=== PATIENT | female | born 1970 | race Caucasian/White ===

== ENCOUNTER 2020-02-09 14:03 | Inpatient (IN) | payer OTHER, SELFPAY ==
[2020-02-09 14:59] VITALS: BP 159/89; PULSE 106; RESP 18; TEMP 36.7; O2SAT 98; BMI 32.8
--- NOTE | 2020-02-09 16:07 | ED_ITS ---
HPI - Abdominal Pain General Chief Complaint: Abdominal Pain Stated Complaint: back pain Time Seen by Provider: 02/09/20 16:07 Source: patient Mode of arrival: ambulatory Limitations: no limitations History of Present Illness HPI narrative: this is a 41-year-old female with history of [id number] diabetes, fibromyalgia, depression, anxiety, polyarthralgia and migraine headache and surgical history of hysterectomy presenting ambulatory via triage with complaint of left-sided abdominal pain that has been going on for past 1-2 months. States now pain radiating to left side of the flank. States she recently was evaluated by her primary care doctor for this had an ultrasound with no specific findings and has not heard anything was told possibly for further investigation and GI follow-up which she has her from. States the discomfort and symptoms have increased thus leading to her having the emergency room visit here. States occasional indigestion and nausea but no vomiting or diarrhea. No fever. MD elicited complaint: abdominal pain and flank pain Onset (ago): month(s) Pain Consistency: intermittent Location: L flank Quality: aching Migration to: LLQ Exacerbating factors: nothing Relieving factors: nothing Related Data Allergies Allergy/AdvReac Type Severity Reaction Status Date / Time doxycycline [DOXYCYCLINE] Allergy Unknown RASH Verified 02/09/20 14:58 metformin Allergy Unknown diarrhea Unverified 11/24/19 00:00 Review of Systems Review of Systems Constitutional: No Weight loss, No Fever, No Chills, No Night Sweats, No Fatigue, No Malaise ENT/Mouth: No Hearing loss, No Ear Pain, No Nasal Congestion, No Sinus Pain, No Hoarseness, No sore throat, No Rhinorrhea, No Swallowing Difficulty Eyes: No Eye Pain, No Swelling, No Redness, No Foreign Body, No Discharge, No Vision Changes Cardiovascular: No Chest Pain, No SOB, No Dyspnea on Exertion, No Orthopnea, No Edema, No Palpitations Respiratory: No Cough, No Sputum, No Wheezing, No Smoke Exposure, No Dyspnea Gastrointestinal: + Nausea, No Vomiting, No Diarrhea, No Constipation, + abdominal Pain, No Hematochezia, No Melena Genitourinary: no irregular bleeding, No Dysuria, No Urinary Frequency, No Hematuria, No Urinary Incontinence, No Urgency, No Flank Pain, No Urinary Flow Changes, No Hesitancy Musculoskeletal: No joint pain, No Myalgias, No Joint Swelling Skin: No Skin Lesions, No rash Neuro: No Weakness, No Numbness, No Paresthesias, No Loss of Consciousness, No Dizziness, No Headache Psych: No Anxiety/Panic, No Depression, No SI/HI/AH/VH, No Social Issues, Heme/Lymph: No Bruising, No Bleeding,No Lymphadenopathy Endocrine: No Polyuria, No Polydipsia, No Temperature Intolerance Yes all other systems are reviewed and are negative Physical Exam Vital Signs: Vital Signs: Vital Signs Temp Pulse Resp BP Pulse Ox 02/09/20 19:32 98.2 F 96 18 116/69 100 02/09/20 14:59 98.1 F 106 H 18 159/89 H 98 Body Mass Index 32.8 Const: General: cooperative and healthy appearing; No acute distress or intoxicated appearing Nutritional Appearance: average body habitus Orientation/consciousness: patient oriented x3 HENMT: Head: Yes normal to inspection Ears: hearing grossly normal bilaterally Eyes: General: appearance normal, both eyes and all related structures Visu al George: normal visual george by confrontation Neck: Neck: Yes normal visual inspection and No tender Thyroid: Thyroid normal Chest: Chest palpation & inspection: normal inspection of the chest Resp: Effort & Inspection: normal respiratory effort Cardio: Jugular venous distension: no JVD GI: Inspection: Yes normal to inspection Percussion: Yes normal to percussion Auscultation: normal bowel sounds : General: Yes no CVA tenderness Back/Spine/Pelvis: Back: no CVA tenderness Skin: General skin exam: no rashes or lesions noted Neuro: General: patient oriented x3 Extrem: General: Yes normal to inspection Course Course Course Narrative: In review 41-year-old female with above history presenting with acute left-sided abdominal pain that is waxing waning type going on for the past month and a half for so seen outpatient by primary care doctor per patient unknown of what the results of her ultrasound were today having continued pain causing her to come into the emergency room. Workup as noted CT with significant abnormality of large mass in the left side involving multiple organs. Case discussed with oncologist Dr. Way recommendation for admission and further investigation of this. Patient has required couple rounds of pain medications case discussed with hospitalist for further management. Consultations Consultation #1: case discussed with oncologist Dr. Way regarding the concerning findings of the CT scan of the abdomen recommendations/agreement with admission. MDM - Abdominal Pain MDM Narrative Medical decision making narrative: Will treat with IV fluids, antiemetic and analgesia p.r.n.. Differential Diagnosis Differential diagnosis: Likely abdominal pain, calculus of kidney, constipation and diverticulitis; Unlikely aortic dissection, acute appendicitis, bowel perforation, endometriosis, gastroenteritis, gastritis, mesenteric ischemia, ovarian cyst, pancreatitis, peptic ulcer disease, renal colic and small bowel obstruction Lab Data Result diagrams: 02/09/20 16:15 02/09/20 16:15 Labs: Lab Results 02/09/20 02/09/20 02/09/20 Range/Units 16:15 16:15 16:15 WBC 9.7 (4.8-10.8) X10*3/uL RBC 5.08 (4.20-5.50) X10*6/uL Hgb 12.9 (12.0-16.0) g/dl Hct 40.4 (37-47) % MCV 79.5 L (80-98) fL MCH 25.4 L (27.0-33.0) pg MCHC 31.9 (31.0-35.0) g/dl RDW 14.6 (11.0-16.0) % Plt Count 482 H (160-400) X10*3/uL MPV 9.4 (9.4-12.3) fL Immature Gran % (Auto) 0.3 (0.0-0.4) % Neut % (Auto) 51.8 (45-73) % Lymph % (Auto) 30.9 (20-40) % Treasure % (Auto) 6.0 (2-11) % Eos % (Auto) 10.2 H (0-4) % Baso % (Auto) 0.8 (0-2) % Lymph # (Auto) 3.0 (1.2-4.9) X10*3/uL Treasure # (Auto) 0.6 (0.1-1.2) X10*3/uL Eos # (Auto) 1.0 H (0.0-0.4) X10*3/uL Baso # (Auto) 0.1 (0.0-0.2) X10*3/uL Abs Immat Gran (auto) 0.03 (0.00-0.03) X10*3/uL Absolute Neuts (auto) 5.0 (2.0-8.3) X10*3/uL Absolute Nucleated RBC 0.000 (0.0-0.012) X10*3/uL Nucleated RBC % (auto) 0.0 (0.0-0.2) /100WBC Hold Blue Top SEE NOTE Sodium (135-145) mmol/L Potassium (3.3-5.1) mmol/l Chloride (96-108) mmol/L Carbon Dioxide (22-29) mmol/L Anion Gap (12-20) BUN (9-16) mg/dL Creatinine (0.5-1.4) mg/dL Estim Creat Clear Calc Estimated GFR Random Glucose (60-115) mg/dL Calcium (8.4-10.2) mg/dL Total Bilirubin (0.0-1.0) mg/dL AST (5-31) U/L ALT (0-31) U/L Alkaline Phosphatase (39-117) U/L Total Protein (6.5-8.0) g/dL Albumin (3.5-5.0) g/dL Lipase (8-78) U/L Urine Color YELLOW Urine Appearance CLEAR Urine pH 6.0 (5.0-8.0) Ur Specific [place] 1.010 (1.005-1.025) Urine Protein NEG (NEG-TRACE) MG/DL Urine Glucose (UA) >=1000 H (NEG) MG/DL Urine Ketones NEG (NEG) MG/DL Urine Blood NEG (NEG) Urine Nitrite NEG (NEG) Ur Leukocyte Esterase NEG (NEG) Urine RBC 0 (0) /HPF Urine WBC 0 (0-4) /HPF Ur Squamous Epith Cells 1+ /LPF Urine Bacteria NONE /LPF Urine Test NEGATIVE (NEGATIVE) 02/09/20 Range/Units 16:15 WBC (4.8-10.8) X10*3/uL RBC (4.20-5.50) X10*6/uL Hgb (12.0-16.0) g/dl Hct (37-47) % MCV (80-98) fL MCH (27.0-33.0) pg MCHC (31.0-35.0) g/dl RDW (11.0-16.0) % Plt Count (160-400) X10*3/uL MPV (9.4-12.3) fL Immature Gran % (Auto) (0.0-0.4) % Neut % (Auto) (45-73) % Lymph % (Auto) (20-40) % Treasure % (Auto) (2-11) % Eos % (Auto) (0-4) % Baso % (Auto) (0-2) % Lymph # (Auto) (1.2-4.9) X10*3/uL Treasure # (Auto) (0.1-1.2) X10*3/uL Eos # (Auto) (0.0-0.4) X10*3/uL Baso # (Auto) (0.0-0.2) X10*3/uL Abs Immat Gran (auto) (0.00-0.03) X10*3/uL Absolute Neuts (auto) (2.0-8.3) X10*3/uL Absolute Nucleated RBC (0.0-0.012) X10*3/uL Nucleated RBC % (auto) (0.0-0.2) /100WBC Hold Blue Top Sodium 141 (135-145) mmol/L Potassium 4.2 (3.3-5.1) mmol/l Chloride 103 (96-108) mmol/L Carbon Dioxide 26 (22-29) mmol/L Anion Gap 16 (12-20) BUN 12 (9-16) mg/dL Creatinine 0.73 (0.5-1.4) mg/dL Estim Creat Clear Calc 96.6 Estimated GFR > 60 Random Glucose 159 H (60-115) mg/dL Calcium 10.2 (8.4-10.2) mg/dL Total Bilirubin 0.6 (0.0-1.0) mg/dL AST 14 (5-31) U/L ALT 11 (0-31) U/L Alkaline Phosphatase 153 H (39-117) U/L Total Protein 7.9 (6.5-8.0) g/dL Albumin 4.5 (3.5-5.0) g/dL Lipase 22 (8-78) U/L Urine Color Urine Appearance Urine pH (5.0-8.0) Ur Specific [place] (1.005-1.025) Urine Protein (NEG-TRACE) MG/DL Urine Glucose (UA) (NEG) MG/DL Urine Ketones (NEG) MG/DL Urine Blood (NEG) Urine Nitrite (NEG) Ur Leukocyte Esterase (NEG) Urine RBC (0) /HPF Urine WBC (0-4) /HPF Ur Squamous Epith Cells /LPF Urine Bacteria /LPF Urine Test (NEGATIVE) Imaging Data CT scan - abdomen: Radiologist's impression: Tabitha rush 49 F 1970 [place] [id number] [address] Scan Report Signed Patient: Tabitha rushMR#: [id number] : 1970Acct:[id number] Age/Sex: 49 / FADM Date: 02/09/20 Loc: HO.ED Attending Dr: Ordering Physician: Albert Kevin NP Date of Service: 02/09/20 Procedure(s): CT abdomen pelvis w con Accession Number(s): [id number] cc: Albert Kevin NP~ EXAMINATION: CT ABDOMEN AND PELVIS WITH CONTRAST CLINICAL INFORMATION: left side abd / flank COMPARISON: 01/26/2020 ultrasound and the 01/11/2015 CT scan TECHNIQUE: Multidetector volumetric imaging was performed from the superior aspect of the liver through the pubic symphysis following administration of 85 cc of Omnipaque intravenous contrast Sagittal and coronal reformatted images were obtained on the technologist workstation.. This CT examination was performed using dose optimization techniques as appropriate, variously including the following: *Automated exposure control *Adjustment of mA and/or kV according to patient size (this includes techniques or standardized protocols for targeted exams where dose is matched to indication/reason for exam; i.e. extremities or head) *Use of iterative reconstruction technique DLP: 644 mGy-cm FINDINGS: LUNG BASES: The visualized lung bases are unremarkable. LIVER, GALLBLADDER, AND BILIARY TREE: The liver is normal in size, shape, and attenuation. No focal hepatic lesion or biliary ductal dilatation is present. The gallbladder is unremarkable with no evidence of radiopaque gallstones, gallbladder wall thickening, or obvious pericholecystic inflammatory changes. PANCREAS: Unfortunately there is a large mass lesion there is involving the pancreatic tail and directly contiguous with the spleen, left adrenal gland, and posterior wall of the stomach. This large confluent mass is approximately 12.1 cm in maximal diameter. There is a more normal appearance to the pancreatic head, neck, and body. SPLEEN: Enlarged confluent mass involving the majority of the pancreas but extending into the adjacent structures as described above. ADRENAL GLANDS: The left adrenal gland is encased by the left upper quadrant ill-defined mass. Normal appearance to the contralateral right adrenal gland KIDNEYS AND URETERS: The kidneys are normal in size, shape, and attenuation. No hydronephrosis, hydroureter, or calculi seen. No perinephric stranding. BLADDER: Unremarkable. GASTROINTESTINAL TRACT: There are a few scattered colonic diverticula but no evidence for diverticulitis. Normal-appearing appendix in the right lower quadrant. Visualized small bowel is unremarkable. The left upper quadrant mass lesion unfortunately involves the posterior wall of the stomach. ABDOMINAL WALL: No significant hernia is appreciated. LYMPHOVASCULAR STRUCTURES: No lymphadenopathy. The aorta is unremarkable. PELVIC VISCERA: Unremarkable. OSSEOUS STRUCTURES: Unremarkable. IMPRESSION: Unfortunately there is a very large mass lesion left upper quadrant involving several directly adjacent organs. The majority of the spleen is involved by this lesion over the lesion extends to the splenic hilum and into the adjacent pancreatic tail, right adrenal gland, and posterior wall of the stomach. Etiology of this infiltrative mass is uncertain. With this lesion involving multiple structures the etiology is uncertain. The epicenter of the lesion likely is within the spleen extending into the adjacent structures. Tissue diagnosis will be needed. Lymphoma would be suspected based on the appearance and configuration however this is slightly more heterogeneous in attenuation than I would expect for lymphoma. With this heterogeneity and extension into adjacent structures, splenic sarcoma would need to be excluded. CT-guided biopsy will likely be needed to assess further. Dictated By:ROSSANA BAL MD Signed By:<Electronically signed by ROSSANA BAL MD in OV>02/09/201921 DD/ 1614 TD/TT: Roll Builder: [place] Discharge Plan Discharge Clinical Impression: Splenic mass, Abnormal CT of the abdomen Abdominal pain Qualifiers: Abdominal location: left upper quadrant Qualified Code(s): R10.12 - Left upper quadrant pain PMFSH Past Medical History Attestation statement: The following information was validated with the patient. Medical History (Updated 02/09/20 @ 21:03 by Albert Kevin NP) Anxiety Depression Diabetes Fibromyalgia Migraines Surgical History (Updated 02/09/20 @ 15:02 by Fouzia Ding) H/O: hysterectomy Social History Social History Alcohol intake: never Smoking Status: Never smoker Use of substances other than those prescribed or required for medical reasons: No Advance Directives: No Advance Directives Information Provided: Yes
--- NOTE | 2020-02-09 16:14 | CT_ITS ---
EXAMINATION: CT ABDOMEN AND PELVIS WITH CONTRAST CLINICAL INFORMATION: left side abd / flank COMPARISON: 01/26/2020 ultrasound and the 01/11/2015 CT scan TECHNIQUE: Multidetector volumetric imaging was performed from the superior aspect of the liver through the pubic symphysis following administration of 85 cc of Omnipaque intravenous contrast Sagittal and coronal reformatted images were obtained on the technologist workstation.. This CT examination was performed using dose optimization techniques as appropriate, variously including the following: *Automated exposure control *Adjustment of mA and/or kV according to patient size (this includes techniques or standardized protocols for targeted exams where dose is matched to indication/reason for exam; i.e. extremities or head) *Use of iterative reconstruction technique DLP: 644 mGy-cm FINDINGS: LUNG BASES: The visualized lung bases are unremarkable. LIVER, GALLBLADDER, AND BILIARY TREE: The liver is normal in size, shape, and attenuation. No focal hepatic lesion or biliary ductal dilatation is present. The gallbladder is unremarkable with no evidence of radiopaque gallstones, gallbladder wall thickening, or obvious pericholecystic inflammatory changes. PANCREAS: Unfortunately there is a large mass lesion there is involving the pancreatic tail and directly contiguous with the spleen, left adrenal gland, and posterior wall of the stomach. This large confluent mass is approximately 12.1 cm in maximal diameter. There is a more normal appearance to the pancreatic head, neck, and body. SPLEEN: Enlarged confluent mass involving the majority of the pancreas but extending into the adjacent structures as described above. ADRENAL GLANDS: The left adrenal gland is encased by the left upper quadrant ill-defined mass. Normal appearance to the contralateral right adrenal gland KIDNEYS AND URETERS: The kidneys are normal in size, shape, and attenuation. No hydronephrosis, hydroureter, or calculi seen. No perinephric stranding. BLADDER: Unremarkable. GASTROINTESTINAL TRACT: There are a few scattered colonic diverticula but no evidence for diverticulitis. Normal-appearing appendix in the right lower quadrant. Visualized small bowel is unremarkable. The left upper quadrant mass lesion unfortunately involves the posterior wall of the stomach. ABDOMINAL WALL: No significant hernia is appreciated. LYMPHOVASCULAR STRUCTURES: No lymphadenopathy. The aorta is unremarkable. PELVIC VISCERA: Unremarkable. OSSEOUS STRUCTURES: Unremarkable. IMPRESSION: Unfortunately there is a very large mass lesion left upper quadrant involving several directly adjacent organs. The majority of the spleen is involved by this lesion over the lesion extends to the splenic hilum and into the adjacent pancreatic tail, right adrenal gland, and posterior wall of the stomach. Etiology of this infiltrative mass is uncertain. With this lesion involving multiple structures the etiology is uncertain. The epicenter of the lesion likely is within the spleen extending into the adjacent structures. Tissue diagnosis will be needed. Lymphoma would be suspected based on the appearance and configuration however this is slightly more heterogeneous in attenuation than I would expect for lymphoma. With this heterogeneity and extension into adjacent structures, splenic sarcoma would need to be excluded. CT-guided biopsy will likely be needed to assess further.
[2020-02-09] MEDS: ondansetron HCL 4 MG/2 ML VIAL IVPUSH (16:28)
[2020-02-09] MEDS: 0.9 % Sodium Chloride 1,000 ML 999 ML IVCONT (16:28)
[2020-02-09 16:30] LABS: MANUAL DIFF FLAG NO
[2020-02-09 16:31] LABS: Basophils Absolute Auto 0.1 X10*3/uL (0.0-0.2); Basophils Percent Auto 0.8 % (0-2); Eosinophils Percent Auto 10.2 % (0-4); Hematocrit 40.4 % (37-47); Hemoglobin 12.9 g/dl (12.0-16.0); Imm Gran Abs Auto 0.03 X10*3/uL (0.00-0.03); Imm Gran Pct Auto 0.3 % (0.0-0.4); Lymphocytes Percent Auto 30.9 % (20-40); Mean Corpuscular HGB Conc 31.9 g/dl (31.0-35.0); Mean Corpuscular Hemoglobin 25.4 pg (27.0-33.0); Mean Corpuscular Volume 79.5 fL (80-98); Mean Platelet Volume 9.4 fL (9.4-12.3); Monocytes Absolute Auto 0.6 X10*3/uL (0.1-1.2); Neutrophils Percent Auto 51.8 % (45-73); Platelet Count 482 X10*3/uL (160-400); Red Blood Count 5.08 X10*6/uL (4.20-5.50); Red Cell Distribution Width 14.6 % (11.0-16.0); White Blood Count 9.7 X10*3/uL (4.8-10.8)
[2020-02-09 16:56] LABS: Glucose Urine UA >=1000 MG/DL (NEG); Leukocyte Esterase Urine NEG (NEG); Nitrite Urine NEG (NEG); Urine Blood NEG (NEG); Urine Ketones NEG (NEG); Urine Protein NEG (NEG-TRACE)
[2020-02-09 16:57] LABS: Appearance Urine CLEAR; Color Urine YELLOW
[2020-02-09 17:01] LABS: UPreg QC Valid YES; Urine Pregnancy NEGATIVE (NEGATIVE)
[2020-02-09 17:06] LABS: RBC Urine 0 /HPF (0); Squamous Epithelial Cell Urine 1+ /LPF; WBC Urine 0 /HPF (0-4)
[2020-02-09 17:09] LABS: Alanine Aminotransferase 11 U/L (0-31); Albumin Level 4.5 g/dL (3.5-5.0); Alkaline Phosphatase 153 U/L (39-117); Anion Gap 16 (12-20); Aspartate Amino Transferase 14 U/L (5-31); Bilirubin Total 0.6 mg/dL (0.0-1.0); Blood Urea Nitrogen 12 mg/dL (9-16); Calcium 10.2 mg/dL (8.4-10.2); Carbon Dioxide 26 mmol/L (22-29); Chloride 103 mmol/L (96-108); Creatinine Clr Calc Pharmacy 96.6; Estimated Glomerular Filt Rate > 60; Glucose Random 159 mg/dL (60-115); Lipase 22 U/L (8-78); Potassium 4.2 mmol/l (3.3-5.1); Sodium 141 mmol/L (135-145); Total Protein 7.9 g/dL (6.5-8.0)
[2020-02-09] MEDS: iohexoL 350 MG/ML 100 ML INFUS..BTL IV (19:02)
[2020-02-09 19:32] VITALS: BP 116/69; PULSE 96; RESP 18; TEMP 36.8; O2SAT 100
[2020-02-09] MEDS: Ketorolac Tromethamine 30 MG/ML VIAL IVPUSH (19:32)
[2020-02-09] MEDS: Morphine Sulfate 4 MG/ML CARTRIDGE IVPUSH (20:00)
--- NOTE | 2020-02-09 23:54 | PM.IMHP ---
History of Present Illness Date of Service: 02/09/20 Chief Complaint: abdominal pain this is a 49-year-old female with past medical history of diabetes, hypertension, fibromyalgia, migraine headaches, depression anxiety who presents to the hospital with complaints of abdominal pain. Patient reports that she has been having left upper quadrant abdominal pain for the past 2 months, radiating to the flank on the left side, she went to her GP which ordered an ultrasound last month which was on equivocal therefore patient was referred to GI but has not seen 1 and therefore decided to come to the hospital as pain worsened in the last 3 days to 10/10. Patient reports that prior to the 3 days pain was 5/10 constant, associated with nausea and vomiting, she has also had loss of appetite and weight loss but cannot tell me how many lb. She has been having constipation. The pain is significantly worse when she takes a deep breath or sleeps on her left side. She also feels fullness and distention of her abdomen. Review of system otherwise negative On arrival to the ED hemodynamically stable. Labs unremarkable CT abdomen showed a large mass lesion in the left upper quadrant involving several directly adjacent organs. The majority of the spleen, pancreatic tail, right adrenal gland, and posterior wall of the stomach etiology is uncertain Per read. Patient will be admitted for further evaluation past medical history: Diabetes, fibromyalgia, hypertension, migraine headaches, anxiety and depression past surgical history: Partial hysterectomy family history: No history of cancer social history: Smokes about half a pack a day but has cut down to about 1 cigarettes daily, denies alcohol and illicit drugs Review of Systems Review of Systems: Yes all other systems are reviewed and are negative [facility] Medical History Anxiety Depression Diabetes Fibromyalgia Migraines Surgical History H/O: hysterectomy Social History Household Members: Family Housing: House Do you presently have visiting nurse or other home services: No Alcohol intake: never Smoking Status: Light tobacco smoker Tobacco Type: Cigarette Patient Interested in Nicotine Replacement: No Use of substances other than those prescribed or required for medical reasons: No Currently Displaying Signs/Symptoms of Drug Intoxication Withdrawal: No Have you been hit, kicked, punched, or otherwise hurt by someone within the past year? If so, by whom?: No Do you feel safe in your current relationship?: Yes Is there a partner from a previous relationship who is making you feel unsafe now?: No Are you made to feel afraid or neglected: No Advance Directives: No Advance Directives Information Provided: Yes Do you have thoughts of harming others: None Do you have a plan to hurt others: No Plan Recently lost weight without trying: No Meds Allergies Allergy/AdvReac Type Severity Reaction Status Date / Time doxycycline [DOXYCYCLINE] Allergy Unknown RASH Verified 02/09/20 14:58 metformin Allergy Unknown diarrhea Unverified 11/24/19 00:00 Home Medications Medication Instructions Recorded Confirmed Type Vitamin D (with calcium) 2,000 units 02/09/20 History dulaglutide [Trulicity] mg SUBCUT DIRECTED 02/09/20 History empagliflozin [Jardiance] mg 02/09/20 History lisinopril 02/09/20 History Physical Exam Vital Signs and Narrative: Vital Signs: Last Vital Signs Temp 98.2 F 02/09/20 19:32 Pulse 96 02/09/20 19:32 Resp 18 02/09/20 19:32 BP 116/69 02/09/20 19:32 Pulse Ox 100 02/09/20 19:32 Body Mass Index 32.8 Const: General: cooperative and no acute distress Orientation/consciousness: patient oriented x3 Eyes: General: appearance normal, both eyes and all related structures Pupils: Equal, round and reactive pupils present Resp: Effort & Inspection: normal respiratory effort and able to speak in complete sentences Auscultation: clear to auscultation bilaterally Cardio: Rate: regular rate Rhythm: regular rhythm GI: Other: slightly tender in the left upper quadrant Palpation (GI): Soft to palpation Auscultation: normal bowel sounds Skin: General skin exam: no rashes or lesions noted Neuro: General: patient oriented x3 Cranial nerves: Yes Equal, round and reactive pupils present Cognition (Neuro): normal cognition Extrem: General: Yes normal to inspection and Yes no pedal edema Results Labs Labs: Laboratory Tests 02/09/20 02/09/20 02/09/20 16:15 16:15 16:15 WBC 9.7 RBC 5.08 Hgb 12.9 Hct 40.4 MCV 79.5 L MCH 25.4 L MCHC 31.9 RDW 14.6 Plt Count 482 H MPV 9.4 Immature Gran % (Auto) 0.3 Neut % (Auto) 51.8 Lymph % (Auto) 30.9 [place] % (Auto) 6.0 Eos % (Auto) 10.2 H Baso % (Auto) 0.8 Lymph # (Auto) 3.0 [place] # (Auto) 0.6 Eos # (Auto) 1.0 H Baso # (Auto) 0.1 Abs Immat Gran (auto) 0.03 Absolute Neuts (auto) 5.0 Absolute Nucleated RBC 0.000 Nucleated RBC % (auto) 0.0 Hold Blue Top SEE NOTE Sodium Potassium Chloride Carbon Dioxide Anion Gap BUN Creatinine Estim Creat Clear Calc Estimated GFR Random Glucose Calcium Total Bilirubin AST ALT Alkaline Phosphatase Total Protein Albumin Lipase Urine Color YELLOW Urine Appearance CLEAR Urine pH 6.0 Ur Specific [place] 1.010 Urine Protein NEG Urine Glucose (UA) >=1000 H Urine Ketones NEG Urine Blood NEG Urine Nitrite NEG Ur Leukocyte Esterase NEG Urine RBC 0 Urine WBC 0 Ur Squamous Epith Cells 1+ Urine Bacteria NONE Urine Test NEGATIVE 02/09/20 16:15 WBC RBC Hgb Hct MCV MCH MCHC RDW Plt Count MPV Immature Gran % (Auto) Neut % (Auto) Lymph % (Auto) [place] % (Auto) Eos % (Auto) Baso % (Auto) Lymph # (Auto) [place] # (Auto) Eos # (Auto) Baso # (Auto) Abs Immat Gran (auto) Absolute Neuts (auto) Absolute Nucleated RBC Nucleated RBC % (auto) Hold Blue Top Sodium 141 Potassium 4.2 Chloride 103 Carbon Dioxide 26 Anion Gap 16 BUN 12 Creatinine 0.73 Estim Creat Clear Calc 96.6 Estimated GFR > 60 Random Glucose 159 H Calcium 10.2 Total Bilirubin 0.6 AST 14 ALT 11 Alkaline Phosphatase 153 H Total Protein 7.9 Albumin 4.5 Lipase 22 Urine Color Urine Appearance Urine pH Ur Specific [place] Urine Protein Urine Glucose (UA) Urine Ketones Urine Blood Urine Nitrite Ur Leukocyte Esterase Urine RBC Urine WBC Ur Squamous Epith Cells Urine Bacteria Urine Test Imaging CT scan - abdomen: Radiologist's impression: IMPRESSION: Unfortunately there is a very large mass lesion left upper quadrant involving several directly adjacent organs. The majority of the spleen is involved by this lesion over the lesion extends to the splenic hilum and into the adjacent pancreatic tail, right adrenal gland, and posterior wall of the stomach. Etiology of this infiltrative mass is uncertain. With this lesion involving multiple structures the etiology is uncertain. The epicenter of the lesion likely is within the spleen extending into the adjacent structures. Tissue diagnosis will be needed. Lymphoma would be suspected based on the appearance and configuration however this is slightly more heterogeneous in attenuation than I would expect for lymphoma. With this heterogeneity and extension into adjacent structures, splenic sarcoma would need to be excluded. CT-guided biopsy will likely be needed to assess further. Assessment and Plan (1) Splenic mass: Status: Acute (2) Abdominal pain: Qualifiers: Abdominal location: left upper quadrant Qualified Code(s): R10.12 - Left upper quadrant pain Status: Acute (3) Abnormal CT of the abdomen: Status: Acute (4) Fibromyalgia: Status: Acute (5) Diabetes: Status: Acute (6) Depression: Status: Acute (7) Anxiety: Status: Acute this is a 49-year-old female with past medical history as above who presents to the hospital abdominal pain found to have an abdominal mass. # Abdominal pain - secondary to a large abdominal mass - also associated with nausea vomiting plan: - pain management , antiemetics - supportive measures # splenic mass - lymphoma versus splenic sarcoma - CT findings as above Plan: - Hematology-Oncology consult - biopsy of the mass in a.m. - general surgery consult # fibromyalgia - does not appear to be on any meds - monitor #DM - Hold home meds - LDSSI - Diabetic diet # Anciety and depression - monitor DVT prophylaxis: Heparin subcu date of service 02/10/2020
[2020-02-09] MEDS: Heparin Sodium,Porcine 5,000 UNIT/ML VIAL 5000 UNIT SUBCUT (23:55)
[2020-02-09] MEDS: 0.9 % Sodium Chloride Flush 3 ML SYRINGE IVFLUSH (23:56)
[2020-02-10] VITALS (12 sets, daily range): BP systolic 90–140; BP diastolic 55–84; PULSE 93–115; RESP 18–20; TEMP 36.1–37.2; O2SAT 97–99; BMI 32.2
--- NOTE | 2020-02-10 | CT_ITS ---
PROCEDURE: CT GUIDED BIOPSY, ABDOMINAL MASS CLINICAL INFORMATION: Left upper quadrant mass COMPARISON: Previous CT of the abdomen and pelvis from yesterday and abdominal ultrasound 01/26/2020 TECHNIQUE: Procedure risks and benefits including bleeding, infection and injury to the adjacent organs was discussed with the patient and informed consent was obtained. The patient was positioned in the supine position. Limited axial images through the upper quadrant was performed. The left upper quadrant was prepped and draped in the usual sterile fashion. The skin and soft tissues were anesthetized with 1% lidocaine plain. Using CT guidance and a coaxial system, access to the left upper quadrant mass adjacent to the greater curvature of the stomach, tail the pancreas and spleen was obtained. 2 22-gauge FNA specimens were obtained. This was followed by 4 20-gauge core biopsies. The patient received Versed 2 mg and fentanyl 100 mcg intravenously during the procedure. Total sedation time was 33 minutes. There is no complication. This CT examination was performed using dose optimization techniques as appropriate, variously including the following: *Automated exposure control *Adjustment of mA and/or kV according to patient size (this includes techniques or standardized protocols for targeted exams where dose is matched to indication/reason for exam; i.e. extremities or head) *Use of iterative reconstruction technique DLP: 174 mGy-cm FINDINGS: There is a soft tissue mass in the left upper quadrant adjacent to the greater curvature of the stomach tail of the pancreas but hilum that was targeted for CT-guided FNA and biopsy. IMPRESSION: CT-guided left upper quadrant mass fna and biopsy.
[2020-02-10] MEDS: Morphine Sulfate 4 MG/ML CARTRIDGE IVPUSH ×2 (00:38→08:33)
[2020-02-10 06:25] LABS: MANUAL DIFF FLAG NO
[2020-02-10 06:46] LABS: Basophils Absolute Auto 0.1 X10*3/uL (0.0-0.2); Basophils Percent Auto 1.2 % (0-2); Eosinophils Absolute Auto 1.1 X10*3/uL (0.0-0.4); Eosinophils Percent Auto 11.7 % (0-4); Hematocrit 35.2 % (37-47); Hemoglobin 11.5 g/dl (12.0-16.0); Imm Gran Abs Auto 0.05 X10*3/uL (0.00-0.03); Imm Gran Pct Auto 0.5 % (0.0-0.4); Lymphocytes Absolute Auto 3.6 X10*3/uL (1.2-4.9); Lymphocytes Percent Auto 37.8 % (20-40); Mean Corpuscular HGB Conc 32.7 g/dl (31.0-35.0); Mean Corpuscular Hemoglobin 26.3 pg (27.0-33.0); Mean Corpuscular Volume 80.5 fL (80-98); Mean Platelet Volume 10.2 fL (9.4-12.3); Monocytes Absolute Auto 0.7 X10*3/uL (0.1-1.2); Monocytes Percent Auto 6.8 % (2-11); Platelet Count 449 X10*3/uL (160-400); Red Blood Count 4.37 X10*6/uL (4.20-5.50); Red Cell Distribution Width 14.7 % (11.0-16.0); White Blood Count 9.5 X10*3/uL (4.8-10.8)
[2020-02-10 07:07] LABS: Anion Gap 14 (12-20); Blood Urea Nitrogen 18 mg/dL (9-16); Calcium 9.3 mg/dL (8.4-10.2); Carbon Dioxide 22 mmol/L (22-29); Chloride 104 mmol/L (96-108); Creatinine Clr Calc Pharmacy 88.6; Estimated Glomerular Filt Rate > 60; Glucose Random 189 mg/dL (60-115); Sodium 136 mmol/L (135-145)
[2020-02-10 07:30] LABS: Glucose, Whole Blood 156 mg/dL (60-115)
[2020-02-10] MEDS: lisinopriL 10 MG TABLET PO (08:29)
[2020-02-10] MEDS: 0.9 % Sodium Chloride Flush 3 ML SYRINGE IVFLUSH ×2 (09:06→20:53)
--- NOTE | 2020-02-10 10:15 | MHC.CM.PN ---
Patient lives in an apartment with her Boyfriend and she is functionally independent. Patient's goal is to return home and CM has initiated and will follow for dc planning.
[2020-02-10 10:36] LABS: Lactate Dehydrogenase 725 U/L (122-220)
--- NOTE | 2020-02-10 10:54 | P.CNHO_ITS ---
Subjective - Subjective Chief complaint: CONSULT FOR: INTRA-ABDOMINAL MASS. COMPLAINTS: ABDOMINAL PAIN. Patient: new to practice Requesting Physician: Sury. Primary Care Provider: Doretha Devine MD Medical Summary: DIAGNOSIS: INTRA-ABDOMINAL MALIGNANCY. HPI - Consult Narrative Reason for consult: Metastatic malignancy. Narrative: Tabitha Bill is a pleasant, 49 year old lady, who complains of abdominal p ain. She tells me the whole thing started around November. Initially she had trouble eating. She had a decreased appetite. She would feel nauseous. Later on she would vomit. She felt colicky abdominal pain intermittently. She later noted pelvic pain. Initially the pain would come and go. Later she noted that if she would take a deep breath in it would come the pain down. The pain has gradually been increasing in intensity. Over the past 5 days it went up to a level of 8. Even Deep breathing hurts. She has lost weight. Her bowels are irregular. Though lately she has been rather constipated. Denies any gross blood in the stools. She feels rather fatigued. Has felt rather feverish. She has noted headaches. She had a CT scan of the abdomen yesterday in the emergency room which revealed: Very large mass lesion left upper quadrant involving several adjacent organs. Majority of the spleen is involved by this lesion. It extends to the splenic hilum and into the adgacent pancreatic tail, right adrenal gland and posterior wall of the stomach. The epicenter of the lesion likely is within this spleen extending into the adjacent structures. lymphoma would be suspected however this is likely more heterogenous in attenuation. differential also includes splenic sarcoma. An Oncology consultation has been called for further evaluation. Review of Systems - Constitutional Reports chills, Reports weakness, Reports weight loss - Eyes Denies change in vision - ENT Reports system reviewed and no additional complaints, except as documented - Cardiovascular Denies chest pain, Denies generalized swelling - Respiratory Reports cough Comments: in the morning - Gastrointestinal Reports abdominal pain, Reports bloating, Reports change in bowel habits, Rep orts constipation, Reports cramping, Reports nausea, Reports vomiting, Denies vomiting blood - Musculoskeletal Denies joint swelling - Integumentary/Breasts Skin/Breast: Denies skin ulcer - Neurologic Reports system reviewed and no additional complaints, except as documented, Reports hearing normal - Psychiatric Reports change in appetite, Reports depression - Hematologic/Lymphatic Denies easy bleeding - Allergic/Immunologic Reports GI upset with certain foods PMFSH Medical History: Medical History (Last Updated 02/10/20 @ 04:59 by Elaine Ga MD) Anxiety Depression Diabetes Fibromyalgia Migraines Surgical History: Surgical History (Last Reviewed 02/10/20 @ 04:54 by Elaine Ga MD) H/O: hysterectomy Smoking status: Light tobacco smoker Home Medications and Allergies Current Medications: Current Medications Generic Name Dose Route Start Last Admin Trade Name Freq PRN Reason Stop Dose Admin Acetaminophen 650 mg 02/09/20 23:38 Acetaminophen 325 Mg Tablet PO Q6H PRN Pain, Mild (Pain Scale 1-3) Docusate Sodium 100 mg 02/09/20 23:38 Docusate Sodium 100 Mg Capsule PO DAILY PRN Constipation Heparin Sodium (Porcine) 5,000 unit 02/09/20 23:38 02/09/20 23:55 Heparin Sodium,Porcine 5,000 Unit/Ml Vial SUBCUT 5,000 unit Q12H MICHEL Administration Insulin Human Lispro 0 unit 02/10/20 07:30 02/10/20 08:29 Insulin Lispro 100 Unit/Ml 3 Ml Vial SUBCUT Not Given QIDACHS [facility] Protocol Lisinopril 10 mg 02/10/20 09:00 02/10/20 08:29 Lisinopril 10 Mg Tablet PO 10 mg DAILY MICHEL Administration Protocol Morphine Sulfate 4 mg 02/09/20 23:38 02/10/20 08:33 Morphine Sulfate 4 Mg/Ml Cartridge IVPUSH 4 mg Q4H PRN Administration Pain, Severe (Pain Scale 7-10) Ondansetron HCl 4 mg 02/09/20 23:38 Ondansetron Hcl 4 Mg/2 Ml Vial IVPUSH Q8H PRN Nausea and Vomiting Oxycodone HCl 5 mg 02/09/20 23:38 Oxycodone Hcl Immed Release 5 Mg Tablet PO Q6H PRN Pain, Severe (Pain Scale 7-10) Sodium Chloride 3 ml 02/10/20 00:00 02/10/20 09:06 0.9 % Sodium Chloride Flush 3 Ml Syringe IVFLUSH 3 ml QSHIFT MICHEL Administration Home Medications Medication Instructions Recorded Confirmed Type Vitamin D (with calcium) 2,000 units 02/09/20 History dulaglutide [Trulicity] mg SUBCUT DIRECTED 02/09/20 History empagliflozin [Jardiance] mg 02/09/20 History lisinopril 02/09/20 History Allergies Allergy/AdvReac Type Severity Reaction Status Date / Time doxycycline [DOXYCYCLINE] Allergy Unknown RASH Verified 02/09/20 14:58 metformin Allergy Unknown diarrhea Unverified 11/24/19 00:00 Physical Exam Vital signs: Vital Signs Temp 98.2 F 02/10/20 08:00 Pulse 93 02/10/20 08:29 Resp 18 02/10/20 08:00 BP 117/78 02/10/20 08:29 Pulse Ox 99 02/10/20 08:00 Intake & Output 02/09/20 02/10/20 02/10/20 18:59 06:59 18:59 Intake Total 1000 / 1000 240 / 240 Output Total 200 / 200 Balance 1000 / 800 -200 / 800 240 / 240 Urine Output (Average ml/kg/hr) 0.20 0.20 Intake: Intake, Oral Amount 240 / 240 Intake, IV Amount 1000 / 1000 0.9 % Sodium Chloride 1,000 ml 1000 / 1000 @ 999 mls/hr IVCONT .Q1H1M [facility] Rx#:[id number] Output: Output, Urine Amount 200 / 200 Other: Breakfast % Eaten 100% Last Bowel Movement 02/07/20 Weight 83.915 kg 82.554 kg Weight 82.554 kg - Constitutional Present: mild distress - Routine HEENT Exam Head: Present: normal inspection, normocephalic ENT: Present: mucous membranes moist - Routine Neck Exam Present: supple - Routine Respiratory Exam Present: CTAB - Routine Cardiovascular Exam Cardiovascular: Present: RRR, S1, S2 - Routine Abdominal Exam Present: distended, firm, hyperactive bowel sounds, tenderness - Routine Rectal Exam Patient deferred: digital exam - Routine Extremities Exam Present: nontender - Routine Back/Spine/Pelvis Exam Back/Spine: Present: full ROM - Detailed Neurological Exam: Coma Scale Eye Opening: Spontaneous (4) Verbal Response: Oriented (5) Motor Response: Obeys commands (6) [place] Coma Scale Total: 15 - Routine Psychiatric Exam Present: anxious, depressed Hem/Onc Consult Result - Labs CBC & Chem 7: 02/10/20 05:55 02/10/20 05:55 Labs: Short CBC 10/12/20 10/13/20 Range/Units 16:15 05:55 WBC 9.7 9.5 (4.8-10.8) X10*3/uL Hgb 12.9 11.5 L (12.0-16.0) g/dl Hct 40.4 35.2 L (37-47) % Plt Count 482 H 449 H (160-400) X10*3/uL BMP 02/09/20 02/10/20 16:15 05:55 Sodium 141 136 Potassium 4.2 4.0 Chloride 103 104 Carbon Dioxide 26 22 BUN 12 18 H Creatinine 0.73 0.79 Calcium 10.2 9.3 Liver Function 02/09/20 Range/Units 16:15 Total Bilirubin 0.6 (0.0-1.0) mg/dL AST 14 (5-31) U/L ALT 11 (0-31) U/L Alkaline Phosphatase 153 H (39-117) U/L Albumin 4.5 (3.5-5.0) g/dL Urine 02/09/20 Range/Units 16:15 Urine Color YELLOW Urine Appearance CLEAR Urine pH 6.0 (5.0-8.0) Ur Specific [place] 1.010 (1.005-1.025) Urine Protein NEG (NEG-TRACE) MG/DL Urine Glucose (UA) >=1000 H (NEG) MG/DL Assessment and Plan (1) Abnormal CT of the abdomen Status: Acute (2) Intra-abdominal malignant neoplasm Status: Acute This is a pleasant 49-year-old lady who presented with a couple of months history of GI complaints. She had colicky abdominal pain, nausea vomiting and constipation. CT scan is as detailed above. Differential diagnosis includes: 1. Lymphoma. 2. GI stromal tumor. 3. Sarcoma. 4. Another primary intra-abdominal malignancy. I have reviewed the imaging with Dr. Kramer from [facility]. PLAN: The plan is to proceed with a CT scan-guided biopsy of the left upper quadrant mass, which is the most accessible site. Will make further treatment plans based upon the exact histology. In the meantime, will check tumor markers: LDH, CA 19-9, and CA 125. All this has been explained to the patient in detail. All her questions have been answered to her satisfaction. Thank you, cc:
[2020-02-10 11:01] LABS: Partial Thromboplastin Time 34.3 SEC (24.1-38.0)
[2020-02-10 11:09] LABS: INTERNATIONAL NORM RATIO 1.2 (0.9-1.1); Prothrombin Time 13.9 SEC (10.8-13.0)
[2020-02-10 11:51] LABS: Glucose, Whole Blood 186 mg/dL (60-115)
--- NOTE | 2020-02-10 15:50 | HO.RADPN ---
RADIOLOGY Narrative Narrative: CT guided left upper quadrant mass fna and biopsy using coaxial system. No complication.
[2020-02-10] MEDS: Lidocaine HCl 1 % 20 ML VIAL 10 ML SUBCUT (15:57)
[2020-02-10 16:48] LABS: Glucose, Whole Blood 136 mg/dL (60-115)
--- NOTE | 2020-02-10 17:50 | P.PNIM_ITS ---
Subjective Subjective Date of Service: 02/10/20 Interval History: Ongoing LUQ pain No fever/chills/night sweats/weight loss Review of Systems Review of Systems: Yes all other systems are reviewed and are negative Physical Exam Vital Signs: Vital Signs: Vital Signs Temp Pulse Resp BP Pulse Ox 02/10/20 17:30 95 20 138/80 97 02/10/20 17:00 99 20 130/79 99 02/10/20 16:30 97 20 124/84 98 02/10/20 16:06 98.2 F 98 20 138/80 98 02/10/20 11:24 98.3 F 100 18 126/83 98 02/10/20 08:29 93 117/78 02/10/20 08:00 98.2 F 93 18 117/78 99 02/10/20 04:00 98 F 93 19 107/66 98 02/10/20 00:00 97 F 93 20 140/79 H 99 02/09/20 19:32 98.2 F 96 18 116/69 100 Body Mass Index 32.2 Const: General: cooperative and no acute distress Chest: Chest palpation & inspection: normal inspection of the chest Resp: Effort & Inspection: normal respiratory effort Auscultation: clear to auscultation bilaterally Cardio: Rate: regular rate Rhythm: regular rhythm GI: Palpation (GI): Tenderness to palpation present (GI) (LUQ) and Splenomegaly present Extrem: General: Yes no clubbing, cyanosis or edema Objective Data Current Medications Generic Name Dose Route Start Last Admin Trade Name Oneilq PRN Reason Stop Dose Admin Acetaminophen 650 mg 02/09/20 23:38 Acetaminophen 325 Mg Tablet PO Q6H PRN Pain, Mild (Pain Scale 1-3) Docusate Sodium 100 mg 02/09/20 23:38 Docusate Sodium 100 Mg Capsule PO DAILY PRN Constipation Heparin Sodium (Porcine) 5,000 unit 02/09/20 23:38 02/10/20 10:56 Heparin Sodium,Porcine 5,000 Unit/Ml Vial SUBCUT Not Given Q12H [facility] Insulin Human Lispro 0 unit 02/10/20 07:30 02/10/20 17:31 Insulin Lispro 100 Unit/Ml 3 Ml Vial SUBCUT Not Given QIDACHS [facility] Protocol Lisinopril 10 mg 02/10/20 09:00 02/10/20 08:29 Lisinopril 10 Mg Tablet PO 10 mg DAILY [facility] Administration Protocol Morphine Sulfate 4 mg 02/09/20 23:38 02/10/20 08:33 Morphine Sulfate 4 Mg/Ml Cartridge IVPUSH 4 mg Q4H PRN Administration Pain, Severe (Pain Scale 7-10) Ondansetron HCl 4 mg 02/09/20 23:38 Ondansetron Hcl 4 Mg/2 Ml Vial IVPUSH Q8H PRN Nausea and Vomiting Oxycodone HCl 5 mg 02/09/20 23:38 Oxycodone Hcl Immed Release 5 Mg Tablet PO Q6H PRN Pain, Severe (Pain Scale 7-10) Sodium Chloride 3 ml 02/10/20 00:00 02/10/20 17:30 0.9 % Sodium Chloride Flush 3 Ml Syringe IVFLUSH Not Given QSHIFT [facility] Labs CBC & Chem 7: 02/10/20 05:55 02/10/20 05:55 Labs: Laboratory Results - last 24 hr 02/10/20 02/10/20 02/10/20 05:55 05:55 07:24 MCV 80.5 MCH 26.3 L MCHC 32.7 RDW 14.7 Plt Count 449 H MPV 10.2 Immature Gran % (Auto) 0.5 H Neut % (Auto) 42.0 L Lymph % (Auto) 37.8 [place] % (Auto) 6.8 Eos % (Auto) 11.7 H Baso % (Auto) 1.2 Lymph # (Auto) 3.6 [place] # (Auto) 0.7 Eos # (Auto) 1.1 H Baso # (Auto) 0.1 Abs Immat Gran (auto) 0.05 H Absolute Neuts (auto) 4.0 Absolute Nucleated RBC 0.000 Nucleated RBC % (auto) 0.0 PT INR APTT Anion Gap 14 Estim Creat Clear Calc 88.6 Estimated GFR > 60 POC Glucose 156 H Random Glucose 189 H Calcium 9.3 Lactate Dehydrogenase 725 H Carcinoembryonic Ag 0.80 02/10/20 02/10/20 02/10/20 10:23 10:23 11:44 MCV MCH MCHC RDW Plt Count MPV Immature Gran % (Auto) Neut % (Auto) Lymph % (Auto) [place] % (Auto) Eos % (Auto) Baso % (Auto) Lymph # (Auto) [place] # (Auto) Eos # (Auto) Baso # (Auto) Abs Immat Gran (auto) Absolute Neuts (auto) Absolute Nucleated RBC Nucleated RBC % (auto) PT Cancelled 13.9 H INR Cancelled 1.2 H APTT 34.3 Anion Gap Estim Creat Clear Calc Estimated GFR POC Glucose 186 H Random Glucose Calcium Lactate Dehydrogenase Carcinoembryonic Ag 02/10/20 16:44 MCV MCH MCHC RDW Plt Count MPV Immature Gran % (Auto) Neut % (Auto) Lymph % (Auto) [place] % (Auto) Eos % (Auto) Baso % (Auto) Lymph # (Auto) [place] # (Auto) Eos # (Auto) Baso # (Auto) Abs Immat Gran (auto) Absolute Neuts (auto) Absolute Nucleated RBC Nucleated RBC % (auto) PT INR APTT Anion Gap Estim Creat Clear Calc Estimated GFR POC Glucose 136 H Random Glucose Calcium Lactate Dehydrogenase Carcinoembryonic Ag Progress Note: A&P (1) Intra-abdominal malignant neoplasm: Status: Acute Assessment and Plan: hospital d#1 49yo F presenting with LUQ pain and found to have large intra-abdominal mass, likely splenic mass, ddx lymphoma vs sarcoma vs GIST vs other intra-abd malignancy # splenic mass - CT-guided biopsy today - LDH elevated, CEA normal, CA-19.9 and CA-125 pending - Heme/Onc following # N/V - continue antiemetics # fibromyalgia - stable # HTN - continue lisionpril # DM2 - DM diet, correction-dose lispro
[2020-02-10] MEDS: oxyCODONE HCl Immed Release 5 MG TABLET PO (20:53)
[2020-02-10 21:01] LABS: Glucose, Whole Blood 195 mg/dL (60-115)
[2020-02-10] MEDS: Heparin Sodium,Porcine 5,000 UNIT/ML VIAL 5000 UNIT SUBCUT (22:48)
[2020-02-11] MEDS: Morphine Sulfate 4 MG/ML CARTRIDGE IVPUSH ×3 (00:55→14:35)
[2020-02-11 04:00] VITALS: BP 115/80; PULSE 98; RESP 18; TEMP 36.9; O2SAT 98
[2020-02-11 06:00] VITALS: BMI 31.8
[2020-02-11 06:23] LABS: MANUAL DIFF FLAG NO
[2020-02-11 06:48] LABS: Basophils Absolute Auto 0.1 X10*3/uL (0.0-0.2); Basophils Percent Auto 0.8 % (0-2); Eosinophils Absolute Auto 0.9 X10*3/uL (0.0-0.4); Eosinophils Percent Auto 9.9 % (0-4); Hematocrit 35.7 % (37-47); Hemoglobin 11.5 g/dl (12.0-16.0); Imm Gran Abs Auto 0.08 X10*3/uL (0.00-0.03); Imm Gran Pct Auto 0.9 % (0.0-0.4); Lymphocytes Absolute Auto 2.9 X10*3/uL (1.2-4.9); Lymphocytes Percent Auto 32.8 % (20-40); Mean Corpuscular HGB Conc 32.2 g/dl (31.0-35.0); Mean Corpuscular Volume 80.6 fL (80-98); Monocytes Absolute Auto 0.6 X10*3/uL (0.1-1.2); Neutrophils Absolute Auto 4.2 X10*3/uL (2.0-8.3); Neutrophils Percent Auto 48.6 % (45-73); Platelet Count 462 X10*3/uL (160-400); Red Blood Count 4.43 X10*6/uL (4.20-5.50); Red Cell Distribution Width 14.9 % (11.0-16.0); White Blood Count 8.7 X10*3/uL (4.8-10.8)
[2020-02-11 07:00] LABS: Estimated Average Glucose 266 mg/dL; Hemoglobin A1c % 10.9 %
[2020-02-11 07:57] LABS: Glucose, Whole Blood 204 mg/dL (60-115)
[2020-02-11 08:00] VITALS: BP 121/67; PULSE 107; RESP 20; TEMP 36.2; O2SAT 97
[2020-02-11] MEDS: 0.9 % Sodium Chloride Flush 3 ML SYRINGE IVFLUSH (08:17)
[2020-02-11 08:20] VITALS: BP 121/67; PULSE 107
[2020-02-11] MEDS: Insulin Lispro 100 UNIT/ML 3 ML VIAL SUBCUT (08:20)
[2020-02-11] MEDS: lisinopriL 10 MG TABLET PO (08:20)
[2020-02-11 12:00] VITALS: BP 132/62; PULSE 88; RESP 20; TEMP 36.2; O2SAT 99
--- NOTE | 2020-02-11 14:29 | P.DS_ITS ---
DS: Providers Provider Date of admission: 02/09/20 21:33 Primary care physician: Doretha Devine MD Consults: 02/09/20 23:38 Consult to Physician Routine Consulting Provider: Cheng Way Reason for consultation: Abdominal Mass Has provider been notified: Yes DS: Diagnosis Discharge Diagnosis (1) Intra-abdominal malignant neoplasm: Status: Acute DS: Summary Hospital Course Hospital Course: From the admission history and physical by hospitalist Elaine Ga, 02/09/20: this is a 49-year-old female with past medical history of diabetes, hypertension, fibromyalgia, migraine headaches, depression anxiety who presents to the hospital with complaints of abdominal pain. Patient reports that she has been having left upper quadrant abdominal pain for the past 2 months, radiating to the flank on the left side, she went to her GP which ordered an ultrasound last month which was on equivocal therefore patient was referred to GI but has not seen 1 and therefore decided to come to the hospital as pain worsened in the last 3 days to 10/10. Patient reports that prior to the 3 days pain was 5/10 constant, associated with nausea and vomiting, she has also had loss of appetite and weight loss but cannot tell me how many lb. She has been having constipation. The pain is significantly worse when she takes a deep breath or sleeps on her left side. She also feels fullness and distention of her abdomen. Review of system otherwise negative On arrival to the ED hemodynamically stable. Labs unremarkable CT abdomen showed a large mass lesion in the left upper quadrant involving several directly adjacent organs. The majority of the spleen, pancreatic tail, right adrenal gland, and posterior wall of the stomach etiology is uncertain Per read. [place] [facility] [place] was consulted. She underwent a CT guided left upper quadrant mass FNA and biopsy using coaxial system on 02/10/[address] Liudmila Kramer without complication. Preliminary pathology showed malignancy of unknown primary and stains and cytogenetics are pending at the time of discharge. She was sent home with follow-up arranged with the oncologist on 03/02/20 at 8:00am at [facility]. She was also prescribed oxycodone 10 mg q6h prn severe pain and should follow up with her primary care doctor within 1 week. Time Spent with Patient Time attestation: Total time spent providing and/or coordinating discharge services: Physical Exam Vital Signs: Vital Signs: Vital Signs Temp Pulse Resp BP Pulse Ox 02/11/20 12:00 97.2 F 88 20 132/62 99 02/11/20 08:20 107 H 121/67 02/11/20 08:00 97.2 F 107 H 20 121/67 97 02/11/20 04:00 98.5 F 98 18 115/80 98 02/10/20 23:57 98.9 F 115 H 18 121/71 97 02/10/20 20:48 98.6 F 109 H 113/68 02/10/20 20:28 98.0 F 107 H 18 90/55 L 97 02/10/20 17:30 95 20 138/80 97 02/10/20 17:00 99 20 130/79 99 02/10/20 16:30 97 20 124/84 98 02/10/20 16:06 98.2 F 98 20 138/80 98 Body Mass Index 31.8 Const: General: no acute distress Orientation/consciousness: patient oriented x3 Eyes: Sclerae: sclerae normal Resp: Effort & Inspection: normal respiratory effort Auscultation: clear to auscultation bilaterally Cardio: Rate: regular rate Rhythm: regular rhythm GI: Inspection: Yes normal to inspection Palpation (GI): Tenderness to palpation present (GI) in the LUQ and Splenomegaly present Neuro: General: patient oriented x3 DS: Data Data Completed and Pending Pending studies at discharge: Pending at discharge 02/10/20 15:36 Cytology [PTH] Stat Labs on day of discharge: Laboratory Results - last 72 hr 02/09/20 02/09/20 02/09/20 16:15 16:15 16:15 WBC 9.7 RBC 5.08 Hgb 12.9 Hct 40.4 MCV 79.5 L MCH 25.4 L MCHC 31.9 RDW 14.6 Plt Count 482 H MPV 9.4 Immature Gran % (Auto) 0.3 Neut % (Auto) 51.8 Lymph % (Auto) 30.9 [place] % (Auto) 6.0 Eos % (Auto) 10.2 H Baso % (Auto) 0.8 Lymph # (Auto) 3.0 [place] # (Auto) 0.6 Eos # (Auto) 1.0 H Baso # (Auto) 0.1 Abs Immat Gran (auto) 0.03 Absolute Neuts (auto) 5.0 Absolute Nucleated RBC 0.000 Nucleated RBC % (auto) 0.0 PT INR APTT Hold Blue Top SEE NOTE Sodium Potassium Chloride Carbon Dioxide Anion Gap BUN Creatinine Estim Creat Clear Calc Estimated GFR POC Glucose Random Glucose Estimat Average Glucose Hemoglobin A1c % Calcium Total Bilirubin AST ALT Alkaline Phosphatase Lactate Dehydrogenase Total Protein Albumin Lipase Carcinoembryonic Ag Urine Color YELLOW Urine Appearance CLEAR Urine pH 6.0 Ur Specific [place] 1.010 Urine Protein NEG Urine Glucose (UA) >=1000 H Urine Ketones NEG Urine Blood NEG Urine Nitrite NEG Ur Leukocyte Esterase NEG Urine RBC 0 Urine WBC 0 Ur Squamous Epith Cells 1+ Urine Bacteria NONE Urine Test NEGATIVE 02/09/20 02/10/20 02/10/20 16:15 05:55 05:55 WBC 9.5 RBC 4.37 Hgb 11.5 L Hct 35.2 L MCV 80.5 MCH 26.3 L MCHC 32.7 RDW 14.7 Plt Count 449 H MPV 10.2 Immature Gran % (Auto) 0.5 H Neut % (Auto) 42.0 L Lymph % (Auto) 37.8 [place] % (Auto) 6.8 Eos % (Auto) 11.7 H Baso % (Auto) 1.2 Lymph # (Auto) 3.6 [place] # (Auto) 0.7 Eos # (Auto) 1.1 H Baso # (Auto) 0.1 Abs Immat Gran (auto) 0.05 H Absolute Neuts (auto) 4.0 Absolute Nucleated RBC 0.000 Nucleated RBC % (auto) 0.0 PT INR APTT Hold Blue Top Sodium 141 136 Potassium 4.2 4.0 Chloride 103 104 Carbon Dioxide 26 22 Anion Gap 16 14 BUN 12 18 H Creatinine 0.73 0.79 Estim Creat Clear Calc 96.6 88.6 Estimated GFR > 60 > 60 POC Glucose Random Glucose 159 H 189 H Estimat Average Glucose Hemoglobin A1c % Calcium 10.2 9.3 Total Bilirubin 0.6 AST 14 ALT 11 Alkaline Phosphatase 153 H Lactate Dehydrogenase 725 H Total Protein 7.9 Albumin 4.5 Lipase 22 Carcinoembryonic Ag 0.80 Urine Color Urine Appearance Urine pH Ur Specific [place] Urine Protein Urine Glucose (UA) Urine Ketones Urine Blood Urine Nitrite Ur Leukocyte Esterase Urine RBC Urine WBC Ur Squamous Epith Cells Urine Bacteria Urine Test 1002/10/20 02/10/20 07:24 10:23 10:23 WBC RBC Hgb Hct MCV MCH MCHC RDW Plt Count MPV Immature Gran % (Auto) Neut % (Auto) Lymph % (Auto) [place] % (Auto) Eos % (Auto) Baso % (Auto) Lymph # (Auto) [place] # (Auto) Eos # (Auto) Baso # (Auto) Abs Immat Gran (auto) Absolute Neuts (auto) Absolute Nucleated RBC Nucleated RBC % (auto) PT Cancelled 13.9 H INR Cancelled 1.2 H APTT 34.3 Hold Blue Top Sodium Potassium Chloride Carbon Dioxide Anion Gap BUN Creatinine Estim Creat Clear Calc Estimated GFR POC Glucose 156 H Random Glucose Estimat Average Glucose Hemoglobin A1c % Calcium Total Bilirubin AST ALT Alkaline Phosphatase Lactate Dehydrogenase Total Protein Albumin Lipase Carcinoembryonic Ag Urine Color Urine Appearance Urine pH Ur Specific [place] Urine Protein Urine Glucose (UA) Urine Ketones Urine Blood Urine Nitrite Ur Leukocyte Esterase Urine RBC Urine WBC Ur Squamous Epith Cells Urine Bacteria Urine Test 02/10/20 02/10/20 02/10/20 11:44 16:44 20:54 WBC RBC Hgb Hct MCV MCH MCHC RDW Plt Count MPV Immature Gran % (Auto) Neut % (Auto) Lymph % (Auto) [place] % (Auto) Eos % (Auto) Baso % (Auto) Lymph # (Auto) [place] # (Auto) Eos # (Auto) Baso # (Auto) Abs Immat Gran (auto) Absolute Neuts (auto) Absolute Nucleated RBC Nucleated RBC % (auto) PT INR APTT Hold Blue Top Sodium Potassium Chloride Carbon Dioxide Anion Gap BUN Creatinine Estim Creat Clear Calc Estimated GFR POC Glucose 186 H 136 H 195 H Random Glucose Estimat Average Glucose Hemoglobin A1c % Calcium Total Bilirubin AST ALT Alkaline Phosphatase Lactate Dehydrogenase Total Protein Albumin Lipase Carcinoembryonic Ag Urine Color Urine Appearance Urine pH Ur Specific [place] Urine Protein Urine Glucose (UA) Urine Ketones Urine Blood Urine Nitrite Ur Leukocyte Esterase Urine RBC Urine WBC Ur Squamous Epith Cells Urine Bacteria Urine Test 02/11/20 02/11/20 02/11/20 05:36 05:36 07:53 WBC 8.7 RBC 4.43 Hgb 11.5 L Hct 35.7 L MCV 80.6 MCH 26.0 L MCHC 32.2 RDW 14.9 Plt Count 462 H MPV 10.0 Immature Gran % (Auto) 0.9 H Neut % (Auto) 48.6 Lymph % (Auto) 32.8 [place] % (Auto) 7.0 Eos % (Auto) 9.9 H Baso % (Auto) 0.8 Lymph # (Auto) 2.9 [place] # (Auto) 0.6 Eos # (Auto) 0.9 H Baso # (Auto) 0.1 Abs Immat Gran (auto) 0.08 H Absolute Neuts (auto) 4.2 Absolute Nucleated RBC 0.000 Nucleated RBC % (auto) 0.0 PT INR APTT Hold Blue Top Sodium Potassium Chloride Carbon Dioxide Anion Gap BUN Creatinine Estim Creat Clear Calc Estimated GFR POC Glucose 204 H Random Glucose Estimat Average Glucose 266 Hemoglobin A1c % 10.9 Calcium Total Bilirubin AST ALT Alkaline Phosphatase Lactate Dehydrogenase Total Protein Albumin Lipase Carcinoembryonic Ag Urine Color Urine Appearance Urine pH Ur Specific [place] Urine Protein Urine Glucose (UA) Urine Ketones Urine Blood Urine Nitrite Ur Leukocyte Esterase Urine RBC Urine WBC Ur Squamous Epith Cells Urine Bacteria Urine Test CT abdomen/pelvis with contrast, 02/09/20: Unfortunately there is a very large mass lesion left upper quadrant involving several directly adjacent organs. The majority of the spleen is involved by this lesion over the lesion extends to the splenic hilum and into the adjacent pancreatic tail, right adrenal gland, and posterior wall of the stomach. Etiology of this infiltrative mass is uncertain. With this lesion involving multiple structures the etiology is uncertain. The epicenter of the lesion likely is within the spleen extending into the adjacent structures. Tissue diagnosis will be needed. Lymphoma would be suspected based on the appearance and configuration however this is slightly more heterogeneous in attenuation than I would expect for lymphoma. With this heterogeneity and extension into adjacent structures, splenic sarcoma would need to be excluded. CT-guided biopsy will likely be needed to assess further. Discharge Plan Discharge Patient Disposition: Home, Self-Care Referrals: Doretha Spencer MD [Primary Care Provider] - Discharge Medications: New oxycodone 10 mg tablet 10 mg PO Q6H PRN (Reason: pain) Qty: 28 RF: 0 oxycodone 5 mg Tablet 10 mg PO Q6H PRN (Reason: Pain, Severe (Pain Scale 7-10)) Qty: 0 RF: 0 Continued lisinopril 10 mg Tablet RF: 0 Jardiance 10 mg Tablet RF: 0 Trulicity 0.75 mg/0.5 mL Pen Injector SUBCUT DIRECTED RF: 0 Vitamin D (with calcium) 2,000 units RF: 0 Discharge Orders: Discharge Order (Routine); Ordered 02/11/20 Ordered By: Stanislav Quinones Diet: advance to your usual diet Activity on Discharge: As tolerated Visit Report Forms: Patient Portal Discharge page Care Plan Goals: diagnose and treat neoplasm Health Concerns: neoplasm, pending workup Plan of Treatment: Please follow up with Cheng Way at [facility] Hematology-Onco logy Appointment is on Monday, March 02, 2020, at 8:[address] [address] For severe pain, take 1 tab of oxycodone 10 mg every 6 hours as needed.
--- NOTE | 2020-02-11 14:31 | MHC.CM.PN ---
Patient has been medically cleared for dc to home today, no services. F/U appointment with Dr. Way (Oncology) is 03/02/20 at 8 AM; MD is aware.
[2020-02-11 21:22] LABS: CA-125 37 U/mL (<35)
[2020-02-12 12:27] LABS: Carbohydrate Antigen 19-9 17 U/mL (<34)
== END 2020-02-11 16:00 | disposition home or self-care (01) | DRG 694 ==
LOC: HO.ED 21:26 → HO.IMC 22:21
PROVIDERS: Internal Medicine Medical Oncology; Nurse Practitioner Primary Care; Admitting Provider Internal Medicine; Emergency Provider Internal Medicine; PCP Internal Medicine; Visit Provider Family Medicine
DX: C80.1 Malignant (primary) neoplasm, unspecified (principal); F17.210 Nicotine dependence, cigarettes, uncomplicated; F41.9 Anxiety disorder, unspecified; F32.9 Major depressive disorder, single episode, unspecified; M79.7 Fibromyalgia; Z71.6 Tobacco abuse counseling; Z79.899 Other long term (current) drug therapy
CPT/HCPCS: 36415; 49180; 74177; 77012; 80048; 80053; 81001; 81025; 82378; 82947; 83036; 83615; 83690; 85025; 85610; 85730; 86301; 86304; 88172; 88173; 88177; 88305; 88341; 88342; 88360; 96361; 96374; 96375; 99152; 99153; 99285; J1885; J2270; J2405

== ENCOUNTER → 2020-03-04 08:40 | Outpatient (BNV) | payer OTHER, SELFPAY | PROVIDERS: PCP Internal Medicine; Visit Provider Internal Medicine Medical Oncology | DX: C76.2 Malignant neoplasm of abdomen (principal) | CPT/HCPCS: 99212; 99213; 99214 ==

== ENCOUNTER → 2020-03-16 09:21 | Outpatient (REF) | payer OTHER, SELFPAY ==
--- NOTE | 2020-03-16 09:25 | CA_ITS ---
Transthoracic Echocardiogram Patient (Last, First, Middle): Tabitha Bill Luz Gender: Female Date of : 1970 Age: 49 Procedure Date: 03/16/2020 Procedure Type: Transthoracic Echocardiogram Location: OP Height: 160.02 cm Weight: 79.38 kg BSA: 1.83 m2 Heart Rate: bpm BP: 104 / 66 mmHg Critical Care Rn: Referring MD: Cheng Way MD Symptoms: Pre chemotherapy Study Quality: Good ECG Rhythm: Sinus Conclusions: - The left ventricular systolic function is normal. The visually estimated ejection fraction is between 55-60%. - No obvious valvular pathology seen on this study. Findings Left Ventricle Normal left ventricular cavity size. There is normal left ventricular wall thickness. The left ventricular systolic function is normal. The visually estimated ejection fraction is between 55-60%. There is no evidence of regional wall motion abnormalities. Diastolic function is normal for age. Strain imaging with suboptimal endocardial tracking and hence not reported. Right Ventricle Normal right ventricular cavity size and systolic function. Atria Both atria are normal in size. Aortic Valve There is a normal trileaflet aortic valve. There is no aortic valve stenosis. There is no aortic valve regurgitation. Mitral Valve The mitral valve appears normal. There is trace mitral valve regurgitation. There is no mitral valve stenosis. Pulmonic Valve The pulmonic valve was not well visualized. Tricuspid Valve Normal tricuspid valve structure. There is trace tricuspid valve regurgitation. The pulmonary artery systolic pressure is normal. Great Vessels The asc aorta is normal in size. Venous The inferior vena cava is normal in size and collapses greater than 50% with inspiration. Pericardium/Pleural There is no evidence of pericardial effusion. Prior Study Comparison No prior study available for comparison. Recommendations, Care & Conclusions No obvious valvular pathology seen on this study. Measurements 2D Linear Measurements RVIDd: 2.86 RVIDd Index: 1.56 IVSd: 0.82 0.6-0.9/0.6-1.0 cm LVIDd: 4.55 3.9-5.3/4.2-5.9 cm LVIDd Index: 2.49 2.4-3.2/2.2-3.1 cm/m2 LVIDs: 2.91 2.0-3.6 cm LVPWd: 0.93 0.7-1.1 cm Ao Root: 3.00 2.1-3.5 cm LA Diam: 3.00 2.7-3.8/3.0-4.0 cm LAIDs Index: 1.64 1.5-2.3 cm/m2 LV Mass: 161.34 67-162/88-224 g LV Mass Index: 88.17 43-95/49-115 g/m2 LVOT Diam: 2.10 3.0+(-)1.3 cm 2D Systolic Function EF 4C: 48.20 >55% EF 2C: 57.90 >55% Mitral Valve MV Pk E: 0.61 MV PK A: 0.75 MV Decel Time: 98.00 E/A: 0.80 E'Lateral: 8.70 E'Medial: 8.05 E/E' Med: 7.50 E/E' Lat: 7.00 Aortic Valve AoV Pk Peewee: 1.48 AoV Mn [place]: 1.01 AoV VTI: 0.24 AoV Pk Grad: 9.00 Aov Mn Grad: 5.00 BENJIE Cont.VTI: 2.74 LVOT LVOT Pk [place]: 1.17 LVOT Mn [place]wee: 0.73 LVOT VTI: 0.19 LVOT Pk Grad: 5.00 LVOT Mn Grad: 3.00 LVOT Diam: 2.10 LVOT Area: 3.46 Diastolic Function MV Pk E: 0.61 MV Pk A: 0.75 E/A: 0.80 E'Medial: 8.05 E/E' Med: 7.50 E' Laterial: 8.70 E/E' Lat: 7.00 Great Vessels Aorta Ao Root-2D: 3.00 2.0-3.7 cm Ao Asc: 2.70 2.1-3.4 cm Ao Arch: 2.40 Updated in Other Vendor System with Status of Final Raul Will MD electronically signed on 03/17/2020 3:57:48 PM with status of Final
== END ==
LOC: HO.CARD 09:21
PROVIDERS: PCP Internal Medicine; Visit Provider Internal Medicine Medical Oncology
DX: Z01.818 Encounter for other preprocedural examination (principal); C76.2 Malignant neoplasm of abdomen
CPT/HCPCS: 93306; 93356

== ENCOUNTER 2020-03-17 11:45 | Day surgery (SDC) | payer OTHER, SELFPAY ==
--- NOTE | 2020-03-17 | CT_ITS ---
EXAMINATION: CT-GUIDED FINE-NEEDLE ASPIRATION AND BIOPSY CLINICAL INFORMATION: Left upper quadrant mass COMPARISON: Previous CT scans January 2020 TECHNIQUE: Procedure and risks and benefits including bleeding, infection and injury injury to the adjacent organs was discussed with the patient and informed consent was obtained. Patient was positioned in the supine position. Limited axial images through the abdomen following 40L mL Omnipaque 350 IV contrast were performed. The left upper quadrant was prepped and draped in the usual sterile fashion. The skin and soft tissues were anesthetized with 1% lidocaine plain. Using CT guidance and a coaxial system, access to the left upper quadrant mass adjacent to the spleen, tail the pancreas, stomach and left adrenal gland was obtained. 1 22-gauge FNA specimen was obtained. This was bloody and needle was positioned more superiorly in the mass. A second 22-gauge FNA specimen was obtained which was less likely. Subsequently, multiple 20-gauge core biopsies were obtained and placed in formalin and flow cytometry solution. Total sedation time was 45 minutes. Patient received Versed 2 mg and fentanyl 100 mcg intravenously during the procedure. Patient dose 2 oh 6 mg/cm. FINDINGS: There is a large mass in the left upper quadrant involving the spleen, tail the pancreas, stomach and left adrenal gland. Involvement of the left adrenal gland and stomach may be increased compared to January 2020 exam. There are small lymph nodes anterior to the pancreas that may be increased. There are small retroperitoneal lymph nodes that do not appear appreciably changed. There is a new small left pleural effusion and left lower lobe subsegmental atelectasis. CT/CT biopsy abdomen percutaneous IMPRESSION: CT-guided core biopsy and FNA of the left upper quadrant mass.
[2020-03-17 11:42] LABS: MANUAL DIFF FLAG NO
[2020-03-17 11:45] LABS: Basophils Absolute Auto 0.1 X10*3/uL (0.0-0.2); Basophils Percent Auto 1.1 % (0-2); Eosinophils Absolute Auto 1.5 X10*3/uL (0.0-0.4); Eosinophils Percent Auto 12.1 % (0-4); Hematocrit 40.8 % (37-47); Hemoglobin 12.6 g/dl (12.0-16.0); Imm Gran Abs Auto 0.13 X10*3/uL (0.00-0.03); Imm Gran Pct Auto 1.1 % (0.0-0.4); Lymphocytes Absolute Auto 2.1 X10*3/uL (1.2-4.9); Lymphocytes Percent Auto 17.6 % (20-40); Mean Corpuscular HGB Conc 30.9 g/dl (31.0-35.0); Mean Corpuscular Hemoglobin 24.4 pg (27.0-33.0); Mean Corpuscular Volume 79.1 fL (80-98); Monocytes Absolute Auto 0.9 X10*3/uL (0.1-1.2); Monocytes Percent Auto 7.5 % (2-11); Neutrophils Absolute Auto 7.3 X10*3/uL (2.0-8.3); Neutrophils Percent Auto 60.6 % (45-73); Platelet Count 696 X10*3/uL (160-400); Red Blood Count 5.16 X10*6/uL (4.20-5.50); Red Cell Distribution Width 15.4 % (11.0-16.0)
[2020-03-17 11:49] LABS: INTERNATIONAL NORM RATIO 1.2 (0.9-1.1); Prothrombin Time 14.7 SEC (10.8-13.0)
[2020-03-17 11:52] LABS: Partial Thromboplastin Time 36.2 SEC (24.1-38.0)
[2020-03-17 11:56] LABS: Glucose, Whole Blood 176 mg/dL (60-115)
[2020-03-17 12:11] LABS: Anion Gap 13 (12-20); Carbon Dioxide 27 mmol/L (22-29); Chloride 100 mmol/L (96-108); Potassium 4.5 mmol/l (3.3-5.1); Sodium 135 mmol/L (135-145)
--- NOTE | 2020-03-17 12:41 | CT_ITS ---
EXAMINATION: CT-GUIDED FINE-NEEDLE ASPIRATION AND BIOPSY CLINICAL INFORMATION: Left upper quadrant mass COMPARISON: Previous CT scans January 2020 TECHNIQUE: Procedure and risks and benefits including bleeding, infection and injury injury to the adjacent organs was discussed with the patient and informed consent was obtained. Patient was positioned in the supine position. Limited axial images through the abdomen following 40L mL Omnipaque 350 IV contrast were performed. The left upper quadrant was prepped and draped in the usual sterile fashion. The skin and soft tissues were anesthetized with 1% lidocaine plain. Using CT guidance and a coaxial system, access to the left upper quadrant mass adjacent to the spleen, tail the pancreas, stomach and left adrenal gland was obtained. 1 22-gauge FNA specimen was obtained. This was bloody and needle was positioned more superiorly in the mass. A second 22-gauge FNA specimen was obtained which was less likely. Subsequently, multiple 20-gauge core biopsies were obtained and placed in formalin and flow cytometry solution. Total sedation time was 45 minutes. Patient received Versed 2 mg and fentanyl 100 mcg intravenously during the procedure. Patient dose 2 oh 6 mg/cm. FINDINGS: There is a large mass in the left upper quadrant involving the spleen, tail the pancreas, stomach and left adrenal gland. Involvement of the left adrenal gland and stomach may be increased compared to January 2020 exam. There are small lymph nodes anterior to the pancreas that may be increased. There are small retroperitoneal lymph nodes that do not appear appreciably changed. There is a new small left pleural effusion and left lower lobe subsegmental atelectasis. CT/CT guided FNA IMPRESSION: CT-guided core biopsy and FNA of the left upper quadrant mass.
[2020-03-17] MEDS: Lidocaine HCl 1 % MPF 5 ML VIAL 10 ML SUBCUT (13:58)
--- NOTE | 2020-03-17 13:58 | HO.RADPN ---
RADIOLOGY Narrative Narrative: Left upper quadrant core biopsy using coaxial system. Multiple 20g core biopsies from left upper quadrant mass in between stomach, spleen and tail of pancreas and two 22g FNA. No complication.
[2020-03-17 14:00] VITALS: BP 118/71; PULSE 88; RESP 14; TEMP 36.8; O2SAT 97
[2020-03-17] MEDS: iohexoL 350 MG/ML 100 ML INFUS..BTL 40 ML IV (14:00)
[2020-03-17 14:15] VITALS: BP 112/69; PULSE 92; RESP 16; O2SAT 96
[2020-03-17 14:45] VITALS: BP 115/77; PULSE 90; RESP 18; O2SAT 97
[2020-03-17 15:15] VITALS: BP 108/72; PULSE 91; RESP 18; O2SAT 97
[2020-03-17 15:45] VITALS: BP 128/80; PULSE 92; RESP 20; O2SAT 98
[2020-03-17 15:57] VITALS: PULSE 91; RESP 20; O2SAT 98
[2020-03-18 18:42] LABS: LLE Markers 16; LLE Viability 92 %
== END 2020-03-17 16:00 | disposition home or self-care (01) ==
PROVIDERS: Radiology Diagnostic Radiology; PCP Internal Medicine; Visit Provider Internal Medicine Medical Oncology
DX: C85.13 Unspecified B-cell lymphoma, intra-abdominal lymph nodes (principal); F32.9 Major depressive disorder, single episode, unspecified; E11.9 Type 2 diabetes mellitus without complications; G43.909 Migraine, unspecified, not intractable, without status migrainosus; M79.7 Fibromyalgia; Z79.84 Long term (current) use of oral hypoglycemic drugs; Z79.899 Other long term (current) drug therapy; Z88.8 Allergy status to other drugs, medicaments and biological substances; Z87.891 Personal history of nicotine dependence
CPT/HCPCS: 10009; 36415; 49180; 77012; 80051; 82947; 85025; 85610; 85730; 88172; 88173; 88184; 88185; 88189; 88271; 88275; 88300; 88305; 88341; 88342; 99152; 99153; J2250; J3010; Q9967

== ENCOUNTER 2020-03-29 09:09 | Day surgery (SDC) | payer OTHER, SELFPAY ==
--- NOTE | 2020-03-29 | IR_ITS ---
PROCEDURE: IR INSERTION OF TUNNEL CATHETER CLINICAL INFORMATION: Lymphoma. Port for chemotherapy. COMPARISON: None TECHNIQUE: Procedure and risks and benefits including bleeding, infection and pneumothorax were discussed with the patient and informed consent was obtained. All elements of maximal sterile barrier technique followed including use of cap, mask, sterile gown, sterile gloves, a sterile full body drape and hand hygiene. Also followed skin preparation with 2% chlorhexidine for cutaneous antisepsis, and sterile ultrasound preparation with sterile gel and probe cover when applicable. The right lower neck and upper chest were prepped and draped in the usual sterile fashion. The skin and soft tissues of the right lower neck were anesthetized with 1% lidocaine plain. A small incision was made. Using ultrasound guidance and a 5-Macanese micropuncture system, right internal jugular vein access was obtained. Over an 0.018 wire, a 5-Macanese dilator was positioned in the SVC. The skin and soft tissues of the right upper anterior chest were anesthetized with 1% lidocaine plain. A small incision was made. Using blunt dissection, subcutaneous pocket was created. A subcutaneous tunnel from the chest to the neck incision was anesthetized with 1% lidocaine plain. Using a tunneler, a 6.6-Macanese single-lumen catheter was tunneled from the chest to the neck incision. The catheter was attached to the port. The catheter and port were flushed. The port was positioned in the subcutaneous pocket and secured using two 2-0 nonabsorbable sutures. An 0.035 guidewire was advanced through the 5-Macanese dilator into the IVC. Using bent wire technique, catheter length was estimated and the catheter was cut. Catheter length is 20 cm. The catheter was fed through the peel-away sheath. The neck incision was closed using a 4-0 absorbable wall subcuticular suture. Chest incision was closed using three 3-0 absorbable interrupted sutures followed by a running subcuticular absorbable 4-0 suture. The port was accessed. The port had good blood return, flushed easily and was instilled with heparin 5 mL of 100 unit per mL solution. Patient received Versed 1.5 mg and fentanyl 75 mcg intravenously during the procedure. Total sedation time was 45 minutes. Fluoroscopy time 0.3 minutes. 1 saved fluoroscopic image. Real-time ultrasound guidance was used to document vein patency and for needle entry. A formal ultrasound picture was recorded. FINDINGS:. There is a 6.6-Macanese single-lumen dignity Port-A-Cath with tip projecting over the cavoatrial junction. There is a left pleural effusion. IR/IR us guide venous access IMPRESSION: Right internal jugular 6.6-Macanese single-lumen Dignity Port-A-Cath placement. Left pleural effusion.
[2020-03-29 10:07] VITALS: BMI 30.9
[2020-03-29] MEDS: ceFAZolin Sodium 1 GM VIAL 2 GM IV (10:17)
[2020-03-29 10:19] VITALS: BP 124/77; PULSE 113; RESP 16; TEMP 36.6; O2SAT 96
[2020-03-29 10:34] LABS: Glucose, Whole Blood 171 mg/dL (60-115)
--- NOTE | 2020-03-29 12:02 | IR_ITS ---
PROCEDURE: IR INSERTION OF TUNNEL CATHETER CLINICAL INFORMATION: Lymphoma. Port for chemotherapy. COMPARISON: None TECHNIQUE: Procedure and risks and benefits including bleeding, infection and pneumothorax were discussed with the patient and informed consent was obtained. All elements of maximal sterile barrier technique followed including use of cap, mask, sterile gown, sterile gloves, a sterile full body drape and hand hygiene. Also followed skin preparation with 2% chlorhexidine for cutaneous antisepsis, and sterile ultrasound preparation with sterile gel and probe cover when applicable. The right lower neck and upper chest were prepped and draped in the usual sterile fashion. The skin and soft tissues of the right lower neck were anesthetized with 1% lidocaine plain. A small incision was made. Using ultrasound guidance and a 5-Trinidadian micropuncture system, right internal jugular vein access was obtained. Over an 0.018 wire, a 5-Trinidadian dilator was positioned in the SVC. The skin and soft tissues of the right upper anterior chest were anesthetized with 1% lidocaine plain. A small incision was made. Using blunt dissection, subcutaneous pocket was created. A subcutaneous tunnel from the chest to the neck incision was anesthetized with 1% lidocaine plain. Using a tunneler, a 6.6-Trinidadian single-lumen catheter was tunneled from the chest to the neck incision. The catheter was attached to the port. The catheter and port were flushed. The port was positioned in the subcutaneous pocket and secured using two 2-0 nonabsorbable sutures. An 0.035 guidewire was advanced through the 5-Trinidadian dilator into the IVC. Using bent wire technique, catheter length was estimated and the catheter was cut. Catheter length is 20 cm. The catheter was fed through the peel-away sheath. The neck incision was closed using a 4-0 absorbable wall subcuticular suture. Chest incision was closed using three 3-0 absorbable interrupted sutures followed by a running subcuticular absorbable 4-0 suture. The port was accessed. The port had good blood return, flushed easily and was instilled with heparin 5 mL of 100 unit per mL solution. Patient received Versed 1.5 mg and fentanyl 75 mcg intravenously during the procedure. Total sedation time was 45 minutes. Fluoroscopy time 0.3 minutes. 1 saved fluoroscopic image. Real-time ultrasound guidance was used to document vein patency and for needle entry. A formal ultrasound picture was recorded. FINDINGS:. There is a 6.6-Trinidadian single-lumen dignity Port-A-Cath with tip projecting over the cavoatrial junction. There is a left pleural effusion. IR/IR cvc insert tunnel w prt/global marketing coordinator IMPRESSION: Right internal jugular 6.6-Trinidadian single-lumen Dignity Port-A-Cath placement. Left pleural effusion.
--- NOTE | 2020-03-29 13:28 | HO.RADPN ---
RADIOLOGY Narrative Narrative: Right IJ portacath placed. 6.6 Fr Dignity single lumen. Tip at cavoatrial junction.
[2020-03-29 13:35] VITALS: BP 115/70; PULSE 108; RESP 16; TEMP 36.8; O2SAT 94
[2020-03-29] MEDS: Lidocaine HCl 1%/Epi 1:100,000 20 ML VIAL INFILTRATI (13:36)
[2020-03-29] MEDS: Heparin Sodium,Porcine 1,000 UNIT/ML VIAL 1000 UNIT IV (13:41)
[2020-03-29 13:50] VITALS: BP 109/76; PULSE 112; RESP 18; O2SAT 96
[2020-03-29 14:05] VITALS: BP 126/83; PULSE 110; RESP 18; O2SAT 95
[2020-03-29 14:20] VITALS: BP 135/88; PULSE 114; RESP 18; O2SAT 99
[2020-03-29 14:45] VITALS: BP 122/84; PULSE 110; RESP 18; TEMP 536.5; TEMP 997.7; O2SAT 99
== END 2020-03-29 14:57 | disposition home or self-care (01) ==
PROVIDERS: PCP Internal Medicine; Visit Provider Radiology Diagnostic Radiology
DX: C85.90 Non-Hodgkin lymphoma, unspecified, unspecified site (principal)
CPT/HCPCS: 36561; 76937; 82947; 99152; 99153; C1769; C1788; J0690; J1642; J2250; J3010

== ENCOUNTER 2020-04-17 14:33 | Inpatient (IN) | payer OTHER, SELFPAY ==
[2020-04-17] VITALS (8 sets, daily range): BP systolic 111–180; BP diastolic 64–103; PULSE 123–143; RESP 17–26; TEMP 36.8–39.2; O2SAT 94–97; BMI 30.1
[2020-04-17] MEDS: 0.9 % Sodium Chloride 500 ML IV ×2 (14:30→21:02)
--- NOTE | 2020-04-17 14:45 | ED_ITS ---
HPI - Fever General Chief Complaint: Fever Stated Complaint: fever, weakness Time Seen by Provider: 04/17/20 14:45 Source: patient and EMS Mode of arrival: EMS Limitations: no limitations History of Present Illness HPI Narrative: patient had labs on Sunday - asked to have her urine checked due to dysuria and hx of urosepsis - told she did not have UTI at that time WBC 76- 150 with trace bacteria, her cultures has grown out bernard-sensitive E. Coli elicited complaint: fever, malaise and weakness Pertinent past history: immunosuppression (s/p chemo 3 weeks ago for non hogdkin lymphoma) Onset (ago): week(s) (1) Context: on chemotherapy Exacerbating factors: nothing Relieving factors: nothing Associated symptoms: chills, myalgias, nausea and other (dysura) Treatments prior to arrival fever: none Related Data Home Medications Medication Instructions Recorded Confirmed Trulicity 0.75 mg SUBCUT QWEEK 02/09/20 02/24/20 lisinopril 10 mg PO DAILY 02/09/20 02/24/20 Previous Rx's Medication Instructions Recorded docusate sodium 100 mg PO BID #60 cap 02/11/20 morphine [MS Contin] 30 mg PO Q12H #60 tab 02/24/20 cholecalciferol (vitamin D3) 50 50 mcg PO DAILY #30 cap 03/31/20 mcg (2,000 unit) capsule empagliflozin 10 mg tablet 10 mg PO QAM #30 cap 03/31/20 ondansetron HCl [Zofran] 8 mg PO Q8H PRN #60 tab 04/01/20 oxycodone 10 mg PO Q4H PRN #60 tab 04/01/20 prednisone 60 mg PO DAILY #100 tab 04/01/20 ondansetron HCl [Zofran] 8 mg PO Q8H #30 tab 04/12/20 Allergies Allergy/AdvReac Type Severity Reaction Status Date / Time doxycycline [DOXYCYCLINE] Allergy Unknown RASH Verified 02/09/20 14:58 metformin Allergy Unknown diarrhea Verified 02/24/20 08:15 Review of Systems Review of Systems: Constitutional : No Weight loss, pos Fever, pos Chills, pos Fatigue, pos Malaise ENT/Mouth : No sore throat, No Rhinorrhea Eyes: No Eye Pain, No Swelling, No Redness Cardiovascular : No Chest Pain, No SOB, No Dyspnea on Exertion, No Orthopnea, No Edema, No Palpitations Respiratory : No Cough, No Sputum, No Wheezing Gastrointestinal : pos Nausea, No Vomiting, No Diarrhea, No Constipation, No abdominal Pain, No Hematochezia, No Melena Genitourinary : pos Dysuria, pos Urinary Frequency, No Hematuria, Musculoskeletal : No joint pain, No Myalgias, No Joint Swelling Skin : No Skin Lesions, No rash Neuro : No Weakness, No Numbness, No Dizziness, No Headache Psych : No Anxiety/Panic, No Depression Heme/Lymph: No Bruising, No Bleeding,No Lymphadenopathy Endocrine : No Polyuria, No Polydipsia All other systems reviewed and are negative [facility] Past Medical History Attestation statement: The following information was validated with the patient. Medical History Anxiety Depression Diabetes Fibromyalgia Migraines Surgical History (Updated 02/10/20 @ 11:[address] MD) H/O: hysterectomy Social History Social History Household Members: Family Housing: House Alcohol intake: never Smoking Status: Former smoker Tobacco Type: Cigarette Advance Directives: No Advance Directives Information Provided: No service: No Current occupational status: unemployed Physical Exam Vital Signs: Vital Signs: Last Vital Signs Temp 100 F 04/17/20 14:36 Pulse 131 H 04/17/20 15:56 Resp 24 H 04/17/20 15:56 BP 111/71 04/17/20 15:56 Pulse Ox 95 04/17/20 14:36 Body Mass Index 30.1 Appearance: Alert. Oriented X3. No acute distress. Eyes: Pupils equal, round and reactive to light. ENT: Pharynx dry MMM Neck: Normal inspection. Neck supple. CVS: tacycardic heart rate and rhythm. Pulses normal. Respiratory: No respiratory distress. Breath sounds decreased L side, port on R side site is c/d/i Abdomen: Soft and non-tender. Skin: Skin warm and dry. Normal skin color. Normal skin turgor. Extremities: No lower extremity edema. No calf ttp Neuro: Oriented X 3. No motor deficit. No sensory deficit. Course Course Course Narrative: 95% on RA, no resp distress, no c/o dyspnea called IR they can perform procedure tomorrow, clinically I do not this occurred in the past few days as she has no resp symptoms and no hypoxia the effusion has been present since 03/29/20 which is noted on her port procedure note and visible on fluoro imaging at that time. signed out to Dr. Murrieta pending full workup MDM - Fever MDM Narrative Medical decision making narrative: 49 yo female with NHL s/p chemo 3 weeks ago here with dysuria, fevers, malaise and nausea, had UA done on 04/12 which showed bernard S E. Coli at this time will need labs, cultures, start Ceftriaxone, likely admit has a hx of urosepsis in the past Lab Data Result diagrams: 04/17/20 15:36 04/17/20 15:36 Labs: Lab Results 04/17/20 04/17/20 Range/Units 15:36 15:36 WBC 21.0 H (4.8-10.8) X10*3/uL RBC 4.58 (4.20-5.50) X10*6/uL Hgb 10.9 L (12.0-16.0) g/dl Hct 35.0 L (37-47) % MCV 76.4 L (80-98) fL MCH 23.8 L (27.0-33.0) pg MCHC 31.1 (31.0-35.0) g/dl RDW 17.5 H (11.0-16.0) % Plt Count 252 D (160-400) X10*3/uL MPV 9.9 (9.4-12.3) fL Immature Gran % (Auto) Cancelled Neut % (Auto) Cancelled Lymph % (Auto) Cancelled Collier % (Auto) Cancelled Eos % (Auto) Cancelled Baso % (Auto) Cancelled Lymph # (Auto) Cancelled [place] # (Auto) Cancelled Eos # (Auto) Cancelled Baso # (Auto) Cancelled Abs Immat Gran (auto) Cancelled Absolute Neuts (auto) Cancelled Absolute Nucleated RBC 0.040 H (0.0-0.012) X10*3/uL Nucleated RBC % (auto) 0.2 (0.0-0.2) /100WBC PT 20.1 H D (10.8-13.0) SEC INR 1.7 H (0.9-1.1) APTT 32.4 (24.1-38.0) SEC Discharge Plan Discharge Clinical Impression: Pleural effusion UTI (urinary tract infection) Qualifiers: Urinary tract infection type: acute cystitis Hematuria presence: without hematuria Qualified Code(s): N30.00 - Acute cystitis without hematuria Fever Qualifiers: Fever type: unspecified Qualified Code(s): R50.9 - Fever, unspecified Leukocytosis Qualifiers: Leukocytosis type: unspecified Qualified Code(s): D72.829 - Elevated white blood cell count, unspecified Patient Disposition: Admitted As Inpatient
--- NOTE | 2020-04-17 14:56 | ECG_ITS ---
Test Reason : WEAKNESS Blood Pressure : / mmHG Vent. Rate : 130 BPM Atrial Rate : 130 BPM P-R Int : 128 ms QRS Dur : 082 ms QT Int : 318 ms P-R-T Axes : 047 024 046 degrees QTc Int : 467 ms Sinus tachycardia Low voltage QRS Borderline ECG When compared with ECG of 10-JUL-2019 10:17, Vent. rate has increased BY 52 BPM Referred By: Violet Vásquez Electronically Signed By:Tex Briseno
--- NOTE | 2020-04-17 14:57 | XR_ITS ---
EXAMINATION: PORTABLE CHEST 1 VIEW CLINICAL INFORMATION: weakness . COMPARISON: 11/27/2017 chest x-ray and images from the lower base from the 03/17/2020 CT scan of the abdomen. TECHNIQUE: Portable frontal view of the chest was obtained. FINDINGS: Large left-sided lung opacity likely representing a combination of effusion and atelectasis is seen. This effusion has increased from the prior studies. There is no significant shift of mediastinal structures. Contralateral right lung is unremarkable. West silhouette appears be prominent although difficult to assess due to the left-sided opacity. Right sided chest port with the tip near the cavoatrial junction noted. No acute bony abnormality. XR/XR chest 1V IMPRESSION: Worsened left-sided opacity suggesting significantly increased large left pleural effusion with associated atelectasis/collapse.
[2020-04-17 15:48] LABS: Hemoglobin 10.9 g/dl (12.0-16.0); Mean Corpuscular HGB Conc 31.1 g/dl (31.0-35.0); Mean Corpuscular Hemoglobin 23.8 pg (27.0-33.0); Mean Corpuscular Volume 76.4 fL (80-98); Mean Platelet Volume 9.9 fL (9.4-12.3); NRBC Pct Auto 0.2 /100WBC (0.0-0.2); Platelet Count 252 X10*3/uL (160-400); Red Blood Count 4.58 X10*6/uL (4.20-5.50); Red Cell Distribution Width 17.5 % (11.0-16.0)
[2020-04-17] MEDS: 0.9 % Sodium Chloride 1,000 ML 999 ML IVCONT (15:52)
[2020-04-17] MEDS: cefTRIAXone sodium 1 GM in 0.9 % Sodium Chloride 50 ML IV (15:52)
[2020-04-17] MEDS: ondansetron HCL 4 MG/2 ML VIAL IVPUSH ×2 (15:53→17:55)
[2020-04-17] MEDS: Acetaminophen 325 MG TABLET 650 MG PO ×3 (15:53→23:29)
[2020-04-17 15:54] LABS: INTERNATIONAL NORM RATIO 1.7 (0.9-1.1); Prothrombin Time 20.1 SEC (10.8-13.0)
[2020-04-17 15:57] LABS: Partial Thromboplastin Time 32.4 SEC (24.1-38.0)
[2020-04-17 16:17] LABS: Band Neutrophils Percent 4 % (3-5); Basophils Abs Manual 0.2 X10*3/uL (0.0-0.3); Basophils Percent Manual 1 % (0-1); Lymphocytes Absolute Manual 0.2 X10*3/uL (0.6-4.8); Lymphocytes Percent Manual 1 % (20-40); Monocytes Absolute Manual 2.1 X10*3/uL (0.0-1.2); Monocytes Percent Manual 10 % (2-11); Neutrophils Absolute Manual 18.5 X10*3/uL (2.2-7.9); Neutrophils Percent Manual 84 % (45-73)
[2020-04-17 16:18] LABS: Platelet Estimate NORMAL (NORMAL); Platelet Morphology Comment NORMAL; RBC Morphology NORMAL
[2020-04-17 16:19] LABS: PCO2 VBG 38 mmhg; PO2 VBG 58 mmhg
[2020-04-17 16:20] LABS: Base Excess VBG -1.8 mmol/L; Blood Gas Serial # 5396; HCO3 VBG 23 mmol/L
[2020-04-17 16:24] LABS: Alanine Aminotransferase 27 U/L (0-31); Albumin Level 3.4 g/dL (3.5-5.0); Alkaline Phosphatase 214 U/L (39-117); Anion Gap 16 (12-20); Aspartate Amino Transferase 19 U/L (5-31); Bilirubin Direct 0.4 mg/dL (0.0-0.5); Bilirubin Total 0.7 mg/dL (0.0-1.0); Blood Urea Nitrogen 7 mg/dL (9-16); Calcium 8.2 mg/dL (8.4-10.2); Carbon Dioxide 22 mmol/L (22-29); Chloride 102 mmol/L (96-108); Creatinine Clr Calc Pharmacy 96.6; Estimated Glomerular Filt Rate > 60; Glucose Random 339 mg/dL (60-115); Lactate Dehydrogenase 227 U/L (122-220); Lipase < 4 U/L (8-78); Magnesium 1.8 mg/dL (1.6-2.6); Potassium 3.9 mmol/l (3.3-5.1); Sodium 136 mmol/L (135-145)
[2020-04-17 16:26] LABS: Influenza A PCR NEGATIVE (Negative); Influenza B PCR NEGATIVE (Negative); Resp Syncy Virus RNA Qual PCR NEGATIVE (Negative); SARS COV2 PCR INHOUSE NEGATIVE (Negative)
[2020-04-17 16:29] LABS: Lactic Acid 1.5 mmol/L (0.5-2.0)
[2020-04-17 16:40] LABS: Ferritin 869 ng/mL (10-250)
[2020-04-17 17:05] LABS: Glucose Urine UA 500 MG/DL (NEG); Leukocyte Esterase Urine NEG (NEG); Nitrite Urine POS (NEG); Specific Gravity - Urine 1.015 (1.005-1.025); Urine Blood 2+ (NEG); Urine Ketones 40 MG/DL (NEG); Urine Protein 1+ MG/DL (NEG-TRACE)
[2020-04-17 17:08] LABS: Appearance Urine HAZY; Color Urine YELLOW
[2020-04-17 17:14] LABS: Acetone, serum QL Small (Negative)
[2020-04-17] MEDS: oxyCODONE HCl Immed Release 5 MG TABLET 10 MG PO ×2 (17:20→20:52)
[2020-04-17 17:27] LABS: Bacteria Urine 1+ /LPF; RBC Urine 0-2 /HPF (0); Squamous Epithelial Cell Urine TRACE /LPF; WBC Urine TNTC /HPF (0-4)
--- NOTE | 2020-04-17 17:46 | PC.NURSE ---
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
[2020-04-17] MEDS: Morphine Sulfate 4 MG/ML CARTRIDGE IVPUSH (17:55)
--- NOTE | 2020-04-17 17:59 | PC.NURSE ---
patient medicated per order
--- NOTE | 2020-04-17 18:06 | PC.NURSE ---
hospitalist in to see patient
--- NOTE | 2020-04-17 18:42 | PM.EVENT ---
Event Note Date of Service: 04/17/20 Event Note: Addendum to H and P by Mid-level Provider I saw and examined the patient and participated in the montalvo portion of the E/M service. I agree with the history and exam as documented by RECTIFYING ATTENDANT. Patient likely has UTI, Pleural effusion in setting of history of lymphoma and on chemo Will admit for IV Abx and work up. Otherwise, I agree with assessment and plan as outlined in the H and P.
--- NOTE | 2020-04-17 19:03 | PM.IMHP ---
History of Present Illness Date of Service: 04/17/20 <Gayla Persaud NP - Last Filed: 04/17/20 20:53> Chief Complaint: Back pain <Gayla Persaud NP - Last Filed: 04/17/20 20:53> 49 year old women presenting to the ED with fever and fatigue. She was recently diagnosed with Lymphoma in February 06 She had initially presented with abdominal pain and was found to have a large mass in the left upper quadrant area. Biopsy showed likely B-cell lymphoma. She is currently undergoing chemotherapy. She reported that on Sunday she had burning with urination, back pain, fever and nausea. She continued to feel unwell and wasn't getting better and she decided to come in to be evaluated. In the ED she was noted to be mildly febrile, tachycardic and tachypneic. CXR showed large left pleural effusion and urinalysis was positive for UTI. She did report some increase in SOB over the last week. Last imaging did not show this big of an effusion. She was given Rocephin, zofran, and pain medication in the ED. She will be admitted for further management and treatment of sepsis secondary to pyelonephritis. <Gayla Persaud NP - Last Filed: 04/17/20 20:53> Review of Systems Review of Systems: Denies any recent fever chills or decrease in appetite respiratory SEE HPI cardiovascular is adjustment of any PND or edema gastrointestinal SEE HPI genitourinary See HPI musculoskeletal denies any joint pain or swelling neuropsych denies any weakness or seizures all other systems reviewed are negative <Gayla Persaud NP - Last Filed: 04/17/20 20:53> [facility] Medical History: Medical History Anxiety Depression Diabetes Fibromyalgia Lymphoma Migraines <Gayla Persaud NP - Last Filed: 04/17/20 20:53> Surgical History: Surgical History H/O: hysterectomy <Gayla Persaud NP - Last Filed: 04/17/20 20:53> Social History: Social History Household Members: Significant Other Housing: Apartment Alcohol intake: never Smoking Status: Former smoker Tobacco Type: Cigarette Second Hand Smoke Exposure: No service: No Current occupational status: employed <Gayla Persaud NP - Last Filed: 04/17/20 20:53> Meds Allergies/Adverse reactions: Allergies Allergy/AdvReac Type Severity Reaction Status Date / Time doxycycline [DOXYCYCLINE] Allergy Unknown RASH Verified 02/09/20 14:58 metformin Allergy Unknown diarrhea Verified 02/24/20 08:15 <Gayla Persaud NP - Last Filed: 04/17/20 20:53> Home medications: Home Medications Medication Instructions Recorded Confirmed Type Trulicity 0.75 mg SUBCUT QWEEK 02/09/20 04/17/20 History lisinopril 10 mg PO DAILY 04/18/20 04/18/20 History <Gayla Persaud NP - Last Filed: 04/17/20 20:53> Physical Exam Vital Signs and Narrative: Vital Signs: Last Vital Signs Temp 98.2 F 04/17/20 17:43 Pulse 123 H 04/17/20 17:43 Resp 17 04/17/20 17:43 BP 112/73 04/17/20 17:43 Pulse Ox 95 04/17/20 17:43 Body Mass Index 30.1 <Gayla Persaud NP - Last Filed: 04/17/20 20:53> Results Labs CBC and Chem 7: : 04/22/20 05:21 04/22/20 05:21 <Gayla Persaud NP - Last Filed: 04/17/20 20:53> Labs: Laboratory Results - last 24 hr 04/17/20 04/17/20 04/17/20 15:36 15:36 15:36 MCV 76.4 L MCH 23.8 L MCHC 31.1 RDW 17.5 H Plt Count 252 D MPV 9.9 Immature Gran % (Auto) Cancelled Neut % (Auto) Cancelled Lymph % (Auto) Cancelled [place] % (Auto) Cancelled Eos % (Auto) Cancelled Baso % (Auto) Cancelled Lymph # (Auto) Cancelled [place] # (Auto) Cancelled Eos # (Auto) Cancelled Baso # (Auto) Cancelled Abs Immat Gran (auto) Cancelled Absolute Neuts (auto) Cancelled Absolute Nucleated RBC 0.040 H Nucleated RBC % (auto) 0.2 Neutrophils % (Manual) 84 H Band Neutrophils % 4 Lymphocytes % (Manual) 1 L Monocytes % (Manual) 10 Basophils % (Manual) 1 Abs Neuts (Manual) 18.5 H Lymphocytes # (Manual) 0.2 L Monocytes # (Manual) 2.1 H Basophils # (Manual) 0.2 Platelet Estimate NORMAL Plt Morphology Comment NORMAL RBC Morphology NORMAL PT 20.1 H D INR 1.7 H APTT 32.4 VBG pH VBG pCO2 VBG pO2 VBG HCO3 VBG O2 Saturation VBG Base Excess Anion Gap 16 Estim Creat Clear Calc 96.6 Estimated GFR > 60 Random Glucose 339 H Lactic Acid Calcium 8.2 L D Magnesium 1.8 Ferritin 869 H Total Bilirubin 0.7 Direct Bilirubin 0.4 AST 19 D ALT 27 Alkaline Phosphatase 214 H D Lactate Dehydrogenase 227 H Total Protein 6.0 L Albumin 3.4 L Lipase < 4 L Urine Color Urine Appearance Urine pH Ur Specific Badger Urine Protein Urine Glucose (UA) Urine Ketones Urine Blood Urine Nitrite Ur Leukocyte Esterase Urine RBC Urine WBC Ur Squamous Epith Cells Urine Bacteria Acetone, Qual Small H Coronavirus (PCR) Influenza Type A (PCR) Influenza Type B (PCR) RSV RNA Qual (PCR) 04/17/20 04/17/20 04/17/20 15:36 15:36 15:36 MCV MCH MCHC RDW Plt Count MPV Immature Gran % (Auto) Neut % (Auto) Lymph % (Auto) [place] % (Auto) Eos % (Auto) Baso % (Auto) Lymph # (Auto) [place] # (Auto) Eos # (Auto) Baso # (Auto) Abs Immat Gran (auto) Absolute Neuts (auto) Absolute Nucleated RBC Nucleated RBC % (auto) Neutrophils % (Manual) Band Neutrophils % Lymphocytes % (Manual) Monocytes % (Manual) Basophils % (Manual) Abs Neuts (Manual) Lymphocytes # (Manual) Monocytes # (Manual) Basophils # (Manual) Platelet Estimate Plt Morphology Comment RBC Morphology PT INR APTT VBG pH 7.40 VBG pCO2 38 VBG pO2 58 VBG HCO3 23 VBG O2 Saturation 90.0 VBG Base Excess -1.8 Anion Gap Estim Creat Clear Calc Estimated GFR Random Glucose Lactic Acid 1.5 Calcium Magnesium Ferritin Total Bilirubin Direct Bilirubin AST ALT Alkaline Phosphatase Lactate Dehydrogenase Total Protein Albumin Lipase Urine Color Urine Appearance Urine pH Ur Specific Badger Urine Protein Urine Glucose (UA) Urine Ketones Urine Blood Urine Nitrite Ur Leukocyte Esterase Urine RBC Urine WBC Ur Squamous Epith Cells Urine Bacteria Acetone, Qual Coronavirus (PCR) NEGATIVE Influenza Type A (PCR) NEGATIVE Influenza Type B (PCR) NEGATIVE RSV RNA Qual (PCR) NEGATIVE 04/17/20 16:41 MCV MCH MCHC RDW Plt Count MPV Immature Gran % (Auto) Neut % (Auto) Lymph % (Auto) [place] % (Auto) Eos % (Auto) Baso % (Auto) Lymph # (Auto) [place] # (Auto) Eos # (Auto) Baso # (Auto) Abs Immat Gran (auto) Absolute Neuts (auto) Absolute Nucleated RBC Nucleated RBC % (auto) Neutrophils % (Manual) Band Neutrophils % Lymphocytes % (Manual) Monocytes % (Manual) Basophils % (Manual) Abs Neuts (Manual) Lymphocytes # (Manual) Monocytes # (Manual) Basophils # (Manual) Platelet Estimate Plt Morphology Comment RBC Morphology PT INR APTT VBG pH VBG pCO2 VBG pO2 VBG HCO3 VBG O2 Saturation VBG Base Excess Anion Gap Estim Creat Clear Calc Estimated GFR Random Glucose Lactic Acid Calcium Magnesium Ferritin Total Bilirubin Direct Bilirubin AST ALT Alkaline Phosphatase Lactate Dehydrogenase Total Protein Albumin Lipase Urine Color YELLOW Urine Appearance HAZY Urine pH 6.0 Ur Specific Badger 1.015 Urine Protein 1+ H Urine Glucose (UA) 500 H Urine Ketones 40 Urine Blood 2+ H Urine Nitrite POS H Ur Leukocyte Esterase NEG Urine RBC 0-2 Urine WBC TNTC H Ur Squamous Epith Cells TRACE Urine Bacteria 1+ Acetone, Qual Coronavirus (PCR) Influenza Type A (PCR) Influenza Type B (PCR) RSV RNA Qual (PCR) <Gayla Persaud NP - Last Filed: 04/17/20 20:53> Imaging Radiologist's Impressions: Impressions Chest X-Ray 04/17/20 14:57 IMPRESSION: Worsened left-sided opacity suggesting significantly increased large left pleural effusion with associated atelectasis/collapse. <Gayla Persaud NP - Last Filed: 04/17/20 20:53> Assessment and Plan (1) Pleural effusion: Status: Acute <Gayla Persaud NP - Last Filed: 04/17/20 20:53> (2) UTI (urinary tract infection): Qualifiers: Hematuria presence: without hematuria Urinary tract infection type: acute cystitis Qualified Code(s): N30.00 - Acute cystitis without hematuria <Gayla Persaud NP - Last Filed: 12/19/20 20:53> Status: Acute <Gayla Persaud NP - Last Filed: 04/17/20 20:53> 49-year-old woman admitted with sepsis secondary to pyelonephritis and large pleural effusion. she was recently diagnosed with lymphoma recently in is currently undergoing chemotherapy. Sepsis. Leukocytosis, tachycardia, tachypnea, normal lactic acid. Follow blood cultures. Urinary tract infection. Rocephin, follow urine culture. Large left pleural effusion. Possibly malignancy as patient was recently diagnosed with lymphoma. Scheduled for thoracentesis in the morning. Supratherapeutic INR. History of lymphoma. Will give 1 dose of vitamin K tonight prior to thoracentesis for tomorrow. B-cell lymphoma. Continue pain medication as needed. Being followed through Oncology at [facility] [place]. DVT prophylaxis with heparin. Case discussed with Dr. Snyder Full code <Gayla Persaud NP - Last Filed: 04/17/20 20:53>
--- NOTE | 2020-04-17 19:52 | PC.NURSE ---
called floor to give report, rn will call us back
--- NOTE | 2020-04-17 20:07 | PC.NURSE ---
patient o2 sat decreased to 89%, placed on 2L O2 NC, pt vitals obtained, bp elevated as well as temp, ed provider notified as was the hospitalist, will continue to monitor.
--- NOTE | 2020-04-17 21:09 | PC.NURSE ---
called floor to give report, nurse will call the ed back shortly.
[2020-04-17] MEDS: Heparin Sodium,Porcine 5,000 UNIT/ML VIAL 5000 UNIT SUBCUT (22:30)
[2020-04-17] MEDS: Phytonadione (Vit K1) Oral 10 MG/ML AMPUL 5 MG PO (22:31)
[2020-04-17] MEDS: Morphine Sulfate ER 30 MG TABLET.ER PO (22:32)
[2020-04-18] VITALS (11 sets, daily range): BP systolic 98–147; BP diastolic 57–92; PULSE 101–131; RESP 18; TEMP 36.8–38.7; O2SAT 94–98
--- NOTE | 2020-04-18 | XR_ITS ---
EXAMINATION: XR CHEST CLINICAL INFORMATION: Inspiration/expiration COMPARISON: Chest radiograph 04/17/2020 TECHNIQUE: AP upright inspiration and expiration radiographs obtained. FINDINGS: Status post thoracentesis with significant improvement in the left pleural effusion which is now small to moderate in size. Associated atelectasis/opacity in the left lower lobe. No pneumothorax. The right lung is clear. CT compatible port extends to the cavoatrial junction region. The heart is not enlarged. XR/XR chest 2V IMPRESSION: No evidence of pneumothorax post left thoracentesis. Residual small to moderate left pleural effusion and left basal opacity persists.
[2020-04-18 07:05] LABS: INTERNATIONAL NORM RATIO 1.6 (0.9-1.1); Prothrombin Time 19.6 SEC (10.8-13.0)
[2020-04-18 07:05] LABS: Anion Gap 15 (12-20); Blood Urea Nitrogen 9 mg/dL (9-16); Carbon Dioxide 25 mmol/L (22-29); Chloride 104 mmol/L (96-108); Creatinine Clr Calc Pharmacy 91.4; Estimated Glomerular Filt Rate > 60; Glucose Random 304 mg/dL (60-115); Potassium 4.6 mmol/l (3.3-5.1); Sodium 139 mmol/L (135-145)
[2020-04-18 07:12] LABS: Hematocrit 32.3 % (37-47); Hemoglobin 9.7 g/dl (12.0-16.0); Mean Corpuscular Hemoglobin 23.4 pg (27.0-33.0); Mean Corpuscular Volume 77.8 fL (80-98); Mean Platelet Volume 10.5 fL (9.4-12.3); NRBC Pct Auto 0.3 /100WBC (0.0-0.2); Platelet Count 254 X10*3/uL (160-400); Red Blood Count 4.15 X10*6/uL (4.20-5.50); Red Cell Distribution Width 17.2 % (11.0-16.0); White Blood Count 18.6 X10*3/uL (4.8-10.8)
[2020-04-18] MEDS: Morphine Sulfate ER 30 MG TABLET.ER PO ×2 (08:02→21:34)
[2020-04-18] MEDS: ondansetron HCL 4 MG/2 ML VIAL IVPUSH (08:02)
[2020-04-18] MEDS: Acetaminophen 325 MG TABLET 650 MG PO ×2 (08:02→21:43)
[2020-04-18] MEDS: 0.9 % Sodium Chloride Flush 3 ML SYRINGE IVFLUSH ×3 (08:03→21:36)
[2020-04-18 08:12] LABS: Band Neutrophils Percent 17 % (3-5); Lymphocytes Absolute Manual 0.2 X10*3/uL (0.6-4.8); Lymphocytes Percent Manual 1 % (20-40); Metamyelocytes Absolute 0.6 X10*3/uL; Metamyelocytes Percent 3 %; Monocytes Percent Manual 11 % (2-11); Myelocytes Absolute 0.4 X10*/uL; Myelocytes Percent 2 %; Neutrophils Absolute Manual 15.4 X10*3/uL (2.2-7.9); Neutrophils Percent Manual 66 % (45-73)
[2020-04-18 08:13] LABS: Hypochromasia 1+; RBC Morphology NORMAL
[2020-04-18 08:14] LABS: Platelet Estimate NORMAL (NORMAL); Platelet Morphology Comment NORMAL; Polychromasia 1+
[2020-04-18] MEDS: Heparin Sodium,Porcine 5,000 UNIT/ML VIAL 5000 UNIT SUBCUT ×2 (09:06→21:35)
--- NOTE | 2020-04-18 09:33 | P.PNIM_ITS ---
Subjective Subjective Date of Service: 04/27/20 Interval History: Seen in follow up for sepsis UTI and pleural effusion. Doesn't feel good. Persistent fever Review of Systems Gen: + fever Resp: some sob, no cough CV: no chest, no GI: No n/v, no abd pain Neuro: No confusion Physical Exam Vital Signs: Vital Signs: Last Vital Signs Temp 101.6 F H 04/18/20 07:36 Pulse 116 H 04/18/20 07:36 Resp 18 04/18/20 07:36 BP 145/88 H 04/18/20 07:36 Pulse Ox 96 04/18/20 07:36 Body Mass Index 30.1 General: AO X 3, mild distress Resp: dec breath sound on left CVS: S1,S2,RRR GI: +BS, NT, no distention Skin: No rash Neuro: motor grossly intact Psych: appropriate affect Objective Data Current Medications Generic Name Dose Route Start Last Admin Trade Name Freq PRN Reason Stop Dose Admin Acetaminophen 650 mg 04/17/20 20:33 04/18/20 08:02 Acetaminophen 325 Mg Tablet PO 650 mg Q6H PRN Administration Pain, Mild (Pain Scale 1-3) Heparin Sodium (Porcine) 5,000 unit 04/17/20 22:00 04/18/20 09:06 Heparin Sodium,Porcine 5,000 Unit/Ml Vial SUBCUT 5,000 unit Q12H MICHEL Administration Ceftriaxone Sodium 1 gm/ 50 mls @ 100 mls/hr 04/18/20 16:00 Sodium Chloride IV Q24H MICHEL Morphine Sulfate 30 mg 04/17/20 21:00 04/18/20 08:02 Morphine Sulfate Er 30 Mg Tablet.Er PO 30 mg BID MICHEL Administration Non-Formulary Medication 0.75 mg 04/17/20 20:33 Dulaglutide [Trulicity] SUBCUT Q7D MICHEL Non-Formulary Medication 10 mg 04/18/20 09:00 Empagliflozin [Jardiance] PO DAILY MICHEL Ondansetron HCl 4 mg 04/17/20 20:33 04/18/20 08:02 Ondansetron Hcl 4 Mg/2 Ml Vial IVPUSH 4 mg Q8H PRN Administration Nausea and Vomiting Oxycodone HCl 10 mg 04/17/20 20:33 04/17/20 20:52 Oxycodone Hcl Immed Release 5 Mg Tablet PO 10 mg Q4H PRN Administration Breakthrough Pain, Moderate Pharmacy Consult 1 each 04/17/20 14:56 Consult Rx Perform Med Rec MISCELLANE ONCE PRN Consult order Sodium Chloride 3 ml 04/18/20 00:00 04/18/20 08:03 0.9 % Sodium Chloride Flush 3 Ml Syringe IVFLUSH 3 ml QSHIFT MICHEL Administration Labs CBC & Chem 7: 04/22/20 05:21 04/22/20 05:21 Microbiology Microbiology Results: Microbiology 04/17/20 15:35 Blood - Venous Blood Culture - Preliminary Assessment and Plan (1) Pleural effusion: Status: Acute (2) UTI (urinary tract infection): Status: Acute Assessment and Plan: 49/F DM, HTN, Anemia and recent diagnosis of B cell lymphoma and is under chemo by Dr. Way is now here with sepsis, UTI and and large, worsening left sided pleural effusion and fever. . Sepsis source UTI and possible infected effusion--Presently on Ceftriaxone D2, change to Zosyn. -follow blood culture, urine cultures. Urine culture on 04/12 showed sensitive e. coli Pleural effusion on left side--likely related to Lymphoma -Thoracentesis for cell count, culture, and cytology Coagulopathy due to lymphoma INR 1.6 got vit K Non-Hodgkin B-cell lymphoma with features most consistent with Diffuse Large B- cell Lymphoma by Bx in [facility] -Oncology consult Diabetes-- HTN-- HLD- DVT prophylaxis with heparin.
[2020-04-18] MEDS: Piperacillin Sodium/Tazobactam 3.375 GM in 0.9 % Sodium Chloride 50 ML IV ×3 (10:15→22:34)
--- NOTE | 2020-04-18 10:30 | US_ITS ---
EXAMINATION: ULTRASOUND GUIDED LEFT THORACENTESIS. CLINICAL INFORMATION: Large left pleural effusion. History of diffuse B-cell lymphoma COMPARISON: None TECHNIQUE: Following explaining ultrasound-guided thoracentesis procedure, benefits and risk, a written consent was obtained. Patient was placed sitting upright and preliminary CT imaging was obtained through the left and right posterior chest. An optimal site was selected along the left posterior chest infrascapular line approximately 10th interspace and a marker placed on the skin. The marked site was cleaned and draped with 2% chlorhexidine solution. 1% lidocaine was injected puncture site. Through a small skin incision a 4 Cong[place] TimZon catheter was advanced into the pleural space. After observing fluid return, stylet was withdrawn and catheter connected to vacuum bottles via connecting cannula. After obtaining adequate amount of fluid in an patient having some discomfort, catheter was removed making sure no air leaked in by pacing gauze coated with ultrasound gel over the puncture site. Complete hemostasis was obtained achieved at puncture site. Patient tolerated procedure extremely well. Chest x-ray inspiration and expiration was obtained. FINDINGS: On preliminary ultrasound imaging there is a large left pleural effusion. There is no right-sided pleural effusion seen. The proximal 1.7 L of dark brown fluid was drained. This fluid was sent to lab as per referring physician's orders. US/US thoracentesis IMPRESSION: Successful ultrasound-guided left thoracentesis performed with approximately 1.7 L of fluid removed.
[2020-04-18 12:12] LABS: MN% 86.9 %; PMN% 13.1 %; WBC Pleural Fluid 1.802 X10*3/uL
[2020-04-18] MEDS: Lidocaine HCl 1 % 20 ML VIAL 5 ML SUBCUT (12:12)
[2020-04-18 12:23] LABS: Glucose, Whole Blood 285 mg/dL (60-115)
[2020-04-18] MEDS: Insulin Lispro 100 UNIT/ML 3 ML VIAL SUBCUT ×3 (12:25→21:35)
[2020-04-18 12:30] LABS: BF Shift QC OK YES; Lymphocytes Pleural Fluid 69 %; Man Diluent Bkgrd OK YES; Monocytes Pleural Fluid 2 %; Neutrophils Pleural Fluid 13 %; Other Cells Plerual Fl 16 %
[2020-04-18] MEDS: oxyCODONE HCl Immed Release 5 MG TABLET 10 MG PO ×2 (13:03→18:17)
[2020-04-18] MEDS: Ketorolac Tromethamine 15 MG/ML VIAL IVPUSH (15:23)
--- NOTE | 2020-04-18 15:29 | MHC.CM.PN ---
HEAD COACH completed with pt who declined director of hotel services. Pt reports she lives with her S/O and is independent with all care and mobility at baseline. Pt has no in home services and uses no DME. Pt reports he PCP is Doretha Valles. Pt has not completed a HCP and would like to think about it. Current DC plan is home with no services pt will self arrange transport
[2020-04-18 16:21] LABS: Glucose, Whole Blood 217 mg/dL (60-115)
[2020-04-18 21:24] LABS: Glucose, Whole Blood 227 mg/dL (60-115)
[2020-04-19] VITALS (12 sets, daily range): BP systolic 102–139; BP diastolic 59–92; PULSE 18–120; RESP 18–20; TEMP 36.9–39.1; O2SAT 95–98; BMI 30.1
[2020-04-19] MEDS: ondansetron HCL 4 MG/2 ML VIAL IVPUSH ×3 (03:26→19:47)
[2020-04-19] MEDS: oxyCODONE HCl Immed Release 5 MG TABLET 10 MG PO ×3 (03:26→17:22)
[2020-04-19] MEDS: Piperacillin Sodium/Tazobactam 3.375 GM in 0.9 % Sodium Chloride 50 ML IV ×2 (04:55→10:42)
[2020-04-19] MEDS: Acetaminophen 325 MG TABLET 650 MG PO ×2 (05:30→15:21)
[2020-04-19 06:45] LABS: pH Pleural Fluid 7.45
[2020-04-19 06:49] LABS: Albumin Pleural Fluid 2.9
[2020-04-19 06:50] LABS: Total Protein Pleural Fluid 4.3
[2020-04-19 06:51] LABS: Amylase Pleural Fluid 16; Glucose Pleural Fluid 303; LDH Pleural Fluid 340
[2020-04-19 07:40] LABS: Glucose, Whole Blood 178 mg/dL (60-115)
[2020-04-19] MEDS: 0.9 % Sodium Chloride Flush 3 ML SYRINGE IVFLUSH ×3 (07:43→21:13)
[2020-04-19] MEDS: Insulin Lispro 100 UNIT/ML 3 ML VIAL SUBCUT ×4 (07:43→21:13)
[2020-04-19] MEDS: Morphine Sulfate ER 30 MG TABLET.ER PO ×2 (08:36→21:12)
[2020-04-19] MEDS: Heparin Sodium,Porcine 5,000 UNIT/ML VIAL 5000 UNIT SUBCUT ×2 (10:42→21:12)
[2020-04-19 11:11] LABS: Glucose, Whole Blood 174 mg/dL (60-115)
--- NOTE | 2020-04-19 11:59 | P.PNIM_ITS ---
Subjective Subjective Date of Service: 04/19/20 Interval History: abd pain Cardiovascular Cardiovascular: Reports no additional cardiovascular complaints Respiratory Respiratory: Reports no additional respiratory complaints Physical Exam Vital Signs: Vital Signs: Last Vital Signs Temp 98.5 F 04/19/20 11:13 Pulse 101 H 04/19/20 11:13 Resp 18 04/19/20 11:13 BP 103/73 04/19/20 11:13 Pulse Ox 98 04/19/20 11:13 Body Mass Index 30.1 General: AO X 3, no acute distress Resp: CTA bilateral CVS: S1,S2,RRR GI: soft, non tender, non distended Neuro: motor grossly intact Psych: appropriate affect Objective Data Current Medications Generic Name Dose Route Start Last Admin Trade Name Freq PRN Reason Stop Dose Admin Acetaminophen 650 mg 04/17/20 20:33 04/19/20 05:30 Acetaminophen 325 Mg Tablet PO 650 mg Q6H PRN Administration Pain, Mild (Pain Scale 1-3) Heparin Sodium (Porcine) 5,000 unit 04/17/20 22:00 04/19/20 10:42 Heparin Sodium,Porcine 5,000 Unit/Ml Vial SUBCUT 5,000 unit Q12H [facility]HEL Administration Piperacillin Sod/Tazobactam 50 mls @ 100 mls/hr 04/18/20 11:00 04/19/20 11:15 Sod 3.375 gm/ Sodium Chloride IV Infused Q6H [facility] Infusion Insulin Human Lispro 0 unit 04/18/20 11:30 04/19/20 11:16 Insulin Lispro 100 Unit/Ml 3 Ml Vial SUBCUT 2 unit QIDACHS [facility] Administration Protocol Morphine Sulfate 30 mg 04/17/20 21:00 04/19/20 08:36 Morphine Sulfate Er 30 Mg Tablet.Er PO 30 mg BID [facility]HEL Administration Non-Formulary Medication 0.75 mg 04/17/20 20:33 Dulaglutide [Trulicity] SUBCUT Q7D [facility] Non-Formulary Medication 10 mg 04/18/20 09:00 Empagliflozin [Jardiance] PO DAILY [facility] Ondansetron HCl 4 mg 04/17/20 20:33 04/19/20 11:15 Ondansetron Hcl 4 Mg/2 Ml Vial IVPUSH 4 mg Q8H PRN Administration Nausea and Vomiting Oxycodone HCl 10 mg 04/17/20 20:33 04/19/20 10:42 Oxycodone Hcl Immed Release 5 Mg Tablet PO 10 mg Q4H PRN Administration Breakthrough Pain, Moderate Pharmacy Consult 1 each 04/17/20 14:56 Consult Rx Perform Med Rec MISCELLANE ONCE PRN Consult order Sodium Chloride 3 ml 04/18/20 00:00 04/19/20 07:43 0.9 % Sodium Chloride Flush 3 Ml Syringe IVFLUSH 3 ml QSHIFT [facility] Administration Labs CBC & Chem 7: 04/18/20 05:57 04/18/20 05:57 Microbiology Microbiology Results: Microbiology 04/18/20 11:30 Thoracentesis Fluid Gram Stain - Final 04/18/20 11:30 Thoracentesis Fluid Body Fluid Culture - Preliminary No growth after 1 day 04/17/20 15:35 Blood - Venous Blood Culture - Preliminary Gram negative 04/17/20 17:09 Urine clean catch - Clean Catch Midstream Urine Culture - Final Escherichia coli 04/17/20 15:35 Blood - Venous Blood Culture - Preliminary No growth after 24 hours. Assessment and Plan (1) Pleural effusion: Status: Acute (2) UTI (urinary tract infection): Status: Acute Assessment and Plan: 49/F DM, HTN, Anemia and recent diagnosis of B cell lymphoma and is under chemo by Dr. Way is now here with sepsis, UTI and and large, worsening left sided pleural effusion and fever. . Sepsis present on admission due to acute pyelonephritis due to pansensitive E coli complicated by bacteremia Change Zosyn to ceftriaxone Follow-up final cultures Pleural effusion on left side--likely related to non-Hodgkin's B-cell lymphoma Status post thoracentesis Follow-up oncology Diabetes Insulin
--- NOTE | 2020-04-19 12:35 | MHC.CM.PN ---
PER ROUNDS NO DC DATE AT THIS TIME CM WILL FOLLOW
[2020-04-19] MEDS: cefTRIAXone sodium 1 GM in 0.9 % Sodium Chloride 50 ML IV (13:07)
--- NOTE | 2020-04-19 14:22 | P.CNHO_ITS ---
Subjective - Subjective Chief complaint: Dysuria and abdominal pain Patient: known to practice within the last 3 years Consult date: 04/19/20 Requesting Physician: Dr. Brush Primary Care Provider: Unknown Physician HPI - Consult Narrative Reason for consult: Urosepsis in patient receiving chemotherapy Narrative: Tabitha Bill is a 49 year old woman who has been admitted for E coli bacteremia/urosepsis. She has been diagnosed with intra-abdominal lymphoma and received 1st cycle of chemotherapy 2 weeks ago. Last Sunday she had symptoms of dysuria which progressed over a week and she presented to the hospital with fe fahad in worsening fatigue. She had burning urination associated with back pain, fever and nausea. Blood cultures consistent with E coli sepsis/bacteremia. She has been admitted for IV antibiotics and reports feeling better. On admission, chest x-ray revealed worsen left-sided opacity, large left pleural effusion. She underwent ultrasound-guided thoracentesis on 04/18/2020. Review of Systems - Constitutional Reports fatigue, Reports poor appetite, Reports weakness - Respiratory Denies cough, Reports dyspnea on exertion - Gastrointestinal Reports abdominal pain, Reports constipation, Denies loose stools, Reports nausea - Genitourinary Reports as per HPI, Denies blood in urine, Reports difficulty starting urination Oncology Screenings - ECOG Performance Status ECOG Performance Status: 3 [facility] Medical History: Medical History (Last Updated 04/17/20 @ 20:36 by Gayla Persaud NP) Anxiety Depression Diabetes Fibromyalgia Lymphoma Migraines Surgical History: Surgical History (Last Reviewed 02/10/20 @ 04:54 by Elaine Ga MD) H/O: hysterectomy Smoking status: Former smoker Home Medications and Allergies Current Medications: Current Medications Generic Name Dose Route Start Last Admin Trade Name Freq PRN Reason Stop Dose Admin Acetaminophen 650 mg 04/17/20 20:33 04/19/20 05:30 Acetaminophen 325 Mg Tablet PO 650 mg Q6H PRN Administration Pain, Mild (Pain Scale 1-3) Heparin Sodium (Porcine) 5,000 unit 04/17/20 22:00 04/19/20 10:42 Heparin Sodium,Porcine 5,000 Unit/Ml Vial SUBCUT 5,000 unit Q12H MCIHEL Administration Ceftriaxone Sodium 1 gm/ 50 mls @ 100 mls/hr 04/19/20 12:00 04/19/20 13:55 Sodium Chloride IV Infused Q24H [facility]HEL Infusion Insulin Human Lispro 0 unit 04/18/20 11:30 04/19/20 11:16 Insulin Lispro 100 Unit/Ml 3 Ml Vial SUBCUT 2 unit QIDACHS [facility] Administration Protocol Morphine Sulfate 30 mg 04/17/20 21:00 04/19/20 08:36 Morphine Sulfate Er 30 Mg Tablet.Er PO 30 mg BID [facility] Administration Non-Formulary Medication 0.75 mg 04/17/20 20:33 Dulaglutide [Trulicity] SUBCUT Q7D [facility] Non-Formulary Medication 10 mg 04/18/20 09:00 Empagliflozin [Jardiance] PO DAILY [facility] Ondansetron HCl 4 mg 04/17/20 20:33 04/19/20 11:15 Ondansetron Hcl 4 Mg/2 Ml Vial IVPUSH 4 mg Q8H PRN Administration Nausea and Vomiting Oxycodone HCl 10 mg 04/17/20 20:33 04/19/20 10:42 Oxycodone Hcl Immed Release 5 Mg Tablet PO 10 mg Q4H PRN Administration Breakthrough Pain, Moderate Pharmacy Consult 1 each 04/17/20 14:56 Consult Rx Perform Med Rec MISCELLANE ONCE PRN Consult order Sodium Chloride 3 ml 04/18/20 00:00 04/19/20 07:43 0.9 % Sodium Chloride Flush 3 Ml Syringe IVFLUSH 3 ml QSHIFT [facility] Administration Home Medications Medication Instructions Recorded Confirmed Type Trulicity 0.75 mg SUBCUT QWEEK 02/09/20 04/17/20 History lisinopril 10 mg PO DAILY 04/18/20 04/18/20 History Allergies Allergy/AdvReac Type Severity Reaction Status Date / Time doxycycline [DOXYCYCLINE] Allergy Unknown RASH Verified 02/09/20 14:58 metformin Allergy Unknown diarrhea Verified 02/24/20 08:15 Physical Exam Vital signs: Vital Signs Temp 98.5 F 04/19/20 11:13 Pulse 101 H 04/19/20 11:13 Resp 18 04/19/20 11:13 BP 103/73 04/19/20 11:13 Pulse Ox 98 04/19/20 11:13 Intake & Output 04/18/20 04/19/20 04/19/20 18:59 06:59 18:59 Intake Total 480 / 1180 700 / 1180 460 / 460 Balance 480 / 1180 700 / 1180 460 / 460 Intake: Intake, Oral Amount 380 / 980 600 / 980 360 / 360 Intake, IV Amount 100 / 200 100 / 200 100 / 100 Piperacillin Sodium/Tazobactam 100 / 200 100 / 200 50 / 50 3.375 gm In 0.9 % Sodium Chloride 50 ml @ 100 mls/hr IV Q6H [facility] Rx#:[id number] cefTRIAXone sodium 1 gm In 0.9 50 / 50 % Sodium Chloride 50 ml @ 100 mls/hr IV Q24H [facility] Rx#: [id number] Other: Meal Refused No NPO No Breakfast % Eaten 75% Lunch % Eaten 100% Dinner % Eaten 50% Number of Unmeasured Voids 3 1 3 Urine Bathroom Stool Bathroom Weight 77.111 kg Weight 77.111 kg - Constitutional Present: chronically ill appearing - Routine HEENT Exam Head: Present: normal inspection Eye: Present: EOMI - Routine Neck Exam Absent: lymphadenopathy - Routine Respiratory Exam Absent: accessory muscle use, respiratory distress - Routine Cardiovascular Exam Cardiovascular: Present: S1, S2 - Routine Abdominal Exam Present: distended, soft - Routine Extremities Exam Absent: calf tenderness, joint swelling, pedal edema Hem/Onc Consult Result - Labs CBC & Chem 7: 04/18/20 05:57 04/18/20 05:57 Assessment and Plan (1) Intra-abdominal malignant neoplasm Status: Acute 1. This is a 49-year-old woman with intra-abdominal B-cell lymphoma currently receiving chemotherapy admitted with E coli urosepsis. She is on Intravenous cefepime. She has had a large left pleural effusion which has been drained. This is probably a transudate from having extensive splenic involvement from lymphoma, however, malignant effusion needs to be ruled out. I would recommend sending pleural fluid for cytology. Based on recent biopsy she appears to have a high-grade lymphoma. She received 1 cycle chemotherapy with R-CHOP. She received Neulasta on day 2. Some of her leukocytosis could be explained by this but underlying infection is also probable cause. I thank you for this consult.
[2020-04-19 16:06] LABS: Glucose, Whole Blood 183 mg/dL (60-115)
[2020-04-19 20:25] LABS: Glucose, Whole Blood 190 mg/dL (60-115)
[2020-04-20] VITALS (7 sets, daily range): BP systolic 123–153; BP diastolic 71–95; PULSE 97–111; RESP 18–20; TEMP 37.1–38.4; O2SAT 94–97
--- NOTE | 2020-04-20 | CT_ITS ---
EXAMINATION: CT ABDOMEN AND PELVIS WITHOUT CONTRAST CLINICAL INFORMATION: Hilar nephritis. Evaluate for stone. COMPARISON: Previous CT scans of the abdomen and pelvis most recent January [address]-guided biopsy February 2018 TECHNIQUE: Multidetector volumetric imaging was performed from the superior aspect of the liver through the pubic symphysis. Sagittal and coronal reformatted images were obtained on the technologist's workstation. This CT examination was performed using dose optimization techniques as appropriate, variously including the following: *Automated exposure control *Adjustment of mA and/or kV according to patient size (this includes techniques or standardized protocols for targeted exams where dose is matched to indication/reason for exam; i.e. extremities or head) *Use of iterative reconstruction technique DLP: 522 mGy-cm FINDINGS: LUNG BASES: There is a moderate left pleural effusion. There is left lower lobe compressive atelectasis. The right lung base is clear. LIVER, GALLBLADDER, AND BILIARY TREE: The liver is normal in size, shape, and attenuation. No focal hepatic lesion or biliary ductal dilatation is present. The gallbladder is unremarkable with no evidence of radiopaque gallstones, gallbladder wall thickening, or obvious pericholecystic inflammatory changes. There is a soft tissue mass in the left upper quadrant involving these lesion in tail of the pancreas and greater curvature of the stomach. Comparison with previous exams is difficult as no contrast was administered on the current exam however left upper quadrant mass appears decreased in size from previous exams. Involvement of the left adrenal gland is no longer seen. ADRENAL GLANDS: Unremarkable. KIDNEYS AND URETERS: There is a small 1 to 2 mm nonobstructing stone in the lower pole of the right kidney. No left renal stone is seen. No hydronephrosis, ureteral dilatation or ureteral stone is seen. BLADDER: Unremarkable. GASTROINTESTINAL TRACT: There is diverticulosis of the colon. There is stool seen throughout the colon questionable for constipation. No bowel dilatation is seen. The appendix is unremarkable. The small bowel is unremarkable. There is involvement of the greater curvature of the stomach with the left upper quadrant mass. The stomach is otherwise unremarkable. ABDOMINAL WALL: There may be postsurgical changes to the anterior abdominal wall. There is a tiny periumbilical hernia containing fat. LYMPH NODES: There is interval decrease in left upper quadrant lymph nodes. There is no ascites. VASCULAR: Unremarkable. PELVIC VISCERA: The uterus appears to have been removed. No pelvic mass is seen. OSSEOUS STRUCTURES: There are degenerative changes of the spine. CT/CT abdomen pelvis wo con IMPRESSION: Small nonobstructing right lower pole renal stone. No hydronephrosis or ureteral dilatation or ureteral stone seen. Normal left kidney. Interval decrease in size in the left upper quadrant mass involving the spleen, tail the pancreas and greater curvature of the stomach. Interval decrease in adjacent lymphadenopathy. Large left pleural effusion and left lower lobe compressive atelectasis.
[2020-04-20] MEDS: Acetaminophen 325 MG TABLET 650 MG PO (02:31)
[2020-04-20] MEDS: ondansetron HCL 4 MG/2 ML VIAL IVPUSH ×2 (04:12→16:21)
[2020-04-20 06:51] LABS: Hematocrit 31.5 % (37-47); Hemoglobin 9.9 g/dl (12.0-16.0); Mean Corpuscular HGB Conc 31.4 g/dl (31.0-35.0); Mean Corpuscular Hemoglobin 23.8 pg (27.0-33.0); Mean Corpuscular Volume 75.7 fL (80-98); Mean Platelet Volume 10.6 fL (9.4-12.3); Platelet Count 330 X10*3/uL (160-400); Red Blood Count 4.16 X10*6/uL (4.20-5.50); White Blood Count 9.2 X10*3/uL (4.8-10.8)
[2020-04-20 07:01] LABS: Anion Gap 14 (12-20); Blood Urea Nitrogen 5 mg/dL (9-16); Calcium 8.1 mg/dL (8.4-10.2); Carbon Dioxide 25 mmol/L (22-29); Chloride 102 mmol/L (96-108); Creatinine Clr Calc Pharmacy 112.7; Estimated Glomerular Filt Rate > 60; Glucose Fasting 245 mg/dL (60-99); Potassium 3.7 mmol/l (3.3-5.1); Sodium 137 mmol/L (135-145)
[2020-04-20 07:44] LABS: Glucose, Whole Blood 225 mg/dL (60-115)
[2020-04-20] MEDS: Morphine Sulfate ER 30 MG TABLET.ER PO ×2 (08:44→20:59)
[2020-04-20] MEDS: Heparin Sodium,Porcine 5,000 UNIT/ML VIAL 5000 UNIT SUBCUT ×2 (08:44→20:57)
[2020-04-20] MEDS: 0.9 % Sodium Chloride Flush 3 ML SYRINGE IVFLUSH ×2 (08:45→16:13)
[2020-04-20] MEDS: Insulin Lispro 100 UNIT/ML 3 ML VIAL SUBCUT ×4 (08:45→21:56)
[2020-04-20 08:52] LABS: Band Neutrophils Percent 22 % (3-5); Basophils Abs Manual 0.1 X10*3/uL (0.0-0.3); Basophils Percent Manual 1 % (0-1); Lymphocytes Absolute Manual 0.6 X10*3/uL (0.6-4.8); Lymphocytes Percent Manual 6 % (20-40); Metamyelocytes Absolute 0.6 X10*3/uL; Metamyelocytes Percent 6 %; Monocytes Absolute Manual 0.4 X10*3/uL (0.0-1.2); Monocytes Percent Manual 4 % (2-11); Neutrophils Absolute Manual 7.6 X10*3/uL (2.2-7.9); Neutrophils Percent Manual 61 % (45-73)
[2020-04-20 08:53] LABS: Platelet Estimate NORMAL (NORMAL); Platelet Morphology Comment NORMAL
[2020-04-20 08:54] LABS: Hypochromasia 1+; Polychromasia 1+; RBC Morphology NOTED
[2020-04-20 11:38] LABS: Glucose, Whole Blood 216 mg/dL (60-115)
--- NOTE | 2020-04-20 11:52 | P.PNIM_ITS ---
Subjective Subjective Date of Service: 04/20/20 Interval History: fevers Cardiovascular Cardiovascular: Reports no additional cardiovascular complaints Respiratory Respiratory: Reports no additional respiratory complaints Physical Exam Vital Signs: Vital Signs: Last Vital Signs Temp 99.4 F 04/20/20 11:06 Pulse 111 H 04/20/20 11:06 Resp 18 04/20/20 11:06 BP 153/84 H 04/20/20 11:06 Pulse Ox 95 04/20/20 11:06 Body Mass Index 30.1 General: AO X 3, no acute distress Resp: CTA bilateral CVS: S1,S2,RRR GI: soft, non tender, non distended Neuro: motor grossly intact Psych: appropriate affect Objective Data Current Medications Generic Name Dose Route Start Last Admin Trade Name Freq PRN Reason Stop Dose Admin Acetaminophen 650 mg 04/17/20 20:33 04/20/20 02:31 Acetaminophen 325 Mg Tablet PO 650 mg Q6H PRN Administration Pain, Mild (Pain Scale 1-3) Docusate Sodium 100 mg 04/20/20 21:00 Docusate Sodium 100 Mg Capsule PO BID [facility] Heparin Sodium (Porcine) 5,000 unit 04/17/20 22:00 04/20/20 08:44 Heparin Sodium,Porcine 5,000 Unit/Ml Vial SUBCUT 5,000 unit Q12H [facility] Administration Ceftriaxone Sodium 1 gm/ 50 mls @ 100 mls/hr 04/19/20 12:00 04/19/20 13:55 Sodium Chloride IV Infused Q24H [facility] Infusion Insulin Human Lispro 0 unit 04/18/20 11:30 04/20/20 08:45 Insulin Lispro 100 Unit/Ml 3 Ml Vial SUBCUT 4 unit QIDACHS [facility] Administration Protocol Morphine Sulfate 30 mg 04/17/20 21:00 04/20/20 08:44 Morphine Sulfate Er 30 Mg Tablet.Er PO 30 mg BID [facility] Administration Non-Formulary Medication 0.75 mg 04/17/20 20:33 Dulaglutide [Trulicity] SUBCUT Q7D [facility] Non-Formulary Medication 10 mg 04/18/20 09:00 Empagliflozin [Jardiance] PO DAILY [facility] Ondansetron HCl 4 mg 04/17/20 20:33 04/20/20 04:12 Ondansetron Hcl 4 Mg/2 Ml Vial IVPUSH 4 mg Q8H PRN Administration Nausea and Vomiting Oxycodone HCl 10 mg 04/17/20 20:33 04/19/20 17:22 Oxycodone Hcl Immed Release 5 Mg Tablet PO 10 mg Q4H PRN Administration Breakthrough Pain, Moderate Pharmacy Consult 1 each 04/17/20 14:56 Consult Rx Perform Med Rec MISCELLANE ONCE PRN Consult order Sodium Chloride 3 ml 04/18/20 00:00 04/20/20 08:45 0.9 % Sodium Chloride Flush 3 Ml Syringe IVFLUSH 3 ml QSHIFT [facility] Administration Labs CBC & Chem 7: 04/20/20 05:31 04/20/20 05:31 Microbiology Microbiology Results: Microbiology 04/18/20 11:30 Thoracentesis Fluid Gram Stain - Final 04/18/20 11:30 Thoracentesis Fluid Body Fluid Culture - Final No growth after 2 days 04/17/20 15:35 Blood - Venous Blood Culture - Preliminary Escherichia coli 04/17/20 15:35 Blood - Venous Blood Culture - Preliminary No growth after 48 hours. 04/17/20 17:09 Urine clean catch - Clean Catch Midstream Urine Culture - Final Escherichia coli Assessment and Plan (1) Pleural effusion: Status: Acute (2) UTI (urinary tract infection): Status: Acute Assessment and Plan: 49/F DM, HTN, Anemia and recent diagnosis of B cell lymphoma and is under chemo by Dr. Way is now here with sepsis, UTI and and large, worsening left sided pleural effusion and fever. . Sepsis present on admission due to acute pyelonephritis due to pansensitive E coli complicated by bacteremia ceftriaxone Follow-up final cultures CT abd Pleural effusion on left side--likely related to non-Hodgkin's B-cell lymphoma Status post thoracentesis Follow-up oncology, cytology NSVT cardio eval had echo a month ago Diabetes Insulin
[2020-04-20] MEDS: oxyCODONE HCl Immed Release 5 MG TABLET 10 MG PO ×2 (12:14→16:22)
[2020-04-20] MEDS: Docusate Sodium 100 MG CAPSULE PO ×2 (12:14→20:59)
[2020-04-20] MEDS: cefTRIAXone sodium 1 GM in 0.9 % Sodium Chloride 50 ML IV (12:21)
[2020-04-20 16:26] LABS: Glucose, Whole Blood 194 mg/dL (60-115)
[2020-04-20 21:18] LABS: Glucose, Whole Blood 247 mg/dL (60-115)
[2020-04-21] VITALS (8 sets, daily range): BP systolic 129–142; BP diastolic 68–87; PULSE 81–107; RESP 16–18; TEMP 36.5–37.2; O2SAT 92–98
[2020-04-21] MEDS: oxyCODONE HCl Immed Release 5 MG TABLET 10 MG PO ×2 (00:23→17:11)
[2020-04-21] MEDS: ondansetron HCL 4 MG/2 ML VIAL IVPUSH ×3 (00:24→17:11)
[2020-04-21 06:50] LABS: Hematocrit 29.9 % (37-47); Hemoglobin 9.3 g/dl (12.0-16.0); Mean Corpuscular HGB Conc 31.1 g/dl (31.0-35.0); Mean Corpuscular Hemoglobin 23.5 pg (27.0-33.0); Mean Corpuscular Volume 75.7 fL (80-98); Mean Platelet Volume 9.9 fL (9.4-12.3); Platelet Count 367 X10*3/uL (160-400); Red Blood Count 3.95 X10*6/uL (4.20-5.50); Red Cell Distribution Width 16.9 % (11.0-16.0); White Blood Count 9.8 X10*3/uL (4.8-10.8)
[2020-04-21 07:11] LABS: Anion Gap 12 (12-20); Blood Urea Nitrogen 5 mg/dL (9-16); Carbon Dioxide 26 mmol/L (22-29); Chloride 104 mmol/L (96-108); Creatinine Clr Calc Pharmacy 120.8; Estimated Glomerular Filt Rate > 60; Glucose Fasting 248 mg/dL (60-99); Magnesium 1.8 mg/dL (1.6-2.6); Potassium 3.4 mmol/l (3.3-5.1); Sodium 139 mmol/L (135-145)
[2020-04-21 07:28] LABS: Glucose, Whole Blood 236 mg/dL (60-115)
[2020-04-21 07:53] LABS: Band Neutrophils Percent 12 % (3-5); Lymphocytes Percent Manual 10 % (20-40); Metamyelocytes Absolute 0.3 X10*3/uL; Metamyelocytes Percent 3 %; Monocytes Absolute Manual 0.6 X10*3/uL (0.0-1.2); Monocytes Percent Manual 6 % (2-11); Neutrophils Absolute Manual 7.9 X10*3/uL (2.2-7.9); Neutrophils Percent Manual 69 % (45-73)
[2020-04-21 07:54] LABS: Acanthocytes 1+; Hypochromasia 1+; Platelet Estimate NORMAL (NORMAL); Platelet Morphology Comment NORMAL; RBC Morphology NORMAL; Schistocytes 1+
[2020-04-21] MEDS: Insulin Lispro 100 UNIT/ML 3 ML VIAL SUBCUT ×4 (08:34→21:17)
[2020-04-21] MEDS: Docusate Sodium 100 MG CAPSULE PO ×2 (08:36→21:16)
[2020-04-21] MEDS: 0.9 % Sodium Chloride Flush 3 ML SYRINGE IVFLUSH ×3 (08:36→15:19)
[2020-04-21] MEDS: Morphine Sulfate ER 30 MG TABLET.ER PO ×2 (08:36→21:16)
--- NOTE | 2020-04-21 09:43 | HO.PM.IMPN ---
Subjective Subjective Date of Service: 04/21/20 Interval History: still with luq pain Cardiovascular Cardiovascular: Reports no additional cardiovascular complaints Respiratory Respiratory: Reports no additional respiratory complaints Physical Exam Vital Signs: Vital Signs: Last Vital Signs Temp 98.7 F 04/21/20 07:19 Pulse 107 H 04/21/20 07:19 Resp 18 04/21/20 07:19 BP 138/87 04/21/20 07:19 Pulse Ox 92 04/21/20 07:19 Body Mass Index 30.1 General: AO X 3, no acute distress Resp: CTA bilateral CVS: S1,S2,RRR GI: soft, LUQ tender, splenomegaly Neuro: motor grossly intact Psych: appropriate affect Objective Data Current Medications Generic Name Dose Route Start Last Admin Trade Name Freq PRN Reason Stop Dose Admin Acetaminophen 650 mg 04/17/20 20:33 04/20/20 02:31 Acetaminophen 325 Mg Tablet PO 650 mg Q6H PRN Administration Pain, Mild (Pain Scale 1-3) Docusate Sodium 100 mg 04/20/20 21:00 04/21/20 08:36 Docusate Sodium 100 Mg Capsule PO 100 mg BID MICHEL Administration Heparin Sodium (Porcine) 5,000 unit 04/17/20 22:00 04/20/20 20:57 Heparin Sodium,Porcine 5,000 Unit/Ml Vial SUBCUT 5,000 unit Q12H [facility] Administration Ceftriaxone Sodium 1 gm/ 50 mls @ 100 mls/hr 04/19/20 12:00 04/20/20 13:04 Sodium Chloride IV Infused Q24H [facility] Infusion Insulin Human Lispro 0 unit 04/18/20 11:30 04/21/20 08:34 Insulin Lispro 100 Unit/Ml 3 Ml Vial SUBCUT 4 unit QIDACHS [facility] Administration Protocol Morphine Sulfate 30 mg 04/17/20 21:00 04/21/20 08:36 Morphine Sulfate Er 30 Mg Tablet.Er PO 30 mg BID MICHEL Administration Non-Formulary Medication 0.75 mg 04/17/20 20:33 Dulaglutide [Trulicity] SUBCUT Q7D [facility] Non-Formulary Medication 10 mg 04/18/20 09:00 Empagliflozin [Jardiance] PO DAILY [facility] Ondansetron HCl 4 mg 04/17/20 20:33 04/21/20 08:43 Ondansetron Hcl 4 Mg/2 Ml Vial IVPUSH 4 mg Q8H PRN Administration Nausea and Vomiting Oxycodone HCl 10 mg 04/17/20 20:33 04/21/20 00:23 Oxycodone Hcl Immed Release 5 Mg Tablet PO 10 mg Q4H PRN Administration Breakthrough Pain, Moderate Pharmacy Consult 1 each 04/17/20 14:56 Consult Rx Perform Med Rec MISCELLANE ONCE PRN Consult order Sodium Chloride 3 ml 04/18/20 00:00 04/21/20 08:36 0.9 % Sodium Chloride Flush 3 Ml Syringe IVFLUSH 3 ml QSHIFT [facility] Administration Labs CBC & Chem 7: 04/21/20 05:33 04/21/20 05:33 Microbiology Microbiology Results: Microbiology 04/18/20 11:30 Thoracentesis Fluid Gram Stain - Final 04/18/20 11:30 Thoracentesis Fluid Body Fluid Culture - Final No growth after 2 days 04/17/20 15:35 Blood - Venous Blood Culture - Preliminary Escherichia coli 04/17/20 15:35 Blood - Venous Blood Culture - Preliminary No growth after 48 hours. 04/17/20 17:09 Urine clean catch - Clean Catch Midstream Urine Culture - Final Escherichia coli Assessment and Plan (1) Pleural effusion: Status: Acute (2) UTI (urinary tract infection): Status: Acute Assessment and Plan: 49/F DM, HTN, Anemia and recent diagnosis of B cell lymphoma and is under chemo by Dr. Way is now here with sepsis, UTI and and large, worsening left sided pleural effusion and fever. . Sepsis present on admission due to acute pyelonephritis due to pansensitive E coli complicated by bacteremia continue ceftriaxone, now afebrile about 36hrs abd pain due to splenic mass from lymphoma ms contin Pleural effusion on left side--likely related to non-Hodgkin's B-cell lymphoma Status post thoracentesis Follow-up oncology, cytology NSVT cardio eval had echo a month ago replete mag and potassium Diabetes Insulin
--- NOTE | 2020-04-21 10:10 | P.CONCA_ITS ---
History of Present Illness History of Present Illness Date of Service: 04/21/20 Chief complaint: Pyelonephritis Narrative: Thank you for inviting us a consult on Tabitha for noted nonsustained ventricular tachycardia yesterday while being monitored. Patient noted to have a 20 beat nonsustained ventricular tachycardia at about 190-200 beats per minute. Patient had no symptoms during that time. This was a totally asymptomatic event. Patient denied any symptoms of chest pain, palpitations, lightheadedness, syncope. Patient has been admitted with pyelonephritis and has a large left-sided pleural effusion underwent thoracocentesis yesterday. Patient also was recently diagnosed with intra-abdominal mass possibly B-cell lymphoma. Has received 1 cycle of chemotherapy with CHOP regimen. Echocardiogram prior to receiving chemotherapy at show normal LV systolic function. She denies any prior history of are coronary artery disease, congestive heart failure, sarcoidosis. She has not had any recent exertional symptoms that would suggest myocardial ischemia. Currently not having any cardiac symptoms. Review of Systems Constitutional: Constitutional: Denies body ache(s), Reports fever(s), Reports malaise and Reports weakness Eyes: Eyes: Reports no additional eye complaints ENT: Reports system reviewed and no additional complaints, except as doc umented Cardiovascular: Cardiovascular: Reports no additional cardiovascular complaints Respiratory: Respiratory: Reports no additional respiratory complaints Gastrointestinal: Gastrointestinal: Reports abdominal pain Neurologic: Reports system reviewed and no additional complaints, except as documented and Reports weakness Endocrine: Endocrine: Reports no additional endocrine complaints Allergic/Immunologic: Allergic/Immunologic: Reports no additional allergic/immunologic complaints PMFSH Past Medical History Medical History Anxiety Depression Diabetes Fibromyalgia Lymphoma Migraines Surgical History Surgical History H/O: hysterectomy Social History Social History Household Members: Significant Other Housing: Apartment Do you presently have visiting nurse or other home services: No Alcohol intake: never Smoking Status: Former smoker Tobacco Type: Cigarette Smoked in Last 30 Days: No Smoking Quit Date: 03/26/20 Patient Interested in Nicotine Replacement: No Second Hand Smoke Exposure: No Use of substances other than those prescribed or required for medical reasons: No Currently Displaying Signs/Symptoms of Drug Intoxication Withdrawal: No Have you been hit, kicked, punched, or otherwise hurt by someone within the past year? If so, by whom?: No Do you feel safe in your current relationship?: Yes Is there a partner from a previous relationship who is making you feel unsafe now?: No Are you made to feel afraid or neglected: No Yazdanism Healthcare Practices: buddhism Advance Directives: No Advance Directives Information Provided: No Do you have thoughts of harming others: None Do you have a plan to hurt others: No Plan Recently lost weight without trying: Yes service: No Current occupational status: employed Meds Allergies Allergy/AdvReac Type Severity Reaction Status Date / Time doxycycline [DOXYCYCLINE] Allergy Unknown RASH Verified 02/09/20 14:58 metformin Allergy Unknown diarrhea Verified 02/24/20 08:15 Home Medications Medication Instructions Recorded Confirmed Type Trulicity 0.75 mg SUBCUT QWEEK 02/09/20 04/17/20 History lisinopril 10 mg PO DAILY 04/18/20 04/18/20 History Physical Exam Vital Signs: Vital Signs: Last Vital Signs Temp 98.7 F 04/21/20 07:19 Pulse 107 H 04/21/20 07:19 Resp 18 04/21/20 07:19 BP 138/87 04/21/20 07:19 Pulse Ox 92 04/21/20 07:19 Body Mass Index 30.1 Const: General: cooperative, comfortable, no acute distress, alert, awake and ill appearing Nutritional Appearance: overweight Orientation/consciousness: patient oriented x3 HENMT: Head: Yes normocephalic and Yes atraumatic Eyes: General: appearance normal, both eyes and all related structures Neck: Neck: Yes trachea midline, Yes supple and Yes no JVD Chest: Chest palpation & inspection: normal inspection of the chest Resp: Effort & Inspection: normal respiratory effort Auscultation: no fine craft artist ckles, no rales and breath sounds absent (Lower 1/3 of the left posterior lung field) Cardio: Jugular venous distension: no JVD Palpation: normal PMI Rate: regular rate Rhythm: regular rhythm Heart sounds: S1 normal heart sound present and S2 normal heart sound present GI: Inspection: Yes distended Auscultation: normal bowel sounds Skin: General skin exam: no rashes or lesions noted Neuro: General: patient oriented x3 Extrem: General: Yes no clubbing, cyanosis or edema Psych: Appearance: grossly normal Results Labs and Meds Result diagrams: 04/21/20 05:33 04/21/20 05:33 Lab results: Laboratory Results - last 24 hr 04/20/20 04/20/20 04/20/20 11:24 16:22 21:14 WBC RBC Hgb Hct MCV MCH MCHC RDW Plt Count MPV Immature Gran % (Auto) Neut % (Auto) Lymph % (Auto) [place] % (Auto) Eos % (Auto) Baso % (Auto) Lymph # (Auto) [place] # (Auto) Eos # (Auto) Baso # (Auto) Abs Immat Gran (auto) Absolute Neuts (auto) Absolute Nucleated RBC Nucleated RBC % (auto) Neutrophils % (Manual) Band Neutrophils % Lymphocytes % (Manual) Monocytes % (Manual) Metamyelocytes % Abs Neuts (Manual) Lymphocytes # (Manual) Monocytes # (Manual) Metamyelocytes # Platelet Estimate Plt Morphology Comment RBC Morphology Hypochromasia Acanthocytes (Spur) Schistocytes Sodium Potassium Chloride Carbon Dioxide Anion Gap BUN Creatinine Estim Creat Clear Calc Estimated GFR POC Glucose 216 H 194 H 247 H Fasting Glucose Calcium Magnesium 04/21/20 04/21/20 04/21/20 05:33 05:33 07:17 WBC 9.8 RBC 3.95 L Hgb 9.3 L Hct 29.9 L MCV 75.7 L MCH 23.5 L MCHC 31.1 RDW 16.9 H Plt Count 367 MPV 9.9 Immature Gran % (Auto) Cancelled Neut % (Auto) Cancelled Lymph % (Auto) Cancelled [place] % (Auto) Cancelled Eos % (Auto) Cancelled Baso % (Auto) Cancelled Lymph # (Auto) Cancelled [place] # (Auto) Cancelled Eos # (Auto) Cancelled Baso # (Auto) Cancelled Abs Immat Gran (auto) Cancelled Absolute Neuts (auto) Cancelled Absolute Nucleated RBC 0.000 Nucleated RBC % (auto) 0.0 Neutrophils % (Manual) 69 Band Neutrophils % 12 H Lymphocytes % (Manual) 10 L Monocytes % (Manual) 6 Metamyelocytes % 3 Abs Neuts (Manual) 7.9 Lymphocytes # (Manual) 1.0 Monocytes # (Manual) 0.6 Metamyelocytes # 0.3 Platelet Estimate NORMAL Plt Morphology Comment NORMAL RBC Morphology NORMAL Hypochromasia 1+ Acanthocytes (Spur) 1+ Schistocytes 1+ Sodium 139 Potassium 3.4 Chloride 104 Carbon Dioxide 26 Anion Gap 12 BUN 5 L Creatinine 0.56 Estim Creat Clear Calc 120.8 Estimated GFR > 60 POC Glucose 236 H Fasting Glucose 248 H Calcium 8.0 L Magnesium 1.8 EKG on admission shows sinus tachycardia with no significant abnormality Assessment and Plan (1) NSVT (nonsustained ventricular tachycardia): Status: Acute Sudden-onset nonsustained ventricular tachycardia, 20 beats at a fast heart rate of 190-200 beats per minute, completely asymptomatic. Patient recently receiving CHOP therapy for intra-abdominal suspected B-cell lymphoma. She had echocardiogram prior to receiving her chemotherapy which was within normal limits. She has mild hypokalemia and hypermagnesemia. No QT prolongation noted on the EKG. Advised replace electrolytes. Repeat limited echocardiogram with small likelihood of sudden onset cardiomyopathy inpatient receiving cardiotoxic agent. If echo LVEF is normal, will pursue treatment with metoprolol. This can be started anyway now. Other possibilities include hyperadrenergic state related to underlying medical illness. Less likely infiltrative disorder such as sarcoidosis needs to be considered. Treatment in setting of normal LV systolic function will be with beta-blockers. If she persists with repeated episodes, may need to use oral antiarrhythmic drug therapy such as amiodarone. Will follow the patient. Thank you for allowing us to partake in her care
[2020-04-21 11:04] LABS: Glucose, Whole Blood 232 mg/dL (60-115)
[2020-04-21] MEDS: Heparin Sodium,Porcine 5,000 UNIT/ML VIAL 5000 UNIT SUBCUT ×2 (11:07→21:17)
[2020-04-21] MEDS: Potassium Chloride ER 20 MEQ TAB.ER.PRT 40 MEQ PO (11:08)
[2020-04-21] MEDS: Metoprolol Tartrate 25 MG TABLET PO ×2 (11:08→21:18)
[2020-04-21] MEDS: Magnesium Oxide 400 MG TABLET 800 MG PO (11:08)
--- NOTE | 2020-04-21 11:30 | CA_ITS ---
Transthoracic Echocardiogram Patient (Last, First, Middle): Tabitha Bill Luz Gender: Female Date of : 1970 Age: 49 Procedure Date: 04/21/2020 Procedure Type: Transthoracic Echocardiogram [place] [facility] [place]: 160.02 cm Weight: 77.11 kg BSA: 1.80 m2 Heart Rate: bpm BP: 138 / 87 mmHg Fermentologist: SARA Referring MD: Tashi Flores MD Rn Documentation Specialist: Tashi Flores MD Symptoms: NSVT Study Quality: Fair ECG Rhythm: Sinus Conclusions: - 1. Normal biventricular function Findings Left Ventricle Normal left ventricular size, thickness, and systolic function. The visually estimated ejection fraction is between 60-65%. Diastolic function is normal for age. Right Ventricle Normal right ventricular cavity size and systolic function. Pericardium/Pleural There is no evidence of pericardial effusion. There is a large left sided pleural effusion. Prior Study Comparison No significant change compared to prior study dated: 03/16/2020. Measurements Tricuspid Valve TR Pk Peewee: 1.81 TR Pk Grad: 13.00 Updated in Other Vendor System with Status of Final Tsahi Flores MD electronically signed on 04/21/2020 2:41:27 PM with status of Final
[2020-04-21] MEDS: cefTRIAXone sodium 1 GM in 0.9 % Sodium Chloride 50 ML IV (12:40)
--- NOTE | 2020-04-21 13:01 | MHC.CM.PN ---
Home is the goal for dc; Patient received IV Zofran today and continues on IV Ceftriaxone for a UTI. CM will continue to follow for dc planning and possible need to adjust the dc plan.
[2020-04-21 16:17] LABS: Glucose, Whole Blood 179 mg/dL (60-115)
[2020-04-21 16:17] LABS: LLE Markers 23
[2020-04-21 21:10] LABS: Glucose, Whole Blood 222 mg/dL (60-115)
[2020-04-22] MEDS: oxyCODONE HCl Immed Release 5 MG TABLET 10 MG PO ×2 (00:08→10:19)
[2020-04-22] MEDS: 0.9 % Sodium Chloride Flush 3 ML SYRINGE IVFLUSH ×2 (00:09→08:54)
[2020-04-22] MEDS: Acetaminophen 325 MG TABLET 650 MG PO (00:09)
[2020-04-22 00:13] VITALS: BP 135/68
[2020-04-22] MEDS: ondansetron HCL 4 MG/2 ML VIAL IVPUSH ×2 (01:18→10:19)
[2020-04-22 03:27] VITALS: BP 128/76; PULSE 88; RESP 18; TEMP 36.1; O2SAT 95
[2020-04-22 06:23] LABS: Hematocrit 28.8 % (37-47); Hemoglobin 8.8 g/dl (12.0-16.0); Mean Corpuscular HGB Conc 30.6 g/dl (31.0-35.0); Mean Corpuscular Hemoglobin 23.7 pg (27.0-33.0); Mean Corpuscular Volume 77.4 fL (80-98); Mean Platelet Volume 9.7 fL (9.4-12.3); Platelet Count 409 X10*3/uL (160-400); Red Blood Count 3.72 X10*6/uL (4.20-5.50); Red Cell Distribution Width 17.2 % (11.0-16.0)
[2020-04-22 06:52] LABS: Anion Gap 12 (12-20); Blood Urea Nitrogen 6 mg/dL (9-16); Calcium 8.1 mg/dL (8.4-10.2); Carbon Dioxide 26 mmol/L (22-29); Chloride 106 mmol/L (96-108); Creatinine Clr Calc Pharmacy 109.1; Estimated Glomerular Filt Rate > 60; Glucose Fasting 276 mg/dL (60-99); Potassium 3.9 mmol/l (3.3-5.1); Sodium 140 mmol/L (135-145)
[2020-04-22 07:20] LABS: Band Neutrophils Percent 9 % (3-5); Lymphocytes Absolute Manual 1.8 X10*3/uL (0.6-4.8); Lymphocytes Percent Manual 20 % (20-40); Metamyelocytes Absolute 0.1 X10*3/uL; Metamyelocytes Percent 1 %; Monocytes Absolute Manual 0.4 X10*3/uL (0.0-1.2); Monocytes Percent Manual 4 % (2-11); Myelocytes Absolute 0.1 X10*/uL; Myelocytes Percent 1 %; Neutrophils Absolute Manual 6.7 X10*3/uL (2.2-7.9); Neutrophils Percent Manual 65 % (45-73)
[2020-04-22 07:21] LABS: Microcytosis 1+; RBC Morphology NOTED
[2020-04-22 07:22] LABS: Platelet Estimate SLIGHTLY INCREASED (NORMAL); Platelet Morphology Comment NORMAL; Tear Drop Cells 1+
[2020-04-22 07:38] VITALS: BP 135/66; PULSE 91; RESP 17; TEMP 36.7; O2SAT 96
[2020-04-22 08:15] LABS: Glucose, Whole Blood 262 mg/dL (60-115)
[2020-04-22] MEDS: Heparin Sodium,Porcine 5,000 UNIT/ML VIAL 5000 UNIT SUBCUT (08:51)
[2020-04-22] MEDS: Morphine Sulfate ER 30 MG TABLET.ER PO (08:52)
[2020-04-22] MEDS: Insulin Lispro 100 UNIT/ML 3 ML VIAL SUBCUT ×2 (08:53→12:51)
[2020-04-22] MEDS: Docusate Sodium 100 MG CAPSULE PO (08:53)
[2020-04-22 08:55] VITALS: BP 135/66; PULSE 91
[2020-04-22] MEDS: Metoprolol Tartrate 25 MG TABLET PO (08:55)
--- NOTE | 2020-04-22 10:27 | PM.DS ---
DS: Providers Provider Date of admission: 04/17/20 18:58 Primary care physician: Unknown Physician Consults: 04/19/20 08:24 Consult to Hematology / Oncology Routine Consulting Provider: Cheng Way Reason for consultation: b cell lymphoma 04/20/20 11:49 Consult to Cardiology Routine Consulting Provider: Tashi Flores Reason for consultation: nsvt DS: Diagnosis Discharge Diagnosis (1) NSVT (nonsustained ventricular tachycardia): Status: Acute (2) UTI (urinary tract infection): Status: Acute (3) Sepsis: Status: Acute (4) Splenic mass: Status: Acute (5) Abdominal pain: Status: Acute DS: Medications Discharge Medications Home Medications: Home Medications Medication Instructions Recorded Confirmed Trulicity 0.75 mg SUBCUT QWEEK 02/09/20 04/17/20 lisinopril 10 mg PO DAILY 04/18/20 04/18/20 Previous Rx's Medication Instructions Recorded morphine [MS Contin] 30 mg PO Q12H #60 tab 02/24/20 empagliflozin 10 mg tablet 10 mg PO QAM #30 cap 03/31/20 oxycodone 10 mg PO Q4H PRN #60 tab 04/01/20 ondansetron HCl [Zofran] 8 mg PO Q8H #30 tab 04/12/20 cefuroxime axetil 500 mg PO BID #14 tab 04/22/20 metoprolol tartrate 25 mg PO BID #60 tab 04/22/20 DS: Summary Hospital Course Hospital Course: Patient was admitted for sepsis secondary to acute pyelonephritis with bacteremia due to E coli. She was given IV ceftriaxone, sepsis resolved, she will continue 7 more days of p.o. Ceftin. Course was complicated by episode of nonsustained ventricular tachycardia. She was seen by Cardiology. Repeat limited echo showed normal ejection fraction. Electrolytes were replaced. Thought likely to be due secondary to stress from sepsis. She was started on metoprolol 50 mg b.i.d.. Time Spent with Patient Time attestation: Total time spent providing and/or coordinating discharge services: Physical Exam Vital Signs: Vital Signs: Last Vital Signs Temp 98.0 F 04/22/20 07:38 Pulse 91 04/22/20 08:55 Resp 17 04/22/20 07:38 BP 135/66 04/22/20 08:55 Pulse Ox 96 04/22/20 07:38 Body Mass Index 30.1 General: AO X 3, no acute distress Resp: CTA bilateral CVS: S1,S2,RRR GI: soft, non tender, non distended Neuro: motor grossly intact Psych: appropriate affect DS: Data Data Completed and Pending Completed studies during hospitalization [Text1]: Pending at discharge 04/19/20 14:47 Cytology [PTH] Routine Procedures Excision of Abdomen Subcutaneous Tissue and Fascia, Percutaneous Approach, Diagnostic (02/09/20) Labs on day of discharge: 04/17/20 14:56 ECG 12 lead EKG Stat EKG Documentation DIRECTED Acetaminophen [Tylenol] 650 mg PO ONCE ONE ondansetron HCL [Zofran] 4 mg IVPUSH ONCE ONE 04/17/20 14:57 XR chest 1V Stat 04/17/20 15:00 0.9 % Sodium Chloride [Ns] 500 ml IV 500 mls/hr 04/17/20 15:06 cefTRIAXone sodium [Rocephin] 1 gm 0.9 % Sodium Chloride [Ns] 50 ml IV ONCE 04/17/20 15:15 0.9 % Sodium Chloride [Ns] 1,000 ml IVCONT 999 mls/hr 04/17/20 15:22 cefTRIAXone sodium [Rocephin] 1 gm .ROUTE .STK-MED ONE 04/17/20 15:36 Acetone, serum QL Stat Basic Metabolic Panel Stat Complete Blood Count Man Dif Stat Ferritin Stat Lactate Dehydrogenase Stat Lactic Acid Stat Lipase Stat Liver Panel Stat Magnesium Stat Partial Thromboplastin Time Stat Prothrombin Time INR Stat SARS-CoV2/FLU/RSV Stat Venous Blood Gas Stat 04/17/20 17:09 Urine Culture Routine 04/17/20 17:16 oxyCODONE HCl Immed Release [Roxicodone] 10 mg PO ONCE ONE 04/17/20 17:49 Morphine Sulfate 4 mg IVPUSH ONCE ONE ondansetron HCL [Zofran] 4 mg IVPUSH ONCE ONE 04/17/20 18:48 Transfer Order Routine 04/17/20 Dinner Low Sodium Diet 04/17/20 20:02 Acetaminophen [Tylenol] 650 mg PO ONCE ONE 04/17/20 20:43 Phytonadione (Vit K1) Oral [Vitamin K Oral] 5 mg PO ONCE ONE 04/17/20 20:45 0.9 % Sodium Chloride [Ns] 500 ml IV 500 mls/hr 04/17/20 23:02 Acetaminophen [Tylenol] 650 mg PO ONCE ONE 04/18/20 XR chest 2V Stat 04/18/20 01:00 Leukemia/Lymphoma Eval. Tissue Routine 04/18/20 05:57 Basic Metabolic Panel DAILY@0600 Complete Blood Count Man Dif Routine 04/18/20 06:12 Prothrombin Time INR DAILY@0600 04/18/20 10:11 Piperacillin Sodium/Tazobactam [Zosyn] 3.375 gm IV .STK-MED ONE 04/18/20 10:30 US thoracentesis Stat 04/18/20 10:42 Lidocaine HCl 1 % MPF [Xylocaine 1 % MPF] 5 ml .ROUTE .STK-MED ONE 04/18/20 11:00 Piperacillin Sodium/Tazobactam [Zosyn] 3.375 gm 0.9 % Sodium Chloride [Ns] 50 ml IV Q6H 04/18/20 11:30 Albumin Pleural Fluid Stat Amylase Pleural Fluid Stat Cell Count w Diff Pleural Fld Stat Glucose Pleural Fluid Stat LDH Pleural Fluid Stat Total Protein Pleural Fluid Stat pH Pleural Fluid Stat Fluid Culture + GS Stat 04/18/20 12:10 Lidocaine HCl 1 % [Xylocaine 1 %] 5 ml SUBCUT ONCE ONE 04/18/20 12:19 Glucose, Whole Blood Routine 04/18/20 15:13 Ketorolac Tromethamine [Toradol] 15 mg IVPUSH ONCE ONE 04/18/20 Lunch Diabetic Diet 04/18/20 16:00 cefTRIAXone sodium [Rocephin] 1 gm 0.9 % Sodium Chloride [Ns] 50 ml IV Q24H 04/18/20 16:17 Glucose, Whole Blood Routine 04/18/20 16:46 Piperacillin Sodium/Tazobactam [Zosyn] 3.375 gm IV .STK-MED ONE 04/18/20 21:20 Glucose, Whole Blood Routine 04/18/20 22:31 Piperacillin Sodium/Tazobactam [Zosyn] 3.375 gm IV .STK-MED ONE 04/19/20 04:51 Piperacillin Sodium/Tazobactam [Zosyn] 3.375 gm IV .STK-MED ONE 04/19/20 07:30 Glucose, Whole Blood Routine 04/19/20 10:30 Piperacillin Sodium/Tazobactam [Zosyn] 3.375 gm IV .K-MED ONE 04/19/20 11:07 Glucose, Whole Blood Routine 04/19/20 12:52 cefTRIAXone sodium [Rocephin] 1 gm .ROUTE .[facility] ONE 04/19/20 14:47 Cytology [PTH] Routine 04/19/20 15:57 Glucose, Whole Blood Routine 04/19/20 16:15 Add Laboratory Test Routine 04/19/20 20:21 Glucose, Whole Blood Routine 04/20/20 CT abdomen pelvis wo con Routine 04/20/20 05:31 BMP [Basic Metabolic Panel Fasting] Routine Complete Blood Count Man Dif Routine 04/20/20 07:28 Glucose, Whole Blood Routine 04/20/20 11:24 Glucose, Whole Blood Routine 04/20/20 12:10 cefTRIAXone sodium [Rocephin] 1 gm .ROUTE .[facility] ONE 04/20/20 16:22 Glucose, Whole Blood Routine 04/20/20 21:14 Glucose, Whole Blood Routine 04/21/20 05:33 BMP [Basic Metabolic Panel Fasting] Routine Complete Blood Count Man Dif Routine Magnesium Routine 04/21/20 07:17 Glucose, Whole Blood Routine 04/21/20 09:43 Magnesium Oxide [Mag-Ox] 800 mg PO ONCE ONE Potassium Chloride ER [Klor-con] 40 meq PO ONCE ONE 04/21/20 10:56 Glucose, Whole Blood Routine 04/21/20 11:30 CA echo limited Urgent 04/21/20 12:34 cefTRIAXone sodium [Rocephin] 1 gm .ROUTE .[facility] ONE 04/21/20 16:14 Glucose, Whole Blood Routine 04/21/20 21:03 Glucose, Whole Blood Routine 04/22/20 05:21 BMP [Basic Metabolic Panel Fasting] Routine Complete Blood Count Man Dif Routine Magnesium Routine 04/22/20 07:41 Glucose, Whole Blood Routine Laboratory Last Values WBC 9.0 X10*3/uL (4.8-10.8) 04/22/20 05:21 RBC 3.72 X10*6/uL (4.20-5.50) L 04/22/20 05:21 Hgb 8.8 g/dl (12.0-16.0) L 04/22/20 05:21 Hct 28.8 % (37-47) L 04/22/20 05:21 MCV 77.4 fL (80-98) L 04/22/20 05:21 MCH 23.7 pg (27.0-33.0) L 04/22/20 05:21 MCHC 30.6 g/dl (31.0-35.0) L 04/22/20 05:21 RDW 17.2 % (11.0-16.0) H 04/22/20 05:21 Plt Count 409 X10*3/uL (160-400) H 04/22/20 05:21 MPV 9.7 fL (9.4-12.3) 04/22/20 05:21 Immature Gran % (Auto) Cancelled 04/22/20 05:21 Neut % (Auto) Cancelled 04/22/20 05:21 Lymph % (Auto) Cancelled 04/22/20 05:21 [place] % (Auto) Cancelled 04/22/20 05:21 Eos % (Auto) Cancelled 04/22/20 05:21 Baso % (Auto) Cancelled 04/22/20 05:21 Lymph # (Auto) Cancelled 04/22/20 05:21 [place] # (Auto) Cancelled 04/22/20 05:21 Eos # (Auto) Cancelled 04/22/20 05:21 Baso # (Auto) Cancelled 04/22/20 05:21 Abs Immat Gran (auto) Cancelled 04/22/20 05:21 Absolute Neuts (auto) Cancelled 04/22/20 05:21 Absolute Nucleated RBC 0.000 X10*3/uL (0.0-0.012) 04/22/20 05:21 Nucleated RBC % (auto) 0.0 /100WBC (0.0-0.2) 04/22/20 05:21 Neutrophils % (Manual) 65 % (45-73) 04/22/20 05:21 Band Neutrophils % 9 % (3-5) H 04/22/20 05:21 Lymphocytes % (Manual) 20 % (20-40) 04/22/20 05:21 Monocytes % (Manual) 4 % (2-11) 04/22/20 05:21 Basophils % (Manual) 1 % (0-1) 04/20/20 05:31 Metamyelocytes % 1 % 04/22/20 05:21 Myelocytes % 1 % 04/22/20 05:21 Abs Neuts (Manual) 6.7 X10*3/uL (2.2-7.9) 04/22/20 05:21 Lymphocytes # (Manual) 1.8 X10*3/uL (0.6-4.8) 04/22/20 05:21 Monocytes # (Manual) 0.4 X10*3/uL (0.0-1.2) 04/22/20 05:21 Basophils # (Manual) 0.1 X10*3/uL (0.0-0.3) 04/20/20 05:31 Metamyelocytes # 0.1 X10*3/uL 04/22/20 05:21 Myelocytes # 0.1 X10*/uL 04/22/20 05:21 Platelet Estimate SLIGHTLY INCREASED (NORMAL) 04/22/20 05:21 Plt Morphology Comment NORMAL 04/22/20 05:21 RBC Morphology NOTED 04/22/20 05:21 Polychromasia 1+ 04/20/20 05:31 Hypochromasia 1+ 04/21/20 05:33 Microcytosis 1+ 04/22/20 05:21 Tear Drop Cells 1+ 04/22/20 05:21 Acanthocytes (Spur) 1+ 04/21/20 05:33 Schistocytes 1+ 04/21/20 05:33 PT 19.6 SEC (10.8-13.0) H 04/18/20 06:12 INR 1.6 (0.9-1.1) H 04/18/20 06:12 APTT 32.4 SEC (24.1-38.0) 04/17/20 15:36 VBG pH 7.40 (7.32-7.43) 04/17/20 15:36 VBG pCO2 38 mmhg 04/17/20 15:36 VBG pO2 58 mmhg 04/17/20 15:36 VBG HCO3 23 mmol/L 04/17/20 15:36 VBG O2 Saturation 90.0 % 04/17/20 15:36 VBG Base Excess -1.8 mmol/L 04/17/20 15:36 Sodium 140 mmol/L (135-145) 04/22/20 05:21 Potassium 3.9 mmol/l (3.3-5.1) 04/22/20 05:21 Chloride 106 mmol/L (96-108) 04/22/20 05:21 Carbon Dioxide 26 mmol/L (22-29) 04/22/20 05:21 Anion Gap 12 (-20) 04/22/20 05:21 BUN 6 mg/dL (9-16) L 04/22/20 05:21 Creatinine 0.62 mg/dL (0.5-1.4) 04/22/20 05:21 Estim Creat Clear Calc 109.1 04/22/20 05:21 Estimated GFR > 60 04/22/20 05:21 POC Glucose 262 mg/dL (60-115) H 04/22/20 07:41 Random Glucose 304 mg/dL (60-115) H 04/18/20 05:57 Fasting Glucose 276 mg/dL (60-99) H 04/22/20 05:21 Lactic Acid 1.5 mmol/L (0.5-2.0) 04/17/20 15:36 Calcium 8.1 mg/dL (8.4-10.2) L 04/22/20 05:21 Magnesium 2.0 mg/dL (1.6-2.6) 04/22/20 05:21 Ferritin 869 ng/mL (10-250) H 04/17/20 15:36 Total Bilirubin 0.7 mg/dL (0.0-1.0) 04/17/20 15:36 Direct Bilirubin 0.4 mg/dL (0.0-0.5) 04/17/20 15:36 AST 19 U/L (5-31) D 04/17/20 15:36 ALT 27 U/L (0-31) 04/17/20 15:36 Alkaline Phosphatase 214 U/L (39-117) H D 04/17/20 15:36 Lactate Dehydrogenase 227 U/L (122-220) H 04/17/20 15:36 Total Protein 6.0 g/dL (6.5-8.0) L 04/17/20 15:36 Albumin 3.4 g/dL (3.5-5.0) L 04/17/20 15:36 Lipase < 4 U/L (8-78) L 04/17/20 15:36 Urine Color YELLOW 04/17/20 16:41 Urine Appearance HAZY 04/17/20 16:41 Urine pH 6.0 (5.0-8.0) 04/17/20 16:41 Ur Specific [place] 1.015 (1.005-1.025) 04/17/20 16:41 Urine Protein 1+ MG/DL (NEG-TRACE) H 04/17/20 16:41 Urine Glucose (UA) 500 MG/DL (NEG) H 04/17/20 16:41 Urine Ketones 40 MG/DL (NEG) 04/17/20 16:41 Urine Blood 2+ (NEG) H 04/17/20 16:41 Urine Nitrite POS (NEG) H 04/17/20 16:41 Ur Leukocyte Esterase NEG (NEG) 04/17/20 16:41 Urine RBC 0-2 /HPF (0) 04/17/20 16:41 Urine WBC TNTC /HPF (0-4) H 04/17/20 16:41 Ur Squamous Epith Cells TRACE /LPF 04/17/20 16:41 Urine Bacteria 1+ /LPF 04/17/20 16:41 Pleural pH 7.45 04/18/20 11:30 Pleural WBC 1.802 X10*3/uL 04/18/20 11:30 Pleural RBC 0.210 X10*3/uL 04/18/20 11:30 Pleural Neutrophils 13 % 04/18/20 11:30 Pleural Lymphocytes 69 % 04/18/20 11:30 Pleural Monocytes 2 % 04/18/20 11:30 Pleural Other Cells 16 % 04/18/20 11:30 Pleural Total Protein 4.3 04/18/20 11:30 Pleural Albumin 2.9 04/18/20 11:30 Pleural LDH 340 04/18/20 11:30 Pleural Glucose 303 04/18/20 11:30 Pleural Amylase 16 04/18/20 11:30 Acetone, Qual Small (Negative) H 04/17/20 15:36 Leuk/Lymph Viability SEE NOTE % 04/18/20 01:00 Leuk/Lym Source Fluid-Pleural 04/18/20 01:00 Leuk/Lym Sample Descrip Not Reportable 04/18/20 01:00 Leuk/Lym # of Markers SEE NOTE 04/18/20 01:00 Leuk/Lym Markers 23 04/18/20 01:00 L/L Additional Markers TNP 04/18/20 01:00 Leuk/Lym Gating Strategy SEE NOTE 04/18/20 01:00 Leuk/Lym Comment SEE NOTE 04/18/20 01:00 Leuk/Lym Interpretation SEE NOTE 04/18/20 01:00 Coronavirus (PCR) NEGATIVE (Negative) 04/17/20 15:36 Influenza Type A (PCR) NEGATIVE (Negative) 04/17/20 15:36 Influenza Type B (PCR) NEGATIVE (Negative) 04/17/20 15:36 RSV RNA Qual (PCR) NEGATIVE (Negative) 04/17/20 15:36 Preliminary micro results at discharge 04/17/20 15:35 Blood Culture - Preliminary Blood - Venous Escherichia coli 04/17/20 15:35 Blood Culture - Preliminary Blood - Venous No growth after 48 hours. Discharge Plan Discharge Patient Disposition: Home, Self-Care Referrals: Physician,Unknown [Primary Care Provider] - Discharge Medications: New cefuroxime axetil 500 mg tablet 500 mg PO BID Qty: 14 RF: 0 metoprolol tartrate 50 mg tablet 50 mg PO BID Qty: 60 RF: 0 Continued empagliflozin [Jardiance] 10 mg tablet 10 mg PO QAM Qty: 30 RF: 3 morphine [MS Contin] 30 mg Tablet Extended Release 30 mg PO Q12H Qty: 60 RF: 0 oxycodone 10 mg Tablet 10 mg PO Q4H PRN (Reason: Breakthrough Pain, Moderate) Qty: 60 RF: 0 ondansetron HCl [Zofran] 4 mg Tablet 8 mg PO Q8H Qty: 30 RF: 0 lisinopril 10 mg Tablet 10 mg PO DAILY RF: 0 Trulicity 0.75 mg/0.5 mL Pen Injector 0.75 mg SUBCUT QWEEK RF: 0 Discharge Orders: Discharge Order (Routine); Ordered 04/22/20 Ordered By: Roque Brush Activity on Discharge: As tolerated Visit Report Forms: Patient Portal Discharge page Care Plan Goals: recovery Health Concerns: uti, NSVT, lymphoma Plan of Treatment: ceftin for one more week, metoprolol, follow up with hemaotlogy and cardiology
--- NOTE | 2020-04-22 10:35 | MHC.CM.PN ---
Patient has been medically cleared for dc to home today, no services.
[2020-04-22 11:32] LABS: Glucose, Whole Blood 259 mg/dL (60-115)
--- NOTE | 2020-04-22 11:40 | P.PNCA_ITS ---
Subjective Subjective Date of Service: 04/22/20 Principal diagnosis: NSVT Interval history: Tabitha has no current cardiac complaints. Overnight no arrhythmias noted. Tolerating metoprolol. Repeat echocardiogram shows normal LV systolic function. Review of Systems Constitutional: Reports fatigue Eyes: Reports no additional eye complaints Cardiovascular: Reports no additional cardiovascular complaints Respiratory: Reports no additional respiratory complaints Reports system reviewed and no additional complaints, except as documented Endocrine: Reports fatigue Allergic/Immunologic: Reports no additional allergic/immunologic complaints Physical Exam Vital Signs: Last Vital Signs Temp 98.0 F 04/22/20 07:38 Pulse 91 04/22/20 08:55 Resp 17 04/22/20 07:38 BP 135/66 04/22/20 08:55 Pulse Ox 96 04/22/20 07:38 Body Mass Index 30.1 Const General: cooperative, comfortable, no acute distress, alert and awake Nutritional Appearance: overweight Orientation/consciousness: patient oriented x3 HENMT Head: Yes normocephalic and Yes atraumatic Eyes General: appearance normal, both eyes and all related structures Neck Neck: Yes trachea midline, Yes supple and Yes no JVD Chest Chest palpation & inspection: normal inspection of the chest Resp Effort & Inspection: normal respiratory effort Auscultation: no crackles, no rales, no rhonchi and diminished lung sounds Cardio Jugular venous distension: no JVD Palpation: normal PMI Rate: regular rate Rhythm: regular rhythm Heart sounds: S1 normal heart sound present and S2 normal heart sound present Neuro General: patient oriented x3 and no focal motor deficits Extrem General: Yes no clubbing, cyanosis or edema Psych Appearance: grossly normal Results Labs and Meds Result diagrams: 04/22/20 05:21 04/22/20 05:21 Lab results: Laboratory Results - last 24 hr 04/18/20 04/21/20 04/21/20 01:00 16:14 21:03 WBC RBC Hgb Hct MCV MCH MCHC RDW Plt Count MPV Immature Gran % (Auto) Neut % (Auto) Lymph % (Auto) [place] % (Auto) Eos % (Auto) Baso % (Auto) Lymph # (Auto) [place] # (Auto) Eos # (Auto) Baso # (Auto) Abs Immat Gran (auto) Absolute Neuts (auto) Absolute Nucleated RBC Nucleated RBC % (auto) Neutrophils % (Manual) Band Neutrophils % Lymphocytes % (Manual) Monocytes % (Manual) Metamyelocytes % Myelocytes % Abs Neuts (Manual) Lymphocytes # (Manual) Monocytes # (Manual) Metamyelocytes # Myelocytes # Platelet Estimate Plt Morphology Comment RBC Morphology Microcytosis Tear Drop Cells Sodium Potassium Chloride Carbon Dioxide Anion Gap BUN Creatinine Estim Creat Clear Calc Estimated GFR POC Glucose 179 H 222 H Fasting Glucose Calcium Magnesium Leuk/Lymph Viability SEE NOTE Leuk/Lym Source Fluid-Pleural Leuk/Lym Sample Descrip Not Reportable Leuk/Lym # of Markers SEE NOTE Leuk/Lym Markers 23 L/L Additional Markers TNP Leuk/Lym Gating Strategy SEE NOTE Leuk/Lym Comment SEE NOTE Leuk/Lym Interpretation SEE NOTE 04/22/20 04/22/20 04/22/20 05:21 05:21 07:41 WBC 9.0 RBC 3.72 L Hgb 8.8 L Hct 28.8 L MCV 77.4 L MCH 23.7 L MCHC 30.6 L RDW 17.2 H Plt Count 409 H MPV 9.7 Immature Gran % (Auto) Cancelled Neut % (Auto) Cancelled Lymph % (Auto) Cancelled [place] % (Auto) Cancelled Eos % (Auto) Cancelled Baso % (Auto) Cancelled Lymph # (Auto) Cancelled [place] # (Auto) Cancelled Eos # (Auto) Cancelled Baso # (Auto) Cancelled Abs Immat Gran (auto) Cancelled Absolute Neuts (auto) Cancelled Absolute Nucleated RBC 0.000 Nucleated RBC % (auto) 0.0 Neutrophils % (Manual) 65 Band Neutrophils % 9 H Lymphocytes % (Manual) 20 Monocytes % (Manual) 4 Metamyelocytes % 1 Myelocytes % 1 Abs Neuts (Manual) 6.7 Lymphocytes # (Manual) 1.8 Monocytes # (Manual) 0.4 Metamyelocytes # 0.1 Myelocytes # 0.1 Platelet Estimate SLIGHTLY INCREASED Plt Morphology Comment NORMAL RBC Morphology NOTED Microcytosis 1+ Tear Drop Cells 1+ Sodium 140 Potassium 3.9 Chloride 106 Carbon Dioxide 26 Anion Gap 12 BUN 6 L Creatinine 0.62 Estim Creat Clear Calc 109.1 Estimated GFR > 60 POC Glucose 262 H Fasting Glucose 276 H Calcium 8.1 L Magnesium 2.0 Leuk/Lymph Viability Leuk/Lym Source Leuk/Lym Sample Descrip Leuk/Lym # of Markers Leuk/Lym Markers L/L Additional Markers Leuk/Lym Gating Strategy Leuk/Lym Comment Leuk/Lym Interpretation 04/22/20 11:19 WBC RBC Hgb Hct MCV MCH MCHC RDW Plt Count MPV Immature Gran % (Auto) Neut % (Auto) Lymph % (Auto) [place] % (Auto) Eos % (Auto) Baso % (Auto) Lymph # (Auto) [place] # (Auto) Eos # (Auto) Baso # (Auto) Abs Immat Gran (auto) Absolute Neuts (auto) Absolute Nucleated RBC Nucleated RBC % (auto) Neutrophils % (Manual) Band Neutrophils % Lymphocytes % (Manual) Monocytes % (Manual) Metamyelocytes % Myelocytes % Abs Neuts (Manual) Lymphocytes # (Manual) Monocytes # (Manual) Metamyelocytes # Myelocytes # Platelet Estimate Plt Morphology Comment RBC Morphology Microcytosis Tear Drop Cells Sodium Potassium Chloride Carbon Dioxide Anion Gap BUN Creatinine Estim Creat Clear Calc Estimated GFR POC Glucose 259 H Fasting Glucose Calcium Magnesium Leuk/Lymph Viability Leuk/Lym Source Leuk/Lym Sample Descrip Leuk/Lym # of Markers Leuk/Lym Markers L/L Additional Markers Leuk/Lym Gating Strategy Leuk/Lym Comment Leuk/Lym Interpretation Progress Note: A&P Assessment and plan (1) NSVT (nonsustained ventricular tachycardia): Status: Acute Assessment and Plan: Nonsustained ventricular tachycardia with no recurrence. LV systolic function is normal which is reassuring. Unclear etiology could be due to hyperadrenergic state. Increase metoprolol to 50 mg b.i.d.. Will follow up with outpatient Holter and a stress test to rule out myocardial ischemia. Continue management of underlying medical condition. Continue to maintain potassium above 4 and magnesium above 2. Will sign of the case and follow up as outpatient. Fall Risk Details Current Medications: Current Medications Generic Name Dose Route Start Last Admin Trade Name Gerardo PRN Reason Stop Dose Admin Acetaminophen 650 mg 04/17/20 20:33 04/22/20 00:09 Acetaminophen 325 Mg Tablet PO 650 mg Q6H PRN Administration Pain, Mild (Pain Scale 1-3) Docusate Sodium 100 mg 04/20/20 21:00 04/22/20 08:53 Docusate Sodium 100 Mg Capsule PO 100 mg BID MICHEL Administration Heparin Sodium (Porcine) 5,000 unit 04/17/20 22:00 04/22/20 08:51 Heparin Sodium,Porcine 5,000 Unit/Ml Vial SUBCUT 5,000 unit Q12H MICHEL Administration Ceftriaxone Sodium 1 gm/ 50 mls @ 100 mls/hr 04/19/20 12:00 04/21/20 13:43 Sodium Chloride IV Infused Q24H [facility] Infusion Insulin Human Lispro 0 unit 04/18/20 11:30 04/22/20 08:53 Insulin Lispro 100 Unit/Ml 3 Ml Vial SUBCUT 6 unit QIDACHS [facility] Administration Protocol Metoprolol Tartrate 25 mg 04/21/20 10:30 04/22/20 08:55 Metoprolol Tartrate 25 Mg Tablet PO 25 mg BID [facility] Administration Protocol Morphine Sulfate 30 mg 04/17/20 21:00 04/22/20 08:52 Morphine Sulfate Er 30 Mg Tablet.Er PO 30 mg BID [facility] Administration Non-Formulary Medication 0.75 mg 04/17/20 20:33 Dulaglutide [Trulicity] SUBCUT Q7D [facility] Non-Formulary Medication 10 mg 04/18/20 09:00 Empagliflozin [Jardiance] PO DAILY [facility] Ondansetron HCl 4 mg 04/17/20 20:33 04/22/20 10:19 Ondansetron Hcl 4 Mg/2 Ml Vial IVPUSH 4 mg Q8H PRN Administration Nausea and Vomiting Oxycodone HCl 10 mg 04/17/20 20:33 04/22/20 10:19 Oxycodone Hcl Immed Release 5 Mg Tablet PO 10 mg Q4H PRN Administration Breakthrough Pain, Moderate Pharmacy Consult 1 each 04/17/20 14:56 Consult Rx Perform Med Rec MISCELLANE ONCE PRN Consult order Sodium Chloride 3 ml 04/18/20 00:00 04/22/20 08:54 0.9 % Sodium Chloride Flush 3 Ml Syringe IVFLUSH 3 ml QSHIFT [facility] Administration Time Spent With Patient Time: Total time spent is greater than 50% in coordination of care (as documente d) at patient's floor/unit and/or counseling patient: Time with patient: 25 - 35 minutes
[2020-04-22 12:00] VITALS: BP 144/91; PULSE 97; RESP 18; TEMP 36.9; O2SAT 95
[2020-04-22] MEDS: cefTRIAXone sodium 1 GM in 0.9 % Sodium Chloride 50 ML IV (12:52)
[2020-04-22 15:38] VITALS: BP 161/68; PULSE 87; RESP 18; TEMP 36; O2SAT 95
== END 2020-04-22 15:45 | disposition home or self-care (01) | DRG 720 ==
LOC: HO.ED 17:03 → HO.IMC 19:28
PROVIDERS: Emergency Medicine; Nurse Practitioner Acute Care; Admitting Provider Internal Medicine; Emergency Provider Emergency Medicine; Visit Provider Internal Medicine
DX: A41.9 Sepsis, unspecified organism (principal); J91.0 Malignant pleural effusion; C85.13 Unspecified B-cell lymphoma, intra-abdominal lymph nodes; N10 Acute pyelonephritis; I47.1 Supraventricular tachycardia; B96.20 Unspecified Escherichia coli [E. coli] as the cause of diseases classified elsewhere; D72.829 Elevated white blood cell count, unspecified; E11.9 Type 2 diabetes mellitus without complications; E78.5 Hyperlipidemia, unspecified; F32.9 Major depressive disorder, single episode, unspecified; F41.9 Anxiety disorder, unspecified; R79.1 Abnormal coagulation profile; Z20.828 Contact with and (suspected) exposure to other viral communicable diseases; Z87.891 Personal history of nicotine dependence; Z79.899 Other long term (current) drug therapy
CPT/HCPCS: 0241U; 32555; 36415; 71045; 71046; 74176; 80048; 80076; 81001; 81003; 82009; 82042; 82150; 82728; 82803; 82945; 82947; 83605; 83615; 83690; 83735; 83986; 84157; 85007; 85025; 85027; 85610; 85730; 87040; 87070; 87077; 87086; 87088; 87186; 87205; 88112; 88184; 88185; 88189; 88300; 88305; 89051; 93005; 93308; 96361; 96374; 96375; 96376; 99285; J0696; J1885; J2270; J2405; J2543; J3430

== ENCOUNTER → 2020-04-22 14:37 | Outpatient (REF) | payer OTHER, SELFPAY | LOC: HO.CARD 14:37 | PROVIDERS: Visit Provider Internal Medicine Cardiovascular Disease | DX: Z13.89 Encounter for screening for other disorder (principal) ==

== ENCOUNTER → 2020-05-17 11:40 | Outpatient (REF) | payer OTHER, SELFPAY ==
--- NOTE | 2020-05-17 11:42 | ECG_ITS ---
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 31 Supraventricular ectopics which represent <1 % of total QRS comp. * Paced QRS complexs which represent % of total QRS comp. VENTRICULAR ECTOPY * Isolated * Bigeminal Cycles * Couplets * Runs * Beats in Runs * Beats LONGEST at * BPM at :: -- * Beats FASTEST at * BPM at :: -- SUPRAVENTRICULAR ECTOPY 17 Isolated 2 Couplets 1 Runs 10 Beats in Runs 10 Beats LONGEST at 115 BPM at 12:18:17 2020-05-18 10 Beats FASTEST at 115 BPM at 12:18:17 2020-05-18 HEART RATES 74 MIN at 14:53:49 2020-05-17 93 AVG 120 MAX at 22:14:53 2020-05-17 LONGEST RR 0.8080 secs at 14:53:53 2020-05-17 S-T LEVELS Channel 1 - 128 mm at 14:30:00 2020-05-17 - 128 mm at 14:30:00 2020-05-17 Channel 2 - 128 mm at 14:30:00 2020-05-17 - 128 mm at 14:30:00 2020-05-17 Channel 3 - 128 mm at 03:34:91 -- - 128 mm at 03:34:91 Basic rhythm Normal sinus rhythm No long pause or profound bradycardia Rare Premature atrial complexes No sustained arrhythmias Patient did not report any symptoms in the diary Referred By: Tashi Flores Overread By: TASHI FLORES MD
== END ==
LOC: HO.CARD 11:40
PROVIDERS: Visit Provider Internal Medicine Cardiovascular Disease
DX: N12 Tubulo-interstitial nephritis, not specified as acute or chronic (principal); C76.2 Malignant neoplasm of abdomen; R16.1 Splenomegaly, not elsewhere classified; Z88.8 Allergy status to other drugs, medicaments and biological substances; Z79.84 Long term (current) use of oral hypoglycemic drugs; Z79.899 Other long term (current) drug therapy
CPT/HCPCS: 93225; 93226

== ENCOUNTER → 2020-05-26 14:00 | Outpatient (BNVA) | payer OTHER, SELFPAY | PROVIDERS: PCP Internal Medicine; Visit Provider Nurse Practitioner Family | DX: Z76.89 Persons encountering health services in other specified circumstances (principal) ==

== ENCOUNTER 2020-06-08 11:59 | Outpatient (REF) | payer OTHER, SELFPAY ==
--- NOTE | ~2020-06-08 | PE_ITS ---
EXAMINATION: Fluorine-18 FDG PET/CT Scan CLINICAL INDICATION: Subsequent treatment management. Diffuse large B-cell lymphoma, restaging. PROCEDURE: 69 minutes following the intravenous administration of 15.4 mCi of fluorine 18 FDG, images from the base of the skull to the mid thighs were obtained using a combined PET/CT scanner with CT scan based attenuation correction. No oral contrast was administered. No intravenous contrast was administered. Transverse, coronal, sagittal, and volume reconstruction projections were obtained. The patient's blood glucose as determined by a finger stick, was 172 mg/dl immediately prior to injection. Total CT exam dose-length product 463.43 mGy-cm * These CT images were obtained using dose optimization techniques as appropriate, variously including the following: Automated exposure control * Adjustment of mA and/or kV according to patient size (this includes techniques or standardized protocols for targeted exams where dose is matched to indication/reason for exam; i.e. extremities or head) * Use of iterative reconstruction technique COMPARISON: No previous PET/CT scan is available for comparison. The diagnostic CT scan of the abdomen and pelvis, dated 04/20/2020, is available for comparison. FINDINGS: (Slice numbers described in this report are numbered superiorly to inferiorly with slice #1 in the head) NECK AND VISUALIZED HEAD: No foci of abnormal FDG activity are noted. The distribution of FDG activity is physiological. There is no cervical lymphadenopathy. THORAX: No foci of abnormal FDG activity are present in the chest. No pulmonary nodules are visualized. A moderately sized left pleural effusion is present with no abnormal FDG activity. There is some compressive atelectasis in the adjacent left lower lobe. No pulmonary nodules are visualized. There is no right-sided pleural fluid, pericardial fluid, or pneumothorax. A right-sided chest port with internal jugular catheter terminating in the cavoatrial junction is noted. There is no mediastinal, supraclavicular, or axillary lymphadenopathy. The mediastinal blood pool shows SUVmax 2.1, slice 80/267. There are no other foci of abnormally increased FDG activity in the abdomen or pelvis. The liver, gallbladder, adrenal glands and pancreas appear unremarkable. ABDOMEN AND PELVIS: There is a central hypodensity present in the spleen which measures approximately 6.9 x 2.9 cm in largest transverse dimensions, and approximately 3.5 cm cephalocaudad is visualized on the sagittal projection. This has a small component which is slightly more FDG avid than the remainder the splenic parenchyma showing SUVmax 3.2, slice 128/267. The spleen is top normal in size measuring 11.7 cm in largest dimension, also measured in the sagittal projection. This hypodensity is contiguous and inseparable from this soft tissue density which extends into the tail the pancreas. The mass appears smaller than on the 04/20/[address] scan. This FDG activity in the spleen is less intense than the liver which shows SUVmax 3.6. The liver, gallbladder, and adrenal glands are unremarkable. Small nonobstructing stone in the lower pole the right kidney visualized on the 04/20/2020 CT scan is not apparent on these CT images. The kidneys appear unremarkable. There is no retroperitoneal, mesenteric, pelvic or inguinal lymphadenopathy. There is diverticulosis without evidence of diverticulitis. The hollow viscera are otherwise unremarkable. The uterus is not visualized. The pelvic organs are otherwise unremarkable MUSCULOSKELETAL: No foci of abnormal FDG activity are present in the osseous structures. There are mild degenerative changes in the spine but no suspicious sclerotic or lytic lesions are visualized. VASCULAR: No significant abnormalities are present. PET/PET CT fusion skull to thigh IMPRESSION: 1. Mild FDG activity in the previously noted mass involving the spleen and adjacent pancreatic tail is noted. The mass appears smaller than on the 04/20/2020 CT scan. Using the 5 point Deauville scale, this patient would be classified as a Deauville score of 3. 2. No other FDG avid foci suspicious for metastatic or other malignant lesions are noted. 3. A moderately sized left pleural effusion is present with no associated abnormal FDG activity.
== END 2020-06-08 12:00 | disposition home or self-care (01) ==
LOC: HO.PET 11:59
PROVIDERS: Visit Provider Internal Medicine Medical Oncology
DX: Z13.89 Encounter for screening for other disorder (principal)

== ENCOUNTER 2020-08-10 09:54 | Outpatient (REF) | payer OTHER, SELFPAY | END 2020-08-10 09:55 | disposition home or self-care (01) | LOC: HO.PET 09:54 | PROVIDERS: PCP Internal Medicine; Visit Provider Internal Medicine Medical Oncology | DX: Z13.89 Encounter for screening for other disorder (principal) ==

== ENCOUNTER → 2020-08-20 13:01 | Outpatient (REF) | payer OTHER, SELFPAY ==
--- NOTE | 2020-08-20 13:05 | CA_ITS ---
Transthoracic Echocardiogram Patient (Last, First, Middle): Tabitha Bill Luz Gender: Female Date of : 1970 Age: 49 Procedure Date: 08/20/2020 Procedure Type: Transthoracic Echocardiogram Location: OP Height: 160.02 cm Weight: 76.2 kg BSA: 1.80 m2 Heart Rate: bpm BP: 100 / 58 mmHg [place] Machine Operator: Gregg MD: Cheng Way MD Terminal Make Up Operator: Tashi Flores MD Symptoms: Diffuse large B-cell lymphoma. On chemotherapy. Conclusions: - 1. Overall normal LV systolic and diastolic function with basal inferior inferoseptal wall motion abnormality Findings Left Ventricle Normal left ventricular size, thickness, and systolic function. The visually estimated ejection fraction is between 60-65%. Diastolic function is normal for age. global longitudinal strain measured at -16.4% which is mildly reduced Wall Motion Rest Echo Findings The basal inferior and basal inferoseptal segments are hypokinetic. All other scored wall segments showed normal motion. Prior Study Comparison Changes noted compared to prior study dated: 04/21/2020. Basal inferior and inferoseptal wall motion noted on this study Measurements 2D Linear Measurements LVIDd: 5.10 3.9-5.3/4.2-5.9 cm LVIDd Index: 2.83 2.4-3.2/2.2-3.1 cm/m2 LVIDs: 3.30 2.0-3.6 cm Mitral Valve MV Pk E: 0.83 MV PK A: 0.62 MV Decel Time: 179.00 E/A: 1.30 E'Lateral: 8.59 E'Medial: 7.51 E/E' Med: 11.00 E/E' Lat: 9.60 Diastolic Function MV Pk E: 0.83 MV Pk A: 0.62 E/A: 1.30 E'Medial: 7.51 E/E' Med: 11.00 E' Laterial: 8.59 E/E' Lat: 9.60 Updated in Other Vendor System with Status of Final Tashi Flores MD electronically signed on 08/23/2020 12:32:25 PM with status of Final
== END ==
LOC: HO.CARD 13:01
PROVIDERS: Visit Provider Internal Medicine Medical Oncology
DX: C85.90 Non-Hodgkin lymphoma, unspecified, unspecified site (principal)
CPT/HCPCS: 93308; 93356

== ENCOUNTER 2020-10-07 10:13 | Outpatient (REF) | payer OTHER, SELFPAY ==
--- NOTE | ~2020-10-07 | CT_ITS ---
EXAMINATION: CT CHEST, ABDOMEN AND PELVIS WITH CONTRAST CLINICAL INFORMATION: B-cell lymphoma. Splenomegaly. COMPARISON: PET/CT of 06/08/[address] abdomen of 04/20/2020. TECHNIQUE: Multidetector volumetric imaging was performed from the thoracic inlet through the pubic symphysis following administration of oral and intravenous contrast of 85 mL of Omnipaque 350 Sagittal and coronal reformatted images were obtained on the technologist workstation. DLP: 559 mGy-cm. FINDINGS: CHEST: Lungs: No significant changes of emphysema identified. There is some left base atelectasis present. There are some sub-4 mm lung nodules seen. There is bronchial wall thickening seen to the left lower lobe without evidence of bronchiectasis. Within the right upper lobe there is a 3 mm nodule present on image 127 of 475 in series #7. No suspicious lung nodules are appreciated. Mediastinum: Thyroid gland appears unremarkable. Heart normal size. No pericardial effusion. No thoracic aortic aneurysm. No mediastinal lymphadenopathy appreciated. There is a 1 cm right hilar lymph node. Pleura: There is again noted to be a moderate-sized left pleural effusion. Chest Wall/Axilla: No axillary lymphadenopathy. A right internal jugular port catheter is seen in place. ABDOMEN/PELVIS: Liver, Gallbladder, Biliary Tree: The liver is enlarged with vertical span of 21 cm. No focal hepatic mass is identified. No intrahepatic bile duct dilatation is seen. The gallbladder is unremarkable with no evidence of radiopaque gallstones, gallbladder wall thickening, or pericholecystic inflammatory changes. Pancreas: The mass which had been seen involving the stomach, pancreatic tail, and spleen is smaller with small region of diminished density seen involving the tail of the pancreas. No pancreatic enlargement is seen. No pancreatic duct dilatation is noted. There remains loss of fat plane from pancreatic tail to the splenic hilum. Spleen: No splenomegaly is identified. There is region of low density within the splenic hilum and upper and lower poles of the spleen with hilar portion measuring approximately 6.0 x 2.5 x 3.7 cm in size. Region of diminished density is seen extending to the left lateral aspect of the spleen to the capsule. No subcapsular fluid collection is identified. Adrenal Glands: Unremarkable. Kidneys and Ureters: There are a few regions of cortical thinning within the right kidney which may be related to previous infarct or infection. No hydronephrosis or hydroureter or calculi seen. No perinephric stranding. Bladder: Unremarkable. Gastrointestinal Tract: No dilated loops of large or small bowel are evident. No pericolonic inflammatory change. No evidence of acute diverticulitis. No evidence of acute appendicitis. No free air is seen. No free fluid is appreciated. Abdominal Wall: No hernia is demonstrated. There is some stable linear density seen just anterior to the rectus musculature which may be postsurgical in nature. Lymph Nodes: No lymphadenopathy is appreciated. Vascular: No significant vascular abnormality appreciated. Pelvic Viscera: No suspicious pelvic mass identified. Osseous Structures: No suspicious destructive bony lesion identified. CT/CT abdomen pelvis w con IMPRESSION: Stable moderate-sized left pleural effusion with left lower lobe atelectasis. Improvement in mass involving the spleen and pancreatic tail as described. Mild hepatomegaly.
[2020-10-07] MEDS: iohexoL 350 MG/ML 100 ML INFUS..BTL IV (14:21)
[2020-10-07] MEDS: Barium Sulfate Oral (Mocha) 450 ML ORAL.SUSP 900 ML PO (14:22)
== END 2020-10-07 10:14 | disposition home or self-care (01) ==
LOC: HO.CT 10:13
PROVIDERS: PCP Internal Medicine; Visit Provider Internal Medicine Medical Oncology
DX: J90 Pleural effusion, not elsewhere classified (principal); R16.1 Splenomegaly, not elsewhere classified
CPT/HCPCS: 71260; 74177; Q9967

== ENCOUNTER 2020-11-02 11:24 | Day surgery (SDC) | payer OTHER, SELFPAY ==
--- NOTE | ~2020-11-02 | US_ITS ---
EXAMINATION: ULTRASOUND-GUIDED THORACENTESIS CLINICAL INFORMATION: Lymphoma. Recurrent left pleural effusion. COMPARISON: Previous CT of the chest 10/07/2020 TECHNIQUE: Procedure and risks and benefits including bleeding, infection and pneumothorax were discussed with the patient and informed consent was obtained. The left posterior chest was prepped and draped in the usual sterile fashion. The skin and soft tissues were anesthetized with 1% lidocaine plain. Using ultrasound guidance and a 4 [place]ese rapid centesis catheter, access to the left pleural effusion was obtained. 350 mL of clear leidy-colored fluid was removed. Diagnostic specimen was sent. FINDINGS: Left pleural effusion. US/US thoracentesis IMPRESSION: Ultrasound-guided left thoracentesis.
--- NOTE | ~2020-11-02 | XR_ITS ---
EXAMINATION: XR CHEST CLINICAL INFORMATION: Post left thoracentesis COMPARISON: Previous chest x-ray most recent March 2020 TECHNIQUE: Frontal view of the chest was obtained. FINDINGS: The cardiac and mediastinal contours are normal. The lungs are clear. There is no pleural effusion or pneumothorax. There is a right jugular port with tip projecting over the SVC. Bony structures are unremarkable. XR/XR chest 1V IMPRESSION: No pneumothorax post left thoracentesis.
[2020-11-02 11:52] VITALS: BMI 29.4
[2020-11-02 12:08] LABS: MANUAL DIFF FLAG NO
[2020-11-02 12:12] LABS: Basophils Percent Auto 0.8 % (0-2); Eosinophils Absolute Auto 0.1 X10*3/uL (0.0-0.4); Eosinophils Percent Auto 3.4 % (0-4); Hemoglobin 12.6 g/dl (12.0-16.0); Imm Gran Abs Auto 0.02 X10*3/uL (0.00-0.03); Imm Gran Pct Auto 0.6 % (0.0-0.4); Lymphocytes Absolute Auto 1.3 X10*3/uL (1.2-4.9); Mean Corpuscular HGB Conc 32.3 g/dl (31.0-35.0); Mean Corpuscular Volume 83.5 fL (80-98); Monocytes Absolute Auto 0.4 X10*3/uL (0.1-1.2); Monocytes Percent Auto 10.8 % (2-11); Neutrophils Absolute Auto 1.6 X10*3/uL (2.0-8.3); Neutrophils Percent Auto 46.4 % (45-73); Platelet Count 216 X10*3/uL (160-400); Red Blood Count 4.67 X10*6/uL (4.20-5.50); Red Cell Distribution Width 14.6 % (11.0-16.0); White Blood Count 3.5 X10*3/uL (4.8-10.8)
[2020-11-02 12:17] LABS: Prothrombin Time 11.6 SEC (9.9-13.0)
[2020-11-02 12:20] LABS: Partial Thromboplastin Time 32.8 SEC (24.1-38.0)
--- NOTE | 2020-11-02 14:43 | HO.RADPN ---
RADIOLOGY Narrative Narrative: Left thoracentesis performed using 4 fr catheter. 300 ml clear yellow fluid removed. specement sent for LDH. cxr pending.
[2020-11-02 15:00] VITALS: BP 126/79; PULSE 85; RESP 17; TEMP 36.3; O2SAT 99
[2020-11-02 15:16] VITALS: BP 136/82; PULSE 83; RESP 16; O2SAT 97
[2020-11-02 15:30] VITALS: BP 131/77; PULSE 86; RESP 16; O2SAT 99
[2020-11-02 15:45] VITALS: BP 132/81; PULSE 84; RESP 16; O2SAT 99
[2020-11-02] MEDS: oxyCODONE HCl Immed Release 5 MG TABLET 10 MG PO (15:51)
[2020-11-02 16:01] VITALS: BP 129/77; PULSE 84; RESP 16; TEMP 36.3; O2SAT 99
[2020-11-02 16:13] LABS: MN% 84.3 %; PMN% 15.7 %; WBC Pleural Fluid 0.419 X10*3/uL
[2020-11-02] MEDS: Lidocaine HCl 1 % MPF 5 ML VIAL SUBCUT (16:16)
[2020-11-02 16:25] LABS: RBC Pleural Fluid < 0.002 X10*3/uL
[2020-11-02 16:58] LABS: BF Shift QC OK YES; Basophils Pleural Fluid 1 %; Eosinophils Pleural Fluid 4 %; Lymphocytes Pleural Fluid 17 %; Monocytes Pleural Fluid 45 %; Neutrophils Pleural Fluid 5 %; Other Cells Plerual Fl 28 %
[2020-11-03 07:34] LABS: LDH Pleural Fluid 122; Total Protein Pleural Fluid 4.5
[2020-11-03 07:36] LABS: Glucose Pleural Fluid 208
== END 2020-11-02 16:07 | disposition home or self-care (01) ==
PROVIDERS: Internal Medicine Medical Oncology; PCP Internal Medicine; Visit Provider Radiology Diagnostic Radiology
DX: J90 Pleural effusion, not elsewhere classified (principal); C85.90 Non-Hodgkin lymphoma, unspecified, unspecified site
CPT/HCPCS: 32555; 36415; 71045; 82945; 83615; 84157; 85025; 85610; 85730; 87071; 87073; 87205; 88112; 88305; 89051

== ENCOUNTER 2020-11-05 15:05 | Outpatient (REF) | payer OTHER, SELFPAY ==
--- NOTE | ~2020-11-05 | US_ITS ---
EXAMINATION: US VENOUS ULTRASOUND WITH DOPPLER LOWER EXTREMITY, LEFT CLINICAL INFORMATION: Left leg pain and swelling. COMPARISON: None TECHNIQUE: Ultrasound of the deep veins is performed from the hip to the calf with compression sonography and color and pulse Doppler assessment. Spectral analysis with color-flow imaging is performed. FINDINGS: There is normal venous compression and respiratory variation and augmented flow. The visualized common femoral vein, superficial femoral vein, profunda femoral vein, popliteal vein, and the trifurcation region shows no evidence of deep venous thrombosis. There is no significant popliteal fossa cyst. If the patient's symptoms persist, followup ultrasound in 5 days 7 days might be of value to exclude proximal propagation from a non-visualized calf vein. US/US venous duplex LE LT IMPRESSION: No DVT demonstrated in the left lower extremity.
== END 2020-11-05 15:06 | disposition home or self-care (01) ==
LOC: HO.US 15:05
PROVIDERS: PCP Internal Medicine; Visit Provider Internal Medicine Medical Oncology
DX: M79.662 Pain in left lower leg (principal); R60.0 Localized edema
CPT/HCPCS: 93971

== ENCOUNTER 2020-11-09 12:37 | Outpatient (REF) | payer OTHER, SELFPAY ==
--- NOTE | ~2020-11-09 | PE_ITS ---
EXAMINATION: Fluorine-18 FDG PET/CT Scan CLINICAL INDICATION: Subsequent treatment management. B-cell lymphoma, restaging. PROCEDURE: 75 minutes following the intravenous administration of 16.3 mCi of fluorine 18 FDG, images from the base of the skull to the mid thighs were obtained using a combined PET/CT scanner with CT scan based attenuation correction. No oral contrast was administered. No intravenous contrast was administered. Transverse, coronal, sagittal, and volume reconstruction projections were obtained. The patient's blood glucose as determined by a finger stick, was 219 mg/dl immediately prior to injection. Total CT exam dose-length product 485.26 mGy-cm * These CT images were obtained using dose optimization techniques as appropriate, variously including the following: Automated exposure control * Adjustment of mA and/or kV according to patient size (this includes techniques or standardized protocols for targeted exams where dose is matched to indication/reason for exam; i.e. extremities or head) * Use of iterative reconstruction technique COMPARISON: The previous PET CT scan dated 06/08/2020 is available for comparison. The diagnostic CT scan of the chest, abdomen, and pelvis, dated 10/07/2020, is available for comparison. FINDINGS: (Slice numbers described in this report are numbered superiorly to inferiorly with slice #1 in the head) NECK AND VISUALIZED HEAD: No foci of abnormal FDG activity are noted. The distribution of FDG activity is physiological. There is no cervical lymphadenopathy. THORAX: No foci of abnormal FDG activity are present in the chest. A moderately sized left pleural effusion is present and is significantly smaller than on the prior 06/08/[address] scan dated 06/08/2020, but is similar to the more recent 10/07/[address] scan. This shows weak FDG activity diffusely without a focal component. There is no right-sided pleural fluid or pericardial fluid or pneumothorax. No pulmonary nodules are visualized. A 0.3 cm right upper lobe nodule visualized on the recent diagnostic CT scan dated 10/07/2020 is not apparent on these nondiagnostic CT images. There is no mediastinal, supraclavicular, or axillary lymphadenopathy. A right-sided chest port with internal jugular catheter terminating in the superior vena cava is noted. This was present on 06/08/2020. ABDOMEN AND PELVIS: There is a focus of increased FDG activity in the hilum of the spleen that shows SUV Max 3.8. This is the same as the SUV max in the liver which is also 3.8, slice 125/267. On the CT images there is a subtle hypodensity that corresponds to this that measures 2.7 x 1.6 cm in largest transverse dimensions. The spleen is not enlarged, measuring 9.8 cm in largest dimension in the coronal plane. The remainder the spleen is less intense than the liver. No additional foci of abnormal FDG activity are present in the abdomen or pelvis. The liver, gallbladder, kidneys, adrenal glands, and pancreas appear unremarkable. The pancreatic tail abuts the splenic hilum, unchanged from prior studies. There is no abnormal FDG activity at any site in the pancreas. There is mild FDG activity throughout the gastrointestinal tract without a suspicious focal component, likely physiological. There is diverticulosis without evidence of diverticulitis. The hollow viscera are otherwise unremarkable. The uterus is not visualized, but the pelvic organs are otherwise unremarkable. There is no retroperitoneal, mesenteric, pelvic or inguinal lymphadenopathy. MUSCULOSKELETAL: There is mild diffuse FDG activity in both shoulders, likely arthritic. No other foci of abnormal FDG activity are present in the osseous structures. There are mild degenerative changes in the spine but no suspicious sclerotic or lytic lesions are visualized. VASCULAR: Scattered vascular calcifications are present. PET/PET CT fusion skull to thigh IMPRESSION: 1. There is a mildly FDG avid hypodensity present in the spine leading hilum, and this is slightly more intense than on the prior FDG PET scan but the slight difference in SUV is probably not clinically significant. The associated hypodensity within the spleen is significantly smaller than the prior 06/08/[address] scan. Using the 5 point Deauville scale, this lesion would be classified as a Deauville score of 3. Because it appears slightly more intense than on the prior PET CT scan, follow-up PET CT scan in approximately 3-6 months is recommended, if clinically indicated. 2. A left pleural effusion remains small to moderate in size, similar to the recent 10/07/[address] scan but significantly smaller than the prior 06/08/2020 PET/CT scan. The weak FDG activity suggests this is inflammatory in etiology. 3. No additional abnormalities suspicious for metastatic or other malignant lesions are noted.
== END 2020-11-09 12:38 | disposition home or self-care (01) ==
LOC: HO.PET 12:37
PROVIDERS: PCP Internal Medicine; Visit Provider Internal Medicine Medical Oncology
DX: Z13.89 Encounter for screening for other disorder (principal)

== ENCOUNTER → 2021-02-10 14:37 | Outpatient (BNVA) | payer OTHER, SELFPAY | PROVIDERS: PCP Internal Medicine; Referring Provider Internal Medicine; Visit Provider Nurse Practitioner Family | DX: I47.2 Ventricular tachycardia (principal) | CPT/HCPCS: 93005; 99212 ==

== ENCOUNTER 2021-03-04 10:28 | Outpatient (REF) | payer OTHER, SELFPAY ==
--- NOTE | ~2021-03-04 | PE_ITS ---
EXAMINATION: Fluorine-18 FDG PET/CT Scan CLINICAL INDICATION: Subsequent treatment management. Non-Hodgkin's B-cell lymphoma. PROCEDURE: 81 minutes following the intravenous administration of 12.5 mCi of fluorine 18 FDG, images from the base of the skull to the mid thighs were obtained using a combined PET/CT scanner with CT scan based attenuation correction. No oral contrast was administered. No intravenous contrast was administered. Transverse, coronal, sagittal, and volume reconstruction projections were obtained. The patient's blood glucose as determined by a finger stick, was 208 mg/dl immediately prior to injection. Total CT exam dose-length product 490.25 mGy-cm * These CT images were obtained using dose optimization techniques as appropriate, variously including the following: Automated exposure control * Adjustment of mA and/or kV according to patient size (this includes techniques or standardized protocols for targeted exams where dose is matched to indication/reason for exam; i.e. extremities or head) * Use of iterative reconstruction technique COMPARISON: Prior PET/CT scans dated 11/09/2020, 08/12/2020 and 06/08/2020 are available for comparison. FINDINGS: (Slice numbers described in this report are numbered superiorly to inferiorly with slice #1 in the head) NECK AND VISUALIZED HEAD: No foci of abnormal FDG activity are noted. The distribution of FDG activity is physiological. There is no cervical lymphadenopathy. THORAX: There are no foci of abnormal FDG activity. No pulmonary nodules are visualized. There is no pleural or pericardial fluid or pneumothorax. There is no mediastinal, supraclavicular, or axillary lymphadenopathy. A moderately sized left pleural effusion present on the prior 11/09/[address] scan is no longer present. A right-sided chest port with internal jugular catheter terminating in the superior vena cava is noted. SUVmax in the mediastinal blood pool is 1.9, slice 85/267. ABDOMEN AND PELVIS: There continues to be some mild heterogeneity of FDG activity in the spleen, with a stable appearing focus of mildly increased FDG activity present in the splenic hilum showing SUVmax 3.8, slice 126/267, the same SUVmax as on the prior 11/09/2020 study at this site. The spleen is normal in size and is slightly smaller than on the previous study, now measuring 8.6 cm in largest dimension in the coronal plane versus 9.8 cm on 11/09/2020. There is mild FDG activity throughout the gastrointestinal tract without a suspicious focal component. There is diverticulosis without evidence of diverticulitis. The hollow viscera are otherwise unremarkable. The liver, gallbladder, kidneys and adrenal glands are unremarkable. There is pancreatic atrophy, but the pancreas is otherwise unremarkable and appears unchanged from prior studies. There is no retroperitoneal, mesenteric, pelvic or inguinal lymphadenopathy. The pelvic organs are unremarkable. SUVmax in the liver is 4.0, slice 117/267. MUSCULOSKELETAL: There are no foci of abnormal FDG activity in the osseous structures. There are degenerative changes in the spine but no suspicious sclerotic or lytic lesions are visualized. VASCULAR: Scattered vascular calcifications are noted. PET/PET CT fusion skull to thigh IMPRESSION: 1. A stable focus of mildly increased FDG activity is present in the spleen. Using the 5 point Deauville scale, this patient would be classified as a Deauville score of 3. 2. No additional abnormalities suspicious for metastatic or other malignant lesions are noted. 3. A moderately sized left pleural effusion present on the prior 11/09/2020 PET/CT scan has resolved.
== END 2021-03-04 10:29 | disposition home or self-care (01) ==
LOC: HO.PET 10:28
PROVIDERS: Visit Provider Internal Medicine Medical Oncology
DX: Z13.89 Encounter for screening for other disorder (principal)

== ENCOUNTER 2021-03-31 18:49 | Emergency (ER) | payer OTHER, SELFPAY ==
--- NOTE | ~2021-03-31 | XR_ITS ---
EXAMINATION: XR CHEST CLINICAL INFORMATION: B-cell lymphoma COMPARISON: Chest x-ray 11/02/2020 TECHNIQUE: 2 views of the chest were obtained. FINDINGS: Central port catheter tip unchanged position in superior vena cava. The cardiac and the mediastinal contours are normal. The heart size is normal. The lungs are normally aerated. There is no pleural effusion or pneumothorax. XR/XR chest 2V IMPRESSION: There is no acute abnormality of the chest.
--- NOTE | ~2021-03-31 | XR_ITS ---
EXAMINATION: XR SHOULDER, RIGHT CLINICAL INFORMATION: Atraumatic shoulder pain COMPARISON: None TECHNIQUE: Three views of the right shoulder. FINDINGS: The bones and soft tissues are normal. No fracture. Glenohumeral and acromioclavicular alignment is anatomic with normal joint space. No abnormal soft tissue calcifications. XR/XR shoulder RT min 2V IMPRESSION: Normal right shoulder.
--- NOTE | ~2021-03-31 | XR_ITS ---
EXAMINATION: XR SHOULDER, LEFT CLINICAL INFORMATION: Atraumatic shoulder pain COMPARISON: None TECHNIQUE: Three views of the left shoulder. FINDINGS: The bones and soft tissues are normal. No fracture. Glenohumeral and acromioclavicular alignment is anatomic with normal joint space. No abnormal soft tissue calcifications. XR/XR shoulder LT min 2V IMPRESSION: Normal left shoulder.
[2021-03-31 18:55] VITALS: BP 132/84; PULSE 89; RESP 18; TEMP 37; O2SAT 98; BMI 30.1
--- NOTE | 2021-03-31 21:14 | ED.NECK ---
HPI - Neck Pain/Injury General Chief Complaint: Neck Pain/Injury Stated Complaint: Left shoulder pain Time Seen by Provider: 03/31/21 20:37 Source: patient Mode of arrival: ambulatory History of Present Illness HPI Narrative: 50-year-old female with a past medical history of anxiety, depression, diabetes, fibromyalgia, B-cell lymphoma, migraines, presenting to the ED complaining of bilateral shoulder/neck pain radiating down arms x weeks. Reports pain worse with movement/palpation. Denies known injury/trauma or fall or heavy lifting. Reports intermittent tingling down arms. Denies chest pain, shortness of breath, nausea, vomiting, LE edema, fever/chills complaint: neck pain Onset (ago): week(s) Exacerbating factors: movement of neck Context: unknown Associated symptoms: tingling Related Data Previous Rx's Medication Instructions Recorded tobramycin 0.3 %-dexamethasone 0.1 1 drp OPHTHALMIC (EYE) BID-TID #5 05/10/20 % eye drops,suspension (TobraDex) ml sennosides 8.6 mg-docusate sodium 2 tab-cap PO BEDTIME #60 tab 05/18/20 50 mg tablet (Senna-S) flash glucose scanning reader #1 ea 06/23/20 (FreeStyle Ricardo 2 [place]) ondansetron HCl 4 mg tablet 8 mg PO Q8H PRN #50 tab 08/19/20 (Zofran) ropinirole 0.25 mg tablet (Requip) 0.25 mg PO BEDTIME #30 tab 09/09/20 flash glucose sensor (FreeStyle #2 ea 09/15/20 Ricardo 14 Day Sensor) cholecalciferol (vitamin D3) 50 50 mcg PO DAILY #30 cap 09/17/20 mcg (2,000 unit) capsule (Vitamin D3) omeprazole 20 mg capsule,delayed 20 mg PO DAILY #90 cap 12/07/20 release dulaglutide 0.75 mg/0.5 mL 0.75 mg (0.5 mL) SUBCUT QWEEK 90 12/20/20 subcutaneous pen injector Days #6.5 ml (Trulicity) empagliflozin 10 mg tablet 10 mg PO QAM 90 Days #90 tab 01/19/21 (Jardiance) nitrofurantoin 100 mg PO Q12H #14 cap 02/11/21 monohydrate/macrocrystals 100 mg capsule (Macrobid) metoprolol tartrate 50 mg tablet 50 mg PO BID 30 Days #60 tab 02/25/21 morphine 30 mg tablet,extended 30 mg PO Q12H #60 tab 03/08/21 release (MS Contin) oxycodone 10 mg tablet 10 mg PO Q6H PRN #50 tab 03/08/21 acetaminophen 500 mg tablet 500 mg PO Q6H PRN #20 tab 03/31/21 (Tylenol Extra Strength) cyclobenzaprine 5 mg tablet 5 mg PO Q8H PRN 5 Days #14 tab 03/31/21 lidocaine 5 % topical patch 1 patch TOPICAL DAILY PRN #30 ea 03/31/21 (Lidoderm) MDD remove after 12 hours naproxen 500 mg tablet 500 mg PO BID PRN 10 Days #20 tab 03/31/21 Allergies Allergy/AdvReac Type Severity Reaction Status Date / Time doxycycline [DOXYCYCLINE] Allergy Unknown RASH Verified 02/10/21 14:44 metformin Allergy Unknown diarrhea Verified 02/10/21 14:44 Review of Systems Review of Systems: Constitutional: No Fever, No Chills, No Fatigue, No Malaise ENT/Mouth: No Ear Pain, No Nasal Congestion, No sore throat, No Rhinorrhea Eyes: No Eye Pain, No Swelling Cardiovascular: No Chest Pain, No SOB, No Dyspnea on Exertion, No Edema Respiratory: No Cough, No Sputum, No Dyspnea Gastrointestinal: No Nausea, No Vomiting, No Diarrhea, No Constipation, No Abdominal pain Genitourinary: No Dysuria, No Hematuria, No Urinary Incontinence/retention Musculoskeletal: + joint pain, + Myalgias, No Joint Swelling Skin: No Skin Lesions, No rash Neuro: No Weakness, + Numbness, + Paresthesias, No Headache Yes all other systems are reviewed and are negative Neurologic: Denies Sensory deficit (Neuro) [facility] Past Medical History Attestation statement: The following information was validated with the patient. Medical History Anxiety Depression Diabetes Fibromyalgia Lymphoma Migraines Surgical History H/O: hysterectomy Family History Family History Father No problems noted. Mother No problems noted. Social History Social History Household Members: Significant Other Housing: Apartment Are you a primary career based intervention coordinator to a significant other at home: No Do you presently have visiting nurse or other home services: No Alcohol intake: never Patient Tobacco Use Status: Former Tobacco user Quit Date: 2019 Second Hand Smoke Exposure: No Use of substances other than those prescribed or required for medical reasons: No Advance Directives: No Advance Directives Information Provided: Yes service: No Current occupational status: employed Physical Exam Vital Signs: Vital Signs: Last Vital Signs Temp 97.0 F 03/31/21 21:22 Pulse 88 03/31/21 21:22 Resp 18 03/31/21 21:22 BP 145/85 H 03/31/21 21: Pulse Ox 100 03/31/21 21:22 BMI result Body Mass Index 30.1 Const: General: cooperative, healthy appearing and no acute distress Orientation/consciousness: patient oriented x3 Limitations: no limitations HENMT: Head: Yes normal to inspection and Yes atraumatic Ears: hearing grossly normal bilaterally General nose exam: Normal external nose present Face and sinus: Yes normal facial exam Eyes: General: appearance normal, both eyes and all related structures EOM: EOMs intact bilaterally Neck: Other: No midline cervical spinous tenderness. Bilateral paraspinal and bilateral trapezius muscle tenderness to palpation. No erythema/ecchymosis Neck: Yes normal visual inspection, Yes no meningeal signs, Yes supple and No anterior neck swelling Resp: Effort & Inspection: normal respiratory effort and no stridor Auscultation: clear to auscultation bilaterally, no rales, no rhonchi and no wheezes Cardio: Rate: regular rate Heart sounds: S1 normal heart sound present and S2 normal heart sound present Peripheral pulses: radial pulses present GI: Inspection: Yes normal to inspection Back/Spine/Pelvis: Other: No midline thoracic/lumbar spinous tenderness/step-off or deformity Skin: Rashes: no rashes Wounds: no wounds Neuro: General: patient oriented x3, tone normal, moves all extremities, no meningeal signs and no focal motor deficits Gait exam (Neuro): Normal gait present Motor exam (neuro): 5/5 motor strength present throughout Sensory Exam: No Sensory deficit (Neuro) Extrem: Other: Bilateral shoulder tenderness to palpation, no appreciable deformity/erythema or swelling. Limited ROM of both shoulders to internal rotation and abduction secondary to pain General: Yes normal to inspection Course Course Course Narrative: XR chest 2V IMPRESSION: There is no acute abnormality of the chest. XR shoulder LT min 2V IMPRESSION: Normal left shoulder. XR shoulder RT min 2V IMPRESSION: Normal right shoulder. >> results discussed with patient including worrisome signs and symptoms and strict return precautions and need to follow-up with PCP MDM - Neck Pain/Injury MDM Narrative Medical decision making narrative: 50-year-old female with a past medical history of anxiety, depression, diabetes, fibromyalgia, B-cell lymphoma, migraines, presenting to the ED complaining of bilateral shoulder/neck pain radiating down arms x weeks. On exam vital signs stable, NAD/nontoxic, physical exam as above. Concern for MSK pain/strain vs tendinitis. Atypical for ACS/PE Due to patient's history of will obtain x-rays to rule out metastatic disease Plan: X-rays Differential Diagnosis Differential diagnosis: Likely cervical radiculopathy, torticollis, cervical spondylosis and strain of neck muscle Medical Records Attestation: I reviewed the patient's medical records. Lab Data Attestation: I reviewed the patient's lab results. Discharge Plan Discharge Clinical Impression: Musculoskeletal pain Patient Disposition: Home, Self-Care Instructions: Musculoskeletal Pain (ED) Additional Instructions: Your x-rays were unremarkable. It is important for you to follow-up with her primary care doctor Follow-up with orthopedics as needed Continue home prescribed pain medication Your pain is likely musculoskeletal Flexeril is a muscle relaxer, take at night as it makes you drowsy, do not drive, drink alcohol, or operate machinery while taking it Naproxen as an anti-inflammatory / pain medication, take with food Lidoderm patches are numbing patches, apply to painful area In addition take Tylenol at home If symptoms persist or worsen, pain becomes unbearable, you developed urinary retention or incontinence, or weakness return to the ED Prescriptions: New acetaminophen [Tylenol Extra Strength] 500 mg tablet 500 mg PO Q6H PRN (Reason: pain or fever) Qty: 20 RF: 0 lidocaine [Lidoderm] 5 % adhesive patch,medicated 1 patch topical DAILY MDD remove after 12 hours PRN (Reason: pain) Qty: 30 RF: 0 naproxen 500 mg tablet 500 mg PO BID PRN (Reason: pain) 10 Days Qty: 20 RF: 0 cyclobenzaprine 5 mg tablet 5 mg PO Q8H PRN (Reason: pain (scale score 7-10)) 5 Days Qty: 14 RF: 0 No Action (DME) FreeStyle Ricardo 2 [place] Misc See Rx Instructions .ROUTE .MEDSUPPLY Qty: 1 RF: 0 (DME) FreeStyle Ricardo 14 Day Sensor Kit See Rx Instructions .ROUTE .MEDSUPPLY Qty: 2 RF: 3 cholecalciferol (vitamin D3) [Vitamin D3] 50 mcg (2,000 unit) capsule 50 mcg PO DAILY Qty: 30 RF: 6 Trulicity 0.75 mg/0.5 mL pen injector 0.75 mg SUBCUT QWEEK 90 Days Qty: 6.5 RF: 3 Jardiance 10 mg tablet 10 mg PO QAM 90 Days Qty: 90 RF: 1 metoprolol tartrate 50 mg tablet 50 mg PO BID 30 Days Qty: 60 RF: 2 tobramycin-dexamethasone [TobraDex] 0.3-0.1 % Drops,Suspension 1 drp OPHTHALMIC (EYE) BID-TID Qty: 5 RF: 2 sennosides-docusate sodium [Senna-S] 8.6-50 mg Tablet 2 tab-cap PO BEDTIME Qty: 60 RF: 4 ondansetron HCl [Zofran] 4 mg Tablet 8 mg PO Q8H PRN (Reason: Nausea And Vomiting) Qty: 50 RF: 3 ropinirole [Requip] 0.25 mg Tablet 0.25 mg PO BEDTIME Qty: 30 RF: 4 omeprazole 20 mg Capsule,Delayed Release(Dr/Ec) 20 mg PO DAILY Qty: 90 RF: 4 nitrofurantoin monohyd/m-cryst [Macrobid] 100 mg Capsule 100 mg PO Q12H Qty: 14 RF: 2 morphine [MS Contin] 30 mg Tablet Extended Release 30 mg PO Q12H Qty: 60 RF: 0 oxycodone 10 mg Tablet 10 mg PO Q6H PRN (Reason: Breakthrough Pain, Severe) Qty: 50 RF: 0 Referrals: Doretha Spencer MD [Primary Care Provider] - 2 days Hubert Whalen MD [Physician] - 1 week (as needed)
[2021-03-31 21:22] VITALS: BP 145/85; PULSE 88; RESP 18; TEMP 36.1; O2SAT 100
== END 2021-03-31 22:04 | disposition home or self-care (01) ==
PROVIDERS: Emergency Provider Emergency Medicine; PCP Internal Medicine
DX: M79.18 Myalgia, other site (principal); M25.512 Pain in left shoulder; E11.9 Type 2 diabetes mellitus without complications; Z79.4 Long term (current) use of insulin
CPT/HCPCS: 71046; 73030; 99283; 99284

== ENCOUNTER → 2021-05-04 14:47 | Outpatient (BNVA) | payer OTHER, SELFPAY | PROVIDERS: PCP Internal Medicine; Visit Provider Physician Assistant | DX: M75.02 Adhesive capsulitis of left shoulder (principal); M25.511 Pain in right shoulder; M25.512 Pain in left shoulder | CPT/HCPCS: 99202 ==

== ENCOUNTER 2021-05-11 15:50 | Outpatient (REF) | payer OTHER, SELFPAY ==
--- NOTE | ~2021-05-11 | US_ITS ---
EXAMINATION: US SOFT TISSUE NECK CLINICAL INFORMATION: Left posterior neck lump. Rule out lymphadenopathy versus lipoma. COMPARISON: None TECHNIQUE: Ultrasound of the neck soft tissues of the left posterior neck is performed with high- frequency flores-scale imaging and color Doppler. FINDINGS: Palpable abnormality corresponds to a small normal-appearing subcutaneous lymph node. This is normal in size and measures 1.3 x 0.4 x 0.4 cm sagittal AP and transverse dimension. This demonstrates normal ultrasound morphology. No flow is seen. US/US soft tiss head and/or neck IMPRESSION: Palpable abnormality in the left posterior neck corresponds to a normal-appearing subcutaneous lymph node.
== END 2021-05-11 15:51 | disposition home or self-care (01) ==
LOC: HO.US 15:50
PROVIDERS: PCP Internal Medicine; Visit Provider Nurse Practitioner Family
DX: R22.1 Localized swelling, mass and lump, neck (principal)
CPT/HCPCS: 76536

== ENCOUNTER 2021-05-13 13:57 | Outpatient (REF) | payer OTHER, SELFPAY ==
--- NOTE | ~2021-05-13 | MM_ITS ---
EXAMINATION: MM SCREENING DIGITAL BREAST TOMOSYNTHESIS, BILATERAL CLINICAL INFORMATION: Screening. Asymptomatic. History non-Hodgkin's B-cell lymphoma. The lifetime risk of breast cancer based on the Tyrer-Cuzick Model is 10%. COMPARISON: Mammography: 02/06/2019, 09/16/2013, 02/11/2013, 02/04/2013; PET/CT 03/04/2021. TECHNIQUE: Digital breast tomosynthesis is performed in both the craniocaudal and mediolateral oblique views along with computer-aided detection (CAD). Synthesized 2D images are generated from the tomosynthesis. FINDINGS: There are scattered areas of fibroglandular density (ACR BI-RADS breast composition Category b). There are no significant masses, abnormal calcifications, or other abnormalities. There is a port overlying the posterior right axilla on the MLO view. MM/MM tomosynthesis screening BI IMPRESSION: No mammographic evidence of malignancy. ASSESSMENT: BI-RADS 2: Benign RECOMMENDATION: Routine annual mammography screening. This patient's information was entered into a reminder system with a target due date for their next mammogram.
== END 2021-05-13 13:58 | disposition home or self-care (01) ==
LOC: HO.MAMMO 13:57
PROVIDERS: Visit Provider Internal Medicine
DX: Z12.31 Encounter for screening mammogram for malignant neoplasm of breast (principal)
CPT/HCPCS: 77063; 77067

== ENCOUNTER 2021-06-22 13:16 | Outpatient (REF) | payer OTHER, SELFPAY ==
--- NOTE | ~2021-06-22 | XR_ITS ---
EXAMINATION: XR CERVICAL SPINE CLINICAL INFORMATION: M54.2 - Cervicalgia. History non-Hodgkin's B-cell lymphoma. COMPARISON: PET/CT 03/04/2021 TECHNIQUE: 3 views of the cervical spine were obtained. FINDINGS: There is straightening cervical lordosis with mild leftward tilt. The vertebral bodies are normal in height. There is no cervical vertebral compression, spondylolisthesis, destructive process, or prevertebral soft tissue swelling. The odontoid appears intact. There are bridging anterior osteophytes and some partial ossification in the anterior annulus or spinal ligament at C3-C7. There are no erosive changes. No focal disc narrowing. XR/XR cervical spine 3V IMPRESSION: 1. Partially bridging anterior osteophytes C3-C7. 2. No cervical vertebral compression, spondylolisthesis, destructive process.
== END 2021-06-22 13:17 | disposition home or self-care (01) ==
LOC: HO.XRAY 13:16
PROVIDERS: PCP Internal Medicine; Visit Provider Nurse Practitioner Family
DX: M54.2 Cervicalgia (principal); M79.7 Fibromyalgia
CPT/HCPCS: 72040; 99202

== ENCOUNTER 2021-07-19 06:22 | Outpatient (REF) | payer OTHER, SELFPAY ==
--- NOTE | ~2021-07-19 | FL_ITS ---
EXAMINATION: XR FLUOROSCOPY WITH IMAGES CLINICAL INFORMATION: Evidence of capsulitis of left shoulder. COMPARISON: None. TECHNIQUE: Fluoroscopy performed by Svitlana Tierney. Fluoroscopy time: 0.1 minutes DAP: 0.6, 0.7 Gycm2 Images: 1 FINDINGS: There is needle positioned along the superior aspect of glenohumeral joint with contrast opacifying the joint space. No bony abnormality seen. FL/FL guidance in treatment room IMPRESSION: Fluoroscopy provided to referrer for pain management
== END 2021-07-19 06:23 | disposition home or self-care (01) ==
LOC: HO.RADIR 06:22
PROVIDERS: Visit Provider Anesthesiology
DX: M75.02 Adhesive capsulitis of left shoulder (principal); M25.512 Pain in left shoulder; C85.10 Unspecified B-cell lymphoma, unspecified site; M54.2 Cervicalgia; Z87.891 Personal history of nicotine dependence
CPT/HCPCS: 20610; J3300; Q9967

== ENCOUNTER → 2021-07-27 16:08 | Outpatient (BNVA) | payer OTHER, SELFPAY | PROVIDERS: PCP Internal Medicine; Visit Provider Anesthesiology | DX: Z13.89 Encounter for screening for other disorder (principal) ==

== ENCOUNTER → 2021-08-23 11:41 | Outpatient (BNVA) | payer OTHER, SELFPAY | PROVIDERS: PCP Internal Medicine; Visit Provider Nurse Practitioner Family | DX: Z13.89 Encounter for screening for other disorder (principal) ==

== ENCOUNTER 2021-11-22 14:58 | Outpatient (REF) | payer OTHER, SELFPAY ==
--- NOTE | ~2021-11-22 | CT_ITS ---
EXAMINATION: CT CHEST WITH CONTRAST CT ABDOMEN AND PELVIS WITH CONTRAST CLINICAL INFORMATION: Follow-up B-cell lymphoma COMPARISON: Multiple priors, most recently PET/CT from 03/04/2021. Diagnostic CT was performed 10/07/2020. TECHNIQUE: Multidetector volumetric imaging was performed through the chest, abdomen and pelvis following the administration of oral and 85 mL of Omnipaque 350 intravenous contrast. Sagittal and coronal reformatted images were obtained on the technologist's workstation. Axial MIP volume rendering provided. This CT examination was performed using dose optimization techniques as appropriate, variously including the following: *Automated exposure control *Adjustment of mA and/or kV according to patient size (this includes techniques or standardized protocols for targeted exams where dose is matched to indication/reason for exam; i.e. extremities or head) *Use of iterative reconstruction technique DLP: 1024 mGy-cm. FINDINGS: CHEST: Lungs: The central airways are patent. No dense consolidation. Minimal groundglass opacity seen at the periphery of the right upper lobe with somewhat nodular appearance. This area measures 0.8 cm on series 7 image 255. This had measured 0.6 cm on the study from 2020. No pleural effusion or pneumothorax. Mediastinum: The heart is of normal size. There is no pericardial effusion. Central vascular structures are unremarkable. No hilar or mediastinal lymphadenopathy. Chest Wall/Axilla: No lymphadenopathy. No chest wall mass. Right chest wall port in place terminating at the cavoatrial junction. ABDOMEN/PELVIS: Liver, Gallbladder, Biliary Tree: The liver is enlarged measuring 22 cm in CC dimension. This is similar to previous. The liver is normal in shape and attenuation. No focal hepatic lesion or biliary ductal dilatation is present. The gallbladder is unremarkable with no evidence of radiopaque gallstones, gallbladder wall thickening, or pericholecystic inflammatory changes. Pancreas: Unremarkable. Spleen: Heterogeneous appearance of the spleen with lobulations this is similar to previous. Some nodularity along the superior margin is unchanged. Adrenal Glands: Unremarkable. Kidneys and Ureters: The kidneys are normal in size, shape, and attenuation. No hydronephrosis, hydroureter or calculi seen. No perinephric stranding. Bladder: Unremarkable. Gastrointestinal Tract: The stomach is unremarkable. Normal caliber small bowel. No obstruction. Contrast extends through a portion of the small bowel. No colonic wall thickening or acute inflammation. Minimal colonic diverticulosis without diverticulitis. Mild to moderate colonic stool burden. The appendix is unremarkable. Abdominal Wall: No hernia is demonstrated. Mild scarring along the anterior lower abdominal wall. Lymphovascular Structures: Lymph nodes: Normal. Vascular: Normal caliber aorta with mild atherosclerotic calcification. Circumaortic left renal vein. Pelvic Viscera: Uterus not seen. No adnexal mass. OSSEOUS STRUCTURES: No acute or suspicious osseous abnormality. Mild degenerative changes throughout the spine. Mild degenerative changes in both hips. CT/CT abdomen pelvis w con IMPRESSION: 1. There is a groundglass nodular density in the right upper lobe measuring 0.8 cm. This previously measured 0.6 cm on 10/07/2020. Continued attention on follow-up. 2. Similar appearance of the spleen with heterogeneous enhancement and nodularity. 3. Unchanged hepatomegaly. 4. No lymphadenopathy.
[2021-11-22] MEDS: iohexoL 350 MG/ML 100 ML INFUS..BTL IV (17:57)
[2021-11-22] MEDS: Barium Sulfate Oral (Mocha) 450 ML ORAL.SUSP 900 ML PO (17:58)
== END 2021-11-22 14:59 | disposition home or self-care (01) ==
LOC: HO.CT 14:58
PROVIDERS: PCP Internal Medicine; Visit Provider Internal Medicine Medical Oncology
DX: C83.30 Diffuse large B-cell lymphoma, unspecified site (principal)
CPT/HCPCS: 71260; 74177; Q9967

== ENCOUNTER 2022-01-23 15:31 | Outpatient (REF) | payer OTHER, SELFPAY | END 2022-01-23 15:32 | disposition home or self-care (01) | LOC: HO.LAB 15:31 | PROVIDERS: PCP Internal Medicine; Visit Provider Internal Medicine | DX: Z13.89 Encounter for screening for other disorder (principal) ==

== ENCOUNTER 2022-05-23 13:22 | Outpatient (REF) | payer OTHER, SELFPAY ==
--- NOTE | ~2022-05-23 | CT_ITS ---
EXAMINATION: CT CHEST WITH CONTRAST CT ABDOMEN AND PELVIS WITH CONTRAST CLINICAL INFORMATION: Lymphoma follow-up COMPARISON: Multiple priors, most recently 11/22/2021 TECHNIQUE: Multidetector volumetric imaging was performed through the chest, abdomen and pelvis following the administration of oral and 85 mL of Omnipaque 350 intravenous contrast. Sagittal and coronal reformatted images were obtained on the technologist's workstation. Axial MIP volume rendering provided. This CT examination was performed using dose optimization techniques as appropriate, variously including the following: *Automated exposure control *Adjustment of mA and/or kV according to patient size (this includes techniques or standardized protocols for targeted exams where dose is matched to indication/reason for exam; i.e. extremities or head) *Use of iterative reconstruction technique DLP: 984 mGy-cm. FINDINGS: CHEST: Lungs: The central airways are patent. No consolidation. No pleural effusion or pneumothorax. Similar appearance of the inferior right upper lobe groundglass nodular opacity measuring 0.7 cm, series 7 image 246. No new pulmonary nodules. Mediastinum: The heart is of normal size. There is no pericardial effusion. Central vascular structures are unremarkable. No hilar or mediastinal lymphadenopathy. Similar appearance of mild attenuation in the anterior superior mediastinum, possibly residual thymic tissue. Coronary Artery Calcification: None visualized on this study. Chest Wall/Axilla: No lymphadenopathy. No chest wall mass. ABDOMEN/PELVIS: Liver, Gallbladder, Biliary Tree: The liver is normal in size, shape, and attenuation. No focal hepatic lesion or biliary ductal dilatation is present. The gallbladder is unremarkable with no evidence of radiopaque gallstones, gallbladder wall thickening, or pericholecystic inflammatory changes. Pancreas: Unremarkable. Spleen: Lobulated spleen with area of decreased attenuation in the hilar region, unchanged. Adrenal Glands: Unremarkable. Kidneys and Ureters: The kidneys are normal in size, shape, and attenuation. No hydronephrosis, hydroureter or calculi seen. No perinephric stranding. Bladder: Unremarkable. Gastrointestinal Tract: The stomach and small bowel appear unremarkable. No dilated loops of bowel or evidence of obstruction. Fecalization of the distal ileum suggesting slow transit. Mild colonic diverticulosis. No colonic wall thickening or adjacent inflammatory changes. No free air or free fluid. The appendix is unremarkable. Abdominal Wall: No hernia is demonstrated. Scarring along the anterior lower abdomen. Lymphovascular Structures: Lymph nodes: Normal. Vascular: Normal caliber aorta with mild atherosclerotic calcification. Pelvic Viscera: Uterus not seen. No adnexal mass. OSSEOUS STRUCTURES: No suspicious sclerotic or lytic bone lesions are identified. Mild degenerative changes throughout the spine. Degenerative changes of both hips. CT/CT abdomen pelvis w IV con IMPRESSION: 1. No significant change from prior. No lymphadenopathy. 2. Unchanged 0.7 cm groundglass nodule in the right upper lobe. Continued attention on follow-up. In the setting of known malignancy, Fleischner recommendations do not apply.
[2022-05-23] MEDS: iohexoL 350 MG/ML 100 ML INFUS..BTL IV (15:49)
[2022-05-23] MEDS: Barium Sulfate Oral (Berry) 450 ML ORAL.SUSP 900 ML PO (15:50)
== END 2022-05-23 13:23 | disposition home or self-care (01) ==
LOC: HO.CT 13:22
PROVIDERS: PCP Internal Medicine; Visit Provider Internal Medicine Medical Oncology
DX: C85.10 Unspecified B-cell lymphoma, unspecified site (principal)
CPT/HCPCS: 71260; 74177; Q9967

== ENCOUNTER 2022-06-20 13:10 | Emergency (ER) | payer OTHER, SELFPAY ==
[2022-06-20 13:25] VITALS: BP 158/59; PULSE 78; RESP 18; TEMP 36.6; O2SAT 97; BMI 32.8
--- NOTE | 2022-06-20 13:26 | ED_ITS ---
HPI - Female Genitourinary General Chief complaint: Urogenital-Female <MISSAEL Briceño - Last Filed: 06/23/22 09:38> Stated complaint: Vaginal irritation <MISSAEL Briceño - Last Filed: 06/23/22 09:38> Time Seen by Provider: 06/20/22 13:55 <MISSAEL Briceño - Last Filed: 06/23/22 09:38> History of Present Illness HPI Narrative: Patient complains of vaginal redness and burning for several days, she describes discharge is scant white an order less, she denies any pelvic pain or abnormal bleeding she denies any fever chills no vomiting Denies any fever denies any lesions or sores <MISSAEL Yarbrough - Last Filed: 07/16/22 14:44> Related Data Home medications: Previous Rx's Medication Instructions Recorded tobramycin 0.3 %-dexamethasone 0.1 1 drp ophthalmic (eye) BID-TID #5 05/10/20 % eye drops,suspension (TobraDex) mL sennosides 8.6 mg-docusate sodium 2 tab-cap PO BEDTIME #60 tabs 05/18/20 50 mg tablet (Senna-S) flash glucose scanning reader #1 ea 06/23/20 (FreeStyle Ricardo 2 [place]) flash glucose sensor (FreeStyle #2 ea 09/15/20 Ricardo 14 Day Sensor kit) diclofenac sodium 1 % topical gel 2 g topical QID #100 grams 04/07/21 (Voltaren Arthritis Pain) hydrocortisone 2.5 % topical cream 1 appl topical BID rash #30 grams 05/13/21 tizanidine 2 mg tablet 2 mg PO TID PRN muscle spasticity 08/23/21 #90 tabs cholecalciferol (vitamin D3) 50 50 mcg PO DAILY #30 caps 11/10/21 mcg (2,000 unit) capsule (Vitamin D3) albuterol sulfate 90 mcg/actuation 1 inh inhalation QID #1 g 11/11/21 aerosol inhaler lidocaine 4 % topical cream 1 appl topical BID #35 grams 12/15/21 (Anecream) lidocaine 5 % topical patch 1 patch topical DAILY PRN pain #30 12/22/21 (Lidoderm) ea triamcinolone acetonide 0.5 % 1 appl topical DAILY 2 weeks #15 12/22/21 topical cream grams ondansetron HCl 4 mg tablet 8 mg PO Q8H PRN Nausea And 01/16/22 (Zofran) Vomiting #50 tabs empagliflozin 25 mg tablet 25 mg PO DAILY 90 days #90 tabs 02/02/22 (Jardiance) metoprolol tartrate 50 mg tablet 50 mg PO BID 30 days #60 tabs 02/07/22 omeprazole 20 mg capsule,delayed 20 mg PO DAILY #90 caps 03/03/22 release oxycodone 5 mg tablet 5 mg PO Q8H PRN Breakthrough Pain, 03/31/22 Severe #50 tabs morphine 30 mg tablet,extended 30 mg PO Q12H #60 tabs 06/02/22 release (MS Contin) clotrimazole 1 % vaginal cream 1 appful vaginal BEDTIME 3 days 06/20/22 (Gyne-Lotrimin 7) #45 grams metronidazole 500 mg tablet 500 mg PO Q12H 7 days #14 tabs 06/23/22 morphine 15 mg tablet,extended 15 mg PO Q12H #60 tabs 06/27/22 release (MS Contin) oxycodone 5 mg tablet 5 mg PO BID PRN Breakthrough Pain, 06/27/22 Moderate #40 tabs dulaglutide 1.5 mg/0.5 mL 1.5 mg (0.5 mL) subcut QWEEK 90 07/01/22 subcutaneous pen injector days #6.5 mL (Trulicity) <MISSAEL Briceño - Last Filed: 06/23/22 09:38> Allergies/Adverse reactions: Allergies Allergy/AdvReac Type Severity Reaction Status Date / Time doxycycline [DOXYCYCLINE] Allergy Unknown RASH Verified 06/27/22 15:26 metformin Allergy Unknown diarrhea Verified 06/27/22 15:26 <MISSAEL Briceño - Last Filed: 06/23/22 09:38> [facility] Past Medical History Source: nursing notes reviewed <MISSAEL Yarbrough - Last Filed: 07/16/22 14:44> Medical History: Medical History Anxiety Chronic GERD Depression Diabetes Fibromyalgia Hypovitaminosis D Lymphoma Migraines 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 Mother No problems noted. Maternal Aunt Breast cancer Family/Other Mental health disorder <MISSAEL Briceño - Last Filed: 06/23/22 09:38> Social History Social History: Social History Household Members: Children Housing: Apartment Are you a primary physician locums urgent care to a significant other at home: No Do you presently have visiting nurse or other home services: No Alcohol intake: current Alcohol intake frequency: holidays/special occasions only Alcohol type: beer, wine and hard liquor Patient Tobacco Use Status: Former Tobacco user Quit Date: 2019 Tobacco use type: Cigarette e-Cigarette/Vaping Use: Never Used Second Hand Smoke Exposure: No Use of substances other than those prescribed or required for medical reasons: No Have you been hit, kicked, punched, or otherwise hurt by someone within the past year? If so, by whom?: No Do you feel safe in your current relationship?: No Current Relationship Do you have thoughts of harming others: None Do you have a plan to hurt others: No Plan Do you have the means to hurt others: No Recently lost weight without trying: No Nutrition Risks: No Nutritional Risk Patient : No : No Poor oral hygiene: No service: No Current occupational status: unemployed Cognitive needs: No Hearing needs: No Vision needs: No <MISSAEL Briceño - Last Filed: 06/23/22 09:38> Physical Exam Vital Signs: Vital Signs: Last Vital Signs Temp 97.9 F 06/20/22 13:25 Pulse 78 06/20/22 13:25 Resp 18 06/20/22 13:25 BP 158/59 H 06/20/22 13:25 Pulse Ox 97 06/20/22 13:25 O2 Del Method 06/20/22 13:25 BMI result Body Mass Index 32.8 <MISSAEL Briceño - Last Filed: 06/23/22 09:38> Vital Signs: Last Vital Signs Temp 97.9 F 06/20/22 13:25 Pulse 78 06/20/22 13:25 Resp 18 06/20/22 13:25 BP 158/59 H 06/20/22 13:25 Pulse Ox 97 06/20/22 13:25 O2 Del Method 06/20/22 13:25 BMI result Body Mass Index 32.8 <MISSAEL Yarbrough - Last Filed: 07/16/22 14:44> General appearance comfortable no distress The pharynx is clear no redness swelling or exudate membranes moist Neck is supple Respiratory no distress Abdomen soft nontender Pelvic exam the vulva were mildly red but there were no herpetic lesions no sores no ulcerations, bimanual exam was nontender no mass no cervical motion tenderness There was a whitish odorless discharge that was cultured Skin no rashes Extremities range of motion x4 <MISSAEL Yarbrough - Last Filed: 07/16/22 14:44> Course Course Course Narrative: RME--51yo F w/PMHx GERD, DM, Diffuse large B-cell lymphoma currently being monitored not on chemo or radiation, fibromyalgia, migraines, c/o dysuria, vaginal pain/irritation and ?lump x 3 days. Admits to assoc nausea and lower abd pain. Denies vag d/c or bleeding, fever, chills. Denies being currently sexually active Labs, UA, CT NG ordered <MISSAEL Briceño - Last Filed: 06/23/22 09:38> RME--51yo F w/PMHx GERD, DM, Diffuse large B-cell lymphoma currently being monitored not on chemo or radiation, fibromyalgia, migraines, c/o dysuria, vaginal pain/irritation and ?lump x 3 days. Admits to assoc nausea and lower abd pain. Denies vag d/c or bleeding, fever, chills. Denies being currently sexually active Labs, UA, CT NG ordered When I saw the patient her only complaint was vaginal redness irritation and discharge for several days she denies any vomiting or abdominal pain now or pelvic pain On exam there was raw red skin on the vulva, no herpetic lesions no vesicles no ulcerations, there was a whitish odorless discharge, no other findings on exam <MISSAEL Yarbrough - Last Filed: 07/16/22 14:44> Reevaluation(s) Reevaluation #1: [id number]--patient's cultures positive for BV, called and spoke with patient today med were results, sent in Flagyl to the pharmacy. Recommended close follow-up with OBGYN and that she can stop clotrimazole cream <MISSAEL Briceño - Last Filed: 06/23/22 09:38> Medications Administered Discontinued Medications Generic Name Dose Route Start Last Admin Trade Name Freq PRN Reason Stop Dose Admin Fluconazole 150 mg 06/20/22 17:10 06/20/22 17:25 Fluconazole 150 Mg Tablet PO 06/20/22 17:11 150 mg ONCE ONE Administration <MISSAEL Briceño - Last Filed: 06/23/22 09:38> Medications Administered Discontinued Medications Generic Name Dose Route Start Last Admin Trade Name Freq PRN Reason Stop Dose Admin Fluconazole 150 mg 06/20/22 17:10 06/20/22 17:25 Fluconazole 150 Mg Tablet PO 06/20/22 17:11 150 mg ONCE ONE Administration <MISSAEL Yarbrough - Last Filed: 07/16/22 14:44> Medical Decision Making Lab Data Result Diagrams: 06/20/22 13:42 06/20/22 13:42 <MISSAEL Briceño - Last Filed: 06/23/22 09:38> Labs: Lab Results 06/20/22 06/20/22 06/20/22 Range/Units 13:42 13:42 16:58 WBC 5.6 (4.8-10.8) X10*3/uL RBC 5.10 (4.20-5.50) X10*6/uL Hgb 13.4 (12.0-16.0) g/dl Hct 41.3 (37.0-47.0) % MCV 81.0 (80.0-98.0) fL MCH 26.3 L (27.0-33.0) pg MCHC 32.4 (31.0-35.0) g/dl RDW 14.5 (11.0-16.0) % Plt Count 235 (160-400) X10*3/uL MPV 9.2 L (9.4-12.3) fL Immature Gran % (Auto) 0.4 (0.0-0.4) % Neut % (Auto) 52.8 (45-73) % Lymph % (Auto) 41.3 H (20-40) % [place] % (Auto) 4.1 (2-11) % Eos % (Auto) 0.9 (0-4) % Baso % (Auto) 0.5 (0-2) % Lymph # (Auto) 2.3 (1.2-4.9) X10*3/uL [place] # (Auto) 0.2 (0.1-1.2) X10*3/uL Eos # (Auto) 0.1 (0.0-0.4) X10*3/uL Baso # (Auto) 0.0 (0.0-0.2) X10*3/uL Abs Immat Gran (auto) 0.02 (0.00-0.03) X10*3/uL Absolute Neuts (auto) 2.9 (2.0-8.3) x10*3/uL Absolute Nucleated RBC 0.000 (0.0-0.012) X10*3/uL Nucleated RBC % (auto) 0.0 (0.0-0.2) /100WBC Sodium 142 (135-145) mmol/L Potassium 4.2 (3.3-5.1) mmol/L Chloride 108 (96-108) mmol/L Carbon Dioxide 26 (22-29) mmol/L Anion Gap 12 (12-20) BUN 9 (9-16) mg/dL Creatinine 0.70 (0.5-1.4) mg/dL Estim Creat Clear Calc 98.6 Estimated GFR > 60 Random Glucose 197 H (60-115) mg/dL Calcium 9.2 (8.4-10.2) mg/dL Total Bilirubin 0.5 (0.0-1.0) mg/dL Direct Bilirubin < 0.2 (0.0-0.5) mg/dL AST 14 (5-31) U/L ALT 22 (0-31) U/L Alkaline Phosphatase 124 H (39-117) U/L Total Protein 7.1 (6.5-8.0) g/dL Albumin 4.1 (3.5-5.0) g/dL Lipase 17 (8-78) U/L Urine Color Yellow Urine Appearance Clear Urine pH 7.0 (5.0-9.0) Ur Specific [place] >= 1.030 H (1.005-1.025) Urine Protein Negative (Neg-Trace) mg/dL Urine Glucose (UA) >=1000 H (Negative) mg/dL Urine Ketones Negative (Negative) mg/dL Urine Blood Negative (Negative) Urine Nitrite Negative (Negative) Ur Leukocyte Esterase Negative (Negative) Urine RBC 0-2 (0-2) /HPF Urine WBC 0-5 (0-5) /HPF Ur Squamous Epith Cells 0-2 (0-2) /HPF Urine Bacteria 2+ (None Seen) Hyaline Casts 0-2 (0-2) /LPF Latanya species DNA (Negative) Chlam trachomat DNA PCR (Not Detect.) Gardnerella DNA Probe (Negative) N.gonorrhoeae DNA (PCR) (Not Detect.) Trichomonas DNA Probe (Negative) 06/20/22 06/20/22 Range/Units 16:58 17:42 WBC (4.8-10.8) X10*3/uL RBC (4.20-5.50) X10*6/uL Hgb (12.0-16.0) g/dl Hct (37.0-47.0) % MCV (80.0-98.0) fL MCH (27.0-33.0) pg MCHC (31.0-35.0) g/dl RDW (11.0-16.0) % Plt Count (160-400) X10*3/uL MPV (9.4-12.3) fL Immature Gran % (Auto) (0.0-0.4) % Neut % (Auto) (45-73) % Lymph % (Auto) (20-40) % [place] % (Auto) (2-11) % Eos % (Auto) (0-4) % Baso % (Auto) (0-2) % Lymph # (Auto) (1.2-4.9) X10*3/uL [place] # (Auto) (0.1-1.2) X10*3/uL Eos # (Auto) (0.0-0.4) X10*3/uL Baso # (Auto) (0.0-0.2) X10*3/uL Abs Immat Gran (auto) (0.00-0.03) X10*3/uL Absolute Neuts (auto) (2.0-8.3) x10*3/uL Absolute Nucleated RBC (0.0-0.012) X10*3/uL Nucleated RBC % (auto) (0.0-0.2) /100WBC Sodium (135-145) mmol/L Potassium (3.3-5.1) mmol/L Chloride (96-108) mmol/L Carbon Dioxide (22-29) mmol/L Anion Gap (12-20) BUN (9-16) mg/dL Creatinine (0.5-1.4) mg/dL Estim Creat Clear Calc Estimated GFR Random Glucose (60-115) mg/dL Calcium (8.4-10.2) mg/dL Total Bilirubin (0.0-1.0) mg/dL Direct Bilirubin (0.0-0.5) mg/dL AST (5-31) U/L ALT (0-31) U/L Alkaline Phosphatase (39-117) U/L Total Protein (6.5-8.0) g/dL Albumin (3.5-5.0) g/dL Lipase (8-78) U/L Urine Color Urine Appearance Urine pH (5.0-9.0) Ur Specific [place] (1.005-1.025) Urine Protein (Neg-Trace) mg/dL Urine Glucose (UA) (Negative) mg/dL Urine Ketones (Negative) mg/dL Urine Blood (Negative) Urine Nitrite (Negative) Ur Leukocyte Esterase (Negative) Urine RBC (0-2) /HPF Urine WBC (0-5) /HPF Ur Squamous Epith Cells (0-2) /HPF Urine Bacteria (None Seen) Hyaline Casts (0-2) /LPF Latanya species DNA Negative (Negative) Chlam trachomat DNA PCR NOT DETECTED (Not Detect.) Gardnerella DNA Probe Positive A (Negative) N.gonorrhoeae DNA (PCR) NOT DETECTED (Not Detect.) Trichomonas DNA Probe Negative (Negative) <MISSAEL Briceño - Last Filed: 06/23/22 09:38> Lab Results 06/20/22 06/20/22 06/20/22 Range/Units 13:42 13:42 16:58 WBC 5.6 (4.8-10.8) X10*3/uL RBC 5.10 (4.20-5.50) X10*6/uL Hgb 13.4 (12.0-16.0) g/dl Hct 41.3 (37.0-47.0) % MCV 81.0 (80.0-98.0) fL MCH 26.3 L (27.0-33.0) pg MCHC 32.4 (31.0-35.0) g/dl RDW 14.5 (11.0-16.0) % Plt Count 235 (160-400) X10*3/uL MPV 9.2 L (9.4-12.3) fL Immature Gran % (Auto) 0.4 (0.0-0.4) % Neut % (Auto) 52.8 (45-73) % Lymph % (Auto) 41.3 H (20-40) % [place] % (Auto) 4.1 (2-11) % Eos % (Auto) 0.9 (0-4) % Baso % (Auto) 0.5 (0-2) % Lymph # (Auto) 2.3 (1.2-4.9) X10*3/uL [place] # (Auto) 0.2 (0.1-1.2) X10*3/uL Eos # (Auto) 0.1 (0.0-0.4) X10*3/uL Baso # (Auto) 0.0 (0.0-0.2) X10*3/uL Abs Immat Gran (auto) 0.02 (0.00-0.03) X10*3/uL Absolute Neuts (auto) 2.9 (2.0-8.3) x10*3/uL Absolute Nucleated RBC 0.000 (0.0-0.012) X10*3/uL Nucleated RBC % (auto) 0.0 (0.0-0.2) /100WBC Sodium 142 (135-145) mmol/L Potassium 4.2 (3.3-5.1) mmol/L Chloride 108 (96-108) mmol/L Carbon Dioxide 26 (22-29) mmol/L Anion Gap 12 (12-20) BUN 9 (9-16) mg/dL Creatinine 0.70 (0.5-1.4) mg/dL Estim Creat Clear Calc 98.6 Estimated GFR > 60 Random Glucose 197 H (60-115) mg/dL Calcium 9.2 (8.4-10.2) mg/dL Total Bilirubin 0.5 (0.0-1.0) mg/dL Direct Bilirubin < 0.2 (0.0-0.5) mg/dL AST 14 (5-31) U/L ALT 22 (0-31) U/L Alkaline Phosphatase 124 H (39-117) U/L Total Protein 7.1 (6.5-8.0) g/dL Albumin 4.1 (3.5-5.0) g/dL Lipase 17 (8-78) U/L Urine Color Yellow Urine Appearance Clear Urine pH 7.0 (5.0-9.0) Ur Specific [place] >= 1.030 H (1.005-1.025) Urine Protein Negative (Neg-Trace) mg/dL Urine Glucose (UA) >=1000 H (Negative) mg/dL Urine Ketones Negative (Negative) mg/dL Urine Blood Negative (Negative) Urine Nitrite Negative (Negative) Ur Leukocyte Esterase Negative (Negative) Urine RBC 0-2 (0-2) /HPF Urine WBC 0-5 (0-5) /HPF Ur Squamous Epith Cells 0-2 (0-2) /HPF Urine Bacteria 2+ (None Seen) Hyaline Casts 0-2 (0-2) /LPF Latanya species DNA (Negative) Chlam trachomat DNA PCR (Not Detect.) Gardnerella DNA Probe (Negative) N.gonorrhoeae DNA (PCR) (Not Detect.) Trichomonas DNA Probe (Negative) 06/20/22 06/20/22 Range/Units 16:58 17:42 WBC (4.8-10.8) X10*3/uL RBC (4.20-5.50) X10*6/uL Hgb (12.0-16.0) g/dl Hct (37.0-47.0) % MCV (80.0-98.0) fL MCH (27.0-33.0) pg MCHC (31.0-35.0) g/dl RDW (11.0-16.0) % Plt Count (160-400) X10*3/uL MPV (9.4-12.3) fL Immature Gran % (Auto) (0.0-0.4) % Neut % (Auto) (45-73) % Lymph % (Auto) (20-40) % [place] % (Auto) (2-11) % Eos % (Auto) (0-4) % Baso % (Auto) (0-2) % Lymph # (Auto) (1.2-4.9) X10*3/uL [place] # (Auto) (0.1-1.2) X10*3/uL Eos # (Auto) (0.0-0.4) X10*3/uL Baso # (Auto) (0.0-0.2) X10*3/uL Abs Immat Gran (auto) (0.00-0.03) X10*3/uL Absolute Neuts (auto) (2.0-8.3) x10*3/uL Absolute Nucleated RBC (0.0-0.012) X10*3/uL Nucleated RBC % (auto) (0.0-0.2) /100WBC Sodium (135-145) mmol/L Potassium (3.3-5.1) mmol/L Chloride (96-108) mmol/L Carbon Dioxide (22-29) mmol/L Anion Gap (12-20) BUN (9-16) mg/dL Creatinine (0.5-1.4) mg/dL Estim Creat Clear Calc Estimated GFR Random Glucose (60-115) mg/dL Calcium (8.4-10.2) mg/dL Total Bilirubin (0.0-1.0) mg/dL Direct Bilirubin (0.0-0.5) mg/dL AST (5-31) U/L ALT (0-31) U/L Alkaline Phosphatase (39-117) U/L Total Protein (6.5-8.0) g/dL Albumin (3.5-5.0) g/dL Lipase (8-78) U/L Urine Color Urine Appearance Urine pH (5.0-9.0) Ur Specific [place] (1.005-1.025) Urine Protein (Neg-Trace) mg/dL Urine Glucose (UA) (Negative) mg/dL Urine Ketones (Negative) mg/dL Urine Blood (Negative) Urine Nitrite (Negative) Ur Leukocyte Esterase (Negative) Urine RBC (0-2) /HPF Urine WBC (0-5) /HPF Ur Squamous Epith Cells (0-2) /HPF Urine Bacteria (None Seen) Hyaline Casts (0-2) /LPF Latanya species DNA Negative (Negative) Chlam trachomat DNA PCR NOT DETECTED (Not Detect.) Gardnerella DNA Probe Positive A (Negative) N.gonorrhoeae DNA (PCR) NOT DETECTED (Not Detect.) Trichomonas DNA Probe Negative (Negative) <MISSAEL Yarbrough - Last Filed: 07/16/22 14:44> Discharge Plan Discharge Clinical Impression: Vaginal discharge <MISSAEL Briceño - Last Filed: 06/23/22 09:38> Patient Disposition: Home, Self-Care <MISSAEL Briceño - Last Filed: 06/23/22 09:38> Additional Instructions: You were treated for possible yeast infection with a Diflucan tablet in the emergency room and cream for home Follow with your galvanizing pot runner and primary doctor Return any time any worse condition or any concerns Her blood pressure was high so follow with primary doctor to check control of both diabetes and blood pressure <MISSAEL Briceño - Last Filed: 06/23/22 09:38> Prescriptions: New clotrimazole [Gyne-Lotrimin 7] 1 % cream 1 appful vaginal BEDTIME 3 Days Qty: 45 0RF metronidazole 500 mg tablet 500 mg PO Q12H 7 Days Qty: 14 0RF No Action (DME) FreeStyle Ricardo 2 [place] Misc See Rx Instructions .ROUTE .MEDSUPPLY Qty: 1 0RF Rx Instructions: As directed (DME) FreeStyle Ricardo 14 Day Sensor Kit See Rx Instructions .ROUTE .MEDSUPPLY Qty: 2 3RF Rx Instructions: As directed hydrocortisone 2.5 % cream 1 appl topical BID Qty: 30 0RF cholecalciferol (vitamin D3) [Vitamin D3] 50 mcg (2,000 unit) capsule 50 mcg PO DAILY Qty: 30 6RF Jardiance 25 mg tablet 25 mg PO DAILY 90 Days Qty: 90 1RF metoprolol tartrate 50 mg tablet 50 mg PO BID 30 Days Qty: 60 5RF Trulicity 1.5 mg/0.5 mL pen injector 1.5 mg subcut QWEEK 90 Days Qty: 6.5 1RF tobramycin-dexamethasone [TobraDex] 0.3-0.1 % Drops,Suspension 1 drp OPHTHALMIC (EYE) BID-TID Qty: 5 2RF Rx Instructions: while awake sennosides-docusate sodium [Senna-S] 8.6-50 mg Tablet 2 tab-cap PO BEDTIME Qty: 60 4RF albuterol sulfate 90 mcg/actuation Hfa Aerosol Inhaler 1 inh INHALATION QID Qty: 1 2RF lidocaine [Anecream] 4 % Cream 1 appl TOPICAL BID Qty: 35 4RF Rx Instructions: Apply to the Port-A-Cath prior to access. ondansetron HCl [Zofran] 4 mg Tablet 8 mg PO Q8H PRN (Reason: Nausea And Vomiting) Qty: 50 3RF omeprazole 20 mg Capsule,Delayed Release(Dr/Ec) 20 mg PO DAILY Qty: 90 4RF oxycodone 5 mg Tablet 5 mg PO Q8H PRN (Reason: Breakthrough Pain, Severe) Qty: 50 0RF Rx Instructions: Partial Fill upon patient request. morphine [MS Contin] 30 mg Tablet Extended Release 30 mg PO Q12H Qty: 60 0RF morphine [MS Contin] 15 mg Tablet Extended Release 15 mg PO Q12H Qty: 60 0RF Rx Instructions: Partial Fill upon patient request. oxycodone 5 mg Tablet 5 mg PO BID PRN (Reason: Breakthrough Pain, Moderate) Qty: 40 0RF Rx Instructions: Partial Fill upon patient request. lidocaine [Lidoderm] 5 % adhesive patch,medicated 1 patch topical DAILY MDD remove after 12 hours PRN (Reason: pain) Qty: 30 0RF Rx Instructions: leave on most painful area for up to 12 hrs triamcinolone acetonide 0.5 % cream 1 appl topical DAILY 14 Days Qty: 15 0RF diclofenac sodium [Voltaren Arthritis Pain] 1 % gel 2 g topical QID Qty: 100 0RF Rx Instructions: apply to single elbow, wrist or hand; for hand includes palm/fingers/back of hand tizanidine 2 mg tablet 2 mg PO TID PRN (Reason: muscle spasticity) Qty: 90 0RF <Thania Pouliot, PA - Last Filed: 06/23/22 09:38> Referrals: Keenan Vicente MD [Physician] - (Vaginal discharge) <MISSAEL Briceño - Last Filed: 06/23/22 09:38> Interventions: ED Discharge Assessment Last Done: 06/20/22 17:52 <MISSAEL Briceño - Last Filed: 06/23/22 09:38> Discharge Date/Time: 06/20/22 17:52 <MISSAEL Briceño - Last Filed: 06/23/22 09:38>
[2022-06-20 13:49] LABS: MANUAL DIFF FLAG NO
[2022-06-20 13:51] LABS: Basophils Percent Auto 0.5 % (0-2); Eosinophils Absolute Auto 0.1 X10*3/uL (0.0-0.4); Eosinophils Percent Auto 0.9 % (0-4); Hematocrit 41.3 % (37.0-47.0); Hemoglobin 13.4 g/dl (12.0-16.0); Imm Gran Abs Auto 0.02 X10*3/uL (0.00-0.03); Imm Gran Pct Auto 0.4 % (0.0-0.4); Lymphocytes Absolute Auto 2.3 X10*3/uL (1.2-4.9); Lymphocytes Percent Auto 41.3 % (20-40); Mean Corpuscular HGB Conc 32.4 g/dl (31.0-35.0); Mean Corpuscular Hemoglobin 26.3 pg (27.0-33.0); Mean Platelet Volume 9.2 fL (9.4-12.3); Monocytes Absolute Auto 0.2 X10*3/uL (0.1-1.2); Monocytes Percent Auto 4.1 % (2-11); Neutrophils Absolute Auto 2.9 x10*3/uL (2.0-8.3); Neutrophils Percent Auto 52.8 % (45-73); Platelet Count 235 X10*3/uL (160-400); Red Cell Distribution Width 14.5 % (11.0-16.0); White Blood Count 5.6 X10*3/uL (4.8-10.8)
[2022-06-20 14:08] LABS: Alanine Aminotransferase 22 U/L (0-31); Albumin Level 4.1 g/dL (3.5-5.0); Alkaline Phosphatase 124 U/L (39-117); Anion Gap 12 (12-20); Aspartate Amino Transferase 14 U/L (5-31); Bilirubin Direct < 0.2 mg/dL (0.0-0.5); Bilirubin Total 0.5 mg/dL (0.0-1.0); Blood Urea Nitrogen 9 mg/dL (9-16); Calcium 9.2 mg/dL (8.4-10.2); Carbon Dioxide 26 mmol/L (22-29); Chloride 108 mmol/L (96-108); Creatinine Clr Calc Pharmacy 98.6; Estimated Glomerular Filt Rate > 60; Glucose Random 197 mg/dL (60-115); Lipase 17 U/L (8-78); Potassium 4.2 mmol/L (3.3-5.1); Sodium 142 mmol/L (135-145); Total Protein 7.1 g/dL (6.5-8.0)
[2022-06-20 17:24] LABS: Appearance Urine Clear; Color Urine Yellow; Glucose Urine UA >=1000 mg/dL (Negative); Leukocyte Esterase Urine Negative (Negative); Nitrite Urine Negative (Negative); Specific Gravity - Urine >= 1.030 (1.005-1.025); UMIC TRIGGER UACC YES; Urine Blood Negative (Negative); Urine Ketones Negative (Negative); Urine Protein Negative (Neg-Trace)
[2022-06-20] MEDS: Fluconazole 150 MG TABLET PO (17:25)
[2022-06-20 17:29] LABS: Bacteria Urine 2+ (None Seen); Hyaline Casts Urine 0-2 /LPF (0-2); RBC Urine 0-2 /HPF (0-2); Squamous Epithelial Cell Urine 0-2 /HPF (0-2); WBC Urine 0-5 /HPF (0-5)
[2022-06-20 18:56] LABS: CT PCR NOT DETECTED (Not Detect.); NG PCR NOT DETECTED (Not Detect.)
[2022-06-21 12:52] LABS: BV Int Neg Control Negative (Negative); BV Int Pos Control Positive (Positive)
== END 2022-06-20 17:52 | disposition home or self-care (01) ==
PROVIDERS: Physician Assistant; Physician Assistant Medical; Emergency Provider Emergency Medicine; PCP Internal Medicine
DX: N89.8 Other specified noninflammatory disorders of vagina (principal); R03.0 Elevated blood-pressure reading, without diagnosis of hypertension; E11.9 Type 2 diabetes mellitus without complications; Z87.891 Personal history of nicotine dependence
CPT/HCPCS: 0353U; 36415; 80048; 80076; 81001; 83690; 85025; 87480; 87510; 87660; 99282; 99283

== ENCOUNTER 2022-09-11 09:49 | Outpatient (REF) | payer OTHER, SELFPAY ==
[2022-09-11 18:30] LABS: CT PCR NOT DETECTED (Not Detect.); NG PCR NOT DETECTED (Not Detect.)
[2022-09-12 10:44] LABS: BV Int Neg Control Negative (Negative); BV Int Pos Control Positive (Positive)
[2022-09-20 09:57] LABS: HPV 16 RNA NOT DETECTED (NOT DETECTED); HPV mRNA E6/E7 rflx Detected (Not Detected)
== END 2022-09-11 09:50 | disposition home or self-care (01) ==
LOC: HO.LNP 09:49
PROVIDERS: PCP Internal Medicine; Visit Provider Advanced Practice Midwife
DX: Z01.419 Encounter for gynecological examination (general) (routine) without abnormal findings (principal); Z11.51 Encounter for screening for human papillomavirus (HPV); E11.9 Type 2 diabetes mellitus without complications; B37.31 Acute candidiasis of vulva and vagina; Z90.710 Acquired absence of both cervix and uterus
CPT/HCPCS: 0353U; 87480; 87510; 87624; 87625; 87660; 88142

== ENCOUNTER 2022-10-30 11:06 | Outpatient (REF) | payer OTHER, SELFPAY ==
--- NOTE | ~2022-10-30 | CT_ITS ---
EXAMINATION: CT CHEST WITH CONTRAST CLINICAL INFORMATION: Follow-up pulmonary nodule. History of lymphoma. COMPARISON: Previous chest CT most recent April 2022 TECHNIQUE: Multidetector volumetric CT imaging of the chest was obtained after the administration of 85 mL of Omnipaque 350 intravenous contrast without immediate adverse reactions. Axial MIP volume rendering provided. Sagittal and coronal reformatted images were obtained. This CT examination was performed using dose optimization techniques as appropriate, variously including the following: *Automated exposure control *Adjustment of mA and/or kV according to patient size (this includes techniques or standardized protocols for targeted exams where dose is matched to indication/reason for exam; i.e. extremities or head) *Use of iterative reconstruction technique DLP: 106 mGy-cm FINDINGS: LUNGS: 4 x 7 mm groundglass attenuation area in the right middle lobe axial image 249 series 5 stable. On Sagittal and coronal reconstructed images this is linear and may correspond to an area of chronic scarring or subsegmental atelectasis. The lungs are otherwise clear. MEDIASTINUM: The mediastinum is normal. Mild coronary artery calcified. PLEURA: There is no pleural effusion. No pleural mass or thickening. AXILLA: Small bilateral axillary lymph nodes. No enlarged axillary lymph nodes or chest wall mass. UPPER ABDOMEN: Irregular contour and heterogeneous enhancement of the spleen. This is similar to previous exam. There may be fatty infiltration of the liver. OSSEOUS STRUCTURES: Mild degenerative changes of the spine. CT/CT chest w IV con IMPRESSION: Stable 4 x 7 mm groundglass attenuation area in the right middle lobe. On sagittal and coronal reconstructed images this appears linear and may represent chronic scarring or subsegmental atelectasis. No enlarged lymph nodes in the chest. Stable abnormal appearance of the spleen. Fleischner guidelines were followed.
--- NOTE | ~2022-10-30 | CT_ITS ---
EXAMINATION: CT ABDOMEN AND PELVIS WITH CONTRAST CLINICAL INFORMATION: Hodgkin's lymphoma COMPARISON: Previous including 05/23/2022 TECHNIQUE: Multidetector volumetric images were obtained from the superior aspect of the liver through the pubic symphysis following administration 85 mL of Omnipaque 350 intravenous contrast. Sagittal and coronal reformatted images were obtained on the technologist's workstation. Oral contrast: No This CT examination was performed using dose optimization techniques as appropriate, variously including the following: *Automated exposure control *Adjustment of mA and/or kV according to patient size (this includes techniques or standardized protocols for targeted exams where dose is matched to indication/reason for exam; i.e. extremities or head) *Use of iterative reconstruction technique DLP: 490 mGy-cm FINDINGS: LUNG BASES: The visualized lung bases are unremarkable. LIVER, GALLBLADDER, AND BILIARY TREE: The liver is normal in size, shape, and attenuation. No focal hepatic lesion or biliary ductal dilatation is present. The gallbladder is unremarkable with no evidence of radiopaque gallstones, gallbladder wall thickening, or obvious pericholecystic inflammatory changes. PANCREAS: Unremarkable. SPLEEN: Stable. Decreased attenuation within the splenic hilum with some nodularity to the contour unchanged. ADRENAL GLANDS: Tiny left adrenal nodule subcentimeter similar. No new findings. KIDNEYS AND URETERS: The kidneys are normal in size, shape, and attenuation. No hydronephrosis, hydroureter, or calculi seen. No perinephric stranding. Minor renal cortical subcentimeter cystic changes similar. BLADDER: Unremarkable. GASTROINTESTINAL TRACT: The small and large bowel are unremarkable. The appendix is unremarkable. Small axial type hiatus hernia. ABDOMINAL WALL: No significant hernia is appreciated. LYMPH NODES: Normal. VASCULAR: Unremarkable. PELVIC VISCERA: Unremarkable. OSSEOUS STRUCTURES: Unremarkable. CT/CT abdomen pelvis w IV con IMPRESSION: Stable exam. No new findings. No evidence for any lymphomatous recurrence. Stable appearance of the spleen. Fleischner guidelines were followed.
== END 2022-10-30 11:07 | disposition home or self-care (01) ==
LOC: HO.CT 11:06
PROVIDERS: PCP Internal Medicine; Visit Provider Internal Medicine Medical Oncology
DX: C85.10 Unspecified B-cell lymphoma, unspecified site (principal)
CPT/HCPCS: 71260; 74177; 82565; Q9967

== ENCOUNTER 2023-01-18 08:19 | Outpatient (REF) | payer OTHER, SELFPAY ==
--- NOTE | ~2023-01-18 | MR_ITS ---
EXAMINATION: MR BRAIN WITHOUT AND WITH CONTRAST CLINICAL INFORMATION: Frequent headaches. History of lymphoma. COMPARISON: None available. TECHNIQUE: Multiplanar, multisequence imaging of the brain was performed before and after the intravenous administration of 8.5 mL of Gadavist. FINDINGS: There is no acute infarction, mass, hemorrhage, or extra-axial collection. No abnormal or unexpected intracranial enhancement is seen. The ventricles, sulci, and basilar cisterns are normal in size and configuration. The flow voids of the major intracranial arteries appear intact. The bones and extracranial soft tissues are within normal limits. MR/MR head/brain wo/w con IMPRESSION: No mass lesion, acute infarction, or abnormal intracranial enhancement.
[2023-01-18] MEDS: gadobutroL 10 ML VIAL IVPUSH (09:10)
== END 2023-01-18 08:20 | disposition home or self-care (01) ==
LOC: HO.MRI 08:19
PROVIDERS: PCP Internal Medicine; Visit Provider Internal Medicine Medical Oncology
DX: R51.9 Headache, unspecified (principal)
CPT/HCPCS: 70553; A9585

== ENCOUNTER 2023-07-11 14:20 | Outpatient (AMB) | payer OTHER, SELFPAY ==
[2023-07-11 14:26] VITALS: BP 126/80; BMI 32.6
--- NOTE | 2023-07-11 14:26 | MHC.PC.OV ---
Vital Signs 07/11/23 14:26 Height 5 ft 3 in Weight 184 lb BMI 32.6 BP 126/80 Blood Pressure Location Lt brachial Position Sitting Intake Visit Reasons: Follow up and discuss medication Intake Note: Patient here for follow up, discuss medication [employer] Required: No Accompanied by: Self / Same As Patient Allergies doxycycline [DOXYCYCLINE] Allergy (Unknown, Verified 07/11/23 14:27) RASH metformin Allergy (Unknown, Verified 07/11/23 14:27) diarrhea dulaglutide [From Trulicity] Adverse Reaction (Severe, Verified 07/11/23 14:57) Diarrhea Medication List - Last Reconciled 07/11/23 by Doretha Devine MD albuterol sulfate 90 mcg/actuation 1 inh inhalation QID dulaglutide (Trulicity) 1.5 mg (0.5 mL) subcut QWEEK 90 days empagliflozin (Jardiance) 25 mg PO DAILY 90 days flash glucose scanning reader ([employer] Ricardo 2 [place]) As directed flash glucose sensor ([employer] Ricardo 14 Day Sensor kit) As directed metoprolol tartrate 50 mg PO BID 30 days omeprazole 20 mg PO DAILY ondansetron HCl 8 mg (2 x 4 mg) PO Q8H PRN oxycodone 5 mg PO BID PRN triamcinolone acetonide 0.5% 1 appl topical DAILY 2 weeks Tobacco use date assessed: 07/11/23 Dental Screening Dental Screen Date: 07/11/23 Did you have a dental visit in the last 12 months?: No Did you have a dental problem in the last 6 months where you did not have access to dental care?: No Was dental information given to patient?: Patient has dentist HPI HPI Comments History of Present Illness Details This is a 52-year-old female with 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 B-cell lymphoma is follow by Hematology-Oncology and has been stable after being treated. A1c elevated and I will substitute Trulicity with Ozempic due to severe diarrhea with Trulicity. GERD stable with PPIs. Has fibromyalgia with diffuse joint pain constantly and would like to try something. I will start her on duloxetine. She also has mild major depression in which duloxetine can also help. 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 Mother No problems noted. Maternal Aunt Breast cancer Family/Other Mental health disorder Social History Household Members: Children Housing: Apartment Are you a primary care connector to a significant other at home: No Do you presently have visiting nurse or other home services: No Alcohol intake: current Alcohol intake frequency: holidays/special occasions only Alcohol type: beer, wine and hard liquor Comment: sleeping Patient Tobacco Use Status: Former Tobacco user Quit Date: 2019 Tobacco use type: Cigarette e-Cigarette/Vaping Use: Never Used Second Hand Smoke Exposure: No service: No Current occupational status: unemployed Cognitive needs: No Hearing needs: No Vision needs: No Female Reproductive History Menstrual Age of Menarche: 11 Questionnaire PHQ-9 Over the last 2 weeks, how often have you been bothered by any of the following problems? 1. Little interest or pleasure in doing things: several days 2. Feeling down, depressed, or hopeless: several days 3. Trouble falling or staying asleep, or sleeping too much: more than half the days 4. Feeling tired or having little energy: more than half the days 5. Poor appetite or overeating: not at all 6. Feeling bad about yourself - or that you are a failure or have let yourself or your family down: several days 7. Trouble concentrating on things, such as reading the newspaper or watching television: not at all 8. Moving or speaking so slowly that other people could have noticed. Or the opposite - being so fidgety or restless that you have been moving around a lot more than usual: several days 9. Thoughts that you would be better off or of hurting yourself in some way: not at all Total score: 8 Depression Screening Interpretation: Positive Depression Screening Follow-up: Existing condition and New Medication prescribed Depression Screening Done: Yes 17291 - PHQ-9 Billing: Yes Source: Developed by Drs. Joss Sibley, Sissy Argueta, Lucas Roblero and colleagues, with an educational linda from [employer]. Thrive Questionnaire Date Thrive assessed: 07/11/23 I am a: Patient What is your living situation today?: I have a steady place to live Within the past 12 months, did the food you bought not last and you didn't have the money to get more?: Never true Within the past 12 months, did you worry whether your food would run out before you got money to buy more?: Never true Do you have trouble paying for medicines?: No Do you have trouble getting transportation to medical appointments?: No Do you have trouble paying your heating and electricity bill?: No Do you have trouble taking care of your child, family member or friend?: No Do you have trouble with day-to-day activities such as bathing, preparing meals, shopping, managing finances, etc.?: No Are you currently unemployed and looking for a job?: No Are you interested in more education?: No Please select the resources that you would like help with: None Currently or been in a relationship where the following occur: no concerns reported THRIVE Score: 0 AUDIT C Alcohol Use Questionnaire (AUDIT-C) 1. How often do you have a drink containing alcohol?: Never Total Score: 0 BRENDEN-7 AMB Questionnaire BRENDEN-7 Date BRENDEN - 7 assessed: 07/11/23 Feeling nervous, anxious, or on edge: 1 = Several days Not being able to stop or control worryin = Not at all Worrying too much about different things: 1 = Several days Trouble relaxin = Not at all Being so restless that it is hard to sit still: 0 = Not at all Becoming easily annoyed or irritable: 1 = Several days Feeling afraid as if something awful might happen: 0 = Not at all Total BRENDEN-7 score (0-4 normal; 5-9 mild; 10-14 moderate; 15-21 severe): 3 Source: Developed by Drs. Joss Sibley, Lucas Jonas and colleagues, with an educational linda from [employer]. BRENDEN-7 Assessment Billing BRENDEN-7 Assessment Tool: BRENDEN-7 Assessment 05876 Review of Systems Const All systems reviewed & are unremarkable except as noted in HPI and below Eyes Reports no additional complaints, Denies change in vision and Denies other visual disturbances Card Denies chest pain at rest, Denies chest pain with activity, Denies edema, Denies irregular heart rhythm, Denies claudication, Denies dyspnea, Denies dyspnea on exertion, Denies orthopnea, Denies paroxysmal nocturnal dyspnea and Denies slow heart rate Resp Denies cough, Denies dyspnea and Denies dyspnea on exertion GI Denies abdominal pain, Denies change in bowel habits, Denies excessive flatus, Denies nausea and Denies vomiting Denies urinary incontinence, Denies urinary hesitancy and Denies urinary urgency Musc Denies abnormal gait, Denies atrophy, Denies deformity and Denies limited range of motion Skin/Breast Denies bleeding lesions, Denies changing lesions and Denies rash Neuro Denies abnormal gait, Denies behavioral changes and Denies lack of coordination Psych Denies behavioral changes Physical exam (Primary Care) Vital Signs: Last Vital Signs BP 126/80 07/11/23 14:26 BMI result Body Mass Index 32.6 Tobacco/Smoking Status: Tobacco use Status Tobacco use date assessed 07/11/23 07/11/23 14:35 Patient Tobacco Use Status Former Tobacco user 07/11/23 14:35 Tobacco use type Cigarette 07/11/23 14:35 e-Cigarette/Vaping Use Never Used 07/11/23 14:35 PHQ-9: PHQ-9 Score PHQ-9: Total score 8 07/11/23 14:35 Depression Screening Interpretation: Positive Depression Screening Follow-up: Existing condition and New Medication prescribed Thrive Assessment: Date of Thrive Assessment Date Thrive assessed 07/11/23 07/11/23 14:35 Currently or been in a relationship where the following occur: no concerns reported Eyes General: appearance normal, both eyes and all related structures Eyelids: Yes eyelids normal Conjunctivae: conjunctivae normal Neck Neck: Yes normal visual inspection and Yes supple Resp Effort & Inspection: normal respiratory effort Auscultation: clear to auscultation bilaterally Cardio Jugular venous distension: no JVD Rate: regular rate Rhythm: regular rhythm Heart sounds: S1 normal heart sound present and S2 normal heart sound present Extrem General: Yes full ROM Results AMB Hemoglobin A1c AMB Hemoglobin A1c 9.4 % Last Edit by ANJANA Patel on 07/11/23 14:36 Results Reviewed Results Reviewed: Laboratory Last Values Hgb A1c (Clinic) 9.4 % (4.0-6.0) H 07/11/23 14:23 Assessment and Plan Assessment & Plan (1) Diabetes mellitus: Code(s): E11.9 - Type 2 diabetes mellitus without complications Plan: Continue Jardiance. Discontinue Trulicity. Start Ozempic. A1c goal is equal or less than 7%. (2) Chronic GERD: Code(s): K21.9 - Gastro-esophageal reflux disease without esophagitis Plan: Continue PPIs. (3) Fibromyalgia: Code(s): M79.7 - Fibromyalgia Plan: Start duloxetine. (4) B-cell lymphoma: Code(s): C85.10 - Unspecified B-cell lymphoma, unspecified site Plan: Follow-up with Hematology-Oncology. (5) Mild major depression: Code(s): F32.0 - Major depressive disorder, single episode, mild Plan: Start duloxetine. Orders: Orders Lipid Panel Today E78.5 - Hyperlipidemia, unspecified Microalbumin, Random (w Creat) Today E11.9 - Type 2 diabetes mellitus without complications AMB Hemoglobin A1c Today E11.9 - Type 2 diabetes mellitus without complications Comprehensive Davin. Panel Fast Today E11.9 - Type 2 diabetes mellitus without complications Medications: New semaglutide (Ozempic) for 4 weeks 0.25 mg (0.368 mL) subcut QWEEK 30 days 1.84 mL 0RF E11.9 - Type 2 diabetes mellitus without complications duloxetine 20 mg PO DAILY 30 days 30 caps 2RF M79.7 - Fibromyalgia Changed From ondansetron HCl (Zofran) 8 mg (2 x 4 mg) PO Q8H PRN 50 tabs 3RF Nausea And Vomiting To ondansetron HCl 8 mg (2 x 4 mg) PO Q8H PRN 50 tabs 3RF Nausea And Vomiting Refilled metoprolol tartrate PLEASE CALL [phone] TO SCHEDULE FOLLOW UP FOR 2022 SO WE CAN CONTINUE REFILLING YOUR MEDICATIONS. If you do not want to schedule, you can opt to get future refills from your PCP. Thank you. 50 mg PO BID 30 days 60 tabs 0RF Coding Level of Care Code Est Pt Level 4 (95641) Diagnoses Diabetes mellitus E11.9 Chronic GERD K21.9 Fibromyalgia M79.7 B-cell lymphoma C85.10 Mild major depression F32.0 Additional Codes BRENDEN-7 Assessment Billing - BRENDEN-7 Assessment Tool: BRENDEN-7 Assessment 09491 ([id number]) Time Spent (min) 26
== END 2023-07-11 14:55 | disposition home or self-care (01) ==
PROVIDERS: PCP Internal Medicine; Visit Provider Internal Medicine
DX: E11.9 Type 2 diabetes mellitus without complications (principal); K21.9 Gastro-esophageal reflux disease without esophagitis; M79.7 Fibromyalgia; C85.10 Unspecified B-cell lymphoma, unspecified site
CPT/HCPCS: 83036; 99214

== ENCOUNTER 2023-08-08 14:10 | Outpatient (REF) | payer OTHER, SELFPAY ==
--- NOTE | ~2023-08-08 | CT_ITS ---
EXAMINATION: CT chest, abdomen and pelvis. CLINICAL INFORMATION: Malignant lymphoma. COMPARISON: CT scan of chest, abdomen and pelvis on 10/30/2022 TECHNIQUE: A multidetector helical CT acquisition of the chest, abdomen and pelvis was obtained following the administration of 85 mL of Omnipaque 350. Multiplanar reformats were acquired and utilized for image interpretation. Coronal and sagittal images were reconstructed from axial image data. Dose reduction technique: One or more of the following individual dose optimization techniques were used including: Automated exposure control, mA and/or kV were adjusted according to patient size or iterative reconstruction. DLP: 517 mGy-cm FINDINGS: LUNGS: Persistent flat platelike groundglass opacity is seen at lateral border of right middle lobe lateral segment, measuring 0.9 cm in AP diameter, 0.7 cm in width, 0.2 cm in vertical height (previously 1.2 x 0.7 cm), series 7 image #269, series 9 image #95, compatible with stable horizontal platelike atelectasis or fibrotic scar. PLEURA: No pleural effusion or pneumothorax is seen. PERICARDIUM: No pericardial effusion is seen. MEDIASTINUM AND TONI: No abnormally enlarged mediastinal or hilar lymph nodes are seen. TRACHEOBRONCHIAL TREE: Trachea and bilateral mainstem bronchi are patent. THORACIC AORTA: The thoracic aorta is normal in size and smoothly patent. CORONARY ARTERY CALCIFICATIONS: None PULMONARY ARTERIES: The main pulmonary arteries show normal enhancement. CHEST WALL AND LOWER NECK: Right upper chest subcutaneous Edveaj-z-Vywm is seen with catheter passing through the right internal jugular vein into lower superior vena cava. No abnormally enlarged axillary lymph nodes could be seen. The subcutaneous and muscular chest wall are intact with no focal lesion. No abnormal mass lesion could be seen in the visualized lower neck. BONES: No fracture or dislocation. No focal bone lesion diagnostic of metastatic disease could be seen in the thorax. VISUALIZED UPPER ABDOMEN: Bilateral adrenal glands are not enlarged. Fleischner guidelines were followed. EXAMINATION: CT abdomen. FINDINGS: LUNG BASES: Bilateral lung bases are clear. LIVER: No focal lesion is seen in the liver. Right hepatic lobe measures 21.7 cm in vertical height. GALLBLADDER AND BILIARY TREE: Gallbladder appears unremarkable without calcified stones. Common bile duct is not dilated. SPLEEN: The spleen is normal in size with stable irregular hypoenhancing region surrounding the splenic hilum, measuring 3.5 cm in AP diameter, 1.7 cm in width. PANCREAS: The pancreas appears unremarkable. ADRENAL GLANDS: Adrenal glands are normal in size without focal lesion bilaterally. KIDNEYS: Bilateral kidneys are normal in size with stable tiny simple cysts at posterior lateral right mid renal cortex measuring 0.7 cm in size, mean attenuation of 26 Hounsfield units, posterior mid right renal cortical cyst measuring 0.6 cm in size, for which no follow up imaging is recommended. BOWELS: There is normal filling of stomach and small bowel loops with oral contrast down to mid pelvic ileum. RETROPERITONEUM: No abnormally enlarged retroperitoneal lymph nodes, mass or hematoma could be seen. BLOOD VESSELS: Abdominal aorta is normal in size and smoothly patent. ABDOMINAL WALL: Small umbilical hernia containing mesenteric fat is seen. PERITONEUM: There was no ascites. There were no abdominal peritoneal inflammatory changes seen. No free peritoneal air was seen. No abnormally enlarged mesenteric lymph nodes are found. BONES: No fracture or dislocation. No focal bone lesion diagnostic of metastatic disease could be seen in the lumbar region. EXAMINATION: CT pelvis. FINDINGS: URINARY BLADDER: Urinary bladder fills normally with urine. BOWELS: There is no abnormal dilatation of the large and small bowel loops. Normal appendix is seen inferior to the cecal tip. GENITAL ORGANS: No adnexal mass lesion could be seen. The uterus is surgically absent. LYMPH NODES: No abnormally enlarged iliac or inguinal lymph nodes are seen. PERITONEUM: No inflammatory changes, ascites or free peritoneal air are found in the pelvis. BONES: No fracture or dislocation. No focal bone lesion diagnostic of metastatic disease could be seen in the pelvis. CT/CT abdomen pelvis w IV con IMPRESSION: 1. Stable horizontal platelike atelectasis or fibrotic scar at lateral border of right middle lobe lateral segment. 2. No interval change in position of right internal jugular Port-A-Cath. 3. Stable irregular hypoenhancing region surrounding the splenic hilum, measuring 3.5 cm in AP diameter, 1.7 cm in width. 4. Stable tiny simple cysts at posterior lateral right mid renal cortex, for which no follow up imaging is recommended. 5. Unchanged Small umbilical hernia containing mesenteric fat. 6. Unchanged, Status post hysterectomy.
[2023-08-08] MEDS: Barium Sulfate Oral (Berry) 450 ML ORAL.SUSP 900 ML PO (16:21)
[2023-08-08] MEDS: iohexoL 350 MG/ML 100 ML INFUS..BTL IV (16:21)
[2023-08-09 08:39] LABS: Creatinine POC 0.9 mg/dL (0.5-1.4); GFR POC > 60
== END 2023-08-08 14:11 | disposition home or self-care (01) ==
LOC: HO.CT 14:10
PROVIDERS: PCP Internal Medicine; Visit Provider Internal Medicine Medical Oncology
DX: C76.2 Malignant neoplasm of abdomen (principal); Z96.89 Presence of other specified functional implants
CPT/HCPCS: 71260; 74177; 82565; Q9967

== ENCOUNTER 2023-09-28 13:36 | Outpatient (REF) | payer OTHER, SELFPAY ==
[2023-09-29 10:47] LABS: Bacterial Vaginosis PCR POSITIVE (Negative); Candida Group PCR DETECTED (Not Detect); Candida glab krusei PCR DETECTED (Not Detect); Trichomonas vaginalis PCR NOT DETECTED (Not Detect)
[2023-09-29 11:02] LABS: CT PCR NOT DETECTED (Not Detect.); NG PCR NOT DETECTED (Not Detect.)
[2023-10-04 01:39] LABS: HPV mRNA E6/E7 rflx Not Detected (Not Detected)
== END 2023-09-28 13:37 | disposition home or self-care (01) ==
LOC: HO.LNP 13:36
PROVIDERS: PCP Internal Medicine; Visit Provider Advanced Practice Midwife
DX: Z01.419 Encounter for gynecological examination (general) (routine) without abnormal findings (principal); N89.8 Other specified noninflammatory disorders of vagina; C85.10 Unspecified B-cell lymphoma, unspecified site; M79.7 Fibromyalgia; B37.31 Acute candidiasis of vulva and vagina; Z90.710 Acquired absence of both cervix and uterus; Z79.899 Other long term (current) drug therapy
CPT/HCPCS: 0352U; 0353U; 87070; 87077; 87147; 87186; 87205; 87624; 88142; 99396

== ENCOUNTER 2023-09-28 13:36 | Outpatient (AMB) | payer OTHER, SELFPAY ==
--- NOTE | 2023-09-28 13:47 | A.OFFVIS_ITS ---
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 Intake Note: Has bee having vaginal irritation Transitional Living Specialist Required: No Information Interpreted: non-clinical & clinical Sludge Mill Operator: Sludge Mill Operator Present (Aidyn) Allergies doxycycline [DOXYCYCLINE] Allergy (Unknown, Verified 09/28/23 13:50) RASH metformin Allergy (Unknown, Verified 09/28/23 13:50) diarrhea [facility] Adverse Reaction (Severe, Verified 09/28/23 13:50) Diarrhea Medication List - Last Reconciled 09/28/23 by Yarely Garsia CNM albuterol sulfate 90 mcg/actuation 1 inh inhalation QID duloxetine 20 mg PO DAILY 30 days empagliflozin (Jardiance) 25 mg PO DAILY 90 days flash glucose scanning reader (CSMGStyle Ricardo 2 [place]) As directed flash glucose sensor (FreeStyle Ricardo 14 Day Sensor kit) As directed metoprolol tartrate 50 mg PO BID 30 days omeprazole 20 mg PO DAILY ondansetron HCl 8 mg (2 x 4 mg) PO Q8H PRN oxycodone 5 mg PO BID PRN semaglutide (Ozempic) 1 mg (0.75 mL) subcut QWEEK 4 weeks triamcinolone acetonide 0.5% 1 appl topical DAILY 2 weeks Is last menstrual period known: No Post menopausal: Yes 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 It was discovered through an MRI or CT scan done via an emergency visit. She is fibromyalgia that she says is kicking her butt. She is been dealing with vaginal irritation and itching and inflammation. She is diabetic and has not been able to get her blood sugar sensor it was denied by her insurance company and she is going back and forth with them Dr. Shabazz sent the prior authorization but it still has declined she has not had her blood sugar checked in a very long time because of this. The vaginal irritation has been really severely that for about a week or so. She has had this before or something similar and Diflucan was used and did help. 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 Mother No problems noted. Maternal Aunt Breast cancer Family/Other Mental health disorder Breast cancer Social History Household Members: Children Housing: Apartment Are you a primary resident care assistant to a significant other at home: No Do you presently have visiting nurse or other home services: No Alcohol intake: current Alcohol intake frequency: holidays/special occasions only Alcohol type: beer, wine and hard liquor Comment: sleeping Patient Tobacco Use Status: Former Tobacco user Tobacco use type: Cigarette e-Cigarette/Vaping Use: Never Used Second Hand Smoke Exposure: No service: No Current occupational status: unemployed Cognitive needs: No Hearing needs: No Vision needs: No Female Reproductive History Menstrual Age of Menarche: 11 control method: permanent sterilization Total pregnancies: 4 Full term: 3 Number of Living Children: 3 Ab spontaneous: 1 Date of last pap smear: 09/12/22 (+HPV) History of abnormal pap smear: Yes Date of Mammogram: 05/13/21 Physical Exam Vital Signs: Last Vital Signs BP 146/62 H 09/28/23 13:48 BMI result Body Mass Index 32.2 Const General: healthy appearing, comfortable, no acute distress, well developed and alert Nutritional Appearance: average body habitus Orientation/consciousness: patient oriented x3 Limitations: no limitations HEENT Head: Yes normocephalic Neck Neck: Yes normal visual inspection Thyroid: Thyroid normal Chest Chest palpation & inspection: normal inspection of the chest Breast/axilla inspection: normal inspection of the breasts and normal inspection of the axillae Breast/axilla palpation: normal palpation of the breasts and normal palpation of the axillae Resp Effort & Inspection: normal respiratory effort GI Inspection: Yes normal to inspection, No Abdominal wall edema and No distended Palpation (GI): Soft to palpation and nontender Other: Her entire vulva is claiming rid with breaks in the skin in all the skin folds. every pore and hair follicle is reddened. Vagina is slightly reddened scant white mucus discharge vaginal cuff appears well healed cervix, uterus surgically absent. Good tone with Kegel. External Female Exam: normal external appearance (vulva swollen and enflamed, surface appears dry, disch c/w yeast ), normal appearance of the urethra, erythema and external swelling Speculum Exam - Vagina: normal appearance of the vagina and normal vaginal discharge (c/w yeast) Speculum Exam - Cervix: normal appearance of the cervix Female genitals images: 2 1. Entire vulva is blaming red excoriated every skin fold is cracked Neuro General: patient oriented x3 Results Reviewed Results Reviewed: Name: Tabitha Bill Age/Sex: 51/F Attending: Yarely Garsia CNM : 1970 Submitted by: Yarely Garsia CNM Copies to: Doretha Spencer MD MR #: [id number] Status: DEP REF Collected: 09/11/22 Location: [facility] Received: 09/12/22 Interpretation General Category: Negative for intraepithelial lesion/malignancy. Adequacy: Endocervical component absent. Interpretation: Reactive cellular changes. Clue cells present. HPV mRNA E6/E7: DETECTED This assay detects E6/E7 viral messenger RNA (mRNA) from 14 high-risk HPV types (16, 18, 31, 33, 35, 39, 45, 51, 52, 56, 58, 59, 66, 68) HPV Type 16 RNA: Not Detected HPV Type 18/45 RNA: Not Detected HPV testing performed by [facility], [place], [place]. See reference laboratory portion of the EMR for entire report. Clinical Information LMP: No menses Previous PAP test: 2011, Unknown findings Material Received ThinPrep-Vaginal Copies To Yarely Garsia [address] [place] [address] Doretha Spencer MD [address] [place] [address] [address] [place] [address] Electronically Signed By: Estefany Rivas 09/27/22 [id number] Patient: Tabitha Bill Age/Sex: 51/F MR#: [id number] Page 1 of 2 Gynecologic Cytology [id number] The Pap Test is a screening procedure with the inherent possibility of both false negative and false positive results. Results should be interpreted in the context of historic and current clinical findings. Reliability of the Pap Test is enhanced by performing the test on a regular repetitive basis. Patient: Tabitha Bill Age/Sex: 51/F MR#: [id number] Assessment & Plan Assessment & Plan (1) H/O: hysterectomy: Code(s): Z90.710 - Acquired absence of both cervix and uterus Category: Surgical (2) Fibromyalgia: Code(s): M79.7 - Fibromyalgia Category: Medical (3) B-cell lymphoma: Code(s): C85.10 - Unspecified B-cell lymphoma, unspecified site Category: Medical (4) Cervical cancer screening: Comment: 09/11/2022 Pap is neg w inflammation; HPV is positive Code(s): Z12.4 - Encounter for screening for malignant neoplasm of cervix Category: Medical (5) Screening breast examination: Code(s): Z12.39 - Encounter for other screening for malignant neoplasm of breast Category: Medical (6) Yeast infection of the vagina: Code(s): B37.31 - Acute candidiasis of vulva and vagina Category: Medical (7) Breast cancer screening: Code(s): Z12.39 - Encounter for other screening for malignant neoplasm of breast Category: Medical 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 It was discovered through an MRI or CT scan done via an emergency visit. She is fibromyalgia that she says is kicking her butt. She is been dealing with vaginal irritation and itching and inflammation. She is diabetic and has not been able to get her blood sugar sensor it was denied by her insurance company and she is going back and forth with them Dr. Shabazz sent the prior authorization but it still has declined she has not had her blood sugar checked in a very long time because of this. The vaginal irritation has been really severely that for about a week or so. She has had this before or something similar and Diflucan was used and did help. 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 In addition she says she thought she had a mammogram scheduled but she can no longer find the date on her portal and she does not know what happened to that appointment. System searched and I can not find the order for. I am placing an odor today for that. Pap smear of her vaginal cuff area was repeated secondary to the HPV that showed up on last year's Pap despite her never having has history of an abnormal. While she has not immune compromised specifically now she would have been when she is on chemotherapy and in addition she has most likely elevated blood sugars because of her diabetes. Discussed her so we are severe a parent yeast infection of her whole vulva and groin area it is blaming red excoriated with breaks of skin in the skin fold areas. Vaginal cultures were swabs taken for gonorrhea chlamydia Gardnerella trich and yeast. I am treating her as if this is yeast I am also doing a regular culture from the broken skin areas the groin/perineum. Additionally I am sending her for a random blood sugar to the lab downstairs as she has not been able to check her blood sugar in a long time it will be informative. For her bottom I am recommending Diflucan 150 mg tablets to repeat heavy 3 days until her bottom is better I will order Monistat cream for her but I would not recommend putting it on now is a think it will just burn I think that she would be better served by rinsing with hailey who water having dry cotton underwear if necessary to prevent herself scratching night but when she is able to go without on these that is better she has been air drying a fan which is good. In addition if her blood sugar is elevated if she does not have relief she should follow-up with Dr. Shabazz and we will see her in 2 weeks to see how she is doing. Orders: Orders 2 Routine Culture w Gram Stain Today N89.8 - Other specified noninflammatory disorders of vagina Bacterial Vaginosis Panel Today N89.8 - Other specified noninflammatory disorders of vagina CT NG by PCR Today N89.8 - Other specified noninflammatory disorders of vagina Pap Smear Today Z12.4 - Encounter for screening for malignant neoplasm of cervix Glucose Random Today B37.31 - Acute candidiasis of vulva and vagina, C85.10 - Unspecified B-cell lymphoma, unspecified site, M79.7 - Fibromyalgia, Z12.39 - Encounter for other screening for malignant neoplasm of breast, Z12.4 - Encounter for screening for malignant neoplasm of cervix, Z90.710 - Acquired absence of both cervix and uterus MM tomosynthesis screening BI Today B37.31 - Acute candidiasis of vulva and vagina, M79.7 - Fibromyalgia, Z12.39 - Encounter for other screening for malignant neoplasm of breast, Z12.4 - Encounter for screening for malignant neoplasm of cervix, Z90.710 - Acquired absence of both cervix and uterus Medications: New 2 miconazole nitrate 2% (Miconazole-7) Use if it is helpful to deal with severe vaginal excoriation from yeast. 1 appful vaginal BEDTIME 7 days 45 grams 1RF fluconazole may repeat second dose 72 hrs after first dose if symptoms persist 150 mg PO Q3D 2 doses 2 tabs 3RF Coding Level of Care Code Est Pt Prev Care 40-64y(79977) Diagnoses H/O: hysterectomy Z90.710 Fibromyalgia M79.7 B-cell lymphoma C85.10 Cervical cancer screening Z12.4 Screening breast examination Z12.39 Yeast infection of the vagina B37.31 Breast cancer screening Z12.39
[2023-09-28 13:48] VITALS: BP 146/62; BMI 32.2
== END 2023-09-28 15:03 | disposition home or self-care (01) ==
LOC: HO.HWSM 13:36
PROVIDERS: PCP Internal Medicine; Visit Provider Advanced Practice Midwife
DX: Z01.419 Encounter for gynecological examination (general) (routine) without abnormal findings (principal); B37.31 Acute candidiasis of vulva and vagina; M79.7 Fibromyalgia
CPT/HCPCS: 99396

== ENCOUNTER 2023-10-01 10:00 | Outpatient (AMB) | payer OTHER, SELFPAY ==
--- NOTE | 2023-10-01 10:00 | A.OFFVIS_ITS ---
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: No Allergies doxycycline [DOXYCYCLINE] Allergy (Unknown, Verified 10/01/23 10:01) RASH metformin Allergy (Unknown, Verified 10/01/23 10:01) diarrhea dulaglutide [From [facility]] Adverse Reaction (Severe, Verified 10/01/23 10:01) Diarrhea Medication List - Last Reconciled 10/01/23 by Yarely Garsia CNM albuterol sulfate 90 mcg/actuation 1 inh inhalation QID duloxetine 20 mg PO DAILY 30 days empagliflozin (Jardiance) 25 mg PO DAILY 90 days flash glucose scanning reader (EmidaStyle Ricardo 2 [place]) As directed flash glucose sensor (FreeStyle Ricardo 14 Day Sensor kit) As directed fluconazole 150 mg PO Q3D 2 doses metoprolol tartrate 50 mg PO BID 30 days miconazole nitrate 2% (Miconazole-7) 1 appful vaginal BEDTIME 7 days omeprazole 20 mg PO DAILY ondansetron HCl 8 mg (2 x 4 mg) PO Q8H PRN oxycodone 5 mg PO BID PRN semaglutide (Ozempic) 1 mg (0.75 mL) subcut QWEEK 4 weeks triamcinolone acetonide 0.5% 1 appl topical DAILY 2 weeks HPI HPI TV lab results: Details: This is a tele visit to discuss patient's symptoms and her lab results following her visit on 09/27. She says her bottom is feeling very slightly better her lab results have come back showing yeast bacterial vaginosis as well as group B strep new sensitivity is done on group B strep. She is diabetic and she has not been able to check her blood sugars recently because she has not been able to get her sensor approved by her insurance company she is on Jardiance she is concerned about perineal infection risks that she has read about her bottom was very very inflamed see the notes from 09/27. I have discussed these results with her she is to continue on the fluconazole every 3 days she asked as well for prescription for nystatin and I have sent a prescription for nystatin cream to [facility] she believes she will be able to get that she does not have a card today to go to the lab to get her blood sugar drawn I had ordered it but there was miscommunication at the front end web designer and she was told to leave and not go to the lab rather than go to the lab for the random blood sugar. She has not eaten yet today so if she went to the lab now it would be a fasting level however she does not have access to transportation today. I am going to send a note to her doctor Dr. Shabazz regarding her test results as well and she may want to see her as well I will help so have a follow-up visit with her. Decision made not to treat the group B strep with penicillin because that the exacerbate the yeast which we are attempting to treat and that is most likely the main source of her inflammation the group B strep being secondary however this needs to be followed. I will be seeing her for visit within the next 1-2 weeks and hopefully she will get to follow-up with her primary physician as well and hopefully she will be able to get her glucose sensor covered as well. 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 Mother No problems noted. Maternal Aunt Breast cancer Family/Other Mental health disorder Breast cancer Social History Household Members: Children Housing: Apartment Are you a primary foster care therapist to a significant other at home: No Do you presently have visiting nurse or other home services: No Alcohol intake: current Alcohol intake frequency: holidays/special occasions only Alcohol type: beer, wine and hard liquor Comment: sleeping Patient Tobacco Use Status: Former Tobacco user Tobacco use type: Cigarette e-Cigarette/Vaping Use: Never Used Second Hand Smoke Exposure: No service: No Current occupational status: unemployed Cognitive needs: No Hearing needs: No Vision needs: No Female Reproductive History Menstrual Age of Menarche: 11 control method: permanent sterilization Telehealth Telehealth Telehealth Platform: [facility] Location of provider rendering services: practice address Location of patient: address on file Patient Identification confirmed using: Name, : Yes Telehealth method: video Patient verbally consented to treatment: Yes Patient verbally consented to billing insurance company: Yes Patient informed of any privacy concerns related to visit: Yes Minutes spent on Phone/Video with Pt.: 14 Results Reviewed Results Reviewed: Name: Tabitha Bill Age/Sex: 52/F : 1970 Unit#: [id number] Attend Dr: Yarely Garsia CNM Re09/28/23 Status: DEP REF Location: [facility] Disch: Specimen: [id number] Collected: 09/28/23-UNK Status: RES Req#: [id number] Received: 09/28/23 Source: Perineum Sp Desc: Subm Dr: Yarely Garsia CNM Ordered: Routine Cult GS Procedure Result Verified Gram stain Final 09/30/23 Gram stain results: No polys 1+ epithelial cells No organisms seen Routine Culture Preliminary 10/01/23 Organism 1 Strep agalactiae (Grp B) Quantity 1+ Susc N/A Susceptibility not routinely performed on this isolate. Result: 1+ Mixed skin shalini Name: Tabitha Bill Age/Sex: 52/F : 1970 Unit#: [id number] Attend Dr: Yarely Garsia Re09/28/23 Status: DEP REF Location: [facility] Disch: SPEC : [id number] OLIVIA: 09/28/23 STATUS: COMP REQ : [id number] RECD: 09/29/[address]: Yarely Garsia CNM COMP: 09/29/23 ENTERED: 09/28/[address]: Doretha Spencer MD ORDERED: BV Panel Test Result Flag Reference TV PCR NOT DETECTED Not Detect BV PCR POSITIVE A Negative The BV organism targets of the Xpert Xpress MVP test can be commensal in women; Xpert Xpress MVP positive results for bacterial vaginosis should be considered in conjunction with other clinical and patient information to determine the disease status. Organisms that are not detected by the Xpert Xpress MVP test have also been reported to be associated with BV and aerobic vaginitis. The Xpert Xpress MVP test performance has not been evaluated in patients under the age of 14. Latanya Grp PCR DETECTED A Not Detect Can gla-kru DETECTED A Not Detect Assessment & Plan Assessment & Plan (1) Yeast infection of the vagina: Code(s): B37.31 - Acute candidiasis of vulva and vagina Category: Medical (2) Cervical cancer screening: Comment: 09/11/2022 Pap is neg w inflammation; HPV is positive Code(s): Z12.4 - Encounter for screening for malignant neoplasm of cervix Category: Medical (3) Perineal irritation: Code(s): L29.3 - Anogenital pruritus, unspecified Category: Medical (4) Diabetes mellitus: Code(s): E11.9 - Type 2 diabetes mellitus without complications Category: Medical Plan This is a tele visit to discuss patient's symptoms and her lab results following her visit on 09/27. She says her bottom is feeling very slightly better her lab results have come back showing yeast bacterial vaginosis as well as group B strep new sensitivity is done on group B strep. She is diabetic and she has not been able to check her blood sugars recently because she has not been able to get her sensor approved by her insurance company she is on Jardiance she is concerned about perineal infection risks that she has read about her bottom was very very inflamed see the notes from 09/27. I have discussed these results with her she is to continue on the fluconazole every 3 days she asked as well for prescription for nystatin and I have sent a prescription for nystatin cream to [facility] she believes she will be able to get that she does not have a card today to go to the lab to get her blood sugar drawn I had ordered it but there was miscommunication at the front end web designer and she was told to leave and not go to the lab rather than go to the lab for the random blood sugar. She has not eaten yet today so if she went to the lab now it would be a fasting level however she does not have access to transportation today. I am going to send a note to her doctor Dr. Shabazz regarding her test results as well and she may want to see her as well I will help so have a follow-up visit with her. Decision made not to treat the group B strep with penicillin because that the exacerbate the yeast which we are attempting to treat and that is most likely the main source of her inflammation the group B strep being secondary however this needs to be followed. I will be seeing her for visit within the next 1-2 weeks and hopefully she will get to follow-up with her primary physician as well and hopefully she will be able to get her glucose sensor covered as well. Message sent to her primary care provider with details of this visit and the results. Medications: New nystatin 1 appl topical QID 30 grams 3RF Coding Level of Care Code Tele Est Pt Level 3 (07064) Diagnoses Yeast infection of the vagina B37.31 Cervical cancer screening Z12.4 Perineal irritation L29.3 Diabetes mellitus E11.9 Time Spent (min) 25 Comment 3 cr/14 televisit/8 charting=25
== END 2023-10-01 11:38 | disposition home or self-care (01) ==
LOC: HO.HWSM 10:00
PROVIDERS: PCP Internal Medicine; Visit Provider Advanced Practice Midwife
DX: B37.31 Acute candidiasis of vulva and vagina (principal); Z12.4 Encounter for screening for malignant neoplasm of cervix; L29.3 Anogenital pruritus, unspecified; E11.9 Type 2 diabetes mellitus without complications
CPT/HCPCS: 99213

== ENCOUNTER → 2023-10-01 10:00 | Outpatient (BNVA) | payer OTHER, SELFPAY | PROVIDERS: PCP Internal Medicine; Visit Provider Advanced Practice Midwife ==

== ENCOUNTER 2023-10-12 13:05 | Outpatient (AMB) | payer OTHER, SELFPAY ==
[2023-10-12 13:12] VITALS: BP 128/72; BMI 31.5
--- NOTE | 2023-10-12 13:12 | A.OFFVIS_ITS ---
Vital Signs 3 10/12/23 13:12 Height 5 ft 3 in Weight 178 lb BMI 31.5 BP 128/72 Intake Visit Reasons: 2 weeks follow up of Vulva Alternative Financing Specialist Required: No Information Interpreted: clinical only Statement Clerk: Statement Clerk Present Allergies doxycycline [DOXYCYCLINE] Allergy (Unknown, Verified 10/12/23 13:13) RASH metformin Allergy (Unknown, Verified 10/12/23 13:13) diarrhea dulaglutide [From Trulicity] Adverse Reaction (Severe, Verified 10/12/23 13:13) Diarrhea Medication List - Last Reconciled 10/12/23 by Yarely Garsia CNM albuterol sulfate 90 mcg/actuation 1 inh inhalation QID blood-glucose meter ([employer] Verio Flex Start kit) As directed duloxetine 20 mg PO DAILY 30 days empagliflozin (Jardiance) 25 mg PO DAILY 90 days flash glucose scanning reader ([employer] Ricardo 2 [place]) As directed flash glucose sensor (FreeStyle Ricardo 14 Day Sensor kit) As directed fluconazole 150 mg PO Q3D 2 doses metoprolol tartrate 50 mg PO BID 30 days miconazole nitrate 2% (Miconazole-7) 1 appful vaginal BEDTIME 7 days nystatin 1 appl topical QID omeprazole 20 mg PO DAILY ondansetron HCl 8 mg (2 x 4 mg) PO Q8H PRN oxycodone 5 mg PO BID PRN semaglutide (Ozempic) 2 mg (0.75 mL) subcut QWEEK 4 weeks triamcinolone acetonide 0.5% 1 appl topical DAILY 2 weeks Is last menstrual period known: No HPI HPI 2 weeks follow up of Vulva: Details: Her Bottom is mostly better is just a little bit sensitive yet but it is much better. She was able to gets some of her testing supplies that she still needs testing strips her Ozempic just increased to 2 mg and she will be contacting her primary to still discuss the testing equipment. She thinks she is going to repeat the fluconazole. 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 Mother No problems noted. Maternal Aunt Breast cancer Family/Other Mental health disorder Breast cancer Social History Household Members: Children Housing: Apartment Are you a primary resident care coordinator to a significant other at home: No Do you presently have visiting nurse or other home services: No Alcohol intake: current Alcohol intake frequency: holidays/special occasions only Alcohol type: beer, wine and hard liquor Comment: sleeping Patient Tobacco Use Status: Former Tobacco user Tobacco use type: Cigarette e-Cigarette/Vaping Use: Never Used Second Hand Smoke Exposure: No service: No Current occupational status: unemployed Cognitive needs: No Hearing needs: No Vision needs: No Female Reproductive History Menstrual Age of Menarche: 11 Duration of menses: <3 days Total pregnancies: 3 Full term: 3 Date of last pap smear: 10/01/23 (pending,previous pap,2022,negative) History of abnormal pap smear: No Physical Exam Vital Signs: Last Vital Signs BP 128/72 10/12/23 13:12 BMI result Body Mass Index 31.5 Other: Vulva is still a dusky pink but is not the bright red pink with excoriations that it was before it is definitely better. There was an outline a area where there is moisture contact and where the urine falls when she is voiding.. Female genitals images: 2 1. Vulva is less inflamed than previous still shows where moisture and urine touch. Definite improvement from previous severe yeast. Results Reviewed Results Reviewed: Name: Tabitha Bill Age/Sex: 52/F : 1970 Unit#: [id number] Attend Dr: Yarely Garsia CNM Re09/28/23 Status: DEP REF Location: [facility] D isch: Specimen: [id number] Collected: 09/28/23-UNK Status: COMP Req#: [id number] Received: 09/28/23 Source: Perineum Sp Desc: Subm Dr: Yarely Garsia CNM Ordered: Routine Cult GS Procedure Result Verified Gram stain Final 09/30/23 Gram stain results: No polys 1+ epithelial cells No organisms seen Routine Culture Final 10/02/23-748 Organism 1 Strep agalactiae (Grp B) Quantity 1+ Susc N/A Susceptibility not routinely performed on this isolate. Organism 2 Staphylococcus aureus Quantity 1+ Result: 2+ Mixed skin shalini S aureus M.I.C. RX --------- --- Clindamycin <=0.25 S Erythromycin <=0.25 S Levofloxacin <=0.12 S Oxacillin <=0.25 S Penicillin-G >=0.5 R Tetracycline <=1 S Trimethoprim/Sulfamethoxazole <=10 S Name: Tabitha Bill Age/Sex: 51/F : 1970 Unit#: [id number] Attend Dr: Yarely Garsia CNM Re09/11/22 Status: DEP REF Location: [facility] isch: SPEC : [id number] OLIVIA: 09/11/22 STATUS: COMP REQ : [id number] RECD: 09/11/[address]: Yarely Garsia CNM COMP: 09/12/22 ENTERED: 09/11/22 [facility] DR: Doretha Spencer MD ORDERED: BV Panel Test Result Flag Reference Trichomonas DNA Negative Negative Gardnerella DNA Positive A Negative Latanya DNA Negative Negative END OF REPORT Assessment & Plan Assessment & Plan (1) Perineal irritation: Code(s): L29.3 - Anogenital pruritus, unspecified Category: Medical (2) Yeast infection of the vagina: Code(s): B37.31 - Acute candidiasis of vulva and vagina Category: Medical (3) Diabetes mellitus: Code(s): E11.9 - Type 2 diabetes mellitus without complications Category: Medical Plan Patient feels she wants to repeat the fluconazole dosage which is fine. Additionally I want her to continue to follow-up with her primary care about making sure she is got all her testing supplies to be able to check her sugars appropriately in make sure they are within range. I also recommend that for now what she due for extra care for her bottom is by or use a cleans word bottle from home fill it with cool water and every time she voids rinse the urine away from her vulva and pat dry to make sure there has no concentrated sugary filled urine moistening her vulva. She has further refills should she need them.. Coding Level of Care Code Est Pt Level 3 (37561) Diagnoses Perineal irritation L29.3 Yeast infection of the vagina B37.31 Diabetes mellitus E11.9
== END 2023-10-12 13:54 | disposition home or self-care (01) ==
LOC: HO.HWSM 13:05
PROVIDERS: PCP Internal Medicine; Visit Provider Advanced Practice Midwife
DX: L29.3 Anogenital pruritus, unspecified (principal); B37.31 Acute candidiasis of vulva and vagina; E11.9 Type 2 diabetes mellitus without complications
CPT/HCPCS: 99213

== ENCOUNTER → 2023-10-12 13:05 | Outpatient (BNVA) | payer OTHER, SELFPAY | PROVIDERS: PCP Internal Medicine; Visit Provider Advanced Practice Midwife | DX: L29.3 Anogenital pruritus, unspecified (principal); B37.31 Acute candidiasis of vulva and vagina; E11.9 Type 2 diabetes mellitus without complications | CPT/HCPCS: 99212 ==

== ENCOUNTER 2023-11-13 14:55 | Outpatient (AMB) | payer OTHER, SELFPAY ==
[2023-11-13 15:04] VITALS: BP 128/80; BMI 31.4
--- NOTE | 2023-11-13 15:04 | MHC.PC.OV ---
Vital Signs 11/13/23 15:04 Height 5 ft 3 in Weight 177 lb BMI 31.4 BP 128/80 Blood Pressure Location Lt brachial Position Sitting Intake Visit Reasons: DM - NEEDS A1C Intake Note: Patient here for a follow up DM Cutter In Required: No Accompanied by: Self / Same As Patient Allergies doxycycline [DOXYCYCLINE] Allergy (Unknown, Verified 11/13/23 15:23) RASH metformin Allergy (Unknown, Verified 11/13/23 15:23) diarrhea dulaglutide [From Trulicity] Adverse Reaction (Severe, Verified 11/13/23 15:23) Diarrhea Medication List - Last Reconciled 11/13/23 by Doretha Devine MD albuterol sulfate 90 mcg/actuation 1 inh inhalation QID blood-glucose meter ([employer] Verio Flex Start kit) As directed duloxetine 20 mg PO DAILY 30 days empagliflozin (Jardiance) 25 mg PO DAILY 90 days flash glucose scanning reader ([employer]Style Ricardo 2 [place]) As directed flash glucose sensor (FreeStyle Ricardo 14 Day Sensor kit) As directed fluconazole 150 mg PO Q3D 2 doses miconazole nitrate 2% (Miconazole-7) 1 appful vaginal BEDTIME 7 days nystatin 1 appl topical QID omeprazole 20 mg PO DAILY semaglutide (Ozempic) 2 mg (0.75 mL) subcut QWEEK 4 weeks triamcinolone acetonide 0.5% 1 appl topical DAILY 2 weeks Tobacco use date assessed: 07/11/23 Dental Screening Dental Screen Date: 07/11/23 HPI HPI Comments History of Present Illness Details This is a 53-year-old female with diabetes mellitus type 2, chronic GERD, B-cell lymphoma in remission and mild major depression that comes for follow-up on her conditions. A1c elevated today but she just started Ozempic 2 mg about 2 weeks ago. Dietary changes were advised. GERD stable with PPIs. B-cell lymphoma is follow by Hematology-Oncology which has been in remission. Also her mild major depression still present with duloxetine and I will increase the medication. She denies any chest pain or shortness on breath. 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 Mother No problems noted. Maternal Aunt Breast cancer Family/Other Mental health disorder Breast cancer Social History Household Members: Children Housing: Apartment Are you a primary critical care clinical nurse specialist to a significant other at home: No Do you presently have visiting nurse or other home services: No Alcohol intake: current Alcohol intake frequency: holidays/special occasions only Alcohol type: beer, wine and hard liquor Comment: sleeping Patient Tobacco Use Status: Former Tobacco user Tobacco use type: Cigarette e-Cigarette/Vaping Use: Never Used Second Hand Smoke Exposure: No service: No Current occupational status: unemployed Cognitive needs: No Hearing needs: No Vision needs: No Female Reproductive History Menstrual Age of Menarche: 11 Questionnaire Thrive Questionnaire Date Thrive assessed: 07/11/23 BRENDEN-7 AMB Questionnaire BRENDEN-7 Date BRENDEN - 7 assessed: 07/11/23 Source: Developed by Drs. Joss Sibley, Sissy Argueta, Lucas Roblero and colleagues, with an educational linda from [employer]. Review of Systems Const All systems reviewed & are unremarkable except as noted in HPI and below Card Denies chest pain at rest, Denies chest pain with activity, Denies edema, Denies irregular heart rhythm, Denies claudication, Denies dyspnea, Denies dyspnea on exertion, Denies orthopnea, Denies paroxysmal nocturnal dyspnea and Denies slow heart rate Resp Denies cough, Denies dyspnea and Denies dyspnea on exertion GI Denies abdominal pain, Denies change in bowel habits, Denies excessive flatus, Denies nausea and Denies vomiting Physical exam (Primary Care) Vital Signs: Last Vital Signs BP 128/80 11/13/23 15:04 BMI result Body Mass Index 31.4 Tobacco/Smoking Status: Tobacco use Status Tobacco use date assessed 07/11/23 11/13/23 15:06 Patient Tobacco Use Status Former Tobacco user 11/13/23 15:06 Tobacco use type Cigarette 11/13/23 15:06 e-Cigarette/Vaping Use Never Used 11/13/23 15:06 Thrive Assessment: Date of Thrive Assessment Date Thrive assessed 07/11/23 11/13/23 15:06 Resp Effort & Inspection: normal respiratory effort Auscultation: clear to auscultation bilaterally Cardio Jugular venous distension: no JVD Rate: regular rate Rhythm: regular rhythm Heart sounds: S1 normal heart sound present and S2 normal heart sound present Extrem General: Yes full ROM Results AMB Hemoglobin A1c AMB Hemoglobin A1c 8.5 % Last Edit by ANJANA Patel on 11/13/23 15:24 Results Reviewed Results Reviewed: Laboratory Last Values Hgb A1c (Clinic) 8.5 % (4.0-6.0) H 11/13/23 15:03 Assessment and Plan Assessment & Plan (1) Mild major depression: Code(s): F32.0 - Major depressive disorder, single episode, mild Plan: Duloxetine will be increased. (2) Chronic GERD: Code(s): K21.9 - Gastro-esophageal reflux disease without esophagitis Plan: Continue PPIs. (3) B-cell lymphoma: Code(s): C85.10 - Unspecified B-cell lymphoma, unspecified site Plan: Follow by Hematology-Oncology. (4) Diabetes mellitus: Code(s): E11.9 - Type 2 diabetes mellitus without complications Plan: Continue Jardiance and Ozempic. A1c goal is equal or less than 7%. Orders: Orders Microalbumin, Random (w Creat) 4 Months E11.9 - Type 2 diabetes mellitus without complications Comprehensive [place]. Panel Fast 4 Months E11.9 - Type 2 diabetes mellitus without complications Vitamin D 25-OH Total 4 Months E55.9 - Vitamin D deficiency, unspecified AMB Hemoglobin A1c 11/13/23 E11.9 - Type 2 diabetes mellitus without complications Lipid Panel 4 Months E78.5 - Hyperlipidemia, unspecified Medications: New lancets As directed 100 ea 3RF E11.9 - Type 2 diabetes mellitus without complications blood sugar diagnostic ([employer] Verio test strips) As directed 100 ea 1RF E11.9 - Type 2 diabetes mellitus without complications duloxetine 30 mg PO BID 180 caps 1RF 90 days Discontinued duloxetine Discontinued Reason: Patient Completed Course 20 mg PO DAILY 30 days 30 caps 2RF M79.7 - Fibromyalgia Coding Level of Care Code Est Pt Level 4 (68975) Complex EM visit Add On G2211 Diagnoses Mild major depression F32.0 Chronic GERD K21.9 B-cell lymphoma C85.10 Diabetes mellitus E11.9 Time Spent (min) 23
== END 2023-11-13 15:40 | disposition home or self-care (01) ==
PROVIDERS: PCP Internal Medicine; Visit Provider Internal Medicine
DX: E11.9 Type 2 diabetes mellitus without complications (principal)
CPT/HCPCS: 83036; 99214; G2211

== ENCOUNTER 2023-11-30 14:23 | Outpatient (REF) | payer OTHER, SELFPAY ==
--- NOTE | ~2023-11-30 | MM_ITS ---
EXAMINATION: MM SCREENING DIGITAL BREAST TOMOSYNTHESIS, BILATERAL CLINICAL INFORMATION: Screening. Asymptomatic. COMPARISON: Mammography: This study is compared with prior exams dating back to 2019. TECHNIQUE: Digital breast tomosynthesis is performed in both the craniocaudal and mediolateral oblique views along with computer-aided detection (CAD). Synthesized 2D images are generated from the tomosynthesis. FINDINGS: The breasts are almost entirely fatty (ACR BI-RADS breast composition Category a). There are no significant masses, abnormal calcifications, or other abnormalities. There is a central venous access port in the superior aspect of the right side of the chest. MM/MM tomosynthesis screening BI IMPRESSION: No mammographic evidence of malignancy. ASSESSMENT: BI-RADS BI-RADS 1 - Negative RECOMMENDATION: Routine annual mammography screening. 1 year F/U This examination should not preclude the clinical evaluation of a suspicious palpable abnormality. This patient's information was entered into a reminder system with a target due date for their next mammogram. Electronically signed by: Candy Lozano MD 12/31/2023 11:48 PM EDT
== END 2023-11-30 14:24 | disposition home or self-care (01) ==
LOC: HO.MAMMO 14:23
PROVIDERS: PCP Internal Medicine; Visit Provider Internal Medicine
DX: Z12.31 Encounter for screening mammogram for malignant neoplasm of breast (principal)
CPT/HCPCS: 77063; 77067

== ENCOUNTER → 2023-11-30 15:45 | Outpatient (BNV) | payer OTHER, SELFPAY | PROVIDERS: PCP Internal Medicine; Visit Provider Radiology Diagnostic Radiology | DX: Z12.31 Encounter for screening mammogram for malignant neoplasm of breast (principal) | CPT/HCPCS: 77063; 77067 ==

== ENCOUNTER 2024-03-24 14:49 | Outpatient (AMB) | payer OTHER, SELFPAY ==
--- NOTE | 2024-03-24 14:58 | MHC.PC.OV ---
Vital Signs 03/24/24 15:00 Height 5 ft 3 in Weight 179 lb BMI 31.7 BP 128/80 Blood Pressure Location Lt brachial Position Sitting Intake Visit Reasons: dm Intake Note: Patient here for a 3 month follow up DM Machine Carton Marker Required: No Accompanied by: Self / Same As Patient Allergies doxycycline [DOXYCYCLINE] Allergy (Unknown, Verified 03/24/24 15:45) RASH metformin Allergy (Unknown, Verified 03/24/24 15:45) diarrhea dulaglutide [[facility]] Adverse Reaction (Severe, Verified 03/24/24 15:45) Diarrhea Medication List - Last Reconciled 03/24/24 by Doretha Devine MD albuterol sulfate 90 mcg/actuation 1 inh inhalation QID blood sugar diagnostic (OneTouch Verio test strips) As directed one time per day blood sugar diagnostic (FreeStyle Lite Strips) Use 1 test strip once a day blood-glucose meter (FreeStyle Lite Meter kit) As directed blood-glucose meter (OneTouch Verio Flex Start kit) As directed duloxetine 30 mg PO BID 90 days empagliflozin (Jardiance) 25 mg PO DAILY 90 days flash glucose scanning reader ([place] [employer]tyle Ricardo 2 [place]) As directed flash glucose sensor (FreeStyle Ricardo 14 Day Sensor kit) As directed hydrocortisone 2.5% (Proctosol HC) 1 appl NE BID-QID PRN 30 days lancets As directed one time per day lancets (FreeStyle Lancets) Use 1 lancet once a day nystatin 1 appl topical QID omeprazole 20 mg PO DAILY semaglutide (Ozempic) 2 mg (0.75 mL) subcut QWEEK 4 weeks triamcinolone acetonide 0.5% 1 appl topical DAILY 2 weeks valacyclovir (Valtrex) 1,000 mg PO Q8H zolpidem 5 mg PO BEDTIME PRN 30 days Tobacco use date assessed: 07/11/23 Dental Screening Dental Screen Date: 03/24/24 Did you have a dental visit in the last 12 months?: Yes Did you have a dental problem in the last 6 months where you did not have access to dental care?: No Was dental information given to patient?: Patient has dentist HPI HPI Comments History of Present Illness Details The patient is a 53-year-old female presenting with poorly controlled type 2 diabetes mellitus. Her last Hemoglobin A1c was 9.1%, indicating elevated glucose levels. She mentions a history of gastrointestinal intolerance to metformin and Trulicity, both causing diarrhea, and an allergy to doxycycline resulting in a rash. The patient is currently on multiple antidiabetic medications, including Jardiance and Osempic, started two months ago. She also reports stress-related dietary indiscretions affecting glycemic control. Home glucose monitoring has been inconsistent due to device issues, and there are financial and coverage constraints regarding glucose monitoring equipment. In addition to hyperglycemia, she experiences passing excessive gas, which might be attributed to her diabetes medications. Exacerbating her sugar control challenges, she also has a history of hypertension, which is currently well-managed. Additionally, she has sinusitis with intermittent nasal bleeding and unresolved hemorrhoids initially treated with topical cream. The patient is awaiting an endocrinology consultation for further management, particularly regarding insulin initiation. 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 Mother No problems noted. Maternal Aunt Breast cancer Family/Other Mental health disorder Breast cancer Social History Household Members: Children Housing: Apartment Are you a primary home care attendant to a significant other at home: No Do you presently have visiting nurse or other home services: No Alcohol intake: current Alcohol intake frequency: holidays/special occasions only Alcohol type: beer, wine and hard liquor Comment: sleeping Patient Tobacco Use Status: Former Tobacco user Tobacco use type: Cigarette e-Cigarette/Vaping Use: Never Used Second Hand Smoke Exposure: No service: No Current occupational status: unemployed Current occupational exposures/hazards: No Cognitive needs: No Hearing needs: No Vision needs: No Female Reproductive History Menstrual Age of Menarche: 11 Questionnaire Thrive Questionnaire Date Thrive assessed: 07/11/23 BRENDEN-7 AMB Questionnaire BRENDEN-7 Date BRENDEN - 7 assessed: 07/11/23 Source: Developed by Drs. Joss Sibley, Sissy Argueta, Lucas Roblero and colleagues, with an educational linda from [employer]. Review of Systems Const All systems reviewed & are unremarkable except as noted in HPI and below Card Denies chest pain at rest, Denies chest pain with activity, Denies edema, Denies irregular heart rhythm, Denies claudication, Denies dyspnea, Denies dyspnea on exertion, Denies orthopnea, Denies paroxysmal nocturnal dyspnea and Denies slow heart rate Resp Denies cough, Denies dyspnea and Denies dyspnea on exertion GI Denies abdominal pain, Denies change in bowel habits, Denies excessive flatus, Denies nausea and Denies vomiting Physical exam (Primary Care) Vital Signs: Last Vital Signs BP 128/80 03/24/24 15:00 BMI result Body Mass Index 31.7 BMI Assessment/Plan discussion: High BMI High, discussed plan: lifestyle, weight reduction, dietary and physical activity Tobacco/Smoking Status: Tobacco use Status Tobacco use date assessed 07/11/23 03/24/24 14:58 Patient Tobacco Use Status Former Tobacco user 03/24/24 14:58 Tobacco use type Cigarette 03/24/24 14:58 e-Cigarette/Vaping Use Never Used 03/24/24 14:58 Thrive Assessment: Date of Thrive Assessment Date Thrive assessed 07/11/23 03/24/24 14:58 Resp Effort & Inspection: normal respiratory effort Auscultation: clear to auscultation bilaterally Cardio Jugular venous distension: no JVD Rate: regular rate Rhythm: regular rhythm Heart sounds: S1 normal heart sound present and S2 normal heart sound present Extrem General: Yes full ROM Office Procedures Flu Questionnaire Does the patient have a severe egg allergy?: No Results AMB Hemoglobin A1c AMB Hemoglobin A1c 9.1 % Last Edit by ANJANA Patel on 03/24/24 15:17 Immunizations Fluarix Triv [id number] (PF) 45 mcg (15 mcg x 3)/0.5 mL IM syringe Performing Provider: Doretha Devine MD [facility] Documented (not given) by: ANJANA Patel on 03/24/24 15:13 Reason Not Given: Patient Refused Results Reviewed Results Reviewed: Laboratory Last Values Hgb A1c (Clinic) 9.1 % (4.0-6.0) H 03/24/24 14:59 Coding Level of Care Code Est Pt Level 4 (54185) Complex EM visit Add On G2211 Diagnoses Hemorrhoids K64.9 Diabetes mellitus E11.9 Essential hypertension I10 Hyperlipidemia LDL goal <70 E78.5 Allergic rhinitis J30.9 Time Spent (min) 22 Assessment & Plan Assessment & Plan (1) Hemorrhoids: Code(s): K64.9 - Unspecified hemorrhoids Category: Medical (2) Diabetes mellitus: Code(s): E11.9 - Type 2 diabetes mellitus without complications Category: Medical (3) Essential hypertension: Code(s): I10 - Essential (primary) hypertension Category: Medical (4) Hyperlipidemia LDL goal <70: Code(s): E78.5 - Hyperlipidemia, unspecified Category: Medical (5) Allergic rhinitis: Code(s): J30.9 - Allergic rhinitis, unspecified Category: Medical Plan - Type 2 Diabetes Mellitus: Initiate Glimepiride in addition to current treatment regimen. Refer to endocrinology for further evaluation of insulin therapy. Arrange for fasting blood work and urine analysis to monitor disease status. - Allergies: Document contraindications for doxycycline, metformin, and Trulicity in the patient's medical record. - GERD: Continue current medication management with omeprazole. - Hemorrhoids: Referral to general surgery for evaluation. Consider continuation of current topical treatment if not resolved. - Sinusitis: Prescribe nasal spray for symptomatic relief. - Hypertension: Continue monitoring; current medications are effective. Patient was informed and verbally consented to the use of an ambient scribe for clinic note documentation during this visit. I discussed with the patient her current elevated A1c level and emphasized the importance of improving diabetes control to prevent complications. We reviewed her medication tolerance and explored the need for a possible endocrinology consultation for consideration of insulin therapy. I educated the patient about stress management and its impact on blood sugar levels. Further, I addressed her sinusitis symptoms and the hemorrhoid issue, making necessary referrals to specialists. I also touched on lifestyle nutrition changes to address the excessive gas possibly induced by current diabetes medications and suggested she avoid foods known to produce gas. I encouraged compliance with her medication regimen, including Ozempic and glimepiride. Orders: Orders AMB Hemoglobin A1c Today E11.9 - Type 2 diabetes mellitus without complications Lipid Panel Today E78.5 - Hyperlipidemia, unspecified Comprehensive [place]. Panel Fast Today E11.9 - Type 2 diabetes mellitus without complications Influenza [id number] Immunization Today Z23 - Encounter for immunization Microalbumin, Random (w Creat) Today R80.9 - Proteinuria, unspecified Referrals Endocrinology Referral E11.9 - Type 2 diabetes mellitus without complications General Surgery Referral K64.9 - Unspecified hemorrhoids Medications: New glimepiride 2 mg PO DAILY 90 days 90 tabs 1RF fluticasone propionate 50 mcg/actuation (Flonase Allergy Relief) administer into each nostril 1 spray intranasal DAILY 30 days 16 grams 0RF Refilled hydrocortisone 2.5% (Proctosol HC) 1 appl NE BID-QID 30 days PRN 30 grams 0RF hemorrhoids Patient Instructions: - Follow-up with endocrinology as recommended. - Complete fasting blood work and urine test at the specified laboratory. - Consistently monitor blood glucose levels at home. - Adhere to medication regimen and follow dietary recommendations. - Use nasal spray as prescribed for sinus symptoms. - Attend surgery consultation for hemorrhoids if no improvement. - Seek medical attention if any new or worsening symptoms occur.
[2024-03-24 15:00] VITALS: BP 128/80; BMI 31.7
== END 2024-03-24 17:03 | disposition home or self-care (01) ==
PROVIDERS: PCP Internal Medicine; Visit Provider Internal Medicine
DX: K64.9 Unspecified hemorrhoids (principal); E11.9 Type 2 diabetes mellitus without complications; I10 Essential (primary) hypertension; E78.5 Hyperlipidemia, unspecified; J30.9 Allergic rhinitis, unspecified; Z23 Encounter for immunization

== ENCOUNTER → 2024-03-24 14:49 | Outpatient (BNVA) | payer OTHER, SELFPAY | PROVIDERS: PCP Internal Medicine; Visit Provider Internal Medicine | DX: E11.9 Type 2 diabetes mellitus without complications (principal); K64.9 Unspecified hemorrhoids; I10 Essential (primary) hypertension; E78.5 Hyperlipidemia, unspecified; J30.9 Allergic rhinitis, unspecified | CPT/HCPCS: 83036; 90471; 99212 ==

== ENCOUNTER 2024-06-23 15:32 | Outpatient (AMB) | payer OTHER, SELFPAY ==
--- NOTE | 2024-06-23 15:40 | MHC.OFFVIS ---
Vital Signs 06/23/24 15:43 Height 5 ft 3 in Intake Visit Reasons: unspecified hemorrhoids Intake Note: This patient presents for unspecified hemorrhoids. Pt c/o; reports she has been having this issues for several years, reports pain/discomfort, no rectal bleeding. Cuff Stitcher Required: No Process Plant Operator: Process Plant Operator offered & declined Accompanied by: Self / Same As Patient Allergies doxycycline [DOXYCYCLINE] Allergy (Unknown, Verified 06/23/24 15:44) RASH metformin Allergy (Unknown, Verified 06/23/24 15:44) diarrhea dulaglutide [From [facility]] Adverse Reaction (Severe, Verified 06/23/24 15:44) Diarrhea Medication List - Last Reconciled 06/23/24 by Lul Argueta MD albuterol sulfate 90 mcg/actuation 1 inh inhalation QID blood sugar diagnostic (OneTouch Verio test strips) As directed one time per day blood sugar diagnostic (FreeStyle Lite Strips) Use 1 test strip once a day blood-glucose meter (FreeStyle Lite Meter kit) As directed blood-glucose meter (OneTouch Verio Flex Start kit) As directed duloxetine 30 mg PO BID 90 days empagliflozin (Jardiance) 25 mg PO DAILY 90 days flash glucose scanning reader ([employer] Ricardo 2 [place]) As directed flash glucose sensor (FreeStyle Ricardo 14 Day Sensor kit) As directed fluticasone propionate 50 mcg/actuation (Flonase Allergy Relief) 1 spray intranasal DAILY 30 days glimepiride 2 mg PO DAILY 90 days hydrocortisone 2.5% (Proctosol HC) 1 appl [place] BID-QID PRN 30 days lancets As directed one time per day lancets (FreeStyle Lancets) Use 1 lancet once a day nystatin 1 appl topical QID omeprazole 20 mg PO DAILY semaglutide (Ozempic) 2 mg (0.75 mL) subcut QWEEK 4 weeks triamcinolone acetonide 0.5% 1 appl topical DAILY 2 weeks valacyclovir (Valtrex) 1,000 mg PO Q8H zolpidem 5 mg PO BEDTIME PRN 30 days HPI HPI unspecified hemorrhoids: Details: [age] year old female here for hemorrhoid issues. She says that she has had hemorrhoids since she had her babies 30 years ago. She occasionally had this problem of swelling, pain and prolapse of her hemorrhoids. However, she says that this has been worsening the past few years. He says that often times she would be extremely uncomfortable because of the hemorrhoids becoming swollen. She also says that sometimes she has to push these back. She denies being constipated. 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 Mother No problems noted. Maternal Aunt Breast cancer Family/Other Mental health disorder Breast cancer Social History Household Members: Children Housing: Apartment Are you a primary medicare compliance auditor to a significant other at home: No Do you presently have visiting nurse or other home services: No Alcohol intake: current Alcohol intake frequency: holidays/special occasions only Alcohol type: beer, wine and hard liquor Comment: sleeping Patient Tobacco Use Status: Former Tobacco user Tobacco use type: Cigarette e-Cigarette/Vaping Use: Never Used Second Hand Smoke Exposure: No service: No Current occupational status: unemployed Current occupational exposures/hazards: No Cognitive needs: No Hearing needs: No Vision needs: No Female Reproductive History Menstrual Age of Menarche: 11 Review of Systems Const Denies chills and Denies fever(s) Card Denies chest pain, Denies dyspnea and Denies dyspnea on exertion Resp Denies cough, Denies dyspnea and Denies dyspnea on exertion GI Reports hematochezia and Denies change in bowel habits Denies hematuria Musc Denies back pain and Denies limited range of motion Neuro Denies focal weakness and Denies convulsions Psych Denies depression and Denies mood swings Physical Exam Const General: comfortable and no acute distress Orientation/consciousness: patient oriented x3 Neck Neck: Yes no lymphadenopathy Resp Auscultation: clear to auscultation bilaterally Cardio Rhythm: regular rhythm GI Other: Rectal exam shows External hemorrhoids on both the left and right side Palpation (GI): Soft to palpation, nontender and no guarding Neuro General: patient oriented x3 Office Procedures Anoscopy She was in jorge-knife position. The anoscope was gently inserted. A full examination of the anal canal was done. She would have internal and external hemorrhoids, mostly on the left anterior. There were no other lesions. There was no fissure or ulceration. There was no bleeding. [id number] Assessment & Plan Assessment & Plan (1) Hemorrhoids with complication: Code(s): K64.8 - Other hemorrhoids Category: Medical Plan: She describes worsening problems with pain, swelling and discomfort with the hemorrhoids. Examination shows internal and external hemorrhoids he was on the left. She wants to proceed with hemorrhoidectomy in view of her for worsening symptoms I explained the technique of exam under anesthesia and hemorrhoidectomy. I reviewed the risks including but not limited to bleeding, infection, postop pain, as well as the benefits and alternatives. I reviewed with her what to expect postoperatively She says she wants to proceed. Coding Level of Care Code New Pt Level 3 (66344) Diagnoses Hemorrhoids with complication K64.8 CPT Codes Details - CPT: 10022-[id number] ([id number])
--- OUTSIDE RECORDS SUMMARY | 2024-06-23 17:49 | XMS_ITS | Clinical Summary ---
Author Organization [employer] Address [address] [place] [address] Care Team Providers Care Tank Farm Operator Name Role Phone Unavailable Primary Care Provider Unavailabl e Social History Tobacco Use Types Packs/Day Years Used Date Smoking Tobacco: Never Assessed Comments Unknown Sex and Gender Information Value Date Recorded Sex Assigned at Female 10/04/2022 12:00 PM EDT Legal Sex Female 11:57 AM EDT Gender Identity Female 10/04/2022 12:00 PM EDT Sexual Orientation Straight 10/04/2022 12 :02 PM EDT Plan of Treatment Health Maintenance Due Date Last Done Comments CT Colonography 1971 Colonoscopy 1971 Colorectal Cancer Screening 1971 Depression Screening 1971 FIT DNA/Cologuard 1971 FIT 1971 FOBT 1971 HIV Screening 1971 SDOH Screening 1971 Sigmoidoscopy 1971 COVID-19 Vaccine (#1) 10/08/1976 Pneumococcal Vaccine: Pediat rics (0 to 5 Years) and At-Risk Patients (6 to 49) Years) (1 of 2 - PCV) 10/08/1977 Alcohol/Substance Use Screening 1983 Tobacco Screening 1983 Family Planning (PISQ) 10/08/1986 Hepatitis C Screening 10/08/1989 DTaP/Tdap/Td Vaccines (1 - Tdap) 10/08/1990 Hepatitis B Vaccines (1 of 3 - 19+ 3-dose series) 10/08/1990 Pneumococcal Vaccine: 50+ Ye ars (1 of 2 - PCV) 10/08/1990 Zoster Vaccines (1 of 2) 10/08/1990 Pap Smear 10/08/1992 Cervical Cancer Screening 10/08/2001 HPV/Cotest 10/08/2001 Mammogram 2011 Influenza Vaccine (#1) 2023 RSV Patients and Pa tients Aged 60 years or older (1 - 1-dose 75+ series) 10/08/2046 HIB Vaccines Aged Out No longer eligi ble based on patient's age to complete this topic HPV Vaccines Aged Out No longer eligi ble based on patient's age to complete this topic Hepatitis A Vaccines Aged Out No long er eligible based on patient's age to complete this topic IPV Vaccines Aged Out No longer eligi ble based on patient's age to complete this topic Meningococcal Vaccine Aged Out No tess gera eligible based on patient's age to complete this topic RSV under 20 months Aged Out No longe r eligible based on patient's age to complete this topic Rotavirus Vaccines Aged Out No longer eligible based on patient's age to complete this topic [place] [address] [place] [address] [facility]
== END 2024-06-23 15:52 | disposition home or self-care (01) ==
PROVIDERS: PCP Internal Medicine; Visit Provider Surgery
DX: K64.8 Other hemorrhoids (principal)
CPT/HCPCS: 46600; 99203

== ENCOUNTER → 2024-06-23 15:32 | Outpatient (BNVA) | payer OTHER, SELFPAY | PROVIDERS: PCP Internal Medicine; Visit Provider Surgery | DX: K64.8 Other hemorrhoids (principal) | CPT/HCPCS: 46600; 99202 ==

== ENCOUNTER 2024-07-22 14:56 | Outpatient (AMB) | payer OTHER, SELFPAY ==
[2024-07-22 14:59] VITALS: BP 136/80; BMI 32.1
--- NOTE | 2024-07-22 14:59 | MHC.PC.OV ---
Vital Signs 07/22/24 14:59 Height 5 ft 3 in Weight 181 lb BMI 32.1 BP 136/80 Blood Pressure Location Lt brachial Position Sitting Intake Visit Reasons: dm Intake Note: Patient here for a follow up DM Production Quality Manager Required: No Accompanied by: Self / Same As Patient Allergies doxycycline [DOXYCYCLINE] Allergy (Unknown, Verified 07/22/24 15:16) RASH metformin Allergy (Unknown, Verified 07/22/24 15:16) diarrhea [facility] Adverse Reaction (Severe, Verified 07/22/24 15:16) Diarrhea Medication List - Last Reconciled 07/22/24 by Doretha Devine MD albuterol sulfate 90 mcg/actuation 1 inh inhalation QID blood sugar diagnostic (OneTouch Verio test strips) As directed one time per day blood sugar diagnostic (FreeStyle Lite Strips) Use 1 test strip once a day blood-glucose meter (FreeStyle Lite Meter kit) As directed blood-glucose meter (OneTouch Verio Flex Start kit) As directed duloxetine 30 mg PO BID 90 days empagliflozin (Jardiance) 25 mg PO DAILY 90 days flash glucose scanning reader (Lean TrainStyle Ricardo 2 Dearing) As directed flash glucose sensor (FreeStyle Ricardo 14 Day Sensor kit) As directed fluticasone propionate 50 mcg/actuation (Flonase Allergy Relief) 1 spray intranasal DAILY 30 days glimepiride 2 mg PO DAILY 90 days hydrocortisone 2.5% (Proctosol HC) 1 appl [place] BID-QID PRN 30 days lancets As directed one time per day lancets (FreeStyle Lancets) Use 1 lancet once a day nystatin 1 appl topical QID omeprazole 20 mg PO DAILY semaglutide (Ozempic) 2 mg (0.75 mL) subcut QWEEK 4 weeks triamcinolone acetonide 0.5% 1 appl topical DAILY 2 weeks valacyclovir (Valtrex) 1,000 mg PO Q8H zolpidem 5 mg PO BEDTIME PRN 30 days Tobacco use date assessed: 07/22/24 Dental Screening Dental Screen Date: 07/22/24 HPI HPI Comments History of Present Illness Details The patient is a 53-year-old female presenting with multiple chronic issues including persistent low back pain following a fall last year, a chronic cough, and upcoming hemorrhoid surgery. She reports having fallen approximately one year ago, resulting in lumbosacral pain, which makes sitting comfortably challenging. The pain is persistent, worsens upon rising from seated positions, and significantly affects her daily activities, although it does not radiate to her legs. Additionally, the patient reports a chronic, dry cough that persists throughout the day and night and has occasionally led to vomiting, primarily due to dryness and excessive coughing. The patient denies experiencing shortness of breath. Her chronic conditions include Diffuse Large B-Cell Lymphoma, for which she is under surveillance by an oncologist, and she is scheduled for hemorrhoid surgery in the coming month. Diabetes mellitus stable with an A1c of 7.2% which has improved from 9.1. Also has mild major depression on duloxetine and insomnia with zolpidem. She also addresses gastrointestinal issues primarily associated with Metformin and Trulicity usage. To manage back pain, Celebrex has recently been prescribed. The patient is attentive to symptom changes, expressing concern due to her cancer history. 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 Mother No problems noted. Maternal Aunt Breast cancer Family/Other Mental health disorder Breast cancer Social History Household Members: Children Housing: Apartment Are you a primary residential care facility manager to a significant other at home: No Do you presently have visiting nurse or other home services: No Alcohol intake: current Alcohol intake frequency: holidays/special occasions only Alcohol type: beer, wine and hard liquor Comment: sleeping Patient Tobacco Use Status: Former Tobacco user Tobacco use type: Cigarette e-Cigarette/Vaping Use: Never Used Second Hand Smoke Exposure: No service: No Current occupational status: unemployed Current occupational exposures/hazards: No Cognitive needs: No Hearing needs: No Vision needs: No Female Reproductive History Menstrual Age of Menarche: 11 Questionnaire PHQ-9 Over the last 2 weeks, how often have you been bothered by any of the following problems? 1. Little interest or pleasure in doing things: not at all 2. Feeling down, depressed, or hopeless: several days 3. Trouble falling or staying asleep, or sleeping too much: several days 4. Feeling tired or having little energy: not at all 5. Poor appetite or overeating: not at all 6. Feeling bad about yourself - or that you are a failure or have let yourself or your family down: not at all 7. Trouble concentrating on things, such as reading the newspaper or watching television: not at all 8. Moving or speaking so slowly that other people could have noticed. Or the opposite - being so fidgety or restless that you have been moving around a lot more than usual: not at all 9. Thoughts that you would be better off or of hurting yourself in some way: not at all Total score: 2 Depression Screening Interpretation: Negative Depression Screening Done: Yes [id number] - PHQ-9 Billing: Yes Source: Developed by Drs. Joss Sibley, Sissy Argueta, Lucas Roblero and colleagues, with an educational linda from [employer]. Thrive Questionnaire Date Thrive assessed: 07/22/24 I am a: Patient What is your living situation today?: I have a steady place to live Within the past 12 months, did the food you bought not last and you didn't have the money to get more?: Never true Within the past 12 months, did you worry whether your food would run out before you got money to buy more?: Never true Do you have trouble paying for medicines?: No Do you have trouble getting transportation to medical appointments?: No Do you have trouble paying your heating and electricity bill?: No Do you have trouble taking care of your child, family member or friend?: No Do you have trouble with day-to-day activities such as bathing, preparing meals, shopping, managing finances, etc.?: No Are you currently unemployed and looking for a job?: No Are you interested in more education?: No Please select the resources that you would like help with: None Currently or been in a relationship where the following occur: No concerns reported THRIVE Score: 0 AUDIT C Alcohol Use Questionnaire (AUDIT-C) 1. How often do you have a drink containing alcohol?: Never Total Score: 0 Score Reviewed/Action Taken: No BRENDEN-7 AMB Questionnaire BRENDEN-7 Date BRENDEN - 7 assessed: 07/22/24 Feeling nervous, anxious, or on edge: 1 = Several days Not being able to stop or control worryin = Not at all Worrying too much about different things: 0 = Not at all Trouble relaxin = Not at all Being so restless that it is hard to sit still: 0 = Not at all Becoming easily annoyed or irritable: 0 = Not at all Feeling afraid as if something awful might happen: 0 = Not at all Total BRENDEN-7 score (0-4 normal; 5-9 mild; 10-14 moderate; 15-21 severe): 1 Source: Developed by Drs. Joss Sibley, Sissy Argueta, Lucsa Roblero and colleagues, with an educational linda from [employer]. BRENDEN-7 Assessment Billing BRENDEN-7 Assessment Tool: BRENDEN-7 Assessment 86554 Review of Systems Const All systems reviewed & are unremarkable except as noted in HPI and below Card Denies chest pain at rest, Denies chest pain with activity, Denies edema, Denies irregular heart rhythm, Denies claudication, Denies dyspnea, Denies dyspnea on exertion, Denies orthopnea, Denies paroxysmal nocturnal dyspnea and Denies slow heart rate Resp Reports cough, Denies dyspnea and Denies dyspnea on exertion GI Denies abdominal pain, Denies change in bowel habits, Denies excessive flatus, Denies nausea and Denies vomiting Denies urinary incontinence, Denies urinary hesitancy and Denies urinary urgency Musc Reports back pain Physical exam (Primary Care) Vital Signs: Last Vital Signs BP 136/80 07/22/24 14:59 BMI result Body Mass Index 32.1 BMI Assessment/Plan discussion: High BMI High, discussed plan: lifestyle, weight reduction, dietary and physical activity Tobacco/Smoking Status: Tobacco use Status Tobacco use date assessed 07/22/24 07/22/24 15:10 Patient Tobacco Use Status Former Tobacco user 07/22/24 15:10 Tobacco use type Cigarette 07/22/24 15:10 e-Cigarette/Vaping Use Never Used 07/22/24 15:10 PHQ-9: PHQ-9 Score PHQ-9: Total score 2 07/22/24 15:17 Depression Screening Interpretation: Negative Thrive Assessment: Date of Thrive Assessment Date Thrive assessed 07/22/24 07/22/24 15:10 Currently or been in a relationship where the following occur: No concerns reported Resp Effort & Inspection: normal respiratory effort Auscultation: clear to auscultation bilaterally Cardio Jugular venous distension: no JVD Rate: regular rate Rhythm: regular rhythm Heart sounds: S1 normal heart sound present and S2 normal heart sound present Extrem General: Yes full ROM Results AMB Hemoglobin A1c AMB Hemoglobin A1c 7.2 % Last Edit by ANJANA Patel on 07/22/24 15:10 Results Reviewed Results Reviewed: Laboratory Last Values Hgb A1c (Clinic) 7.2 % (4.0-6.0) H 07/22/24 14:59 Coding Level of Care Code Est Pt Level 4 (43873) Complex EM visit Add On G2211 Diagnoses Coccyalgia M53.3 Cough R05.9 Mild major depression F32.0 Chronic GERD K21.9 Diabetes mellitus E11.9 B-cell lymphoma C85.10 Intra-abdominal malignant neoplasm C76.2 Additional Codes BRENDEN-7 Assessment Billing - BRENDEN-7 Assessment Tool: BRENDEN-7 Assessment [id number] ([id number]) PHQ-9 - 01867 - PHQ-9 Billing: Yes ([id number]) Time Spent (min) 23 Assessment & Plan Assessment & Plan (1) Coccyalgia: Code(s): M53.3 - Sacrococcygeal disorders, not elsewhere classified Category: Medical (2) Cough: Code(s): R05.9 - Cough, unspecified Category: Medical (3) Mild major depression: Code(s): F32.0 - Major depressive disorder, single episode, mild Category: Medical (4) Chronic GERD: Code(s): K21.9 - Gastro-esophageal reflux disease without esophagitis Category: Medical (5) Diabetes mellitus: Code(s): E11.9 - Type 2 diabetes mellitus without complications Category: Medical (6) B-cell lymphoma: Code(s): C85.10 - Unspecified B-cell lymphoma, unspecified site Category: Medical (7) Intra-abdominal malignant neoplasm: Code(s): C76.2 - Malignant neoplasm of abdomen Category: Medical Plan For the patient's multiple concerns, I will continue monitoring the diffuse large B-cell lymphoma as outlined by her oncologist, with her next planned visit to occur in six months. The patient is scheduled for hemorrhoid surgery in July, and follow-up will be critical to ensure proper recovery. Celebrex has been prescribed to manage lumbosacral pain, and its effectiveness will be reviewed, with a potential referral to pain management if necessary. Given the patient's chronic cough, further diagnostics may be pursued to better understand and manage this symptom. Adjustments to the patient's Metformin and Trulicity treatment may be considered to address gastrointestinal distress. Continuity of care through established medical visits and appropriate follow-up will form the basis of ongoing management for her conditions. Patient was informed and verbally consented to the use of an ambient scribe for clinic note documentation during this visit. During our discussion, we reviewed the patient's complex medical background and established a comprehensive plan of care. For her diffuse large B-cell lymphoma, follow-up in six months aligns with her oncologist's recommendations to continue overseeing her condition. We will proceed with scheduled hemorrhoid surgery with appropriate monitoring thereafter. The patient's recurring lower back pain is targeted with Celebrex, evaluating its therapeutic response, and considering referral to pain management if necessary. The chronic cough warrants further evaluation, although we proceed with initial strategies of management. Considering her medication-induced gastrointestinal symptoms, especially with Metformin and Trulicity, I discussed potential adjustments or further evaluation of her regimen to improve comfort. I emphasized the importance of continuity in her follow-up and immediate reporting of any exacerbating or new symptoms. Orders: Orders AMB Hemoglobin A1c Today E11.9 - Type 2 diabetes mellitus without complications Lipid Panel 4 Months E78.5 - Hyperlipidemia, unspecified Vitamin D 25-OH Total 4 Months E55.9 - Vitamin D deficiency, unspecified Comprehensive [place]. Panel Fast 4 Months E11.9 - Type 2 diabetes mellitus without complications XR sacroiliac joint 1-2V Today M53.3 - Sacrococcygeal disorders, not elsewhere classified XR chest 2V Today R05.9 - Cough, unspecified Microalbumin, Random (w Creat) 4 Months R80.9 - Proteinuria, unspecified Medications: New celecoxib (Celebrex) 200 mg PO BID PRN 60 caps 1RF pain 30 days Patient Instructions: - Attend all scheduled medical appointments, including post-operative follow-up after hemorrhoid surgery. - Monitor response to Celebrex for back pain relief and report any concerns. - Watch for any new symptoms related to chronic coughing and report promptly. - Be vigilant about gastrointestinal symptoms, particularly diarrhea, and communicate any exacerbation. - Follow dietary guidelines as discussed to support overall health. - Maintain communication with your oncologist for ongoing lymphoma surveillance. - Contact my office or the ER for any acute concerns or noticeable changes in condition.
== END 2024-07-22 15:37 | disposition home or self-care (01) ==
LOC: HO.HMCH 14:56
PROVIDERS: PCP Internal Medicine; Visit Provider Internal Medicine
DX: E11.9 Type 2 diabetes mellitus without complications (principal); F32.0 Major depressive disorder, single episode, mild; C76.2 Malignant neoplasm of abdomen; R05.9 Cough, unspecified; M53.3 Sacrococcygeal disorders, not elsewhere classified; K21.9 Gastro-esophageal reflux disease without esophagitis

== ENCOUNTER 2024-07-22 14:56 | Outpatient (REF) | payer OTHER, SELFPAY ==
--- NOTE | ~2024-07-22 | XR_ITS ---
CLINICAL HISTORY: R05.9 - Cough, unspecified 2 view chest x-ray Comparison: None Findings: The lungs are clear. Heart size is normal. No acute fracture. Mild degenerative changes of the thoracic spine. There is a right internal jugular venous catheter tip is in the region of the superior vena cava. There is no pneumothorax. IMPRESSION: 1. No acute findings. This document has been electronically signed by: Joss Alonso MD on 07/24/2024 08:44:04
--- NOTE | ~2024-07-22 | XR_ITS ---
CLINICAL HISTORY: M53.3 - Sacrococcygeal disorders, not elsewhere classified 3 views sacroiliac joints Comparison: None Findings No acute fractures. There are mild degenerative changes of the SI joints with small osteophytes and mild sclerosis. No erosions. No evidence for bony fusion. There are significant degenerative changes of the lower lumbar spine partially included on the field of view IMPRESSION: Mild degenerative changes of the SI joints Significant degenerative changes of the lower lumbar spine This document has been electronically signed by: Joss Alonso MD on 07/24/2024 08:55:53
== END 2024-07-22 14:57 | disposition home or self-care (01) ==
LOC: HO.XRAY 14:56
PROVIDERS: PCP Internal Medicine; Visit Provider Internal Medicine
DX: R05.9 Cough, unspecified (principal); M53.3 Sacrococcygeal disorders, not elsewhere classified
CPT/HCPCS: 71046; 72200; 83036; 96127; 99212

== ENCOUNTER → 2024-07-22 15:49 | Outpatient (BNV) | payer OTHER, SELFPAY | PROVIDERS: PCP Internal Medicine; Visit Provider Radiology Diagnostic Radiology | DX: R05.9 Cough, unspecified (principal); M51.369 Other intervertebral disc degeneration, lumbar region without mention of lumbar back pain or lower extremity pain | CPT/HCPCS: 71046; 72200 ==

== ENCOUNTER → 2024-08-01 07:17 | Day surgery (SDC) | payer OTHER, SELFPAY ==
--- NOTE | 2024-07-30 13:58 | HO.ANESPROP2 ---
HPI - Anesthesia Eval Consult details Narrative: 53yo F for EUA, Hemorrhoidectomy Hx NSVT during chemo for abdominal mass, B cell lymphoma. Work up in 2020 without further f/u Anesthesia Pre-Procedure Meds Is the patient on any of the following meds?: GLP1/DPP4 and SGLT2 Inhib PMFSH Active Problems Active Problems: All Active Problems Coccyalgia (Acute) Cough (Acute) Hemorrhoids with complication (Acute) Allergic rhinitis (Acute) Hyperlipidemia LDL goal <70 (Acute) Essential hypertension (Acute) Hemorrhoids (Acute) Perineal irritation (Acute) Breast cancer screening (Acute) Mild major depression (Acute) Fibromyalgia (Acute) Yeast infection of the vagina (Acute) Screening breast examination (Acute) Cervical cancer screening (Acute) Screen for sexually transmitted diseases (Acute) H/O: hysterectomy (Acute) Vaginal dryness (Acute) Frequent UTI (Acute) Muscle spasm (Acute) Therapeutic opioid induced constipation (Acute) Hypovitaminosis D (Acute) Chronic GERD (Acute) 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 (Acute) Cervicalgia (Acute) Adhesive capsulitis of left shoulder (Acute) Shoulder pain, bilateral (Acute) Mass in neck (Acute) B-cell lymphoma (Acute) Physical exam (Acute) Diabetes mellitus (Acute) Pleural effusion (Acute) UTI (urinary tract infection) (Acute) Fever (Acute) Leukocytosis (Acute) Intra-abdominal malignant neoplasm (Acute) Splenic mass (Acute) Abdominal pain (Acute) Abnormal CT of the abdomen (Acute) Past Medical History Medical History Hemorrhoids with complication NSVT (nonsustained ventricular tachycardia) Sepsis Therapeutic opioid induced constipation Hypovitaminosis D Chronic GERD 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 Mother No problems noted. Maternal Aunt Breast cancer Family/Other Mental health disorder Breast cancer Surgical History Surgical History H/O: hysterectomy Social History Social History Household Members: Children Housing: Apartment Are you a primary personal care service provider to a significant other at home: No Do you presently have visiting nurse or other home services: No Alcohol intake: current Alcohol intake frequency: holidays/special occasions only Alcohol type: beer, wine and hard liquor Comment: sleeping Patient Tobacco Use Status: Former Tobacco user Tobacco use type: Cigarette e-Cigarette/Vaping Use: Never Used Second Hand Smoke Exposure: No service: No Current occupational status: unemployed Current occupational exposures/hazards: No Cognitive needs: No Hearing needs: No Vision needs: No Meds Allergies Allergy/AdvReac Type Severity Reaction Status Date / Time doxycycline [DOXYCYCLINE] Allergy Unknown RASH Verified 07/22/24 15:16 metformin Allergy Unknown diarrhea Verified 07/22/24 15:16 dulaglutide [From Trulicity] AdvReac Severe Diarrhea Verified 07/22/24 15:16 Exam Pertinent Lab Results Pertinent Lab Results: Laboratory Tests 06/02/24 15:30 WBC 6.1 Hgb 13.4 Hct 39.9 Plt Count 242 Sodium 141 Potassium 3.6 Chloride 110 H Carbon Dioxide 22 BUN 14 Creatinine 0.63 Assessment and Plan Assessment Anesthesia Assessment: Chart Reviewed
== END ==
LOC: HO.SSS 07:18
PROVIDERS: PCP Internal Medicine; Visit Provider Surgery
DX: K64.8 Other hemorrhoids (principal); Z53.09 Procedure and treatment not carried out because of other contraindication

== ENCOUNTER 2024-08-08 10:12 | Day surgery (SDC) | payer OTHER, SELFPAY ==
--- OUTSIDE RECORDS SUMMARY | 2024-08-04 13:19 | XMS_ITS | Clinical Summary ---
Author Organization [employer] Address [address] [place] [address] Care Team Providers Care Doll Dresser Name Role Phone Unavailable Primary Care Provider [...] patient's age to complete this topic [place] [address] [place] [address] [employer] [facility] STANDARD
--- NOTE | 2024-08-06 14:31 | HO.ANESPROP2 ---
Documented by User: Fernanda Mcmanus NP 08/06/24 14:34 HPI - Anesthesia Eval Consult details Narrative: 53yo F for EUA, Hemorrhoidectomy Follows [facility] [place] Oncology for large B-cell lymphoma Anesthesia Pre-Procedure Meds Is the patient on any of the following meds?: GLP1/DPP4 and SGLT2 Inhib PMFSH Active Problems Active Problems: All Active Problems Coccyalgia (Acute) Cough (Acute) Allergic rhinitis (Acute) Hyperlipidemia LDL goal <70 (Acute) Essential hypertension (Acute) Hemorrhoids (Acute) Perineal irritation (Acute) Breast cancer screening (Acute) Mild major depression (Acute) Yeast infection of the vagina (Acute) Screening breast examination (Acute) Cervical cancer screening (Acute) Screen for sexually transmitted diseases (Acute) Vaginal dryness (Acute) Frequent UTI (Acute) Muscle spasm (Acute) Cervicalgia (Acute) Adhesive capsulitis of left shoulder (Acute) Shoulder pain, bilateral (Acute) Mass in neck (Acute) B-cell lymphoma (Acute) Physical exam (Acute) Diabetes mellitus (Acute) Leukocytosis (Acute) Fever (Acute) UTI (urinary tract infection) (Acute) Pleural effusion (Acute) Intra-abdominal malignant neoplasm (Acute) Abnormal CT of the abdomen (Acute) Abdominal pain (Acute) Splenic mass (Acute) Hemorrhoids with complication (Acute) Fibromyalgia (Acute) H/O: hysterectomy (Acute) Therapeutic opioid induced constipation (Acute) Hypovitaminosis D (Acute) Chronic GERD (Acute) 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 Mother No problems noted. Maternal Aunt Breast cancer Family/Other Mental health disorder Breast cancer Surgical History Surgical History H/O hand surgery H/O: hysterectomy Social History Social History Household Members: Children Housing: Apartment Are you a primary residential care officer to a significant other at home: No Do you presently have visiting nurse or other home services: No Alcohol intake: current Alcohol intake frequency: holidays/special occasions only Alcohol type: beer, wine and hard liquor Comment: sleeping Patient Tobacco Use Status: Former Tobacco user Tobacco use type: Cigarette e-Cigarette/Vaping Use: Never Used Second Hand Smoke Exposure: No Use of substances other than those prescribed or required for medical reasons: No Are you DNR?: No Advance Directives: No Advance Directives Information Provided: Yes service: No Current occupational status: unemployed Current occupational exposures/hazards: No Cognitive needs: No Hearing needs: No Vision needs: No Meds Allergies Allergy/AdvReac Type Severity Reaction Status Date / Time doxycycline [DOXYCYCLINE] Allergy Unknown RASH Verified 08/08/24 10:35 metformin Allergy Unknown diarrhea Verified 08/08/24 10:35 dulaglutide [From Trulicity] AdvReac Severe Diarrhea Verified 08/08/24 10:35 Exam Pertinent Lab Results Pertinent Lab Results: Laboratory Tests 07/31/24 15:02 WBC 5.7 Hgb 13.3 Hct 40.1 Plt Count 259 Sodium 141 Potassium 3.7 Chloride 107 Carbon Dioxide 25 BUN 12 Creatinine 0.57 Assessment and Plan Assessment Anesthesia Assessment: Chart Reviewed Documented by User: Gabriella Matt MD 08/08/24 12:54 HPI - Anesthesia Eval Anesthesia Pre-Procedure Meds Is the patient on any of the following meds?: GLP1/DPP4 (Last dose 07/27/24) and SGLT2 Inhib (Last dose 07/27/24) If yes to any meds - educate patient: Pt education - increased risk of aspiration and/or euvolemic DKA PMFSH Past Medical History Medical History Hemorrhoids with complication Therapeutic opioid induced constipation Hypovitaminosis D Chronic GERD 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 Mother No problems noted. Maternal Aunt Breast cancer Family/Other Mental health disorder Breast cancer Family history of problems with anesthesia: No Surgical History Surgical History H/O hand surgery H/O: hysterectomy History of Problems with Anesthesia: No Social History Social History Household Members: Children Housing: Apartment Are you a primary residential care officer to a significant other at home: No Do you presently have visiting nurse or other home services: No Alcohol intake: current Alcohol intake frequency: holidays/special occasions only Alcohol type: beer, wine and hard liquor Comment: sleeping Patient Tobacco Use Status: Former Tobacco user Tobacco use type: Cigarette e-Cigarette/Vaping Use: Never Used Second Hand Smoke Exposure: No Use of substances other than those prescribed or required for medical reasons: No Are you DNR?: No Advance Directives: No Advance Directives Information Provided: Yes service: No Current occupational status: unemployed Current occupational exposures/hazards: No Cognitive needs: No Hearing needs: No Vision needs: No Meds Allergies Allergy/AdvReac Type Severity Reaction Status Date / Time doxycycline [DOXYCYCLINE] Allergy Unknown RASH Verified 08/08/24 10:35 metformin Allergy Unknown diarrhea Verified 08/08/24 10:35 dulaglutide [From Trulicity] AdvReac Severe Diarrhea Verified 08/08/24 10:35 Exam Height,Weight and Vital Signs: Height 5 ft 3 in Weight 83 kg Vital Signs Temp Pulse Resp BP Pulse Ox O2 Del Method 08/08/24 10:44 99.6 F 98 16 139/72 96 Room Air Pertinent Lab Results Pertinent Lab Results: Laboratory Tests 07/31/24 15:02 WBC 5.7 Hgb 13.3 Hct 40.1 Plt Count 259 Sodium 141 Potassium 3.7 Chloride 107 Carbon Dioxide 25 BUN 12 Creatinine 0.57 Lab Results 08/08/24 Range/Units 10:49 POC Glucose 307 H (60-115) mg/dL Airway Mallampati Class: II TM Dist: >3cm Neck ROM: Full Loose/Missing/Broken Teeth: Yes (Missing molars. Denies broken or loose teeth) Heart: RRR Lungs: CTAB Assessment and Plan Assessment Anesthesia Assessment: Anesthesia Plan Discussed and Chart Reviewed Final Anesthetic Review Family History of Problems with Anesthesia: No History of Problems with Anesthesia: No NPO: Yes ASA Class: III Final Preanesthetic Review: No Changes in Pt Med Stat, Meds/Allgs Chart Reviewed, Consent Obtained/Reviewed and Anes Risks/Benef Reviewed Patient Risk: Intermediate Procedure Risk: Low Assessment/Block/Sedation in SS: Assess/Block/Sedation-SS Anesthetic Plan Anesthetic Plan: GA Disposition: Standard PACU
[2024-08-08] VITALS (14 sets, daily range): BP systolic 133–159; BP diastolic 72–101; PULSE 93–101; RESP 15–20; TEMP 36.3–37.6; O2SAT 95–99; BMI 32.4
[2024-08-08 10:54] LABS: Glucose, Whole Blood 307 mg/dL (60-115)
[2024-08-08] MEDS: Lactated Ringers 1,000 ML 100 ML IVCONT (11:00)
--- NOTE | 2024-08-08 12:30 | MHC.SHP ---
Pre-Procedural Eval Section A - 24 Hr Update-Section A only Date of Service: 08/08/24 Section B - Complete if H&P > 30 days Chief Complaint: Other hemorrhoids Details of Present Illness: She has had pain and discomfort hemorrhoids for years and wants proceed with the appendectomy Relevant Family History (Specify if Yes): No Relevant Social History: None Present Medications: None Medical History: Significant History (Depression, hypertension, neck pain, fibromyalgia) Allergies: Allergies Allergy/AdvReac Type Severity Reaction Status Date / Time doxycycline [DOXYCYCLINE] Allergy Unknown RASH Verified 08/08/24 10:35 metformin Allergy Unknown diarrhea Verified 08/08/24 10:35 dulaglutide [From Trulicity] AdvReac Severe Diarrhea Verified 08/08/24 10:35 Review of Systems Sugical H&P ROS: Negative: Constitution, Cardiovascular and Gastrointestinal Exam Surgical H&P Exam: Normal: Heart, Normal: Lungs and Normal: Abdomen Exam Comment: Internal external hemorrhoids Plan Diagnosis/Plan: Unchanged I have reviewed the history and physical and performed a pertinent physical examination on my patient. No changes have occurred unless specified. Time Spent With Patient Time: Total time managing care of this patient today ____ minutes.
--- NOTE | 2024-08-08 14:31 | P.OP_ITS ---
Operative Note Operative Note Date of Service: 08/08/24 Narrative: Preop diagnosis: Internal and external hemorrhoids with pain Postop diagnosis: The same Procedure: Exam under anesthesia hemorrhoidectomy x2 columns Surgeon: Lul Argueta MD Corporate Investigator: MISSAEL Carter student The patient is a 53 year old female with a longstanding history of chronic problems with her hemorrhoids with pain and discomfort. She wanted to proceed with hemorrhoidectomy. She understood the technique of the planned procedure as was the risks, benefits, and alternatives She was brought to the operating room. She was placed in prone jorge-knife position under general anesthesia via endotracheal tube. The buttocks were retracted with wide tape laterally. The perianal area was prepped and draped usual sterile fashion. A surgical time-out was done. The patient received Cefotan 2 g IV preoperatively. I infiltrated the perianal area with lidocaine 1%. Examination of the anal orifice showed hemorrhoids on both the left and right side. I inserted the Lita Morales retractor. I examined the anal canal circumferentially. There was note of mixed columns of internal external hemorrhoids on both the left and right side. There were no other lesions. There was no fissure ulceration I applied a Prieto grasper on the hemorrhoidal column on the left to retract this out into the field. I made a mhaqhj-lg-pmywm stitch at the pedicle. This was done using a chromic 3-0. I then made an incision around this hemorrhoidal column to the perianal skin with a blade 15. I excised this hemorrhoidal column along this incision above the plane of the sphincters with scissors. The incision was then closed with a running chromic 3-0 stitch The same procedure was duplicated on the hemorrhoidal column on the right. Again this was retracted with a Prieto grasper. I made a cadzgu-vj-zbysi stitch at the pedicle. I made an incision around this hemorrhoidal column to the perianal skin and excise this above the plane of the sphincters with scissors. I closed this incision with a running chromic 3-0 stitch. Additional hemostatic xdzcfi-zq-txufw sutures were placed for oozing areas Once hemostasis was confirmed, I infiltrated the perianal area with Marcaine 0.5% for postop analgesia The procedure was then completed The patient tolerated the procedure well. There were no immediate complications. Initial and final counts of sponges and instruments were correct. Estimated blood loss was about 50 cc The patient was extubated without difficulty and transferred to the recovery room with stable vital signs.
[2024-08-08] MEDS: fentaNYL citrate/PF 100 MCG/2 ML VIAL 25 MCG IVPUSH ×4 (14:40→15:05)
[2024-08-08] MEDS: oxyCODONE HCl Immed Release 5 MG TABLET PO (15:19)
== END 2024-08-08 16:01 | disposition home or self-care (01) ==
PROVIDERS: PCP Internal Medicine; Visit Provider Surgery
PROC: (CPT 46260; principal; 2024-08-08 12:30)
DX: K64.8 Other hemorrhoids (principal); K64.4 Residual hemorrhoidal skin tags; K59.03 Drug induced constipation; K21.9 Gastro-esophageal reflux disease without esophagitis; I47.29 Other ventricular tachycardia; C85.90 Non-Hodgkin lymphoma, unspecified, unspecified site; Z86.19 Personal history of other infectious and parasitic diseases; F32.A Depression, unspecified; F41.9 Anxiety disorder, unspecified; M79.7 Fibromyalgia; E11.9 Type 2 diabetes mellitus without complications; Z79.84 Long term (current) use of oral hypoglycemic drugs; Z79.85 Long-term (current) use of injectable non-insulin antidiabetic drugs; Z79.899 Other long term (current) drug therapy; Z88.1 Allergy status to other antibiotic agents; Z88.8 Allergy status to other drugs, medicaments and biological substances; Z87.891 Personal history of nicotine dependence; Z56.0 Unemployment, unspecified
CPT/HCPCS: 46260; 82947; 88304; J0131; J2003; J2250; J2405; J2704; J2795; J3010

== ENCOUNTER → 2024-08-08 10:12 | Outpatient (BNV) | payer OTHER, SELFPAY | PROVIDERS: PCP Internal Medicine; Visit Provider Surgery | DX: K64.8 Other hemorrhoids (principal) | CPT/HCPCS: 46260 ==

== ENCOUNTER 2024-08-21 11:48 | Outpatient (AMB) | payer OTHER, SELFPAY ==
--- NOTE | 2024-08-21 11:49 | MHC.OFFVIS ---
Vital Signs 08/21/24 11:59 Height 5 ft 3 in Weight 180 lb 4 oz BMI 31.9 BP 134/86 Blood Pressure Location Lt brachial Position Sitting Pulse 125 H Intake Visit Reasons: S/P EUA hemorrhoidectomy Intake Note: Patient is seen in office for post op assessment post hemorrhoidectomy. Pt c/o:admits to pain 12/07, denies n/v/d/c, using the pain meds, will need a refill Director Education Required: No Accompanied by: Self / Same As Patient Allergies doxycycline [DOXYCYCLINE] Allergy (Unknown, Verified 08/21/24 11:59) RASH metformin Allergy (Unknown, Verified 08/21/24 11:59) diarrhea [facility] Adverse Reaction (Severe, Verified 08/21/24 11:59) Diarrhea HPI HPI S/P EUA hemorrhoidectomy: Details: She underwent hemorrhoidectomy x2 columns last 08/08/2024. She tolerated procedure well. She currently admits to pain although she says that this improving slowly. 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 Mother No problems noted. Maternal Aunt Breast cancer Family/Other Mental health disorder Breast cancer Social History Household Members: Children Housing: Apartment Are you a primary medicare interviewer to a significant other at home: No Do you presently have visiting nurse or other home services: No Alcohol intake: current Alcohol intake frequency: holidays/special occasions only Alcohol type: beer, wine and hard liquor Patient Tobacco Use Status: Former Tobacco user Tobacco use type: Cigarette e-Cigarette/Vaping Use: Never Used Second Hand Smoke Exposure: No service: No Current occupational status: unemployed Current occupational exposures/hazards: No Cognitive needs: No Hearing needs: No Vision needs: No Female Reproductive History Menstrual Age of Menarche: 11 Review of Systems Const Denies chills and Denies fever(s) Card Denies chest pain Resp Denies cough GI Denies abdominal pain Physical Exam Vital Signs: Last Vital Signs Pulse 125 H 08/21/24 11:59 BP 134/86 08/21/24 11:59 BMI result Body Mass Index 31.9 Const General: no acute distress Resp Effort & Inspection: normal respiratory effort GI Other: Rectal exam shows the hemorrhoidectomy sites to be healing without signs of infection. There is no hematoma, there is no abscess or cellulitis; there was note of some mild edema Palpation (GI): Soft to palpation Assessment & Plan Assessment & Plan (1) Hemorrhoids with complication: Code(s): K64.8 - Other hemorrhoids Category: Medical Plan: Status post hemorrhoidectomy x2 columns. She is actually doing well postoperatively. Her hemorrhoidectomy sites are healing. I will represcribe her pain medications including with the narcotic. She is to continue with hot Sitz baths. We will see her again next month for another wound check. Coding Level of Care Code Global (06751) Diagnoses Hemorrhoids with complication K64.8
[2024-08-21 11:59] VITALS: BP 134/86; PULSE 125; BMI 31.9
--- OUTSIDE RECORDS SUMMARY | 2024-08-21 14:09 | XMS_ITS | Clinical Summary ---
Author Organization [employer] Address [address] [place] [address] Care Team Providers Care Supervisor Pipe Manufacture Name Role Phone Unavailable Primary Care Provider [...] patient's age to complete this topic [place] [address] [address] [address] ACO [facility] STANDARD
== END 2024-08-21 12:11 | disposition home or self-care (01) ==
LOC: HO.HGS 11:49
PROVIDERS: PCP Internal Medicine; Visit Provider Surgery
DX: K64.8 Other hemorrhoids (principal)
CPT/HCPCS: 99024

== ENCOUNTER → 2024-08-21 11:48 | Outpatient (BNVA) | payer OTHER, SELFPAY | PROVIDERS: PCP Internal Medicine; Visit Provider Surgery | DX: Z48.815 Encounter for surgical aftercare following surgery on the digestive system (principal); Z98.890 Other specified postprocedural states | CPT/HCPCS: 99212 ==

== ENCOUNTER 2024-09-23 12:57 | Outpatient (REF) | payer OTHER, SELFPAY ==
--- NOTE | ~2024-09-23 | CT_ITS ---
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 Few small right renal cysts are noted. Liver and gallbladder are unremarkable. The pancreas and adrenal glands are within normal limits No discrete splenic mass is identified. The spleen is otherwise unremarkable. No bowel obstruction, pneumoperitoneum, or pneumatosis. There is colonic diverticulosis without evidence of diverticulitis. The rest of the GI tract is unremarkable. The patient is status post hysterectomy. There is no evidence of adenopathy No acute fracture. IMPRESSION: No acute findings. No evidence of splenic mass or adenopathy. This document has been electronically signed by: Monroe Everett MD on 09/25/2024 13:19:21
--- OUTSIDE RECORDS SUMMARY | 2024-09-23 12:59 | XMS_ITS | Clinical Summary ---
Author Organization [employer] Address [address] [place] [address] Care Team Providers Care Outdoor Guide Name Role Phone Unavailable Primary Care Provider [...] Screening 1971 SDOH Screening 1971 Sigmoidoscopy 1971 Disability Screening 1971 COVID-19 Vaccine (#1) 10/08/1976 Alcohol/Substance Use Screening 1983 Tobacco Screening 1983 [...] patient's age to complete this topic Meningococcal B Vaccine Aged Out No l onger eligible based on patient's age to complete this topic Meningococcal Vaccine Aged Out No tess gera eligible based on patient's age to complete this topic RSV under 20 months Aged Out No longe r eligible based on patient's age to complete this topic Rotavirus Vaccines Aged Out No longer eligible based on patient's age to complete this topic Insurance [facility] ACO [facility] STANDARD
[2024-09-23] MEDS: Barium Sulfate Oral (Berry) 450 ML ORAL.SUSP 900 ML PO (15:50)
[2024-09-23] MEDS: iohexoL 350 MG/ML 100 ML INFUS..BTL 85 ML IV (15:51)
== END 2024-09-23 12:58 | disposition home or self-care (01) ==
LOC: HO.CT 12:57
PROVIDERS: PCP Internal Medicine; Visit Provider Internal Medicine Medical Oncology
DX: C85.10 Unspecified B-cell lymphoma, unspecified site (principal)
CPT/HCPCS: 74177; Q9967

== ENCOUNTER → 2024-09-23 12:59 | Outpatient (BNV) | payer OTHER, SELFPAY | PROVIDERS: PCP Internal Medicine; Visit Provider Radiology Diagnostic Radiology | DX: C83.07 Small cell B-cell lymphoma, spleen (principal) | CPT/HCPCS: 74177 ==

== ENCOUNTER 2024-09-24 13:01 | Outpatient (AMB) | payer OTHER, SELFPAY ==
--- NOTE | 2024-09-24 13:10 | A.OFFVIS_ITS ---
Vital Signs 09/24/24 13:16 Height 5 ft 3 in Weight 179 lb BMI 31.7 BP 139/77 Blood Pressure Location Rt brachial Position Sitting Pulse 107 H Intake Visit Reasons: 1MTH FUV EUA hemorrhoidectomy Intake Note: Patient here 6wks s/p hemorrhoidectomy. Reports incision healing slowly. Patient c/o: some discomfort. Denies diarrhea, constipation. Taking rx pain meds as needed. Sawdust Drier Required: No Accompanied by: Self / Same As Patient Allergies doxycycline [DOXYCYCLINE] Allergy (Unknown, Verified 09/24/24 13:15) RASH metformin Allergy (Unknown, Verified 09/24/24 13:15) diarrhea dulaglutide [[facility]] Adverse Reaction (Severe, Verified 09/24/24 13:15) Diarrhea HPI HPI 1MTH FUV EUA hemorrhoidectomy: Details: She is here for follow-up after hemorrhoidectomy in July, She says she is feeling much better. She states that her pain has improved significantly she denies any bleeding. 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 Mother No problems noted. Maternal Aunt Breast cancer Family/Other Mental health disorder Breast cancer Social History Household Members: Children Housing: Apartment Are you a primary critical care educator to a significant other at home: No Do you presently have visiting nurse or other home services: No Alcohol intake: current Alcohol intake frequency: holidays/special occasions only Alcohol type: beer, wine and hard liquor Patient Tobacco Use Status: Former Tobacco user Tobacco use type: Cigarette e-Cigarette/Vaping Use: Never Used Second Hand Smoke Exposure: No service: No Current occupational status: unemployed Current occupational exposures/hazards: No Cognitive needs: No Hearing needs: No Vision needs: No Female Reproductive History Menstrual Age of Menarche: 11 Review of Systems Const Denies chills and Denies fever(s) Card Denies chest pain Resp Denies cough GI Denies abdominal pain Physical Exam Vital Signs: Last Vital Signs Pulse 107 H 09/24/24 13:16 BP 139/77 09/24/24 13:16 BMI result Body Mass Index 31.7 Const General: comfortable and no acute distress GI Other: Rectal exam shows hemorrhoidectomy sites to be well healed, no redness, no induration, no discharge Assessment & Plan Assessment & Plan (1) Hemorrhoids with complication: Code(s): K64.8 - Other hemorrhoids Category: Medical Plan: Status post hemorrhoidectomy. Her surgical sites are now well healed. She feels much better as well I advised her on avoiding straining and constipation. I did recommend for her to take some fiber supplements. She can otherwise follow up on a p.r.n. basis. Coding Level of Care Code Global (06387) Diagnoses Hemorrhoids with complication K64.8
[2024-09-24 13:16] VITALS: BP 139/77; PULSE 107; BMI 31.7
--- OUTSIDE RECORDS SUMMARY | 2024-09-24 13:48 | XMS_ITS | Clinical Summary ---
Author Organization [employer] Address [address] [place] [address] Care Team Providers Care Assistant Librarian Name Role Phone Unavailable Primary Care Provider [...] patient's age to complete this topic Insurance [facility] ACO [facility] STANDARD
== END 2024-09-24 13:20 | disposition home or self-care (01) ==
LOC: HO.HGS 13:01
PROVIDERS: PCP Internal Medicine; Visit Provider Surgery
DX: K64.8 Other hemorrhoids (principal)
CPT/HCPCS: 99024

== ENCOUNTER → 2024-09-24 13:01 | Outpatient (BNVA) | payer OTHER, SELFPAY | PROVIDERS: PCP Internal Medicine; Visit Provider Surgery | DX: K64.8 Other hemorrhoids (principal) | CPT/HCPCS: 99212 ==

== ENCOUNTER 2024-12-02 15:10 | Outpatient (AMB) | payer OTHER, SELFPAY ==
--- NOTE | 2024-12-02 15:13 | MHC.PC.OV ---
Vital Signs 12/02/24 15:14 Height 5 ft 3 in Weight 181 lb BMI 32.1 BP 120/84 Blood Pressure Location Lt brachial Position Sitting Intake Visit Reasons: ANNUAL Intake Note: Patient here for an annual physical exam Technical Asst Required: No Accompanied by: Self / Same As Patient Allergies doxycycline (DOXYCYCLINE) Allergy (Unknown, Verified 12/02/24 15:27) RASH metformin Allergy (Unknown, Verified 12/02/24 15:27) diarrhea dulaglutide (From [facility]) Adverse Reaction (Severe, Verified 12/02/24 15:27) Diarrhea Medication List - Last Reconciled 12/02/24 by Doretha Devine MD albuterol sulfate 90 mcg/actuation 1 inh inhalation QID blood sugar diagnostic (OneTouch Verio test strips) As directed one time per day blood sugar diagnostic (FreeStyle Lite Strips) Use 1 test strip once a day blood-glucose meter (FreeStyle Lite Meter kit) As directed blood-glucose meter (OneTouch Verio Flex Start kit) As directed celecoxib (Celebrex) 200 mg PO BID PRN 30 days docusate sodium (Colace) 100 mg PO BID duloxetine 30 mg PO BID 90 days empagliflozin (Jardiance) 25 mg PO DAILY 90 days flash glucose scanning reader (FreeStyle Ricardo 2 [place]) As directed flash glucose sensor (FreeStyle Ricardo 14 Day Sensor kit) As directed fluticasone propionate 50 mcg/actuation (Flonase Allergy Relief) 1 spray intranasal DAILY 30 days glimepiride 2 mg PO DAILY 90 days ibuprofen 600 mg PO Q6H PRN lancets As directed one time per day lancets (FreeStyle Lancets) Use 1 lancet once a day nystatin 1 appl topical QID omeprazole 20 mg PO DAILY oxycodone-acetaminophen 5-325 mg 1 tab PO Q6H PRN semaglutide (Ozempic) 2 mg (0.75 mL) subcut QWEEK 4 weeks zolpidem 5 mg PO BEDTIME PRN 30 days Tobacco use date assessed: 07/22/24 Dental Screening Dental Screen Date: 12/02/24 Did you have a dental visit in the last 12 months?: Yes Did you have a dental problem in the last 6 months where you did not have access to dental care?: No Was dental information given to patient?: Patient has dentist HPI HPI Comments History of Present Illness Details The patient is a 54-year-old female presenting for a physical exam and management of chronic conditions. History of B-cell lymphoma follow by Oncology. The patient has a history of Type 2 Diabetes Mellitus with a recent hemoglobin A1c of 8.5%, indicating suboptimal glycemic control. Current medications include Jardiance 25 mg, Ozempic 2 mg, and ibuprofen as needed. The patient is considering a change from glimepiride to repaglinide to improve glycemic control without initiating insulin therapy. The patient reports fibromyalgia, for which pregabalin is being considered as a new treatment option. Duloxetine, previously used for fibromyalgia, is being discontinued. The patient has a history of diverticulosis, which was noted during a previous evaluation. She also has abdominal tenderness and looks like has a ventral hernia. Will order ultrasound. Renal cysts were identified in the left kidney, described as small and not currently concerning. The patient's surgical history includes hemorrhoidectomy, hysterectomy, and hand surgery. Preventative care measures include updating the tetanus vaccine, as it has been over 10 years since the last dose. 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 Sepsis NSVT (nonsustained ventricular tachycardia) Lymphoma Fibromyalgia Diabetes Anxiety Depression Migraines Surgical History Hx of hemorrhoidectomy (08/08/24) H/O hand surgery H/O: hysterectomy Family History (Updated 12/02/24 @ 15:34 by Doretha Devine MD) Father Diabetes mellitus Mother Diabetes mellitus Maternal Aunt Breast cancer Family/Other Mental health disorder Breast cancer Social History Household Members: Children Housing: Apartment Are you a primary pet care technician to a significant other at home: No Do you presently have visiting nurse or other home services: No Alcohol intake: current Alcohol intake frequency: holidays/special occasions only Alcohol type: beer, wine and hard liquor Patient Tobacco Use Status: Former Tobacco user Tobacco use type: Cigarette e-Cigarette/Vaping Use: Never Used Second Hand Smoke Exposure: No service: No Current occupational status: unemployed Current occupational exposures/hazards: No Cognitive needs: No Hearing needs: No Vision needs: No Female Reproductive History Menstrual Age of Menarche: 11 Questionnaire PHQ-9 Over the last 2 weeks, how often have you been bothered by any of the following problems? 1. Little interest or pleasure in doing things: several days 2. Feeling down, depressed, or hopeless: several days 3. Trouble falling or staying asleep, or sleeping too much: several days 4. Feeling tired or having little energy: several days 5. Poor appetite or overeating: not at all 6. Feeling bad about yourself - or that you are a failure or have let yourself or your family down: several days 7. Trouble concentrating on things, such as reading the newspaper or watching television: not at all 8. Moving or speaking so slowly that other people could have noticed. Or the opposite - being so fidgety or restless that you have been moving around a lot more than usual: not at all 9. Thoughts that you would be better off or of hurting yourself in some way: not at all Total score: 5 Depression Screening Interpretation: Positive Depression Screening Follow-up: Existing condition, In treatment and Follow-up Visit Requested Depression Screening Done: Yes 70695 - PHQ-9 Billing: Yes Source: Developed by Drs. Joss Sibley, Sissy Argueta, Lucas Roblero and colleagues, with an educational linda from [email or web address]. Thrive Questionnaire Date Thrive assessed: 12/02/24 I am a: Patient What is your living situation today?: I have a steady place to live Within the past 12 months, did the food you bought not last and you didn't have the money to get more?: Never true Within the past 12 months, did you worry whether your food would run out before you got money to buy more?: Never true Do you have trouble paying for medicines?: No Do you have trouble getting transportation to medical appointments?: No Do you have trouble paying your heating and electricity bill?: Yes Do you have trouble taking care of your child, family member or friend?: No Do you have trouble with day-to-day activities such as bathing, preparing meals, shopping, managing finances, etc.?: Yes Are you currently unemployed and looking for a job?: No Are you interested in more education?: Yes Please select the resources that you would like help with: None Currently or been in a relationship where the following occur: No concerns reported THRIVE Score: 1 AUDIT C Alcohol Use Questionnaire (AUDIT-C) 1. How often do you have a drink containing alcohol?: Monthly or less 2. How many drinks containing alcohol do you have on a typical day when you are drinking?: 1 or 2 3. How often do you have six or more drinks on one occasion?: Never Total Score: 1 Score Reviewed/Action Taken: No BRENDEN-7 AMB Questionnaire BRENDEN-7 Date BRENDEN - 7 assessed: 12/02/24 Feeling nervous, anxious, or on edge: 1 = Several days Not being able to stop or control worryin = Several days Worrying too much about different things: 1 = Several days Trouble relaxin = Several days Being so restless that it is hard to sit still: 1 = Several days Becoming easily annoyed or irritable: 1 = Several days Feeling afraid as if something awful might happen: 0 = Not at all Total BRENDEN-7 score (0-4 normal; 5-9 mild; 10-14 moderate; 15-21 severe): 6 Source: Developed by Drs. Joss Sibley, Sissy Argueta, Lucas Roblero and colleagues, with an educational linda from [email or web address]. BRENDEN-7 Assessment Billing BRENDEN-7 Assessment Tool: BRENDEN-7 Assessment 83694 Review of Systems Const All systems reviewed & are unremarkable except as noted in HPI and below Card Denies chest pain at rest, Denies chest pain with activity, Denies edema, Denies irregular heart rhythm, Denies claudication, Denies dyspnea, Denies dyspnea on exertion, Denies orthopnea, Denies paroxysmal nocturnal dyspnea and Denies slow heart rate Resp Denies cough, Denies dyspnea and Denies dyspnea on exertion GI Denies abdominal pain, Denies change in bowel habits, Denies excessive flatus, Denies nausea and Denies vomiting Denies urinary incontinence, Denies urinary hesitancy and Denies urinary urgency Musc Denies abnormal gait, Denies atrophy, Denies deformity and Denies limited range of motion Skin/Breast Denies bleeding lesions, Denies changing lesions and Denies rash Neuro Denies abnormal gait, Denies behavioral changes and Denies lack of coordination Psych Denies behavioral changes Physical exam (Primary Care) Vital Signs: Last Vital Signs BP 120/84 12/02/24 15:14 BMI result Body Mass Index 32.1 BMI Assessment/Plan discussion: High BMI High, discussed plan: lifestyle, weight reduction, dietary and physical activity Tobacco/Smoking Status: Tobacco use Status Tobacco use date assessed 07/22/24 12/02/24 15:19 Patient Tobacco Use Status Former Tobacco user 12/02/24 15:19 Tobacco use type Cigarette 12/02/24 15:19 e-Cigarette/Vaping Use Never Used 12/02/24 15:19 PHQ-9: PHQ-9 Score PHQ-9: Total score 5 12/02/24 15:47 Depression Screening Interpretation: Positive Depression Screening Follow-up: Existing condition, In treatment and Follow-up Visit Requested Thrive Assessment: Date of Thrive Assessment Date Thrive assessed 12/02/24 12/02/24 15:19 Currently or been in a relationship where the following occur: No concerns reported HENTX Head: Yes normal to inspection, Yes normocephalic and Yes atraumatic Ears: external ears normal Eyes General: appearance normal, both eyes and all related structures Eyelids: Yes eyelids normal Conjunctivae: conjunctivae normal Neck Neck: Yes normal visual inspection and Yes supple Resp Effort & Inspection: normal respiratory effort Auscultation: clear to auscultation bilaterally Cardio Jugular venous distension: no JVD Rate: regular rate Rhythm: regular rhythm Heart sounds: S1 normal heart sound present and S2 normal heart sound present GI Inspection: Yes normal to inspection Palpation (GI): Soft to palpation and nontender Auscultation: normal bowel sounds Skin General skin exam: no rashes or lesions noted Neuro General: no focal motor deficits Extrem General: Yes full ROM Psych Appearance: grossly normal Results AMB Hemoglobin A1c AMB Hemoglobin A1c 8.5 % Last Edit by ANJANA Patel on 12/02/24 15:30 Immunizations Boostrix Tdap 2.5 Lf unit-8 mcg-5 Lf/0.5 mL intramuscular syringe Performing Provider: Doretha Devine MD [facility] Administered by: ANJANA Patel on 12/02/24 15:48 Dose Route Admin Location Dispensed Lot Number Expiration Date [facility] Sulphate Tester 0.5 mL IM Left Deltoid 0.5 mL [id number] 02/20/27 [id number] [employer] Total Dispensed Waste 0.5 mL 0 % VIS Given Date VIS Provided VIS Publication Date 12/02/24 Single Vaccine 24 Eligibility Eligibility Date Funding Source Not VFC Eligible 12/02/24 Private Results Reviewed Results Reviewed: Laboratory Last Values Hgb A1c (Clinic) 8.5 % (4.0-6.0) H 12/02/24 15:23 Coding Level of Care Code Est Pt Level 3 (48739) Est Pt Prev Care 40-64y(01047) Diagnoses Physical exam Z00.00 Fibromyalgia M79.7 B-cell lymphoma C85.10 Diabetes mellitus E11.9 Mild major depression F32.0 Ventral hernia K43.9 Additional Codes BRENDEN-7 Assessment Billing - BRENDEN-7 Assessment Tool: BRENDEN-7 Assessment 68013 ([id number]) PHQ-9 - 32985 - PHQ-9 Billing: Yes ([id number]) Time Spent (min) 34 Assessment & Plan Assessment & Plan (1) Physical exam: Comment: Mammo last 2 years ago. Due, pt will call for a f/u. Colonoscopy due. Colourguard sent. [facility] for eye exam [facility] Due for dental. Encouraged self-referral Per pt, hx of total hysterectomy in 2014. Code(s): Z00.00 - Encounter for general adult medical examination without abnormal findings Category: Medical (2) Fibromyalgia: Code(s): M79.7 - Fibromyalgia Category: Medical (3) B-cell lymphoma: Code(s): C85.10 - Unspecified B-cell lymphoma, unspecified site Category: Medical (4) Diabetes mellitus: Code(s): E11.9 - Type 2 diabetes mellitus without complications Category: Medical (5) Mild major depression: Code(s): F32.0 - Major depressive disorder, single episode, mild Category: Medical (6) Ventral hernia: Code(s): K43.9 - Ventral hernia without obstruction or gangrene Category: Medical Plan The management plan for the patient's Type 2 Diabetes Mellitus includes considering a switch from glimepiride to repaglinide to enhance glycemic control without resorting to insulin therapy. The patient's current medications, including Jardiance and Ozempic, will continue as prescribed. For fibromyalgia, pregabalin will be initiated as duloxetine is discontinued. Preventative care includes administering a tetanus vaccine due to the lapse of over 10 years since the last dose. Patient was informed and verbally consented to the use of an ambient scribe for clinic note documentation during this visit. Orders: Orders US abdomen limited Today K43.9 - Ventral hernia without obstruction or gangrene AMB Hemoglobin A1c Today E11.9 - Type 2 diabetes mellitus without complications TDaP Immunization Today Z23 - Encounter for immunization Lipid Panel Today E78.5 - Hyperlipidemia, unspecified Microalbumin, Random (w Creat) Today R80.9 - Proteinuria, unspecified Vitamin D 25-OH Total Today E55.9 - Vitamin D deficiency, unspecified MM tomosynthesis screening BI Today Z12.31 - Encounter for screening mammogram for malignant neoplasm of breast Comprehensive [place]. Panel Fast Today E11.9 - Type 2 diabetes mellitus without complications Referrals Open Access Screening Colonoscopy Referral Z12.12 - Encounter for screening for malignant neoplasm of rectum Medications: New repaglinide administer within 30 minutes of a meal or snack 1 mg PO TID 30 days 90 tabs 2RF pregabalin 75 mg PO BEDTIME 30 caps 0RF 30 days M79.7 - Fibromyalgia repaglinide administer within 30 minutes of a meal or snack 1 mg PO TID 90 tabs 2RF 30 days Discontinued duloxetine Discontinued Reason: Patient Completed Course 30 mg PO BID 90 days 180 caps 1RF glimepiride Discontinued Reason: Patient Completed Course 2 mg PO DAILY 90 days 90 tabs 1RF
[2024-12-02 15:14] VITALS: BP 120/84; BMI 32.1
--- OUTSIDE RECORDS SUMMARY | 2024-12-02 15:42 | XMS_ITS | Clinical Summary ---
Author Organization [employer] Address [address] [place] [address] Care Team Providers Care Byproducts Maker Name Role Phone Unavailable Primary Care Provider [...] Alcohol/Substance Use Screening 1983 Tobacco Screening 1983 Hepatitis C Screening 10/08/1989 DTaP/Tdap/Td Vaccines (1 - Tdap) 10/08/1990 Hepatitis B Vaccines (1 of 3 - 19+ 3-dose series) 10/08/1990 Pneumococcal Vaccine: 50+ Ye ars (1 of 2 - PCV) 10/08/1990 Zoster Vaccines (1 of 2) 10/08/1990 Pap Smear 10/08/1992 Cervical Cancer Screening 10/08/2001 HPV/Cotest 10/08/2001 Mammogram 2011 Influenza Vaccine (#1) 2024 RSV Patients and Pa tients Aged 60 [...] to complete this topic Insurance [facility] ACO [facility] STAND[employer]
--- OUTSIDE RECORDS SUMMARY | 2024-12-02 15:42 | XMS_ITS | Clinical Summary ---
Author Organization [facility] Address [address] [place] [phone] Phone Care Team Providers Care Cone Marker Name Role Phone Cheri Gonsales MD Primary Care Provider [phone] MD Unavailable [phone] Jeffery Galindo MD, PhD Unavailable [email or web address] Allergies Active Allergy Reactions Criticality Noted Date Comments Metformin Diarrhea 10/22/2020 Medications VITAMIN D3 50 mcg (2,000 unit) capsule Take 1 capsule by mouth daily. 1 Active TRULICITY 0.75 mg/0.5 mL subcutaneous injection Inject 1 mL under the skin once a week. 1 Active JARDIANCE 10 mg tablet Take 10 mg by mouth daily. 1 Active metoprolol tartrate (LOPRESSOR) 50 MG tablet Take 50 mg by mouth 2 (two) times a day. 1 Active FREESTYLE MAIKEL 14 DAY SENSOR Kit 1 Active morphine (MS CONTIN) 30 MG ER tablet Take 30 mg by mouth 2 (two) times a day. 1 Active oxyCODONE HCl 10 mg Tab Take 10 mg by mouth every 4 (four) hours as needed. 1 Active ondansetron (ZOFRAN) 4 MG tablet Take 8 mg by mouth every 8 (eight) hours as needed. 1 Active omeprazole (PRILOSEC) 20 MG capsule Take 20 mg by mouth daily. 1 Active rOPINIRole (REQUIP) 0.25 MG tablet Take 1 tablet by mouth nightly at bedtime as needed. 1 Active SENEXON-S 8.6-50 mg Take 1 tablet by mouth 2 (two) times a day as needed. 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 Not on carlos e 08/25/2022 Are you concerned about learning? Not on file 08/25/2022 No 08/25/2022 No 08/25/2022 Digital Access Answer Date Recorded No 09/26/2022 No 09/26/2022 Reliable internet access at home? Not on file 09/26/2022 Device with a working camera? Not on file Comments Unknown Sex and Gender Information Value Date Recorded Sex Assigned at Not on file Legal Sex Female 1:28 PM EDT Gender Identity Not on file Sexual Orientation Not on file Last Filed Vital Signs Vital Sign Reading Time Taken Comments Blood Pressure 120/66 10/22/2020 3:32 PM EDT Pulse 88 10/22/2020 3:32 PM EDT Temperature 37.1 C (98.8 F) 10/22/2020 3:32 PM EDT Respiratory Rate 20 10/22/2020 3:32 PM EDT Oxygen Saturation 98% 10/22/2020 3:32 PM EDT Inhaled Oxygen Concentration - - Weight 74.6 kg (164 lb 7.4 oz) 10/22/2020 3:32 P M EDT Height - - Body Mass Index - - Plan of Treatment Health Maintenance Due Date Last Done Comments Adult Td,Tdap Booster 1971 LIPID PANEL 1971 DEPRESSION SCREENING 1983 SMOKING Hx and SMOKELESS TOB ACCO SCREENING 10/08/1984 HEPATITIS C SCREENING 10/08/1989 HIV ONE-TIME SCREENING (18-6 5 YEARS) 10/08/1989 PNEUMOCOCCAL VACCINES (50+ y ears) (1 of 2 - PCV) 10/08/1990 ZOSTER VACCINES (1 of 2) 10/08/1990 PAP SMEAR 10/08/1992 MAMMOGRAM 2011 COLOGUARD 10/08/2016 COLONOSCOPY 10/08/2016 COLORECTAL CANCER SCREENING 10/08/2016 FIT TEST 10/08/2016 FOBT 10/08/2016 SIGMOIDOSCOPY 10/08/2016 VIRTUAL COLONOSCOPY 10/08/2016 COVID-19 VACCINE (2023-2 5 season) 2023 HEPATITIS A VACCINES Aged Out No long er eligible based on patient's age to complete this topic HIB VACCINES Aged Out No longer eligi ble based on patient's age to complete this topic MENINGOCOCCAL VACCINES (ACWY) Aged Out No longer eligible based on patient's age to complete this topic MENINGOCOCCAL VACCINES (B) Aged Out N o longer eligible based on patient's age to complete this topic Medical Devices Not on file [place] [address] [place] [address] ACO ACO ACO [employer] [place] [address] [place] [address] [employer]CO [employer] Care Teams Cone Marker Relationship Specialty Start Date End Date Cheri Gonsales MD [address] [place] [phone] PCP - General Internal Medicine 10/12/[address] MD [address] [place] [address] Referring Physician Internal Medicine 10/12/20 Jeffery Galindo MD, PhD [address] [place] [address] [email or web address] Consulting Provider Oncology 10/24/20 Additional Source Comments The information contained in this document represents components of the legal health record. It is not the complete legal health record.[facility]
== END 2024-12-02 15:51 | disposition home or self-care (01) ==
LOC: HO.HMCH 15:10
PROVIDERS: PCP Internal Medicine; Visit Provider Internal Medicine
DX: Z00.00 Encounter for general adult medical examination without abnormal findings (principal); E11.9 Type 2 diabetes mellitus without complications; M79.7 Fibromyalgia; C85.10 Unspecified B-cell lymphoma, unspecified site; F32.0 Major depressive disorder, single episode, mild; K43.9 Ventral hernia without obstruction or gangrene; Z23 Encounter for immunization

== ENCOUNTER → 2024-12-02 15:10 | Outpatient (BNVA) | payer OTHER, SELFPAY | PROVIDERS: PCP Internal Medicine; Visit Provider Internal Medicine | DX: Z00.00 Encounter for general adult medical examination without abnormal findings (principal); C85.10 Unspecified B-cell lymphoma, unspecified site; E11.9 Type 2 diabetes mellitus without complications; M79.7 Fibromyalgia; K57.90 Diverticulosis of intestine, part unspecified, without perforation or abscess without bleeding; Z23 Encounter for immunization; F32.0 Major depressive disorder, single episode, mild; K43.9 Ventral hernia without obstruction or gangrene | CPT/HCPCS: 83036; 90471; 90715; 96127; 99212; 99396 ==

== ENCOUNTER 2024-12-19 15:27 | Outpatient (REF) | payer OTHER, SELFPAY ==
--- NOTE | ~2024-12-19 | MM_ITS ---
EXAMINATION: MM SCREENING DIGITAL BREAST TOMOSYNTHESIS, BILATERAL CLINICAL INFORMATION: Screening. Asymptomatic. COMPARISON: Mammography: Comparison is made with available priors TECHNIQUE: Digital breast mammography with tomosynthesis is performed in both the craniocaudal and mediolateral oblique views along with computer-aided detection (CAD). FINDINGS: There are scattered areas of fibroglandular density (ACR BI-RADS breast composition Category b). Right port partially seen. There are no significant masses, abnormal calcifications, or other abnormalities. MM/MM tomosynthesis screening BI IMPRESSION: No mammographic evidence of malignancy. ASSESSMENT: BI-RADS BI-RADS 1 - Negative RECOMMENDATION: Routine annual mammography screening. 1 year F/U This examination should not preclude the clinical evaluation of a suspicious palpable abnormality. This patient's information was entered into a reminder system with a target due date for their next mammogram. Electronically signed by: Allyn Luis DO 12/23/2024 01:47 PM EDT
--- OUTSIDE RECORDS SUMMARY | 2024-12-19 15:29 | XMS_ITS | Clinical Summary ---
Author Organization [employer] Address [address] [facility] [address] [place] [address] Care Team Providers Care Sales Account Manager Name Role Phone Unavailable Primary Care Provider [...] patient's age to complete this topic Insurance [facility] STANDARD [facility] (O)
--- OUTSIDE RECORDS SUMMARY | 2024-12-19 15:29 | XMS_ITS | Clinical Summary ---
Author Organization [facility] Address [address] [place] [phone] Phone Care Team Providers Care Terminal Makeup Operator Name Role Phone Cheri Gonsales MD Primary Care Provider [phone] MD Unavailable [phone] Jeffery Galindo MD, PhD Unavailable [email or web address] Allergies Active Allergy Reactions Criticality Noted [...] Medical Devices Not on file Insurance [place] [place] [address] ACO ACO ACO A[employer] [place] [address] [place] [address] [employer] Care Teams Terminal Makeup Operator Relationship Specialty Start Date End Date Cheri Gonsales MD [address] [place] [phone] PCP - General Internal Medicine 10/12/[address] MD [address] [place] [address] Referring Physician Internal Medicine 10/12/20 Jeffery Galindo MD, PhD [address] [place] [address] [email or web address] Consulting Provider Oncology 10/24/20 Additional Source Comments The information contained in this document represents components of the legal health record. It is not the complete legal health record.[facility]
== END 2024-12-19 15:28 | disposition home or self-care (01) ==
LOC: HO.MAMMO 15:27
PROVIDERS: PCP Internal Medicine; Visit Provider Internal Medicine
DX: Z12.31 Encounter for screening mammogram for malignant neoplasm of breast (principal)
CPT/HCPCS: 77063; 77067

== ENCOUNTER → 2024-12-19 15:30 | Outpatient (BNV) | payer OTHER, SELFPAY | PROVIDERS: PCP Internal Medicine; Visit Provider Internal Medicine | DX: Z12.31 Encounter for screening mammogram for malignant neoplasm of breast (principal) | CPT/HCPCS: 77063; 77067 ==

== ENCOUNTER 2025-02-27 15:23 | Emergency (ER) | payer OTHER, SELFPAY ==
[2025-02-27] VITALS (7 sets, daily range): BP systolic 116–152; BP diastolic 74–82; PULSE 88–910; RESP 14–18; TEMP 36.6–36.8; O2SAT 98; BMI 31.9; BMI 32.5
--- NOTE | ~2025-02-27 | XR_ITS ---
CLINICAL HISTORY: Midsternal chest pain, rule out pneumonia Chest Radiograph Comparison: CR/IN/SR - XR CHEST 2V - 07/22/24 16:[address]/IN/SR - CT CHEST WITH IV CONTRAST - 08/08/23 16:13 EDT Findings: Right chest wall central venous catheter with the tip terminating at the cavoatrial junction. No cardiomegaly. Normal mediastinal contours. No pneumothorax. No opacity. No pleural effusion. No acute findings in the upper abdomen. No acute fracture. Impression: No acute findings. This document has been electronically signed by: Shweta Smith MD on 02/27/2025 17:46:56
--- NOTE | 2025-02-27 15:24 | ECG_ITS ---
Test Reason : CHEST PAIN Blood Pressure : */* mmHG Vent. Rate : 110 BPM Atrial Rate : 110 BPM P-R Int : 154 ms QRS Dur : 82 ms QT Int : 346 ms P-R-T Axes : 69 25 58 degrees QTcB Int : 468 ms Sinus tachycardia Possible Left atrial enlargement Borderline ECG When compared with ECG of 17-Apr-2020 16:28, No significant change was found Referred By: Adeola Sánchez Electronically Signed By: THAIS BURROUGHS
--- NOTE | 2025-02-27 15:31 | ED_ITS ---
HPI - Chest Pain General Chief Complaint: Chest Pain Stated Complaint: chest pain Time Seen by Provider: 02/27/25 16:38 Source: patient Mode of arrival: ambulatory Limitations: no limitations History of Present Illness ED Provider: Dr. Anatoliy Vargas HPI narrative: 54-year-old female with a history of hypertension, hyperlipidemia, B-cell lymphoma, diabetes mellitus, GERD who presents emergency department for evaluation of substernal chest pain that was present when she woke up at 08:00 hours this morning. Pain has been constant but waxes and wanes in intensity. The pain is currently 8/10 and it was 10/10 at its worst. Pain does radiate to her left neck and down her left arm to her wrist. She has a associated shortness of breath and dyspnea on exertion. She states she has been feeling hot and cold but did not have diaphoresis. She denies nausea vomiting. She did not take any medications for her pain. This is a 1st episode of this type of pain. She denied fever, chills, sore throat, cough. Related Data Previous Rx's ?Medication ?Instructions ?Recorded albuterol sulfate 90 mcg/actuation 1 inh inhalation QI D #1 g 11/11/21 aerosol inhaler blood-glucose meter (OneTouch #1 ea 10/01/23 Verio Flex Start kit) flash glucose scanning reader #1 ea 10/01/23 (FreeStyle Ricardo 2 Hammon) flash glucose sensor (FreeStyle #2 ea 10/01/23 Ricardo 14 Day Sensor kit) nystatin 100,000 unit/gram topical 1 appl topical QID #30 grams 10/01/23 cream blood sugar diagnostic (OneTouch #100 ea 11/13/23 Verio test strips) lancets 28 gauge #100 ea 11/13/23 blood sugar diagnostic (FreeStyle #50 ea 11/22/23 Lite Strips) blood-glucose meter (FreeStyle #1 ea 11/22/23 Lite Meter kit) lancets 28 gauge (FreeStyle #100 ea 11/22/23 Lancets) fluticasone propionate 50 1 spray intranasal DAILY 30 days 03/24/24 mcg/actuation nasal #16 grams spray,suspension (Flonase Allergy Relief) zolpidem 5 mg tablet 5 mg PO BEDTIME PRN insomnia 30 05/13/24 days #30 tabs docusate sodium 100 mg capsule 100 mg PO BID #60 caps 08/08/24 (Colace) ibuprofen 600 mg tablet 600 mg PO Q6H PRN pain #15 t abs 08/21/24 oxycodone-acetaminophen 5 mg-325 1 tab PO Q6H PRN pain #20 tabs 08/21/24 mg tablet omeprazole 20 mg capsule,delayed 20 mg PO DAILY #90 ca ps 09/05/24 release repaglinide 1 mg tablet 1 mg PO TID 30 days #90 tabs 12/02/24 empagliflozin 25 mg tablet 25 mg PO DAILY 90 days #90 tabs 12/06/24 (Jardiance) semaglutide 2 mg/dose (8 mg/3 mL) 2 mg (0.75 mL) subcu t QWEEK 4 12/06/24 subcutaneous pen injector (Ozempic) weeks #3 mL blood pressure test kit-large #1 ea 12/18/24 (Advocate Blood Pressure Monitor kit) lidocaine 4 % topical patch 1 patch topical DAILY PRN pain 30 12/18/24 (Aspercreme (lidocaine)) days #30 ea liraglutide 0.6 mg/0.1 mL (18 mg/3 0.6 mg (0.1 mL) sub cut DAILY 30 01/12/25 mL) subcutaneous pen injector days #3 mL (Victoza 2-William) pen needle, diabetic 31 gauge x #100 ea 01/18/25/ (Comfort EZ Pen [place]) zolpidem 10 mg tablet 10 mg PO BEDTIME PRN sleep 3 0 days 01/27/25 #30 tabs celecoxib 200 mg capsule (Celebrex) 200 mg PO BID PRN pain 30 days #60 02/04/25 caps barium sulfate 2 % (w/v) oral 450 ml PO BID #900 mL suspension (Readi-Cat 2) pregabalin 75 mg capsule 75 mg PO BEDTIME 30 days #30 caps 02/27/25 Allergies Allergy/AdvReac Type Severity Reaction Status Date / Time doxycycline (DOXYCYCLINE) Allergy Unknown RASH Verified 02/27/25 15:33 metformin Allergy Unknown diarrhea Verified 02/27/25 15:33 dulaglutide (From [facility]) AdvReac Severe Diarrhea Verified 02/27/25 15:33 [facility] Past Medical History Attestation statement: The following information was validated with the patient. [facility] Narrative: Social history: She denies tobacco, alcohol and drug use. Source: old records reviewed and nursing notes reviewed Medical History Hemorrhoids with complication Therapeutic opioid induced constipation Hypovitaminosis D Chronic GERD 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 Sepsis NSVT (nonsustained ventricular tachycardia) Lymphoma Fibromyalgia Diabetes Anxiety Depression Migraines Surgical History Hx of hemorrhoidectomy (08/08/24) H/O hand surgery H/O: hysterectomy Family History Family History Father Diabetes mellitus Mother Diabetes mellitus Maternal Aunt Breast cancer Family/Other Mental health disorder Breast cancer Social History Social History Household Members: Children Housing: Apartment Are you a primary rn care transition to a significant other at home: No Do you presently have visiting nurse or other home services: No Alcohol intake: current Alcohol intake frequency: holidays/special occasions only Alcohol type: beer, wine and hard liquor Patient Tobacco Use Status: Former Tobacco user Tobacco use type: Cigarette e-Cigarette/Vaping Use: Never Used Second Hand Smoke Exposure: No service: No Current occupational status: unemployed Current occupational exposures/hazards: No Cognitive needs: No Hearing needs: No Vision needs: No Physical Exam 2 Vital Signs: Vital Signs: Last Vital Signs Temp 98.2 F 02/27/25 21:20 Pulse 88 02/27/25 21:20 Resp 15 02/27/25 21:20 BP 116/74 02/27/25 21:20 Pulse Ox 98 02/27/25 21:20 O2 Del Method Room Air 02/27/25 21:20 BMI result Body Mass Index 32.5 Your right vital signs were normal. NV pulse was entered is 910 , this has an air and heart rate is 91. Exam: General: Awake, alert in no distress Head: Normocephalic, atraumatic EENT: PERRL, sclera and conjunctiva are normal, mouth with no erythema or exudates Neck: Supple, no adenopathy Lung: breath sounds symmetric, no wheezing, no rales and no rhonchi Chest: symmetric movement, nontender Heart: regular rate and rhythm, normal S1, S2 no murmurs or rubs Abdomen: soft, non-tender, nondistended, normal bowel sounds Back: no vertebral tenderness, no CVAT Extremities: no deformities, moves all extremities symmetrically, no edema Neuro: Awake, alert, oriented, normal speech, cranial nerves 2-12 intact, moves all extremities symmetrically Psych: Pleasant, cooperative Course Course Course Narrative: This is a Rapid Medical Examination (RME) performed by Saima Sánchez PA-C in triage. Full HPI, ROS, assessment and treatment plan per primary provider in the Main ED. Hx: 54 yo F here w/ intermittent L sided chest pain over the last few days, becoming more constant today. pain rad to L arm. assoc SOB. hx DM. Plan: labs, exg Medications Administered Discontinued Medications Generic Name Dose Route Start Last Admin Trade Name Freq PRN Reason Stop Dose Admin Aspirin 324 mg 02/27/25 16:49 02/27/25 17:37 Aspirin 81 Mg Tab.Chew PO 02/27/25 16:50 324 mg ONCE ONE Administration Atorvastatin Calcium 80 mg 02/27/25 19:52 02/27/25 20:16 Atorvastatin Calcium 80 Mg Tablet PO 02/27/25 19:53 80 mg ONCE ONE Administration Heparin Sodium (Porcine) 4,000 unit 02/27/25 19:52 02/27/25 20:13 Heparin Sodium,Porcine 5,000 Unit/Ml Vial IVPUSH 02/27/25 19:53 4,000 unit ONCE ONE Administration Sodium Chloride 1,000 mls @ 125 mls/hr 02/27/25 16:49 02/27/25 17:38 Ns IV 02/28/25 00:48 125 mls/hr .Q8H STA Administration Heparin Sodium/Sodium Chloride 25,000 unit in 250 mls @ 0 mls/hr 02/27/25 21:00 02/27/25 21:10 Heparin Sodium,Porcine/1/2ns IVCONT 12 units/kg/hr .Q0M MICHEL 10 mls/hr Protocol Administration Per Protocol Morphine Sulfate 4 mg 02/27/25 16:49 02/27/25 17:37 Morphine Sulfate 4 Mg/Ml Cartridge IVPUSH 02/27/25 16:50 4 mg ONCE STA Administration Protocol Morphine Sulfate 4 mg 02/27/25 19:27 02/27/25 19:32 Morphine Sulfate 4 Mg/Ml Cartridge IVPUSH 02/27/25 19:28 4 mg ONCE STA Administration Protocol Morphine Sulfate 4 mg 02/27/25 20:03 02/27/25 20:13 Morphine Sulfate 4 Mg/Ml Cartridge IVPUSH 02/27/25 20:04 4 mg ONCE STA Administration Protocol Morphine Sulfate 4 mg 02/27/25 20:56 02/27/25 21:07 Morphine Sulfate 4 Mg/Ml Cartridge IVPUSH 02/27/25 20:57 4 mg ONCE STA Administration Protocol Nitroglycerin 1 inch 02/27/25 19:27 02/27/25 19:32 Nitroglycerin 2 % Oint 1 Gm Packet TRANSDERMA 02/27/25 19:28 1 inch ONCE ONE Administration Ondansetron HCl 4 mg 02/27/25 16:49 02/27/25 17:37 Ondansetron Hcl 4 Mg/2 Ml Vial IVPUSH 02/27/25 16:50 4 mg ONCE ONE Administration Medical Decision Making Medical Decision Making MDM Narrative: 54-year-old female with a history of hypertension, hyperlipidemia, B-cell lymphoma, diabetes mellitus, GERD who presents emergency department for evaluation of substernal chest pain that was present when she woke up at 08:00 hours this morning. Pain has been constant but waxes and wanes in intensity. The pain is currently 8/10 and it was 10/10 at its worst. Pain does radiate to her left neck and down her left arm to her wrist. She has a associated shortness of breath and dyspnea on exertion. She states she has been feeling hot and cold but did not have diaphoresis. She denies nausea vomiting. She did not take any medications for her pain. This is a 1st episode of this type of pain. She denied fever, chills, sore throat, cough. Vital signs were normal. Physical examination was unremarkable. Differential diagnosis: ?Includes but is not limited to myocardial infarction, myocardial ischemia, costochondritis, chest wall pain, anemia, electrolyte abnormalities Course: My interpretation patient's laboratory evaluation is as follows: CBC was normal. Glucose elevated 273. AST elevated 138. First troponin was 67.2. Repeat 3 hour troponin was 97.7 which is just below 50% increased (100.8) Patient's initial EKG did not reveal any ST segment elevation or depression, 2nd EKG also showed no acute changes and repeat EKG done at 19:28 hours reveals subtle increase in the ST segments V2 through V5 with new inverted T-waves V3 through V5. I am concerned that the patient may have STEMI versus NSTEMI. Patient was initially treated with aspirin 324 mg to chew, morphine 4 mg IV and Zofran 4 mg IV with some improvement of her chest pain. She told me that her pain is currently 5.5/10 therefore she was ordered to get morphine 4 mg IV and nitro paste 1 in to her chest wall. 20:04 I did discuss the patient's presentation with our covering material requirements planning manager, Dr. Will. He recommended giving the patient heparin and discussing transfer with the supervisor shipping at [facility]. I ordered heparin 4000 units IV, atorvastatin 80 mg IV. I will discuss giving Brilinta with the supervisor shipping as well. 20:27 I did discuss the patient's presentation with the covering supervisor shipping, Dr. Larry. He was able to review the EKGs and felt that the patient should be transferred to [facility] Cardiac Care unit for further evaluation. He recommended holding the Brilinta at this time but he does want the patient on a heparin drip and this was ordered by me. 20:56 Patient's pain is 2/10. She was given a another dose of morphine 4 mg IV. Patient has been accepted into the cardiac care unit at [facility] and will be transferred by ALS ambulance. Differential Diagnosis Differential Diagnoses: The differential diagnosis associated with the presentation includes (See above) Admission/Observation Consideration of admission/observation: Escalation of care including admission/observation considered (Yes) Consult Healthcare Provider Management of the patient was discussed with: Data Designer (Engineer Of System Development, Dr. Will) Lab Data MDM Lab Attestation statement: I reviewed the patient's lab results. 02/27/25 15:42 02/27/25 15:42 Labs: Lab Results 02/27/25 02/27/25 Range/Units 15:42 18:38 WBC 8.0 (4.8-10.8) X10*3/uL RBC 5.40 (4.20-5.50) X10*6/uL Hgb 13.8 (12.0-16.0) g/dl Hct 43.0 (37.0-47.0) % MCV 79.6 L (80.0-98.0) fL MCH 25.6 L (27.0-33.0) pg MCHC 32.1 (31.0-35.0) g/dl RDW 14.9 (11.0-16.0) % Plt Count 252 (160-400) X10*3/uL MPV 9.4 (9.4-12.3) fL Immature Gran % (Auto) 0.9 H (0.0-0.4) % Neut % (Auto) 64.8 (45-73) % Lymph % (Auto) 28.2 (20-40) % Forest % (Auto) 5.2 (2-11) % Eos % (Auto) 0.5 (0-4) % Baso % (Auto) 0.4 (0-2) % Lymph # (Auto) 2.3 (1.2-4.9) X10*3/uL Forest # (Auto) 0.4 (0.1-1.2) X10*3/uL Eos # (Auto) 0.0 (0.0-0.4) X10*3/uL Baso # (Auto) 0.0 (0.0-0.2) X10*3/uL Abs Immat Gran (auto) 0.07 H (0.00-0.03) X10*3/uL Absolute Neuts (auto) 5.2 (2.0-8.3) x10*3/uL Absolute Nucleated RBC 0.000 (0.0-0.012) X10*3/uL Nucleated RBC % (auto) 0.0 (0.0-0.2) /100WBC PT 11.1 (10.9-12.4) SEC INR 1.0 (0.9-1.1) APTT 27.7 (26.7-34.1) SEC Sodium 141 (135-145) mmol/L Potassium 4.3 (3.3-5.1) mmol/L Chloride 108 (96-108) mmol/L Carbon Dioxide 21 L (22-29) mmol/L Anion Gap 16 (12-20) BUN 14 (9-16) mg/dL Creatinine 0.63 (0.5-1.4) mg/dL Estim Creat Clear Calc 104.5 Estimated GFR > 60 Random Glucose 274 H (60-115) mg/dL Calcium 9.2 (8.4-10.2) mg/dL Magnesium 2.0 (1.6-2.6) mg/dL Total Bilirubin 0.5 (0.0-1.0) mg/dL AST 21 (5-31) U/L ALT 27 (0-31) U/L Alkaline Phosphatase 138 H (39-117) U/L Troponin I High Sens 67.2 H* 97.7 H* (<3.5-17.0) ng/L Total Protein 7.6 (6.5-8.0) g/dL Albumin 4.2 (3.5-5.0) g/dL Lipase 37 (8-78) U/L Independent Interpretation I performed an independent interpretation of an: EKG and Plain X-Ray Interpretation: My independent interpretation of the patient's one-view chest x-ray is as follows: No acute disease My independent interpretation of the patient's EKGs are as follows: EKG 1. Sinus tachycardia with a rate of 110, normal AL interval, QRS duration QTC interval, no ST segment elevation, no ST segment depression, no PACs, no PVCs, no significant T-wave abnormalities EKG 2 done on 02/27/2025 at 19:28 hours: Normal sinus rhythm with a rate of 98, less than [address] segment elevation V1 through V5 which is new compared to the 1st EKG, inverted T-waves V4 and V5 Radiology Impression Radiologist Impression: Chest Radiograph Comparison: CR/AL/SR - XR CHEST 2V - 07/22/24 16:[address]/AL/SR - CT CHEST WITH IV CONTRAST - 08/08/23 16:13 EDT Findings: Right chest wall central venous catheter with the tip terminating at the cavoatrial junction. No cardiomegaly. Normal mediastinal contours. No pneumothorax. No opacity. No pleural effusion. No acute findings in the upper abdomen. No acute fracture. Impression: No acute findings. This document has been electronically signed by: Shweta Smith MD on 02/27/2025 17:46:56 Chronic Conditions Patient?s care impacted by: Diabetes and Hypertension Critical Care Time Critical Care Time Critical Care Time: Yes Total Critical Care Time: 75 Attestation: Critical Care: The patient was critically ill with a high probability of imminent or life threatening deterioration. I spent greater than 30 minutes of discontinuous time evaluating the patient,delivering critical care at the bedside, discussing and evaluating pertinent data with consultants. Critical care time does not include time spent performing separately billable procedures or teaching. Total time spent performing critical care was 75 minutes. Discharge Plan Discharge Clinical Impression: Myocardial infarction Patient Disposition: [facility] Transfer Details: [facility] cardiac care unit, Dr. Larry and Dr. Boyd Prescriptions: No Action (DME) FreeStyle Ricardo 14 Day Sensor Kit See Rx Instructions .ROUTE .MEDSUPPLY Qty: 2 11RF Rx Instructions: As directed (DME) FreeStyle Ricardo 2 Hammon Misc See Rx Instructions .ROUTE .MEDSUPPLY Qty: 1 11RF Rx Instructions: As directed (DME) blood-glucose meter [OneTouch Verio Flex Start] Kit See Rx Instructions .Route Qty: 1 0RF Rx Instructions: As directed (DME) OneTouch Verio test strips Strip See Rx Instructions .Route Qty: 100 1RF Rx Instructions: As directed one time per day (DME) lancets 28 gauge misc See Rx Instructions .Route Qty: 100 3RF Rx Instructions: As directed one time per day (DME) blood-glucose meter [FreeStyle Lite Meter] Kit See Rx Instructions .Route Qty: 1 0RF Rx Instructions: As directed (DME) FreeStyle Lite Strips Strip See Rx Instructions .Route Qty: 50 6RF Rx Instructions: Use 1 test strip once a day (DME) lancets [FreeStyle Lancets] 28 gauge misc See Rx Instructions .Route Qty: 100 6RF Rx Instructions: Use 1 lancet once a day zolpidem 5 mg tablet 5 mg PO BEDTIME PRN (Reason: insomnia) 30 Days Qty: 30 0RF Rx Instructions: may repeat once if no response in 30-60 minutes Jardiance 25 mg tablet 25 mg PO DAILY 90 Days Qty: 90 1RF Ozempic 2 mg/dose (8 mg/3 mL) pen injector 2 mg subcut QWEEK 28 Days Qty: 3 3RF lidocaine [Aspercreme (lidocaine)] 4 % adhesive patch,medicated 1 patch topical DAILY PRN (Reason: pain) 30 Days Qty: 30 1RF (DME) blood pressure test kit-large [Advocate Blood Pressure Monitr] Kit See Rx Instructions .Route Qty: 1 0RF Rx Instructions: As directed liraglutide [Victoza 2-William] 0.6 mg/0.1 mL (18 mg/3 mL) pen injector 0.6 mg subcut DAILY 30 Days Qty: 3 3RF (DME) pen needle, diabetic [Comfort EZ Pen [place]] 31 gauge x 5/16 needle See Rx Instructions .Route Qty: 100 3RF Rx Instructions: Use 1 pen needle per day zolpidem 10 mg tablet 10 mg PO BEDTIME PRN (Reason: sleep) 30 Days Qty: 30 0RF celecoxib [Celebrex] 200 mg capsule 200 mg PO BID PRN (Reason: pain) 30 Days Qty: 60 1RF pregabalin 75 mg capsule 75 mg PO BEDTIME 30 Days Qty: 30 0RF albuterol sulfate 90 mcg/actuation Hfa Aerosol Inhaler 1 inh INHALATION QID Qty: 1 2RF omeprazole 20 mg Capsule,Delayed Release(Dr/Ec) 20 mg PO DAILY Qty: 90 4RF Readi-Cat 2 2 % (w/v) Suspension 450 ml PO BID Qty: 900 0RF Rx Instructions: Take 300 mL Q 30 minutes start 2 hours prior to CAT scan. docusate sodium [Colace] 100 mg capsule 100 mg PO BID Qty: 60 2RF repaglinide 1 mg tablet 1 mg PO TID 30 Days Qty: 90 2RF Rx Instructions: administer within 30 minutes of a meal or snack nystatin 100,000 unit/gram cream 1 appl topical QID Qty: 30 3RF fluticasone propionate [Flonase Allergy Relief] 50 mcg/actuation spray,suspension 1 spray intranasal DAILY 30 Days Qty: 16 0RF Rx Instructions: administer into each nostril oxycodone-acetaminophen 5-325 mg tablet 1 tab PO Q6H PRN (Reason: pain) Qty: 20 0RF Rx Instructions: Partial Fill upon patient request. ibuprofen 600 mg tablet 600 mg PO Q6H PRN (Reason: pain) Qty: 15 0RF Interventions: Acute Care Transfer Worksheet (ED) Last Done: 02/27/25 21:20 Discharge Date/Time: 02/27/25 21:20 Print Language: Nepalese
[2025-02-27 15:50] LABS: MANUAL DIFF FLAG NO
[2025-02-27 15:51] LABS: Hematocrit 43.0 % (37.0-47.0); Hemoglobin 13.8 g/dl (12.0-16.0); Imm Gran Abs Auto 0.07 X10*3/uL (0.00-0.03); Imm Gran Pct Auto 0.9 % (0.0-0.4); Lymphocytes Absolute Auto 2.3 X10*3/uL (1.2-4.9); Mean Corpuscular HGB Conc 32.1 g/dl (31.0-35.0); Mean Corpuscular Hemoglobin 25.6 pg (27.0-33.0); Mean Corpuscular Volume 79.6 fL (80.0-98.0); NRBC Abs Auto 0.000 X10*3/uL (0.0-0.012); NRBC Pct Auto 0.0 /100WBC (0.0-0.2); Platelet Count 252 X10*3/uL (160-400); Red Blood Count 5.40 X10*6/uL (4.20-5.50); White Blood Count 8.0 X10*3/uL (4.8-10.8)
--- NOTE | 2025-02-27 15:53 | PC.NURSE ---
PAtient presents to ED c/o C/P and SOB that has been persistent over the last few days but has become worse today Pain rated 8/10, radiates to left arm O2 96% RA RR 20 Patient denies thinners, dizziness, lightheadedness, recent surgeries Patient on rn cardiac rehab sinus tach 106 HR Blood collected / sent Provider in to see patient plan of care on going
--- OUTSIDE RECORDS SUMMARY | 2025-02-27 16:00 | XMS_ITS | Clinical Summary ---
Author Organization [facility] Address [address] [place] [id number] Phone Care Team Providers Care Database Modeler Name Role Phone Cheri Gonsales MD Primary Care Provider Cheng Way MD Unavailable [phone] Jeffery Galindo MD, PhD Unavailable [email or web address] Allergies Active Allergy Reactions Criticality Noted [...] FOBT 10/08/2016 SIGMOIDOSCOPY 10/08/2016 VIRTUAL COLONOSCOPY 10/08/2016 RSV VACCINE (1 - Risk 50-74 years 1-dose series) 10/08/2021 INFLUENZA VACCINE (#1) 2024 COVID-19 VACCINE (1 - 2024-2 6 season) 2024 HEPATITIS A VACCINES Aged Out No long [...] Medical Devices Not on file Insurance ACO ACO ACO ACO ACO ACO ACO [facility] ACO Care Teams Database Modeler Relationship Specialty Start Date End Date Cheri Gonsales MD [address] [place] [phone] PCP - General Internal Medicine 10/12/[address] MD [address] [place] [address] Referring Physician Internal Medicine 10/12/20 Jeffery Galindo MD, PhD [address] [place] [address] [email or web address] Consulting Provider Oncology 10/24/20 Additional Source Comments The information contained in this document represents components of the legal health record. It is not the complete legal health record.[facility]
[2025-02-27 16:05] LABS: Alanine Aminotransferase 27 U/L (0-31); Albumin Level 4.2 g/dL (3.5-5.0); Alkaline Phosphatase 138 U/L (39-117); Anion Gap 16 (12-20); Aspartate Amino Transferase 21 U/L (5-31); Blood Urea Nitrogen 14 mg/dL (9-16); Calcium 9.2 mg/dL (8.4-10.2); Carbon Dioxide 21 mmol/L (22-29); Chloride 108 mmol/L (96-108); Creatinine Clr Calc Pharmacy 104.5; Estimated Glomerular Filt Rate > 60; Lipase 37 U/L (8-78); Magnesium 2.0 mg/dL (1.6-2.6); Potassium 4.3 mmol/L (3.3-5.1); Sodium 141 mmol/L (135-145); Total Protein 7.6 g/dL (6.5-8.0)
[2025-02-27 16:14] LABS: Troponin-I High Sensitivity 67.2 ng/L (<3.5-17.0)
[2025-02-27 19:08] LABS: Troponin-I High Sensitivity 97.7 ng/L (<3.5-17.0)
--- NOTE | 2025-02-27 19:10 | ECG_ITS ---
Test Reason : CHEST PAIN Blood Pressure : */* mmHG Vent. Rate : 98 BPM Atrial Rate : 98 BPM P-R Int : 150 ms QRS Dur : 78 ms QT Int : 386 ms P-R-T Axes : 46 32 66 degrees QTcB Int : 492 ms Normal sinus rhythm Nonspecific T wave abnormality Prolonged QT Abnormal ECG When compared with ECG of 27-Feb-2025 15:35, T wave inversion now evident in Anterior leads Referred By: Ro Silva Electronically Signed By: THAIS BURROUGHS
[2025-02-27 19:12] LABS: INTERNATIONAL NORM RATIO 1.0 (0.9-1.1); Prothrombin Time 11.1 SEC (10.9-12.4)
[2025-02-27 19:15] LABS: Partial Thromboplastin Time 27.7 SEC (26.7-34.1)
[2025-02-27] MEDS: Nitroglycerin 2 % Oint 1 GM Packet 1 INCH TRANSDERMA (19:32)
[2025-02-27] MEDS: Heparin Sodium,Porcine/1/2NS 25,000 UNIT/250 ML IV.SOLN 10 UNIT IVCONT (21:10)
--- NOTE | 2025-02-27 21:29 | PC.NURSE ---
called report to RACHEL at [facility]- answered all questions related to patient treatment and transfer
--- NOTE | 2025-03-04 01:55 | PC.NURSE ---
LE pt was transported to [facility] received NS 462.5 ml prior to leaving. Heparin 1.667 ml prior to leaving
== END 2025-02-27 21:20 | disposition short-term general hospital (02) ==
PROVIDERS: Physician Assistant Medical; Emergency Provider Emergency Medicine Emergency Medical Services; PCP Internal Medicine
DX: I21.9 Acute myocardial infarction, unspecified (principal); I10 Essential (primary) hypertension; E11.9 Type 2 diabetes mellitus without complications; K21.9 Gastro-esophageal reflux disease without esophagitis; Z87.19 Personal history of other diseases of the digestive system; Z85.72 Personal history of non-Hodgkin lymphomas; Z79.899 Other long term (current) drug therapy; Z86.79 Personal history of other diseases of the circulatory system
CPT/HCPCS: 36415; 71045; 80053; 83690; 83735; 84484; 85025; 85610; 85730; 93005; 96374; 96375; 96376; 99285; 99291; J1644; J2270; J2405

== ENCOUNTER → 2025-02-27 15:24 | Outpatient (BNV) | payer OTHER, SELFPAY | PROVIDERS: Emergency Provider Emergency Medicine Emergency Medical Services; PCP Internal Medicine; Visit Provider Internal Medicine | DX: R00.0 Tachycardia, unspecified (principal); R94.31 Abnormal electrocardiogram [ECG] [EKG]; R07.9 Chest pain, unspecified | CPT/HCPCS: 93010 ==

== ENCOUNTER → 2025-02-27 16:59 | Outpatient (BNV) | payer OTHER, SELFPAY | PROVIDERS: Emergency Provider Emergency Medicine Emergency Medical Services; PCP Internal Medicine; Visit Provider Radiology Diagnostic Radiology | DX: R07.89 Other chest pain (principal) | CPT/HCPCS: 71045 ==

== ENCOUNTER 2025-03-20 13:24 | Outpatient (REF) | payer OTHER, SELFPAY ==
--- NOTE | ~2025-03-20 | CT_ITS ---
EXAMINATION: CT ABDOMEN AND PELVIS WITH CONTRAST CLINICAL INFORMATION: Follow-up lymphoma COMPARISON: 09/23/2024 TECHNIQUE: Multidetector volumetric images were obtained from the superior aspect of the liver through the pubic symphysis following administration 85 mL of Omnipaque 350 intravenous contrast. Sagittal and coronal reformatted images were obtained on the technologist's workstation. Oral contrast: No This CT examination was performed using dose optimization techniques as appropriate, variously including the following: *Automated exposure control *Adjustment of mA and/or kV according to patient size (this includes techniques or standardized protocols for targeted exams where dose is matched to indication/reason for exam; i.e. extremities or head) *Use of iterative reconstruction technique FINDINGS: LUNG BASES: See same day chest CT LIVER, GALLBLADDER, AND BILIARY TREE: The liver is normal in size, shape, and attenuation. No focal hepatic lesion or biliary ductal dilatation is present. The gallbladder is unremarkable with no evidence of radiopaque gallstones, gallbladder wall thickening, or obvious pericholecystic inflammatory changes. PANCREAS: Unremarkable. SPLEEN: Again noted is an irregular lobulated contour of the spleen with attenuation near the splenic hilum that is similar to the prior. ADRENAL GLANDS: Unremarkable. KIDNEYS AND URETERS: Multifocal renal cortical scarring and small simple cyst are again identified in the right kidney. No hydronephrosis or nephrolithiasis is noted. BLADDER: Unremarkable. GASTROINTESTINAL TRACT: A few scattered pseudodiverticula are present in the descending and sigmoid colon without sign of infection or inflammation. A normal appendix is identified. ABDOMINAL WALL: Transverse thickening and soft tissue density in the lower abdominal wall in the deep subcutaneous soft tissues probably related to scarring. It is stable and unchanged. LYMPH NODES: Normal. VASCULAR: Mild to moderate vascular calcifications are present. PELVIC VISCERA: The uterus is surgically absent. Ovaries are not clearly identified. OSSEOUS STRUCTURES: Severe facet arthropathy is seen on the left at L4-5 and L5-S1. CT/CT abdomen pelvis w IV con IMPRESSION: No evidence of recurrence. Persistent lobulation of the spleen with hypodensity in the splenic hilum is stable. Stable multifocal cortical scarring is present in the right kidney. Rectosigmoid diverticulosis without sign of infection. Fleischner guidelines were followed. Electronically signed by: Adonis Saenz MD 03/20/2025 05:39 PM EST RP
--- NOTE | ~2025-03-20 | CT_ITS ---
EXAMINATION: CT CHEST WITH CONTRAST CLINICAL INFORMATION: Follow-up lymphoma COMPARISON: August 08, 2023 TECHNIQUE: Multidetector volumetric CT imaging of the chest was obtained after the administration of 85 mL of Omnipaque 350 intravenous contrast without immediate adverse reactions. Axial MIP volume rendering provided. Sagittal and coronal reformatted images were obtained. This CT examination was performed using dose optimization techniques as appropriate, variously including the following: *Automated exposure control *Adjustment of mA and/or kV according to patient size (this includes techniques or standardized protocols for targeted exams where dose is matched to indication/reason for exam; i.e. extremities or head) *Use of iterative reconstruction technique FINDINGS: LUNGS: Faint linear density in the lateral segment right middle lobe12 mm diameter, extending to pleura, likely representing scar tissue is unchanged. It is best appreciated on sagittal image 53 and coronal image 21. Lungs are clear otherwise. MEDIASTINUM: No adenopathy or other abnormality. No coronary artery calcification is identified. PLEURA: There is no pleural effusion. No pleural mass or thickening. AXILLA: A few normal-sized lymph nodes are present. Port-A-Cath is present in the medial superior right breast. Catheter terminates at the superior cavoatrial junction. UPPER ABDOMEN: See same day CT abdomen and pelvis OSSEOUS STRUCTURES: Unremarkable. CT/CT chest w IV con IMPRESSION: Unremarkable examination. Fleischner guidelines were followed. Electronically signed by: Adonis Saenz MD 03/20/2025 04:45 PM EST
--- OUTSIDE RECORDS SUMMARY | 2025-03-20 13:46 | XMS_ITS | Clinical Summary ---
Author Organization [facility] Address [address] [place] [phone] Phone Care Team Providers Care Cash Manager Name Role Phone Cheri Gonsales MD Primary Care Provider [phone] MD Unavailable [phone] Jeffery Galindo MD, PhD Unavailable [email or web address] Allergies Active Allergy Reactions Criticality Noted [...] ACO ACO ACO ACO ACO ACO ACO [facility] ACO Care Teams Cash Manager Relationship Specialty Start Date End Date Cheri Gonsales MD [address] [place] [phone] PCP - General Internal Medicine 10/12/[address] MD [address] [place] [address] Referring Physician Internal Medicine 10/12/20 Jeffery Galindo MD, PhD [address] [place] [address] [email or web address] Consulting Provider Oncology 10/24/20 Additional Source Comments The information contained in this document represents components of the legal health record. It is not the complete legal health record.[facility]
--- OUTSIDE RECORDS SUMMARY | 2025-03-20 13:46 | XMS_ITS | Clinical Summary ---
Author Organization [employer] Address [address] [place] [address] Care Team Providers Care Screen Print Operator Name Role Phone Unavailable Primary Care [...] patient's age to complete this topic Insurance [facility] STANDARD [facility] (O)
[2025-03-20] MEDS: iohexoL 350 MG/ML 100 ML INFUS..BTL 85 ML IV (16:18)
[2025-03-20] MEDS: Barium Sulfate Oral (Berry) 450 ML ORAL.SUSP 900 ML PO (16:19)
== END 2025-03-20 13:25 | disposition home or self-care (01) ==
LOC: HO.CT 13:24
PROVIDERS: PCP Internal Medicine; Visit Provider Internal Medicine Medical Oncology
DX: C76.2 Malignant neoplasm of abdomen (principal)
CPT/HCPCS: 71260; 74177; Q9967

== ENCOUNTER → 2025-03-20 13:27 | Outpatient (BNV) | payer OTHER, SELFPAY | PROVIDERS: PCP Internal Medicine; Visit Provider Radiology Diagnostic Radiology | DX: K57.30 Diverticulosis of large intestine without perforation or abscess without bleeding (principal); C85.90 Non-Hodgkin lymphoma, unspecified, unspecified site | CPT/HCPCS: 71260; 74177 ==